=== PATIENT | male | born 1950 | race Caucasian/White ===

== ENCOUNTER 2019-01-29 01:29 | Outpatient (CLI) | payer OTHER, SELFPAY ==
[2019-01-29 14:58] LABS: BUN 9 mg/dL (7-18); CREATININE 0.73 mg/dL (0.70-1.30)
[2019-01-29] MEDS: Omnipaque 350 MG/ML 100 ML BTL IJ (15:32)
--- NOTE | 2019-01-29 15:33 | DI.CT_ITS ---
EXAM: CT NECK WO/W CLINICAL HISTORY: PAROTID MASS K11.8 TECHNIQUE: 100 cc's of Omnipaque 350 IV was utilized for the exam. COMPARISON: THYROID ULTRASOUND from 05/15/2014 FINDINGS: There is a circumscribed, homogeneous, ovoid lesion in the right parotid gland. There is mild homog eneous enhancement. The lesion measures 2.5 x 1.5 x 2.3 cm. No additional masses are identified. N o adenopathy is seen. The findings could represent a benign mixed tumor, Warthin's tumor or isolated non-Hodgkin's lymphoma or metastatic lymph node. A nodule is again seen in the left lobe of the thy roid. Pacemaker is noted over the left pectoral muscle. Orbits, sinuses and mastoid air cells are u nremarkable. Degenerative changes are seen in the spine. The lung apices appear clear. 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 Other considerations are Warthin's tumor non-Hodgkin's lymphoma or metastatic lym ph node.
[2019-01-29 17:40] LABS: Vitamin D 25 Total 20.9 ng/ml (30-100)
== END 2019-01-29 01:49 ==
PROVIDERS: PCP Family Medicine; Visit Provider Otolaryngology Otolaryngology/Facial Plastic Surgery
DX: K11.8 Other diseases of salivary glands (principal); D37.030 Neoplasm of uncertain behavior of the parotid salivary glands; E04.1 Nontoxic single thyroid nodule; Z95.0 Presence of cardiac pacemaker
CPT/HCPCS: 82306; 84520; 70492; 82565; J3490

== ENCOUNTER 2019-03-24 03:42 | Emergency (ER) | payer OTHER, SELFPAY ==
[2019-03-24] VITALS (21 sets, daily range): BP systolic 125–154; BP diastolic 86–103; PULSE 69–101; RESP 9–22; TEMP 37.1; O2SAT 76–97
--- NOTE | 2019-03-24 03:55 | W.ED.GENAD ---
Discharge Plan Disposition Patient Disposition: HOME Condition: Stable Discharge Details Chief Complaint: Abd Prob Clinical Impression: Abdominal pain Primary Care Provider: [facility] ED Provider: Steve Matute Home Meds and New Rx's Prescriptions: New diazepam [Valium] 5 mg tablet 5 mg PO QHS PRN (Reason: muscle spasm) Qty: 10 RF: 0 Continued Eliquis 5 mg tablet 5 mg PO BID Qty: 180 RF: 3 enalapril maleate 10 mg tablet 10 mg PO DAILY Qty: 90 RF: 4 finasteride 5 mg tablet 5 mg PO DAILY Qty: 90 RF: 4 cholecalciferol (vitamin D3) 1,000 unit capsule 1,000 unit PO DAILY RF: 0 acetaminophen-codeine 1 EACH tablet 1 ea PO Q4H PRN PRNRF: 0 Discharge Instructions Instructions: Abdominal Pain (ED) Additional Instructions: follow up with your primary care provider within 1 week if pain significantly worsens or you have persistent vomit return to the emergency department Medical Decision Making 68 yo male with hx of prior PE, pacemaker, hld, who comes in with abdominal pain. He states the past month he has been having pain starting around 11am and goes away after a few hours but tonight was more severe so came in and had one episode of vomit. HE state he felt well yesterday during the day. His abdomen is tender throughout with guarding in the mid abdomen, has had a prior mesh hernia repair per patient years ago otherwise no other surgeries on the abdomen. Given his degree of pain will obtain ct and lab work to eval for sbo, pancreatitis among other pathology pt's labs show lactate barely outside normal range of under 2, apparently was prolonged attempt to get blood so feel this is more likely cause of mild elevation. Imaging unremarkable. He has mild tenderness to the mid abdomen still, given his continued pain I recommended to admit for observation but he declined and is opting to go home and has capacity to make his own decisions. He is requesting something to help him sleep and given his pain seems like apossible spasm will try valium and advised f/u with pcp and return precautions given Differential Diagnosis Differential Diagnosis: sbo, pancreatitis, hernia Medical Records Medical records reviewed: Yes I reviewed the patient's medical records. Imaging Data Radiologic Study: Attestation: I personally reviewed and interpreted this imaging study as follows: Imaging: CT Scan Radiologist's impression: no acute findings Lab Data Lab results reviewed: Yes I reviewed the patient's lab results. HPI General Mode of arrival: ambulatory. Date/Time Provider Initiated Documentation: 03/24/19 03:47. Limitations to Documentation: no limitations. Information obtained by: patient. History of Present Illness 68 year old M presents to the emergency department with the chief complaint of abdominal pain, described as moderate and severe, and is localized to the abdomen. Patient reports no radiation. Patient started experiencing this hour(s) (4) No relieving factors improve symptom(s), No exacerbating factors reported . Patient did receive the following treatments prior to arrival, none Related Data Home Medications Medication Instructions Recorded Confirmed acetaminophen-codeine 1 ea PO Q4H PRN PRN 03/27/17 03/24/19 apixaban 5 mg tablet 5 mg PO BID #180 tab-cap 01/05/19 03/24/19 enalapril maleate 10 mg tablet 10 mg PO DAILY #90 tab-cap 01/05/19 03/24/19 finasteride 5 mg tablet 5 mg PO DAILY #90 tab-cap 01/05/19 03/24/19 cholecalciferol (vitamin D3) 25 1,000 unit PO DAILY 01/30/19 03/24/19 mcg (1,000 unit) capsule diazepam [Valium] 5 mg PO QHS PRN #10 tab 03/24/19 Previous Rx's Medication Instructions Recorded apixaban 5 mg tablet 5 mg PO BID #180 tab-cap 01/05/19 enalapril maleate 10 mg tablet 10 mg PO DAILY #90 tab-cap 01/05/19 finasteride 5 mg tablet 5 mg PO DAILY #90 tab-cap 01/05/19 diazepam [Valium] 5 mg PO QHS PRN #10 tab 03/24/19 Allergies Allergy/AdvReac Type Severity Reaction Status Date / Time No Known Allergies Allergy Unverified 03/24/19 03:49 General Stated Complaint: Abd Prob MARY: 3 Review of Systems All systems reviewed & are unremarkable except as noted in HPI and below Constitutional Constitutional: Denies fever(s) and Denies weakness Cardiovascular Cardiovascular: Denies dyspnea Respiratory Respiratory: Denies cough and Denies dyspnea Musculoskeletal Musculoskeletal: Denies joint swelling Neurologic Neurologic: Denies weakness Psychiatric Psychiatric: Denies depression Endocrine Endocrine: Denies cold intolerance and Denies heat intolerance [facility] Medical History (Updated 02/08/19 @ 09:41 by Breanna Brandt) BPH (benign prostatic hyperplasia) HTN (hypertension) Myotonic dystrophy PE (pulmonary thromboembolism) Surgical History (Updated 01/25/19 @ 09:59 by Breanna Brandt) Colonoscopy - MAC (05/19/16) Extraction of cataract Pacemaker (Acute) [facility] 01/06/18; DUAL CHAMBER ICD PLACEMENT; BIOTRONIC Repair of umbilical hernia (~1994) Family History Mother Diabetes Essential hypertension Personal history of malignant neoplasm BREAST/UTERINE Aortic valve stenosis Heart disease Hyperlipidemia Father Essential hypertension Personal history of malignant neoplasm COLON Heart disease Hyperlipidemia Stroke Brother Essential hypertension Heart disease Hyperlipidemia Brother Essential hypertension Hyperlipidemia Grandfather No problems noted. Grandfather No problems noted. Grandmother Diabetes Personal history of malignant neoplasm PANCREATIC Grandmother Essential hypertension Hyperlipidemia Stroke PATERNAL HISTORY Personal history of malignant neoplasm Depression Heart disease Myotonic dystrophy Sister Essential hypertension Personal history of malignant neoplasm BREAST Heart disease Hyperlipidemia Son Essential hypertension Hyperlipidemia Daughter No problems noted. Daughter Essential hypertension Depression Hyperlipidemia Daughter No problems noted. Daughter No problems noted. Other Cataract Social History Smoking/Tobacco Use Status: Former Tobacco Use Alcohol Intake: never Drug use: Never Substance use type: does not use Do you feel safe at home: Yes Do you feel safe in your relationship?: Yes Exam Const General: no acute distress Orientation: alert HENMT Head: normal to inspection Ears: external ears normal General nose exam: external nose normal Mouth: moist mucous membranes Eyes General: appearance normal, both eyes and all related structures Neck Neck: normal visual inspection Resp Effort & Inspection: normal respiratory effort and able to speak in complete sentences Cardio Rate: regular rate GI Palpation: tender Skin General skin exam: no rashes or lesions noted Neuro General: alert and oriented x3 Extrem General: normal to inspection Psych Mental Status: mental status grossly normal Course Vital Signs Vital signs: Vital Signs Temperature 37.1 C 03/24/19 03:46 Pulse 94 H 03/24/19 03:46 Respiratory Rate 16 03/24/19 03:46 Blood Pressure 152/101 H 03/24/19 03:46 Pulse Oximetry 97 03/24/19 03:46 Temperature 37.1 C 03/24/19 03:46 Temperature Source Temporal Artery Scan 03/24/19 03:46 Pulse 94 H 03/24/19 03:46 Respiratory Rate 16 03/24/19 03:46 Respiratory Effort Non-Labored 03/24/19 03:46 Blood Pressure 152/101 H 03/24/19 03:46 Blood Pressure Position Sitting 03/24/19 03:46 Pulse Oximetry 97 03/24/19 03:46 Oxygen Delivery Method Room Air 03/24/19 03:46 Oxygen Flow Rate 0 03/24/19 03:46 Pain Level 10 03/24/19 03:46
[2019-03-24] MEDS: Ondansetron 4 MG/2 ML VIAL IVP (03:58)
[2019-03-24] MEDS: Normal Saline 1,000 ML 1000 ML IV (03:58)
[2019-03-24 04:09] LABS: Abs Immature Grans 0.01 k/cumm (0.0-0.09); Absolute Basophil Count 0.05 k/cumm (0.0-0.2); Absolute Eosinophil Count 0.16 k/cumm (0.0-0.7); Absolute Lymphocyte Count 2.56 k/cumm (1.2-3.4); Absolute Monocyte Count 0.62 k/cumm (0.11-0.7); Absolute Neutrophil Count 4.58 k/cumm (1.2-6.7); Basophils % 0.6; HCT 52.7 % (40.0-50.0); HGB 17.4 g/dL (13.5-17.5); Immature Grans % 0.1; Lymphocytes % 32.1; Mean Corpuscular Hemoglobin 29.7 pg (27.0-33.0); Mean Corpuscular Volume 89.9 fL (80-95); Mean Platelet Volume 11.2 fL (8.0-11.0); Monocytes % 7.8; Neutrophils % 57.4; Platelet Count 238 x1000/uL (130-400); RBC 5.86 m/cumm (4.50-6.00); RBC Distribution Width 13.6 % (11.8-14.1); White Blood Cell Count 7.98 k/cumm (4.4-10.8)
[2019-03-24 04:13] LABS: Lactate 2.2 mmol/L (0.6-1.4)
[2019-03-24 04:21] LABS: PTT Activated 26.3 sec (21.0-31.4); Prothrombin Time 10.3 sec (9.3-11.0)
[2019-03-24 04:30] LABS: ALT 73 U/L (16-63); AST 107 U/L (15-37); Albumin 3.8 g/dL (3.4-5.0); Alkaline Phosphatase 146 U/L (46-116); Anion Gap 10.7 mmol/L (3-11); BUN 13 mg/dL (7-18); CO2 27.3 mmol/L (21.0-32.0); Calcium 10.7 mg/dL (8.5-10.1); Chloride 106 mmol/L (98-107); Glucose 133 mg/dL (74-106); Lipase 131 U/L (73-393); Potassium 4.2 mmol/L (3.5-5.1); Sodium 144 mmol/L (136-145); Total Protein 7.5 g/dL (6.4-8.2)
[2019-03-24] MEDS: Omnipaque 350 MG/ML 100 ML BTL IJ (04:48)
--- NOTE | 2019-03-24 04:49 | DI.CT_ITS ---
EXAM: CT ABDOMEN PELVIS CTA CLINICAL HISTORY: abdominal pain, ?mesenteric ischemia. TECHNIQUE: Imaging Protocol: Axial CT angiography was performed with multi-slice acquisition and m ulti-planar and/or 3D reconstructions. CONTRAST MATERIAL: Intravenous: Omnipaque 350 Contrast volume:72 mL contrast route:IV - Oral: No COMPARISON: CHEST FOR PULMONARY EMBOLUS from 07/08/2016 CHEST FOR PULMONARY EMBOLUS from 07/23/2016 FINDINGS: Vascular Structures: Abdomen: Celiac [place]/SMA: No evidence of occlusion or significant stenosis. Renal Arteries: No evidence of occlusion or significant stenosis. There is a single renal artery per fusing each kidney. Aorta: No aneurysm. No dissection. Pelvis: Iliac Arteries: No evidence of occlusion or significant stenosis. Common Femoral Arteries: No evidence of occlusion or significant stenosis. Soft Tissues: Liver: Hepatic steatosis. No measurable mass. Gallbladder and biliary tract: No radiodense calculus or dilation. Pancreas: Normal density, no abnormal calcifications or inflammatory process. Spleen: Normal. Kidneys: Normal size, contour and axis. No radiodense stones or obstructive uropathy. No masses seen. Stable cyst in the superior pole of the right kidney. Adrenal glands: Stable bilateral adrenal nodules. These likely reflect adenomas. Aorta: Abdominal portion non-dilated. Bladder: Symmetric distention, no gross wall thickening. Bowel: Diverticulosis in the colon. No evidence of acute diverticulitis. There is a normal appendix . No evidence of bowel obstruction. Peritoneal cavity: No ascites, collection or mesenteric inflammatory response. Bones: Degenerative changes present. Lymph nodes: Within normal limits. Reproductive organs: Enlarged prostate. IMPRESSION: No evidence of an acute abdominal or pelvic process. DATA REPOSITORY: All CT scans at this facility are submitted to the National Radiology Data Registry (NRDR) Dose Index Registry (DIR) with the [employer] (ACR). RADIATION OPTIMIZATION: All CT scans at this facility use at least one of these dose optimization te chniques: automated exposure control; mA and/or kV adjustment per patient size (includes targeted exa ms where dose is matched to clinical indication); or iterative reconstruction.
--- NOTE | 2019-03-24 04:59 | DI.VRAD_ITS ---
PROCEDURE INFORMATION: Exam: CT Angiography Abdomen and Pelvis With Contrast Exam date and time: 03/24/2019 4:38 AM Age: 68 years old Clinical indication: Generalized; Prior surgery; Surgery date: 6+ months; Surgery type: Hernia mesh x2, pacemmaker; Patient HX: Severe worsening abdominal pain for 8+ hours, no recent trauma TECHNIQUE: Imaging protocol: Computed tomographic angiography of the abdomen and pelvis with intravenous contrast material. 3D rendering: MIP and/or 3D reconstructed images were created by the technologist. Radiation optimization: All CT scans at this facility use at least one of these dose optimization techniques: automated exposure control; mA and/or kV adjustment per patient size (includes targeted exams where dose is matched to clinical indication); or iterative reconstruction. Contrast material: [id number]; Contrast volume: 72 ml; Contrast route: IV 18G RT WRIST; COMPARISON: No relevant prior studies available. FINDINGS: Aorta: No aortic aneurysm. No aortic dissection. Celiac trunk and mesenteric arteries: No occlusion or significant stenosis. Renal arteries: No occlusion or significant stenosis. Right iliac arteries: No occlusion or significant stenosis. Left iliac arteries: No occlusion or significant stenosis. Liver: Hepatic steatosis. Gallbladder and bile ducts: Unremarkable. No calcified stones. No ductal dilation. Pancreas: Unremarkable. No mass. No ductal dilation. Spleen: Unremarkable. No splenomegaly. Adrenals: 2 cm right adrenal gland adenoma. Kidneys and ureters: Unremarkable. No solid mass. No hydronephrosis. Stomach and bowel: Colonic diverticulosis. Appendix: No evidence of appendicitis. Intraperitoneal space: Unremarkable. No free air. No significant fluid collection. Lymph nodes: Unremarkable. No enlarged lymph nodes. Bladder: Unremarkable. No mass. Reproductive: Prostate hypertrophy. Bones/joints: No acute fracture. No dislocation. Soft tissues: Unremarkable. IMPRESSION: No acute finding. Dictated and Authenticated by: Steve Ford MD. Ordering:ONUR Wilson MD
[2019-03-24] MEDS: fentaNYL 100 MCG/2 ML VIAL 75 MCG IVP (05:13)
== END 2019-03-24 06:15 | disposition home or self-care (01) ==
PROVIDERS: Emergency Provider Emergency Medicine; PCP Family Medicine
DX: R10.33 Periumbilical pain (principal); R11.2 Nausea with vomiting, unspecified; I10 Essential (primary) hypertension
CPT/HCPCS: 36415; 80053; 83690; 96361; 96374; 96375; 99285; 74174; 83605; 85025; 85610; 85730; 99284; J2405; J3010; J3490

== ENCOUNTER 2019-07-10 02:30 | Emergency (ER) | payer OTHER, SELFPAY ==
[2019-07-10] VITALS (10 sets, daily range): BP systolic 152–166; BP diastolic 85–90; PULSE 58–74; RESP 8–16; TEMP 36.6; O2SAT 92–95
--- NOTE | 2019-07-10 02:39 | ED.GENADUL_ITS ---
Discharge Plan Disposition Patient Disposition: HOME Condition: Good Discharge Details Chief Complaint: Chest Pain Clinical Impression: Abdominal pain Primary Care Provider: [facility] ED Provider: Elgin Trujillo [facility] Meds and New Rx's Prescriptions: New lansoprazole 30 mg capsule,delayed release(DR/EC) 30 mg PO DAILY Qty: 30 RF: 0 famotidine 40 mg tablet 40 mg PO QHS Qty: 30 RF: 0 sucralfate 1 gram tablet 1 gm PO QACHS Qty: 120 RF: 0 Continued Eliquis 5 mg tablet 5 mg PO BID Qty: 180 RF: 3 enalapril maleate 10 mg tablet 10 mg PO DAILY Qty: 90 RF: 4 finasteride 5 mg tablet 5 mg PO DAILY Qty: 90 RF: 4 cholecalciferol (vitamin D3) 1,000 unit capsule 1,000 unit PO DAILY RF: 0 acetaminophen-codeine 1 EACH tablet 1 ea PO Q4H PRN PRNRF: 0 Discontinued metoclopramide HCl [Reglan] 10 mg tablet 10 mg PO QACHS Qty: 120 RF: 2 omeprazole 40 mg capsule,delayed release(DR/EC) 40 mg PO DAILY Qty: 90 RF: 2 Discharge Instructions Instructions: Abdominal Pain (ED) Additional Instructions: Your EKG, laboratory studies, chest x-ray and CT scan of the abdomen pelvis are all unremarkable/without obvious pathology. This would suggest that pain, nausea, anorexia is likely related to acid type disease. Should try to be seen by GI sooner rather than later as symptoms seem to be getting worse. Will try switching up medications. Please take the lansoprazole in the morning. Take the famotidine at night. Take the sucralfate 4 times a day. Avoid caffeine, alcohol, nonsteroidals. May follow-up with primary care until you get into see GI. Return to ED for persistent vomiting, bloody vomiting, black or bloody stool, shortness of breath, new or worsening pain. Referrals: [facility]. [Primary Care Provider] - Medical Decision Making Patient presents with chest pain that seems to be related to upper abdominal pain. He has been on omeprazole for some time. Feels that he is getting worse not better. First presented back in February with negative CT scan. Has subsequently follow-up with primary care. He has been referred to GI but has not seen them. Pain initially worse after eating. Now to the point where he cannot really eat much of anything because of pain. EKG is paced. His pain does not strike me is cardiac. He also has history of PE but he is on Eliquis denies any pleuritic pain or shortness of breath. Will give IV Pepcid, GI cocktail, oral Carafate. Will obtain laboratory studies including troponin. Will obtain chest x-ray due to complaint of chest pain but more interested in obtaining CTA of the abdomen pelvis to rule out possibility of mesenteric artery occlusions as a source of his pain. Patient reports no relief with IV Pepcid and oral GI cocktail and Carafate. Laboratory studies are unremarkable. Normal white count and hemoglobin. Normal liver function and lipase. Troponin negative. Chemistries normal. Chest x-ray negative except for some linear atelectasis in the bases. CT of abdomen pelvis pending. Will try some IV Tylenol. IV Tylenol maybe helped some. At this point he just wants to go home. We will try switching up his medications. We will discontinue the omeprazole and try lansoprazole. This will be taken in the morning. We will add famotidine which he will take at night. We will also add sucralfate 4 times a day. Refer back to primary care and try to get into GI for endoscopy sooner rather than later. Medical Records Medical records reviewed: Yes I reviewed the patient's medical records. Lab Data Lab results reviewed: Yes I reviewed the patient's lab results. ECG Data Attestation: I personally reviewed and interpreted this ECG (s) as follows: Interpretation: Paced rhythm at 75. 100% capture. No further review. HPI General Mode of arrival: ambulatory . Date/Time Provider Initiated Documentation: 07/10/19 02:36 . Limitations to Documentation: no limitations . Information obtained by: patient, RN notes reviewed and old records reviewed . HPI Narrative: Patient presents to the ED with complaint of upper abdominal pain/chest pain. Patient has had problems with abdominal pain since February. Initially would only bother him after eating and only every few days. Now essentially has constant pain to the point where he is only able to eat a small meal once a day. He is on omeprazole. He has been tried on Reglan. Today he developed upper abdominal pain/epigastric pain/lower substernal chest discomfort. It has been ongoing for 12 hours now. The abdominal pain feels like a chronic pain he has been having. Chest pain is new. He also has some low back pain but he does not think it is related. He has had this on and off for a long time. He denies any fever, cough, shortness of breath. He denies any bloody stool or diarrhea. He denies any nausea or vomiting. He has a referral to see GI but not until August. Related Data Home Medications Medication Instructions Recorded Confirmed acetaminophen-codeine 1 ea PO Q4H PRN PRN 03/27/17 07/10/19 apixaban 5 mg tablet 5 mg PO BID #180 tab-cap 01/05/19 07/10/19 enalapril maleate 10 mg tablet 10 mg PO DAILY #90 tab-cap 01/05/19 07/10/19 finasteride 5 mg tablet 5 mg PO DAILY #90 tab-cap 01/05/19 07/10/19 cholecalciferol (vitamin D3) 25 1,000 unit PO DAILY 01/30/19 07/10/19 mcg (1,000 unit) capsule famotidine 40 mg PO QHS #30 tab 07/10/19 lansoprazole 30 mg PO DAILY #30 cap 07/10/19 sucralfate 1 gm PO QACHS #120 tab 07/10/19 Previous Rx's Medication Instructions Recorded apixaban 5 mg tablet 5 mg PO BID #180 tab-cap 01/05/19 enalapril maleate 10 mg tablet 10 mg PO DAILY #90 tab-cap 01/05/19 finasteride 5 mg tablet 5 mg PO DAILY #90 tab-cap 01/05/19 famotidine 40 mg PO QHS #30 tab 07/10/19 lansoprazole 30 mg PO DAILY #30 cap 07/10/19 sucralfate 1 gm PO QACHS #120 tab 07/10/19 Allergies Allergy/AdvReac Type Severity Reaction Status Date / Time No Known Allergies Allergy Unverified 07/10/19 02:45 General MARY: 3 Review of Systems Narrative: 01/08 Review of Systems completed and is negative except as stated above in HPI (Systems reviewed: Const, Eyes, ENT, Resp, CV, GI, , MSK, Skin, Neuro) PFSH Medical History BPH (benign prostatic hyperplasia) HTN (hypertension) Hyperlipidemia (Chronic 05/29/12) 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 PE (pulmonary thromboembolism) Surgical History Colonoscopy - MAC (05/19/16) Extraction of cataract Pacemaker (Acute) [facility] 01/06/18; DUAL CHAMBER ICD PLACEMENT; BIOTRONIC Repair of umbilical hernia (~1994) Family History Mother Diabetes Essential hypertension Personal history of malignant neoplasm BREAST/UTERINE Aortic valve stenosis Heart disease Hyperlipidemia Father Essential hypertension Personal history of malignant neoplasm COLON Heart disease Hyperlipidemia Stroke Brother Essential hypertension Heart disease Hyperlipidemia Brother Essential hypertension Hyperlipidemia Grandfather No problems noted. Grandfather No problems noted. Grandmother Diabetes Personal history of malignant neoplasm PANCREATIC Grandmother Essential hypertension Hyperlipidemia Stroke PATERNAL HISTORY Personal history of malignant neoplasm Depression Heart disease Myotonic dystrophy Sister Essential hypertension Personal history of malignant neoplasm BREAST Heart disease Hyperlipidemia Son Essential hypertension Hyperlipidemia Daughter No problems noted. Daughter Essential hypertension Depression Hyperlipidemia Daughter No problems noted. Daughter No problems noted. Other Cataract Social History Smoking/Tobacco Use Status: Former Tobacco Use Alcohol Intake: never Drug use: Never Substance use type: does not use Do you feel safe at home: Yes Do you feel safe in your relationship?: Yes Exam Narrative Exam Narrative: Vitals: Afebrile. Normal pulse and respiratory rate. Elevated blood pressure. O2 saturations 94 to 97%. Const: WDWN elderly male in NAD. HEENT: NC/AT. Normal facial exam. Eyes: Normal conjunctiva and sclera. Neck: Supple. Trachea midline. Lungs: Normal respiratory effort. Lungs are clear. No chest wall tenderness. Cor: RRR without murmur/gallop. Good radial pulses. GI: Soft and nondistended. Mild tenderness in the epigastric region. No guarding or rebound. Neuro: A+O x 3. Normal speech, mentation, gait. Cranial nerves II - XII grossly intact. No gross motor or sensory deficit. Ext: No C/C/E. No calf tenderness. Skin: Warm and dry without rash.
[2019-07-10] MEDS: Normal Saline 1,000 ML 125 ML IV (03:06)
[2019-07-10] MEDS: FAMOTIDINE 20 MG/50 ML BAG 200 MG IVPB (03:06)
[2019-07-10] MEDS: Sucralfate 1 GM TAB PO (03:06)
[2019-07-10 03:16] LABS: Lipase 29 U/L (73-393)
[2019-07-10 03:23] LABS: Abs Immature Grans 0.01 k/cumm (0.0-0.09); Absolute Basophil Count 0.02 k/cumm (0.0-0.2); Absolute Eosinophil Count 0.13 k/cumm (0.0-0.7); Absolute Lymphocyte Count 1.55 k/cumm (1.2-3.4); Absolute Monocyte Count 0.58 k/cumm (0.11-0.7); Basophils % 0.3; Eosinophils % 1.9; HGB 15.9 g/dL (13.5-17.5); Immature Grans % 0.1 %; Lymphocytes % 22.8; Mean Corp. HGB Concentration 33.1 g/dL (32.0-36.0); Mean Corpuscular Hemoglobin 29.5 pg (27.0-33.0); Mean Corpuscular Volume 89.1 fL (80-95); Mean Platelet Volume 11.6 fL (8.0-11.0); Monocytes % 8.5; Neutrophils % 66.4; Platelet Count 207 x1000/uL (130-400); RBC 5.39 m/cumm (4.50-6.00); RBC Distribution Width 13.6 % (11.8-14.1); White Blood Cell Count 6.79 k/cumm (4.4-10.8)
[2019-07-10 03:32] LABS: ALT 25 U/L (16-63); AST 17 U/L (15-37); Albumin 3.4 g/dL (3.4-5.0); Alkaline Phosphatase 93 U/L (46-116); Anion Gap 11.1 mmol/L (3-11); BUN 5 mg/dL (7-18); Bilirubin, Total 0.8 mg/dL (0.2-1.0); CO2 27.9 mmol/L (21.0-32.0); CREATININE 0.74 mg/dL (0.70-1.30); Calcium 9.3 mg/dL (8.5-10.1); Chloride 104 mmol/L (98-107); Glucose 117 mg/dL (74-106); Magnesium 2.1 mg/dL (1.8-2.4); Potassium 3.7 mmol/L (3.5-5.1); Sodium 143 mmol/L (136-145); Total Protein 6.6 g/dL (6.4-8.2); Troponin I < 0.05 ng/Ml (<0.06)
[2019-07-10] MEDS: Omnipaque 350 MG/ML 100 ML BTL IJ (03:37)
--- NOTE | 2019-07-10 03:55 | DI.RAD_ITS ---
EXAM: XR CHEST 2V PA LATERAL CLINICAL HISTORY: chest pain TECHNIQUE: 2D digital imaging was performed. COMPARISON: CHEST 2 VIEWS PA,LAT from 05/03/2014 PORTABLE CHEST ONE VIEW from 07/08/2016 FINDINGS: MEDIASTINUM: Normal. HEART: Normal. PULMONARY VASCULATURE: Normal. LUNGS: Bilateral basilar atelectasis or scarring. No focal consolidating infiltrates are present. PLEURAL SPACE: No pleural effusion or pneumothorax. BONE:Normal. OTHER FINDINGS:Stable elevation of the right hemidiaphragm. The cardiac pacing wires are in good pos ition. IMPRESSION: Bilateral basilar atelectasis or scarring. No focal consolidating infiltrates are present. DATA REPOSITORY: RADIATION DOSE DELIVERED:
--- NOTE | 2019-07-10 04:05 | DI.CT_ITS ---
EXAM: CT ABDOMEN PELVIS CTA CLINICAL HISTORY: abdominal pain for few months, worse after eating. TECHNIQUE: Imaging Protocol: Axial CT angiography was performed with multi-slice acquisition and m ulti-planar and/or 3D reconstructions. CONTRAST MATERIAL: Intravenous: Omnipaque 350 Contrast volume:100 mL Oral: No COMPARISON: CT ABDOMEN PELVIS CTA from 03/24/2019 FINDINGS: Vascular Structures: Celiac [place]/SMA: No evidence of occlusion or stenosis. Renal Arteries: No evidence of occlusion or stenosis. There is a single renal artery perfusing each kidney. Aorta: No aneurysm. No dissection. Pelvis: Iliac Arteries: No evidence of occlusion or stenosis. Common Femoral Arteries: No evidence of occlusion or stenosis. Soft Tissues:Mild gynecomastia. Lung bases:There is scarring or atelectasis. Liver: There is diffuse fatty infiltration. There is a simple cyst in the right lobe of the liver. No suspicious hepatic masses are present. Gallbladder and biliary tract: No radiodense calculus or dilation. Pancreas: Normal density, no abnormal calcifications or inflammatory process. Spleen: Normal. Kidneys: Normal size, contour and axis. No radiodense stones or obstructive uropathy. No masses seen. There is a stable right simple renal cyst. Adrenal glands: Stable bilateral adrenal nodules are present. Bladder: Symmetric distention, no gross wall thickening. Bowel: No obstruction or bowel wall thickening. There is colonic diverticulosis but no evidence of ac verito diverticulitis. There is a normal appendix. Peritoneal cavity: No ascites, collection or mesenteric inflammatory response. Reproductive organs: Marked enlargement of the prostate gland. Bones: Degenerative changes are present. Lymph nodes: Within normal limits. IMPRESSION: 1. Normal CT Angiogram of the Abdomen. No evidence to suggest mesenteric ischemia. 2. Marked enlargement of the prostate gland. 3. Colonic diverticulosis but no evidence of acute diverticulitis. DATA REPOSITORY: All CT scans at this facility are submitted to the National Radiology Data Registry (NRDR) Dose Index Registry (DIR) with the [employer] (ACR). RADIATION OPTIMIZATION: All CT scans at this facility use at least one of these dose optimization te chniques: automated exposure control; mA and/or kV adjustment per patient size (includes targeted exa ms where dose is matched to clinical indication); or iterative reconstruction.
[2019-07-10] MEDS: Normal Saline - Diluent 50 ML VIAL IV (04:07)
--- NOTE | 2019-07-10 04:11 | DI.VRAD_ITS ---
PROCEDURE INFORMATION: Exam: XR Chest, 2 Views Exam date and time: 07/10/2019 3:45 AM Age: 69 years old Clinical indication: Right-sided chest pain; epigastric pain. Prior surgery; Pacemaker 2 years ago. TECHNIQUE: Imaging protocol: XR of the chest Views: 2 views. COMPARISON: SC PORTABLE CHEST ONE VIEW 07/08/2016 3:51 AM FINDINGS: Tubes, catheters and devices: Bipolar pacemaker leads within the right atrium and apex of the right ventricle. Lungs: No alveolar infiltrate. Areas linear parenchymal scarring or subsegmental collapse / atelectasis in each lower lung zone. Elevated right hemidiaphragm. Pleural space: No pleural fluid collection. No pneumothorax. Heart/Mediastinum: Unremarkable. No cardiomegaly. Vasculature: Calcific thoracic aorta. Bones/joints: Unremarkable for age. IMPRESSION: Areas of linear parenchymal scarring or subsegmental collapse / atelectasis in each lower lung zone. Dictated and Authenticated by: Viraj Whalen MD. Ordering:VINEET Eisenberg MD
[2019-07-10] MEDS: ACETAMINOPHEN 1,000 MG/100 ML BTL 400 MG IVPB (04:46)
--- NOTE | 2019-07-10 04:46 | DI.VRAD_ITS ---
PROCEDURE INFORMATION: Exam: CT Angiography Abdomen and Pelvis With Contrast Exam date and time: 07/10/2019 3:54 AM Age: 69 years old Clinical indication: Abdominal pain; Abdominal wall pain for a few months, worse after eating. Mesenteric ischemia protocol per Dr. Trujillo. Prior surgery; date: 6+ months; Hernia repair TECHNIQUE: Imaging protocol: Computed tomographic angiography of the abdomen and pelvis with intravenous contrast material. 3D rendering: MIP and/or 3D reconstructed images were created by the technologist. Radiation optimization: All CT scans at this facility use at least one of these dose optimization techniques: automated exposure control; mA and/or kV adjustment per patient size (includes targeted exams where dose is matched to clinical indication); or iterative reconstruction. Contrast material: OMNIPAQUE 350; Contrast volume: 100 ml; Contrast route: IV LAC; COMPARISON: CT ABDOMEN PELVIS CTA 03/24/2019 4:41 AM FINDINGS: Tubes, catheters and devices: Prior pacemaker lead placement. Lungs: Bibasilar linear parenchymal scarring or subsegmental collapse / atelectasis. Aorta: No aortic aneurysm. No aortic dissection. Celiac trunk and mesenteric arteries: No occlusion or significant stenosis. Renal arteries: No occlusion or significant stenosis. Right iliac arteries: No occlusion or significant stenosis. Left iliac arteries: No occlusion or significant stenosis. Liver: Liver fatty infiltration. Small cyst posterior right lobe of the liver. Gallbladder and bile ducts: Normal gallbladder. No biliary tract dilatation. Pancreas: Unremarkable. No mass. No ductal dilation. Spleen: Unremarkable. No splenomegaly. Adrenals: Stable 2.1 cm low-density right adrenal adenoma. Stable 11 by 14 mm low-density left adrenal adenoma. Kidneys and ureters: No hydronephrosis. No perinephric fluid collection. Stable 13 mm cyst within the superomedial right renal cortex. Stomach and bowel: Scattered colon diverticuli without evidence of diverticulitis. No generalized ileus or bowel obstruction. Appendix: Normal appendix. Intraperitoneal space: Unremarkable. No free air. No significant fluid collection. Lymph nodes: Unremarkable. No enlarged lymph nodes. Bladder: Unremarkable. No mass. Reproductive: Enlarged prostate gland measuring 6.1 x 4.9 cm. Bones/joints: No acute fracture. No dislocation. Mild spinal degenerative changes. Soft tissues: Mild gynecomastia. IMPRESSION: 1. CTA abdomen and pelvis within normal limits. No evidence to suggest mesenteric ischemia. 2. Enlarged prostate gland measuring 6.1 x 4.9 cm. 3. Scattered colon diverticuli without evidence of diverticulitis. 4. Liver fatty infiltration. Dictated and Authenticated by: Viraj Whalen MD. Ordering:VINEET Eisenberg MD
== END 2019-07-10 05:26 | disposition home or self-care (01) ==
PROVIDERS: Emergency Provider Emergency Medicine; PCP Family Medicine
DX: R10.10 Upper abdominal pain, unspecified (principal); R07.89 Other chest pain; I10 Essential (primary) hypertension
CPT/HCPCS: 80053; 83690; 93005; 96361; 96365; 96366; 99285; 71046; 74174; 83735; 84484; 85025; 93010; 99284; J0131; J3490

== ENCOUNTER 2019-07-10 11:26 | Emergency (ER) | payer OTHER, SELFPAY ==
[2019-07-10] VITALS (37 sets, daily range): BP systolic 146–172; BP diastolic 75–96; PULSE 59–89; RESP 11–43; TEMP 36.7; O2SAT 84–98
--- NOTE | 2019-07-10 11:45 | DI.US_ITS ---
TECHNIQUE: Ultrasound abdomen performed using standard protocol. COMPARISON: No exams were available for comparison FINDINGS: GALLBLADDER: There is an immobile stone seen within the neck of the gallbladder. The gallbladder wal l measures 3.8 mm. No pericholecystic fluid identified. The gallbladder is distended measuring 4.4 c m in transverse diameter. There is sludge seen within the gallbladder. BILIARY SYSTEM: Common bile duct measures 4.2 mm. No intrahepatic biliary ductal dilation. TESFAYE'S SIGN: Positive ASCITES: None seen. IMPRESSION: 1. Cholelithiasis within an immobile stone seen within the neck of the gallbladder. Additional findi ngs are noted suspicious for acute cholecystitis. 2. The findings were discussed with the emergency department on the date of the examination. DATA REPOSITORY:
--- NOTE | 2019-07-10 11:48 | W.ED.GENAD ---
Discharge Plan Disposition Patient Disposition: [facility] Condition: Serious Discharge Details Chief Complaint: Abd Prob Clinical Impression: Acute cholecystitis Primary Care Provider: [facility] ED Provider: Ron Miller Home Meds and New Rx's Prescriptions: No Action Eliquis 5 mg tablet 5 mg PO BID Qty: 180 RF: 3 enalapril maleate 10 mg tablet 10 mg PO DAILY Qty: 90 RF: 4 finasteride 5 mg tablet 5 mg PO DAILY Qty: 90 RF: 4 cholecalciferol (vitamin D3) 1,000 unit capsule 1,000 unit PO DAILY RF: 0 acetaminophen-codeine 1 EACH tablet 1 ea PO Q4H PRN PRNRF: 0 lansoprazole 30 mg capsule,delayed release(DR/EC) 30 mg PO DAILY Qty: 30 RF: 0 famotidine 40 mg tablet 40 mg PO QHS Qty: 30 RF: 0 sucralfate 1 gram tablet 1 gm PO QACHS Qty: 120 RF: 0 Discharge Data Discharge Date/Time-TO BE ENTERED AT DEPARTURE: 07/10/19 15:32 Medical Decision Making 1157 --69-year-old male with multi-medical problems, here with right upper quadrant abdominal pain that he has had intermittently over the past 3 months, sharp and severe just prior to arrival. Patient was seen here earlier today and had diagnostic lab work-up and diagnostic imaging that was nondiagnostic and it was felt that he had acid related disease. On bedside [id number] ultrasound I was unable to visualize gallbladder. I reviewed CT abdomen pelvis that was performed earlier today and interpreted by radiology as follows: FINDINGS: Vascular Structures: Celiac [place]/SMA: No evidence of occlusion or stenosis. Renal Arteries: No evidence of occlusion or stenosis. There is a single renal artery perfusing each kidney. Aorta: No aneurysm. No dissection. Pelvis: Iliac Arteries: No evidence of occlusion or stenosis. Common Femoral Arteries: No evidence of occlusion or stenosis. Soft Tissues:Mild gynecomastia. Lung bases:There is scarring or atelectasis. Liver: There is diffuse fatty infiltration. There is a simple cyst in the right lobe of the liver. No suspicious hepatic masses are present. Gallbladder and biliary tract: No radiodense calculus or dilation. Pancreas: Normal density, no abnormal calcifications or inflammatory process. Spleen: Normal. Kidneys: Normal size, contour and axis. No radiodense stones or obstructive uropathy. No masses seen. There is a stable right simple renal cyst. Adrenal glands: Stable bilateral adrenal nodules are present. Bladder: Symmetric distention, no gross wall thickening. Bowel: No obstruction or bowel wall thickening. There is colonic diverticulosis but no evidence of acute diverticulitis. There is a normal appendix. Peritoneal cavity: No ascites, collection or mesenteric inflammatory response. Reproductive organs: Marked enlargement of the prostate gland. Bones: Degenerative changes are present. Lymph nodes: Within normal limits. IMPRESSION: 1. Normal CT Angiogram of the Abdomen. No evidence to suggest mesenteric ischemia. 2. Marked enlargement of the prostate gland. 3. Colonic diverticulosis but no evidence of acute diverticulitis. Patient is pain-free at this time. Plan to repeat diagnostic labs and will obtain right upper quadrant abdominal ultrasound to assess for biliary pathology. -- Patient reassessed and pain much worse. Ultrasound obtained and shows distended gallbladder, borderline increased gallbladder wall thickness, gallstone impacted in neck, no pericholecystic fluid. LFTs normal. Lipase is slightly elevated. Pain significantly increased on reassessment. He was given Dilaudid 1 mg IV. Patient given Zosyn 4.5 mg IV. I spoke with on-call general surgeon, Dr. Perez, who spoke with anesthesiology, surgical team is not comfortable treating patient here and recommends transfer. --I spoke with general surgeon at [facility] rental salesperson who will accept the patient in transfer. Patient be transferred to the ED. Patient consents to transfer in stable at time of transfer. Lab Data Lab results reviewed: Yes I reviewed the patient's lab results. Lab results narrative: Laboratory Tests Range/Units 07/10/19 07/10/19 07/10/19 11:50 11:50 11:50 WBC (4.4-10.8) k/cumm RBC (4.50-6.00) m/cumm Hgb (13.5-17.5) g/dL Hct (40.0-50.0) % MCV (80-95) fL MCH (27.0-33.0) pg MCHC (32.0-36.0) g/dL RDW (11.8-14.1) % Plt Count (130-400) x1000/uL MPV (8.0-11.0) fL Immature Gran % % Neutrophils % Lymphocytes % Monocytes % Eosinophils % Basophils % Absolute Neutrophils (1.2-6.7) k/cumm Absolute Lymphocytes (1.2-3.4) k/cumm Absolute Monocytes (0.11-0.7) k/cumm Absolute Eosinophils (0.0-0.7) k/cumm Absolute Basophils (0.0-0.2) k/cumm Sodium (136-145) mmol/L 141 Potassium (3.5-5.1) mmol/L 3.7 Chloride (98-107) mmol/L 103 Carbon Dioxide (21.0-32.0) mmol/L 27.5 Anion Gap (3-11) mmol/L 10.5 BUN (7-18) mg/dL 5 L Creatinine (0.70-1.30) mg/dL 0.66 L Estimated GFR/1.73 m2 (mL/min/1.73m2) >= 60.00 Glucose (74-106) mg/dL 115 H Lactate (0.6-1.4) mmol/L 1.2 Calcium (8.5-10.1) mg/dL 9.2 Total Bilirubin (0.2-1.0) mg/dL 0.9 AST (15-37) U/L 21 ALT (16-63) U/L 26 Alkaline Phosphatase (46-116) U/L 97 Total Protein (6.4-8.2) g/dL 6.9 Albumin (3.4-5.0) g/dL 3.5 Lipase (73-393) U/L 26 Range/Units 07/10/19 11:50 WBC (4.4-10.8) k/cumm 8.36 RBC (4.50-6.00) m/cumm 5.49 Hgb (13.5-17.5) g/dL 16.1 Hct (40.0-50.0) % 48.6 MCV (80-95) fL 88.5 MCH (27.0-33.0) pg 29.3 MCHC (32.0-36.0) g/dL 33.1 RDW (11.8-14.1) % 13.7 Plt Count (130-400) x1000/uL 193 MPV (8.0-11.0) fL 11.2 H Immature Gran % % 0.1 Neutrophils % 81.9 Lymphocytes % 9.6 Monocytes % 8.0 Eosinophils % 0.2 Basophils % 0.2 Absolute Neutrophils (1.2-6.7) k/cumm 6.84 H Absolute Lymphocytes (1.2-3.4) k/cumm 0.80 L Absolute Monocytes (0.11-0.7) k/cumm 0.67 Absolute Eosinophils (0.0-0.7) k/cumm 0.02 Absolute Basophils (0.0-0.2) k/cumm 0.02 Sodium (136-145) mmol/L Potassium (3.5-5.1) mmol/L Chloride (98-107) mmol/L Carbon Dioxide (21.0-32.0) mmol/L Anion Gap (3-11) mmol/L BUN (7-18) mg/dL Creatinine (0.70-1.30) mg/dL Estimated GFR/1.73 m2 (mL/min/1.73m2) Glucose (74-106) mg/dL Lactate (0.6-1.4) mmol/L Calcium (8.5-10.1) mg/dL Total Bilirubin (0.2-1.0) mg/dL AST (15-37) U/L ALT (16-63) U/L Alkaline Phosphatase (46-116) U/L Total Protein (6.4-8.2) g/dL Albumin (3.4-5.0) g/dL Lipase (73-393) U/L HPI General Date/Time Provider Initiated Documentation: 07/10/19 11:45. Limitations to Documentation: no limitations. Information obtained by: patient and EMS. HPI Narrative: 69-year-old male with history of hypertension, hyperlipidemia, myotonic dystrophy, PE in the past,, presents with chief complaint of right upper quadrant pain. Pain started 1 hour ago. Pain was sharp and severe and localized to his right upper abdomen focally. Pain was worse when he took a deep breath. He was given fentanyl 200 mcg by EMS. Patient notes pain is now resolved. Patient states he is had intermittent pain, same or similar to this over the past few months that has been worse after eating. Patient was actually seen here earlier today for abdominal pain and had a CTA of his abdomen and pelvis which was negative. His symptoms were thought to be related to dyspepsia and acid reflux. He denies associated shortness of breath. Denies chest pain. No fever. No nausea or vomiting. Related Data Home Medications Medication Instructions Recorded Confirmed acetaminophen-codeine 1 ea PO Q4H PRN PRN 03/27/17 07/10/19 apixaban 5 mg tablet 5 mg PO BID #180 tab-cap 01/05/19 07/10/19 enalapril maleate 10 mg tablet 10 mg PO DAILY #90 tab-cap 01/05/19 07/10/19 finasteride 5 mg tablet 5 mg PO DAILY #90 tab-cap 01/05/19 07/10/19 cholecalciferol (vitamin D3) 25 1,000 unit PO DAILY 01/30/19 07/10/19 mcg (1,000 unit) capsule famotidine 40 mg PO QHS #30 tab 07/10/19 07/10/19 lansoprazole 30 mg PO DAILY #30 cap 07/10/19 07/10/19 sucralfate 1 gm PO QACHS #120 tab 07/10/19 07/10/19 Previous Rx's Medication Instructions Recorded apixaban 5 mg tablet 5 mg PO BID #180 tab-cap 01/05/19 enalapril maleate 10 mg tablet 10 mg PO DAILY #90 tab-cap 01/05/19 finasteride 5 mg tablet 5 mg PO DAILY #90 tab-cap 01/05/19 famotidine 40 mg PO QHS #30 tab 07/10/19 lansoprazole 30 mg PO DAILY #30 cap 07/10/19 sucralfate 1 gm PO QACHS #120 tab 07/10/19 Allergies Allergy/AdvReac Type Severity Reaction Status Date / Time No Known Allergies Allergy Unverified 07/10/19 14:57 General Stated Complaint: Abd Prob MARY: 3 Review of Systems All systems reviewed & are unremarkable except as noted in HPI and below Cardiovascular Cardiovascular: Denies dyspnea Respiratory Respiratory: Denies dyspnea Gastrointestinal Gastrointestinal: Reports as per HPI and Reports abdominal pain PFSH Medical History BPH (benign prostatic hyperplasia) HTN (hypertension) Hyperlipidemia (Chronic 05/29/12) 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 PE (pulmonary thromboembolism) Surgical History Colonoscopy - MAC (05/19/16) Extraction of cataract Pacemaker (Acute) [facility] 01/06/18; [employer]ACEMENT; BIOTRONIC Repair of umbilical hernia (~1994) Family History Mother Diabetes Essential hypertension Personal history of malignant neoplasm BREAST/UTERINE Aortic valve stenosis Heart disease Hyperlipidemia Father Essential hypertension Personal history of malignant neoplasm COLON Heart disease Hyperlipidemia Stroke Brother Essential hypertension Heart disease Hyperlipidemia Brother Essential hypertension Hyperlipidemia Grandfather No problems noted. Grandfather No problems noted. Grandmother Diabetes Personal history of malignant neoplasm PANCREATIC Grandmother Essential hypertension Hyperlipidemia Stroke PATERNAL HISTORY Personal history of malignant neoplasm Depression Heart disease Myotonic dystrophy Sister Essential hypertension Personal history of malignant neoplasm BREAST Heart disease Hyperlipidemia Son Essential hypertension Hyperlipidemia Daughter No problems noted. Daughter Essential hypertension Depression Hyperlipidemia Daughter No problems noted. Daughter No problems noted. Other Cataract Social History Smoking/Tobacco Use Status: Former Tobacco Use Alcohol Intake: never Drug use: Never Substance use type: does not use Do you feel safe at home: Yes Do you feel safe in your relationship?: Yes Exam Const General: cooperative and no acute distress HENMT Mouth: moist mucous membranes Eyes Conjunctivae: normal conjunctivae Sclera: normal sclerae Neck Neck: trachea midline and supple Resp Auscultation: clear to auscultation bilaterally, no rales, no rhonchi and no wheezes Cardio Jugular venous pressure: no JVD Rate: regular rate and not tachycardic Rhythm: regular rhythm GI Palpation: soft, not firm, no guarding, no masses, not rigid and nontender Skin General skin exam: no rashes or lesions noted Neuro General: patient alert, patient awake and tone normal Extrem General: no edema Psych Appearance: grossly normal Mental Status: mental status grossly normal Course Vital Signs Vital signs: Vital Signs Temperature 36.7 C 07/10/19 11:28 Pulse 80 07/10/19 11:28 Respiratory Rate 17 07/10/19 11:28 Blood Pressure 157/96 H 07/10/19 11:28 Pulse Oximetry 97 07/10/19 11:28 Temperature 36.7 C 07/10/19 11:28 Temperature Source Tympanic 07/10/19 11:28 Pulse 80 07/10/19 11:28 Respiratory Rate 17 07/10/19 11:28 Respiratory Effort 07/10/19 11:41 Blood Pressure 157/96 H 07/10/19 11:28 Blood Pressure Position Sitting 07/10/19 11:28 Pulse Oximetry 97 07/10/19 11:28 Oxygen Delivery Method Nasal Cannula 07/10/19 11:28 Oxygen Flow Rate 2 07/10/19 11:28 Pain Level 0 07/10/19 11:28
[2019-07-10] MEDS: Normal Saline Flush 10 ML SYR IVP (11:55)
[2019-07-10 11:56] LABS: Abs Immature Grans 0.01 k/cumm (0.0-0.09); Absolute Basophil Count 0.02 k/cumm (0.0-0.2); Absolute Eosinophil Count 0.02 k/cumm (0.0-0.7); Absolute Monocyte Count 0.67 k/cumm (0.11-0.7); Absolute Neutrophil Count 6.84 k/cumm (1.2-6.7); Basophils % 0.2; Eosinophils % 0.2; HCT 48.6 % (40.0-50.0); HGB 16.1 g/dL (13.5-17.5); Immature Grans % 0.1 %; Lactate 1.2 mmol/L (0.6-1.4); Lymphocytes % 9.6; Mean Corp. HGB Concentration 33.1 g/dL (32.0-36.0); Mean Corpuscular Hemoglobin 29.3 pg (27.0-33.0); Mean Corpuscular Volume 88.5 fL (80-95); Mean Platelet Volume 11.2 fL (8.0-11.0); Neutrophils % 81.9; Platelet Count 193 x1000/uL (130-400); RBC 5.49 m/cumm (4.50-6.00); RBC Distribution Width 13.7 % (11.8-14.1); White Blood Cell Count 8.36 k/cumm (4.4-10.8)
[2019-07-10] MEDS: Lactated Ringers 1,000 ML 150 ML IV (12:00)
[2019-07-10 12:09] LABS: Lipase 26 U/L (73-393)
[2019-07-10 12:14] LABS: ALT 26 U/L (16-63); AST 21 U/L (15-37); Albumin 3.5 g/dL (3.4-5.0); Alkaline Phosphatase 97 U/L (46-116); Anion Gap 10.5 mmol/L (3-11); BUN 5 mg/dL (7-18); Bilirubin, Total 0.9 mg/dL (0.2-1.0); CO2 27.5 mmol/L (21.0-32.0); CREATININE 0.66 mg/dL (0.70-1.30); Calcium 9.2 mg/dL (8.5-10.1); Chloride 103 mmol/L (98-107); Glucose 115 mg/dL (74-106); Potassium 3.7 mmol/L (3.5-5.1); Sodium 141 mmol/L (136-145); Total Protein 6.9 g/dL (6.4-8.2)
[2019-07-10] MEDS: oxyCODONE 5 MG TAB PO (13:09)
[2019-07-10] MEDS: HYDROmorphone 2 MG/ML VIAL 1 MG IVP ×2 (13:35→15:15)
[2019-07-10] MEDS: PIPERACILLIN/TAZO 4.5 GM in Normal Saline 100 ML IVPB (15:21)
== END 2019-07-10 15:32 | disposition short-term general hospital (02) ==
PROVIDERS: Emergency Provider Student in an Organized Health Care Education/Training Program; PCP Family Medicine
DX: K81.0 Acute cholecystitis (principal); I10 Essential (primary) hypertension
CPT/HCPCS: 80053; 83690; 96361; 96374; 96376; 99285; 76705; 83605; 85025; J2543

== ENCOUNTER 2020-07-24 02:02 | Outpatient (CLI) | payer OTHER, SELFPAY ==
[2020-07-24 12:40] LABS: HCT 51.5 % (40.0-50.0); HGB 16.4 g/dL (13.5-17.5); MCH 29.1 pg (27.0-33.0); MCHC 31.8 % (32.0-36.0); MCV 91.5 fL (80-95); MPV 11.5 fL (8.0-11.0); Platelet Count 216 10^3/uL (130-400); RBC 5.63 10^6/uL (4.36-5.78); RDW 13.4 % (11.8-14.1); RDW-SD 45.8 fL; WBC 7.19 10^3/uL (4.4-10.8)
[2020-07-24 12:52] LABS: CREATININE 0.9 mg/dL (0.70-1.30); Potassium 4.5 mmol/L (3.5-5.1)
[2020-07-24 12:56] LABS: Hemoglobin A1C 5.3 % (<5.7)
== END 2020-07-24 02:03 | disposition home or self-care (01) ==
LOC: LOS 02:03
PROVIDERS: PCP Family Medicine; Visit Provider Family Medicine
DX: D64.9 Anemia, unspecified (principal); I10 Essential (primary) hypertension; R73.9 Hyperglycemia, unspecified
CPT/HCPCS: 36415; 85027; 82565; 83036; 84132

== ENCOUNTER 2021-12-05 06:37 | Emergency (ER) | payer OTHER, SELFPAY ==
[2021-12-05 06:42] VITALS: BP 167/87; PULSE 69; RESP 18; TEMP 36.8; O2SAT 93
--- OUTSIDE RECORDS SUMMARY | 2021-12-05 06:43 | XMS_ITS | Encounter Summary ---
:1950 Author Organization [facility] [place] [address] Care Team Providers Name Role Phone Pool Hercules MD Primary Care Provider [phone] Reason for Visit Reason Comments Hospital Transfer Auth/Cert Specialty Diagnoses / Procedures Referred By Contact Refer red To Contact Diagnoses Acute cholecystitis INFECTED GAL BLADDER Procedures ER IPI Admit Referral ID Status Reason Start Date Expiration Date Visits Requ ested Visits Authorized [id number] 1 1 Encounter Details Date Type Department Care Team Description 07/11/2019 Surgery Main Operating Room Amari Schneider LAPA ROSCOPIC Leanne Bowles MD CHOLECYSTECTOMY WITH [facility] CHOLANGIOGRAM (WRVU 11.47) [facility] [address] [place] [address] [place] [address] [phone] Social History Tobacco Use Types Packs/Day Years Used Date Former Smoker Cigarettes 1 20 Smokeless Tobacco: Never Used Tobacco Cessation: Counseling Given: No Alcohol Use Standard Drinks/Week Comments Not Currently 0 (1 standard drink = 0.6 oz pure alcoho l) Sex Assigned at Date Recorded Not on file documented as of this encounter Last Filed Vital Signs Vital Sign Reading Time Taken Comments Blood Pressure 129/78 07/11/2019 11:48 AM EDT Pulse 70 07/11/2019 5:05 AM EDT Temperature 36.5 ??C (97.7 ??F) 07/11/2019 11:48 AM EDT Respiratory Rate 16 07/11/2019 11:48 AM EDT Oxygen Saturation 95% 07/11/2019 11:48 AM EDT Inhaled Oxygen Concentration - - Weight 80.5 kg (177 lb 6.4 oz) 07/11/2019 5:05 AM EDT Height 172.7 cm (5' 8) 07/10/2019 9:05 PM EDT Body Mass Index 26.62 07/10/2019 9:05 PM EDT documented in this encounter Discharge Summaries Bacilio Mcdowell MD - 07/14/2019 12:40 PM EDT Images from the original note were not included. Acute Care Surgery Discharge Summary Patient Name: Rivas Carlos Patient Age: 69 y.o. : 1950 Attending Physician: Gallo Gardner MD Date of Admission: 07/10/2019 Date of Discharge: 07/14/2019 ID: 69 y.o.yo pt admitted on 07/10/2019 for acute cholecystitis Other In-hospital Issues: - Acute Pain Secondary Diagnosis: Past Medical History: Diagnosis Date ??? Myotonic dystrophy Allergies: No Known Allergies Operations/Procedures: 07/11/2019 Procedure(s): LAPAROSCOPIC CHOLECYSTECTOMY WITH CHOLANGIOGRAM ([facility]) HPI: from H&P by Dr. Elgin Martino Rivas Carlos is a 69 y.o. male with PMH HTN, HLD, myotonic dystrophy, PE, and pace maker insertion (on eliquis) who presents in transfer from [facility] for concerns regarding acute cholecystitis. He reports that he started having intermittent RUQ pain about 4 months ago that was post-prandial in nature.He did not seek care or do anything about the pain. Over the last 48 hours the pain has acutely worsened and the pain has become more diffuse than just localized to the RUQ. He has had anorexia and intermittent nausea over the last 2 days. Has not eaten anything in >24H. The pain is constant now and is not allowing him to fall asleep at night. He presented to [facility] for evaluation where CT was done which only revealed diverticulosis w/o diverticulitis and a f/u U/S showed an impacted stone in the gallbladder neck w/ GB dilation. Given his myotonic dystrophy request was made to transfer him to [facility]. He also does report some subjective low grade fevers. No Chest pain. Does feel short of breath 2/2 pain with inspiration. Labs at OSH fairly unremarkable, no leukocytosis, LFTs normal, normal lactate.Per patient last dose of eliquis was yesterday morning. Hospital Course: Mr. Carlos was admitted to the ACS service and started on medical therapy. He was taken to the OR on 07/11/2019 for laparoscopic cholecystectomy with drain placement given the extent of inflammation/necrosis found. On POD1, he was tolerating mostly liquids but pain control remained an issue. By POD2, his pain was adequately managed, drain output remained minimal, he was tolerating a diet, passing stool, and he ambulated with PT/OT. Rivas Carlos's pain was adequately controlled, he was maintaining adequate oxygen saturation on room air, and was hemodynamically stable. He was tolerating a diet without abdominal complaints and voiding adequately. WBC and Hgb were stable. He was ambulating with assistance per his baseline. Rivas Carlos was evaluated by the Surgery Team and deemed medically stable for discharge today. Pending Lab Data at Discharge: None Pertinent Lab Data: Recent Labs 07/12/19 0631 WBC 8.4 HGB 14.2 HCT 44.4 PLATELET 162 Recent Labs 07/13/19 0201 07/12/19 0631 NA 141 142 K 4.0 4.1 CL 102 105 CO2 31 27 BUN 8* 7* CREATININE 0.57* 0.56* GLUCOSE 109 147 CALCIUM 8.9 9.0 MAGNESIUM -- 0.90 PHOS -- 1.9* Microbiology Data: None Pertinent Imaging: CT A/P at OSH: 1. Within normal limits 2. Enlarged prostate 3. Scattered colonic diverticula w/o diverticulitis 4. Liver fatty infiltration ?? U/S OSH:?? 1. Cholelithiasis w/ immobile stone w/in neck of gallbladder. GB distended to 4.4cm. Evidence of sludge 2. CBD measures 4.2mm 3. No pericholecystic fluid, GB wall measures 3.8mm ?? Discharge Physical Examination: Vital Signs: Last value Range last 24hrs Temperature Temp: 36.5 ??C (97.7 ??F) Temp: [36.4 ??C (97.5 ??F)-36.9 ??C (98.4 ??F)] Heart Rate Heart Rate: 60 Heart Rate: [60-68] Blood Pressure BP: 121/77 BP: (102-128)/(64-77) Respiratory Rate Resp: 16 Resp: [16-17] SpO2 SpO2: (!) 85 % SpO2: [84 %-96 %] Physical Exam: GA:??elderly man laying in bed Head: normocephalic, atraumatic CV: Paced, no murmurs rubs gallops Pulm:??CTABL, comfortably breathing on 2 L NC ABD:??Distended, TTP at midepigastric and RUQ, incisions c/d/i, DAVIAN drain from RUQ with serosanguinous output Extr: warm and well perfused, no notable edema Neuro: no focal deficits Current Medications: The following medications have been prescribed for you. If you notice any adverse reactions to your medications, please contact your primary care physician immediately or go to the nearest Emergency Department. Your Medications Continued medications, unchanged Dose Details Eliquis 5 mg Tab Take 5 mg by mouth 2 times daily. Generic drug: apixaban 5 mg Refills: 0 enalapril 10 mg Tab Commonly known as: Vasotec Refills: 0 finasteride 5 mg Tab Commonly known as: Proscar Refills: 0 STOPPED Medications Tylenol-Codeine #3 300-30 mg Tab Generic drug: acetaminophen-codeine Disposition: Home Scheduled Appointments: The following appointments have been scheduled on your behalf: No future appointments. Outpatient Services/Studies: No discharge procedures on file. Special Instructions Given to Patient at Discharge:. An After Visit Summary was printed and given to the patient. Patient Instructions Discharge Instructions You were were admitted and treated for the following diagnosis: cholecystitis CALL YOUR PHYSICIAN IF: 1. You have a fever greater than 101F 2. You have diarrhea or vomiting for >24 hours, or stop having bowel movements and passing flatus 3. You have worsening pain, not controlled with your pain medication. 4. You develop redness, swelling, or new drainage from your wounds Prescriptions: No new medications. You should resume your regular home medications. Start taking eliquis tomorrow morning. Follow up: In clinic for drain check/removal when output is less than 30mL/day or in two weeks. Drain care: See multidisciplinary instructions. Driving Restrictions: - No driving if you are too sore to enter or exit your vehicle comfortably, or if you are too sore to easily check your blind spot. No driving while using prescription pain medications Activities: - Discuss return to work or school with your provide at your follow up appointment in the trauma clinic. - Increase your activity slowly. If it hurts don't do it, but try again the following day. - You may tire easily, so frequent naps may be necessary. - Talk with your doctor about when you can return to work or school. - You may take a shower but have someone nearby in case you need help. Diet: Eat a well-balanced diet. Fresh fruits, vegetables and fiber-containing foods are recommended. This will assist in wound healing. Recommendations: - Take it easy for two weeks. Remember, If it hurts, don't do it. - Take several slow, short walks each day for the first two weeks, and gradually increase your distance. We recommend at least 4 times a day. Wound Care: - You can shower per usual routine - Do not submerge wounds under water (avoid spas, pools and bathtubs) until fully healed. - Do not use creams, oils, or ointments on the wound. Comfort: - Some soreness can be expected. - Take your pain medication as needed and prescribed. - Taper use of pain medication as pain lessens. Follow up appointments: If you do not have a scheduled follow-up appointment listed at the time of discharge, you will be notified of your scheduled appointment on the next business day. Please call [phone] if you do nothear from us by that time, as your timely follow-up is very important to us. Your care was managed by the Trauma and Acute Care Surgery Team at [facility]. If you have any questions or concerns, please feel free to contact us. Provider Contact Information: General Surgery: [facility] (after business hours): Primary Care Physician: Pool Hercules MD No future appointments. General Instructions DRAIN CARE INSTRUCTIONS Drains help to keep fluid from collecting by removing the extra blood and fluid from under the skin or from an abscess within the body. A drain is temporary. It stays in place until the drainage has slowed down or stopped. You should call the clinic to schedule an appointment to have the drain removedwhen the output is less than 30mL for two days in a row. If your drain output remains greater than 30mL per day, we plan to see you in clinic in two weeks. Inspect the skin around the insertion site daily for signs of infection such as: ??? Redness or swelling ??? Pus or drainage ??? Fever over 100 F (38 C) or chills ??? Increased pain or discomfort at the insertion site Washing instructions: ??? Gently wash the skin with tap water and pat dry ??? Rinse and air dry the skin before wearing clothes Tube Maintenance: ??? Make sure the tube is properly secured to prevent accidental removal. ??? Strip tubing and empty your drain in the morning and evening ??? Record the drainage amount in the chart provided below. Contact your physician if: ??? There is a significant change in drainage amount or color. ??? If the tube becomes dislodged. ??? If you notice signs of infection (see above). What problems may I have with my drain? The bulb is not compressed- The bulb may not be squeezed tightly enough, the plug may not be closed securely, or the tube has slipped out a bit and is leaking. Follow the instructions on how to empty the drain. If the bulb remains expanded, then notify your doctor or nurse during business hours. ??? No drainage or sudden decrease in amount of drainage- This may be due to a plug in the drain. Please notify your doctor or nurse during business hours. ??? The tube accidentally falls out- If this happens, place a dry gauze dressing over the drain siteand notify your doctor or nurse during business hours. ??? Increased redness, swelling, or heat around the tube insertion site- This may be a sign of infection. Take your temperature: if it is higher than 101F or 38.8C, call your doctor or nurse immediately. Otherwise, notify your doctor or nurse during business hours and keep the dressing clean and dry. How to empty the bulb of a Reinier-Ortiz drain Follow any instructions your doctor gives you. How often you empty the bulb depends on how much fluid is draining. Empty the bulb when it is half full. 1. Wash your hands with soap and water. 2. Take the plug out of the bulb. 3. Empty the bulb. If your doctor asks you to measure the fluid, empty the fluid into a measuring cup, and write down the color and how much you collected. Your doctor will want to know this information. 4. Clean the plug with alcohol. 5. Squeeze the bulb until it is flat. This removes all the air from the bulb. You may need to put the bulb on a table or a counter to flatten it. 6. Keep the bulb flat, and put the plug in. The bulb should stay flat after you put the plug back in. This creates the suction that pulls the fluid into the bulb. 7. Empty the fluid into the toilet. 8. Wash your hands. How to change the dressing around your surgical drain You may have a dressing (bandage). The dressing is often made of gauze pads held on with tape. You should change the dressing daily, or more frequently if necessary. 1. Wash your hands with soap and water. 2. Take off the dressing from around the drain. 3. Clean the drain site and the skin around it with soap and water. Use gauze or a cotton swab. 4. When the site is dry, put on a new dressing. The way your dressing is put on depends on what kind of drain you have. You will get instructions for your type of drain. 5. Wash your hands again with soap and water. Your doctor may ask you to keep track of your dressing changes. Write down the time of day and the amount and color of the fluid on the dressing. How to help prevent clogs in your surgical drain Squeezing or milking the tube of your surgical drain can help prevent clogs so that it drains correctly. Your doctor will tell you when you need to do this. In general, you do this when: ?? You see a clot in the tube that prevents fluid from draining. The clot may look like a dark, stringy lining. ?? You see fluid leaking around the tube where it goes into the skin. Follow these steps for milking the tube. 1. Use one hand to hold and pinch the tube where it leaves the skin. 2. With the thumb and first finger of your other hand, pinch the tube just below where you're holding it. 3. Slowly and firmly push your thumb and first finger down the tubing toward the end of the tube. 4. Repeat this as many times as needed to move the clot. If you have a Reinier-Ortiz (DAVIAN) drain, the clot should move down the tube and into the bulb. If youhave a [place] drain, the clot should move into the dressing. Reinier-Ortiz Drainage Record NAME: Date of Surgery: Date: Time: If more than one drain, which one: Drainage Amount (per drain) Total Amount (per drain; in 24 hours) Your care was managed by the Trauma and Acute Care Surgery Team at [facility]. If you have any questions or concerns, please feel free to contact us. Provider Contact Information: General Surgery Clinic: Nurses line for questions: [facility] (after business hours): CC: Pool Hercules MD [facility] Trina Carpenter APRN Signed: Bacilio Mcdowell MD Department of Surgery 07/14/2019 Acute Care Surgery Pager [phone] documented in this encounter Discharge Instructions Discharge InstructionsBacilio Mcdowell MD - 07/14/2019 12:37 PM EDT Images from the original note were not included. DRAIN CARE INSTRUCTIONS Drains help to keep fluid from collecting by removing the extra blood and fluid from under the skin or from an abscess within the body. A drain is temporary. It stays in place until the drainage has slowed down or stopped. You should call the clinic to schedule an appointment to have the drain removedwhen the output is less than 30mL for two days in a row. If your drain output remains greater than 30mL per day, we plan to see you in clinic in two weeks. Inspect the skin around the insertion site daily for signs of infection such as: ??? Redness or swelling ??? Pus or drainage ??? Fever over 100 F (38 C) or chills ??? Increased pain or discomfort at the insertion site Washing instructions: ??? Gently wash the skin with tap water and pat dry ??? Rinse and air dry the skin before wearing clothes Tube Maintenance: ??? Make sure the tube is properly secured to prevent accidental removal. ??? Strip tubing and empty your drain in the morning and evening ??? Record the drainage amount in the chart provided below. Contact your physician if: ??? There is a significant change in drainage amount or color. ??? If the tube becomes dislodged. ??? If you notice signs of infection (see above). What problems may I have with my drain? The bulb is not compressed- The bulb may not be squeezed tightly enough, the plug may not be closed securely, or the tube has slipped out a bit and is leaking. Follow the instructions on how to empty the drain. If the bulb remains expanded, then notify your doctor or nurse during business hours. ??? No drainage or sudden decrease in amount of drainage- This may be due to a plug in the drain. Please notify your doctor or nurse during business hours. ??? The tube accidentally falls out- If this happens, place a dry gauze dressing over the drain siteand notify your doctor or nurse during business hours. ??? Increased redness, swelling, or heat around the tube insertion site- This may be a sign of infection. Take your temperature: if it is higher than 101F or 38.8C, call your doctor or nurse immediately. Otherwise, notify your doctor or nurse during business hours and keep the dressing clean and dry. How to empty the bulb of a Reinier-Ortiz drain Follow any instructions your doctor gives you. How often you empty the bulb depends on how much fluid is draining. Empty the bulb when it is half full. 1. Wash your hands with soap and water. 2. Take the plug out of the bulb. 3. Empty the bulb. If your doctor asks you to measure the fluid, empty the fluid into a measuring cup, and write down the color and how much you collected. Your doctor will want to know this information. 4. Clean the plug with alcohol. 5. Squeeze the bulb until it is flat. This removes all the air from the bulb. You may need to put the bulb on a table or a counter to flatten it. 6. Keep the bulb flat, and put the plug in. The bulb should stay flat after you put the plug back in. This creates the suction that pulls the fluid into the bulb. 7. Empty the fluid into the toilet. 8. Wash your hands. How to change the dressing around your surgical drain You may have a dressing (bandage). The dressing is often made of gauze pads held on with tape. You should change the dressing daily, or more frequently if necessary. 1. Wash your hands with soap and water. 2. Take off the dressing from around the drain. 3. Clean the drain site and the skin around it with soap and water. Use gauze or a cotton swab. 4. When the site is dry, put on a new dressing. The way your dressing is put on depends on what kind of drain you have. You will get instructions for your type of drain. 5. Wash your hands again with soap and water. Your doctor may ask you to keep track of your dressing changes. Write down the time of day and the amount and color of the fluid on the dressing. How to help prevent clogs in your surgical drain Squeezing or milking the tube of your surgical drain can help prevent clogs so that it drains correctly. Your doctor will tell you when you need to do this. In general, you do this when: ?? You see a clot in the tube that prevents fluid from draining. The clot may look like a dark, stringy lining. ?? You see fluid leaking around the tube where it goes into the skin. Follow these steps for milking the tube. 1. Use one hand to hold and pinch the tube where it leaves the skin. 2. With the thumb and first finger of your other hand, pinch the tube just below where you're holding it. 3. Slowly and firmly push your thumb and first finger down the tubing toward the end of the tube. 4. Repeat this as many times as needed to move the clot. If you have a Reinier-Ortiz (DAVIAN) drain, the clot should move down the tube and into the bulb. If youhave a [place] drain, the clot should move into the dressing. Reinier-Ortiz Drainage Record NAME: Date of Surgery: Date: Time: If more than one drain, which one: Drainage Amount (per drain) Total Amount (per drain; in 24 hours) Patient InstructionsCoBacilio puckett MD - 07/13/2019 8:36 PM EDT Discharge Instructions You were were admitted and treated for the following diagnosis: cholecystitis CALL YOUR PHYSICIAN IF: 1. You have a fever greater than 101F 2. You have diarrhea or vomiting for >24 hours, or stop having bowel movements and passing flatus 3. You have worsening pain, not controlled with your pain medication. 4. You develop redness, swelling, or new drainage from your wounds Prescriptions: No new medications. You should resume your regular home medications. Start taking eliquis tomorrow morning. Follow up: In clinic for drain check/removal when output is less than 30mL/day or in two weeks. Drain care: See multidisciplinary instructions. Driving Restrictions: - No driving if you are too sore to enter or exit your vehicle comfortably, or if you are too sore to easily check your blind spot. No driving while using prescription pain medications Activities: - Discuss return to work or school with your provide at your follow up appointment in the trauma clinic. - Increase your activity slowly. If it hurts don't do it, but try again the following day. - You may tire easily, so frequent naps may be necessary. - Talk with your doctor about when you can return to work or school. - You may take a shower but have someone nearby in case you need help. Diet: Eat a well-balanced diet. Fresh fruits, vegetables and fiber-containing foods are recommended. This will assist in wound healing. Recommendations: - Take it easy for two weeks. Remember, If it hurts, don't do it. - Take several slow, short walks each day for the first two weeks, and gradually increase your distance. We recommend at least 4 times a day. Wound Care: - You can shower per usual routine - Do not submerge wounds under water (avoid spas, pools and bathtubs) until fully healed. - Do not use creams, oils, or ointments on the wound. Comfort: - Some soreness can be expected. - Take your pain medication as needed and prescribed. - Taper use of pain medication as pain lessens. Follow up appointments: If you do not have a scheduled follow-up appointment listed at the time of discharge, you will be notified of your scheduled appointment on the next business day. Please call [phone] if you do nothear from us by that time, as your timely follow-up is very important to us. Your care was managed by the Trauma and Acute Care Surgery Team at [facility]. If you have any questions or concerns, please feel free to contact us. Provider Contact Information: General Surgery: [facility] (after business hours): Primary Care Physician: Pool Hercules MD No future appointments. documented in this encounter Medications at Time of Discharge Medication Sig Dispensed Refills Start Date End Date apixaban (ELIQUIS) 5 mg Take 5 mg by mouth 2 0 Tablet times daily. enalapril (VASOTEC) 10 mg 0 07/14/2009 tablet finasteride (PROSCAR) 5 mg 0 0 tablet documented as of this encounter Progress Notes Felicia Walker RN - 07/14/2019 2:09 PM EDT Patient Name: Rivas Carlos Patient Age: 69 y.o. Birthdate: 1950 Admit date: 07/10/2019 Attending Physician: No att. providers found Rivas Carlos discharged home by private vehicle with no services. AVS reviewed with patient all questions answered. Reviewed DAVIAN drain care and supplies provided all questions answered. IVs removed patient gathered all personal belongings and left the floor by wheelchair and taken to the [place] entrance where his ride was waiting. Reviewed with his DAVIAN drain care instructions all questions answered. Rachell Martinez - 07/14/2019 2:09 PM EDT Physical Therapy Note Treatment Number PT: 2 Patient profile: Rivas Carlos??is a 69 y.o.??male??with PMH HTN, HLD, myotonic dystrophy, PE, andpace maker insertion (on eliquis)??with 4 months of biliary colic and now exam and imaging findings consistent with acute cholecystitis. Now s/p cholecystectomy on 07/10??(per General Surgery progress no te) Interval History: LUCIA Social History: lives with his , ramp to enter a one level home. Uses a rollator for distance, cane for short distance, pt has myotonic dystrophy, paces himself, stair glide to basement, assists with donning socks, Pt drives, pt has shower chair and grab bars Precautions/Special Considerations: lap sites, fall risk, IV, pacemaker, TANACROSS, wears contacts, oxygen, on Eliquis (h/x PE) Mobility and Positioning Recommendations: ?? Pt. to utilize rollator and cga/min asst for ambulation and transfers with nursing. ?? Please encourage up to chair for meal times as able. ?? Pt encouraged to ambulate frequently with staff, getting into the bathroom for toileting and walking out in the [place] >/= 3 times daily as able. Subjective: I am essentially back to my baseline Objective: Patient seen for physical therapy and demonstrated the following: Pain: minimal pain throughout session Vital Signs: All WNL ?? Bed mobility: conditional independence ?? Sit <> stand: supervision with rollator ?? Ambulation: 150' with rollator, mod ind, SpO2 >90% ?? Standing balance: good with rollator ?? Pt left in bedside recliner chair all needs met, RN aware, alarm on following visit. Education: Pt regarding mobility, ambulation, home management Assessment: Rivas Carlos was seen today for physical therapy treatment session for continuation of POC. Patient presented pleasant and motivated to participate in PT. He demonstrated improved mobility and tolerance for activity. He reports being at his physical baseline. He has met all PT goals, has no concerns with d/c home, and demonstrates good safety awareness. Pt will benefit from ongoing therapeutic interventions to achieve therapy goals. Discharge Recommendations: Based on the current findings, Anticipated Discharge Disposition: home with assist when medically ready for hospital discharge. Consult Recommendations: No other consults recommended at this time. Equipment needs: Patient has all necessary equipment Physical Therapy Goals: All goals met 07/13 To be achieved by 07/14: ?? 1. Pt. to demonstrate knowledge of safety limitations and precautions and will appropriately requestassistance for functional activities and to mobilize. 2. Pt. to demonstrate IS to 1000 ml with proper technique. 3. Pt. to perform bed mobility independently from flat bed 4. Pt. to perform sit to stand transfers with modified independence using a rollator. 5. Pt. to ambulate 100 feet on RA with sats > 90% with modified independence using a rollator. 6. Family or caregiver to demonstrate understanding of therapeutic interventions to support the careof the patient. ?? Plan: Therapy Frequency: monitor for as outlined in initial evaluation. Patient agrees with plan as stated. Time IN / OUT: 925-950 Total Evaluation Minutes, Physical Therapy: 25(TEFx2) Rachell Martinez Pager: [phone] Physical Therapy Inpatient Rehabilitation Department Bacilio Mcdowell MD - 07/14/2019 10:35 AM EDT ID/MECHANISM OF INJURY: Rivas Carlos is a 69 y.o. male S/p lap cholecystectomy on 07/10 OR CASE INFORMATION: 07/11/2019 Procedure(s): LAPAROSCOPIC CHOLECYSTECTOMY WITH CHOLANGIOGRAM (VU 11.47) FOLLOW-UP NEEDED: Does pt need to f-u with surgeon or QUALITY ENG (please indicate reason if attending provider): QUALITY ENG What follow-up with TACS team is needed and how soon? Pt to call clinic when drain output is <30cc/day to come in for drain check and removal. If output continues to be high, follow up no later than2 weeks. Follow-up with other services? No Advise of Service and needs. Imaging orders entered: No Radiology Safety questions done for MRI/CT? N/A New or current ostomy? Ostomy nurse shared visit No Mobility concerns: Fully ambulatory Wound vac (requires 60min clinic visit) No On vent? If Yes - Needs to have someone from facility and supplies. No On Dialysis: No (SCHEDULE?) INCIDENTAL FINDINGS Incidental Findings (yes/no): No If yes, Incidental Finding Consent signed N/A If yes, give to Ornamental Metal Worker for scanning OPIOID CONSENT/NARCOTIC AGREEMENTS Current Month Narcotic Consent? pt has established contract with PCP If yes, give to Ornamental [employer] Worker for scanning Isolation No Isolation D/c to: Home If Rehab - Rehab Name: PCP Name: MD Vikash Arnold MD 07/12/2019 Kamla Jurado RN - 07/13/2019 9:39 AM EDT OFFICE OF CARE MANAGEMENT [employer] Follow-up Note Patient plan of care discussed in multidisciplinary rounds and assessment for continuing care and discharge needs. LOS Hospital: 3 days INSURANCE: Payor: [place] / Plan: [employer] [employer] / Product Type: *No Product type* / SECONDARY INSURANCE: N/A DECISION MAKER: Full Code Patient continues to require hospitalization. Per team patient will have PT consult today. Plan is for discharge tomorrow 07/14/2019. Patient will be discharged with a drain but team feels he can managethis himself. No Needs. Transportation: will drive him home via private car Professor [employer] to follow with team and family to assist with discharge needs when patient ready for discharge. Kamla Jurado RN Case Management pgr [phone] Vikash Garcia MD - 07/13/2019 8:33 AM EDT Acute Care Surgery Daily Progress Note ID:69 y.o. 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 lidocaine 3 patch Transdermal Q24H And ??? lidocaine 1 patch Transdermal Q24H ??? enalapril 10 mg Oral Daily ??? heparin (Porcine) 5,000 Units Subcutaneous Q8H SHAHRIAR ??? sodium chloride 0.9 % (flush) 5 mL Intravenous BID ??? famotidine 20 mg Oral BID ??? piperacillin-tazobactam 3.375 g Intravenous Q8H ??? acetaminophen 1,000 mg Oral Q6H SHAHRIAR Vital Signs: VITALS (24hr Range): Temp Temp: [36.3 ??C (97.3 ??F)-36.7 ??C (98.1 ??F)] , HR Heart Rate: --, BP BP: (114-167)/(64-117) , RR Resp: [14-16] , SpO2 SpO2: [84 %-98 %] I/O: Intake/Output Summary (Last 24 hours) at 07/13/2019 0841 Last data filed at 07/13/2019 0819 Gross per 24 hour Intake 970 ml Output 1305 ml Net -335 ml Physical Exam: GA: elderly man laying in bed Head: normocephalic, atraumatic CV: Paced, no murmurs rubs gallops Pulm: CTABL, comfortably breathing on 2 L NC ABD: Distended, TTP at midepigastric and RUQ, incisions c/d/i, DAVIAN drain from RUQ with darker serosanguinous output likely some bile staining Extr: warm and well perfused, no notable edema Neuro: no focal deficits Labs: Recent Labs 07/12/19 0631 07/11/19 0248 07/10/19 1725 WBC 8.4 11.9* 9.5 HGB 14.2 15.2 16.3 HCT 44.4 48.8* 51.1* PLATELET 162 157 184 Recent Labs 07/13/19 0201 07/12/19 0631 07/11/19 0248 07/10/19 1725 NA 141 142 141 140 K 4.0 4.1 3.9 3.9 CL 102 105 102 101 CO2 31 27 27 25 BUN 8* 7* 5* 4* CREATININE 0.57* 0.56* 0.58* 0.55* GLUCOSE 109 147 -- -- CALCIUM 8.9 9.0 -- 9.3 MAGNESIUM -- 0.90 -- -- PHOS -- 1.9* -- -- Lab Results Component Value Date ALT 39 07/13/2019 AST 25 07/13/2019 ALKPHOS 93 07/13/2019 BILITOT 0.5 07/13/2019 Microbiology: NA New Imaging: No orders to display CT A/P at OSH: 1. Within normal limits 2. Enlarged prostate 3. Scattered colonic diverticula w/o diverticulitis 4. Liver fatty infiltration ?? U/S OSH: 1. Cholelithiasis w/ immobile stone w/in neck of gallbladder. GB distended to 4.4cm. Evidence of sludge 2. CBD measures 4.2mm 3. No pericholecystic fluid, GB wall measures 3.8mm Assessment: 69 y.o. male with PMH HTN, HLD, myotonic dystrophy, PE, and pace maker insertion (on eliquis) with 4 months of biliary colic and now exam and imaging findings consistent with acute cholecystitis. Now s/p cholecystectomy on 07/10. ?? Plan to encourage PO intake and continue IV Zosyn today. Will work on pain control of what is likelyinsufflation related/post surgical pain. Monitoring drain output which is beginning to appear bilious. Plan: - Continue IV zosyn - Monitor drain output and quality - PT/OT consults today - Regular diet - Pain: scheduled tylenol, lidoderms, PRN oxycodone and dilaudid for breakthrough - Continue home enalapril - Drain education in anticipation of DC home with drain CODE STATUS: FULL LINES: 1x PIV, DAVIAN drain RUQ PROPHYLAXIS -DVT prophylaxis: SCDs, SHAHRIAR -GI prophylaxis: famotidine BID DISPO/Discharge Planning: -floor status Vikash Garcia MD 07/13/2019 Acute Care Surgery Pager [phone] Associated attestation - Gallo Gardner MD - 07/13/2019 5:53 PM EDT Mr. Carlos appears to be doing better this PM with less pain, feeling much better. Anticipate possible discharge in next 24-48 hours. Gallo Gardner MD #[id number] Vikash Garcia MD - 07/12/2019 9:31 AM EDT Acute Care Surgery Daily Progress Note ID:69 y.o. 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 See op note and post op check notes. - NAEON - This morning in bed, began complaining of sharp mid-epigastric and RUQ pain again, radiating to R shoulder. Reproducible on exam. Drain output and EKG unchanged from prior. Current Medications: ??? sodium chloride 0.9 % (flush) 5 mL Intravenous BID ??? famotidine 20 mg Oral BID ??? piperacillin-tazobactam 3.375 g Intravenous Q8H ??? acetaminophen 1,000 mg Oral Q6H SHAHRIAR Vital Signs: VITALS (24hr Range): Temp Temp: [36.4 ??C (97.5 ??F)-37 ??C (98.6 ??F)] , HR Heart Rate: [77-98] , BP BP: (125-186)/(75-117) , RR Resp: [11-21] , SpO2 SpO2: [91 %-98 %] I/O: Intake/Output Summary (Last 24 hours) at 07/12/2019 0931 Last data filed at 07/12/2019 0758 Gross per 24 hour Intake 2749 ml Output 1015 ml Net 1734 ml Physical Exam: GA: elderly man laying in bed Head: normocephalic, atraumatic CV: Paced, no murmurs rubs gallops Pulm: CTABL, comfortably breathing on 2 L NC ABD: Distended, sharply TTP at midepigastric and RUQ, incisions c/d/i, DAVIAN drain from RUQ with serosanguinous output Extr: warm and well perfused, no notable edema Neuro: no focal deficits Labs: Recent Labs 07/12/19 0631 07/11/19 0248 07/10/19 1725 WBC 8.4 11.9* 9.5 HGB 14.2 15.2 16.3 HCT 44.4 48.8* 51.1* PLATELET 162 157 184 Recent Labs 07/12/19 0631 07/11/19 0248 07/10/19 1725 NA 142 141 140 K 4.1 3.9 3.9 CL 105 102 101 CO2 27 27 25 BUN 7* 5* 4* CREATININE 0.56* 0.58* 0.55* GLUCOSE 147 -- -- CALCIUM 9.0 -- 9.3 MAGNESIUM 0.90 -- -- PHOS 1.9* -- -- Lab Results Component Value Date ALT 51 07/12/2019 AST 53 (H) 07/12/2019 ALKPHOS 102 07/12/2019 BILITOT 0.6 07/12/2019 Microbiology: NA New Imaging: No orders to display CT A/P at OSH: 1. Within normal limits 2. Enlarged prostate 3. Scattered colonic diverticula w/o diverticulitis 4. Liver fatty infiltration ?? U/S OSH: 1. Cholelithiasis w/ immobile stone w/in neck of gallbladder. GB distended to 4.4cm. Evidence of sludge 2. CBD measures 4.2mm 3. No pericholecystic fluid, GB wall measures 3.8mm Assessment: 69 y.o. male with PMH HTN, HLD, myotonic dystrophy, PE, and pace maker insertion (on eliquis) with 4 months of biliary colic and now exam and imaging findings consistent with acute cholecystitis. Now s/p cholecystectomy on 07/10. ?? Plan to advance diet and continue IV Zosyn today. Will work on pain control of what is likely insufflation related/post surgical pain. Likely discharge home tomorrow with drain if tolerating diet, ambulating, pain better controlled. Plan: - Continue IV zosyn - Monitor drain output - Regular diet - Pain: scheduled tylenol, PRN oxycodone and dilaudid for breakthrough - Reinstate home enalapril now that post op - Drain education today in anticipation of DC home with drain CODE STATUS: FULL LINES: 1x PIV, DAVIAN drain RUQ PROPHYLAXIS -DVT prophylaxis: SCDs, SHAHRIAR -GI prophylaxis: famotidine BID DISPO/Discharge Planning: -floor status -likely DC Home tomorrow Vikash Garcia MD 07/12/2019 Acute Care Surgery Pager [phone] Adonis Price MD - 07/11/2019 8:50 PM EDT Acute Care Surgery Post-Operative Progress Note Rivas David Terrance 07/11/2019 Surgery/Issue: LAPAROSCOPIC CHOLECYSTECTOMY WITH CHOLANGIOGRAM (WRVU 11.47) Attending: Dr. Schneider Date of surgery: 07/11/2019 Findings: necrotic gallbladder. Unable to safely identify the critical view due to degree of inflammation and necrosis. Performed subtotal cholecystectomy and left a drain. Subjective/Events: Pt was seen and examined. Pain well controlled. Denies nausea, vomiting, chest pain, shortness of breath, numbness/weakness. Objcetive: Temp: [36.5 ??C (97.7 ??F)-37.1 ??C (98.8 ??F)] Heart Rate: [70-94] Resp: [11-22] BP: (129-176)/(75-96) Intake/Output Summary (Last 24 hours) at 07/11/20192046 Last data filed at 07/11/20192020 Gross per 24 hour Intake 2132 ml Output 695 ml Net 1437 ml Lab Results Component Value Date NA 141 07/11/2019 K 3.9 07/11/2019 CL 102 07/11/2019 CO2 27 07/11/2019 BUN 5 (L) 07/11/2019 CREATININE 0.58 (L) 07/11/2019 GLUCFASTING 105 (H) 07/10/2019 CALCIUM 9.3 07/10/2019 Lab Results Component Value Date WBC 11.9 (H) 07/11/2019 HGB 15.2 07/11/2019 HCT 48.8 (H) 07/11/2019 MCV 92.4 07/11/2019 PLATELET 157 07/11/2019 Exam: General: appears in no acute distress, A/O x 3 HEENT: NC/AT Chest: CTA b/l, no w/r/r Cardiac: RRR Abdomen: soft, tender to palpation in RUQ, moderate distension, tympanic to percussion, no peritoneal signs, dressing and incisions c/d/i. Extremity: no c/c/e Incision: dressing c/d/i. No evidence of hematoma/seroma/infection A/P: Rivas Carlos is a 69 y.o. male patient s/p fenestrated cholecystectomy. 1. Pain- controlled 2. Nausea- denies, zofran prn 3. Specific c/o- none 4. Volume status- Urine output adequate, continue with IVF, will monitor 5. DVT prophylaxis- SCDs 6. Diet: regular 7. Requested Imaging: NA 8. Continue IV Abx 8. Disposition- floor [facility] Acute Care Surgery Pager [phone] Kristel Frey RN - 07/11/2019 6:14 PM EDT 180: Arrived to PACU via bed from OR. Monitors attached and alarms set & audible. VSS. Op sitesCDI. Davian drain w/ small amount of drainage to bulb suction. Lung sounds diminished throughout. Pt arousing to repeated, verbal stimulation. 1819: Rating abdominal pain 10. 0.2mg prn dilaudid given. 1829: 2West paged for report. 1834: Scheduled tylenol given. Pain down to 05/07. 1919: Report to Jeanne Marcial RN. Vikash Garcia MD - 07/11/2019 8:40 AM EDT Acute Care Surgery Daily Progress Note ID:69 y.o. Male admitted with acute cholecystitis on 07/10/2019 Problem List: - Acute cholecystitis - Acute pain Procedures: NA Secondary Issues: Myotonic dystrophy Pacemaker Past PE HTN 24 Hour Events: - Admitted and started on IVFs, IV Abx, NPO - Minimal pain this morning Current Medications: ??? sodium chloride 0.9 % (flush) 5 mL Intravenous BID ??? famotidine 20 mg Oral BID ??? piperacillin-tazobactam 3.375 g Intravenous Q8H ??? acetaminophen 1,000 mg Oral Q6H SHAHRIAR Vital Signs: VITALS (24hr Range): Temp Temp: [36.6 ??C (97.9 ??F)-37.1 ??C (98.8 ??F)] , HR Heart Rate: [67-109] , BP BP: (132-166)/(75-96) , RR Resp: [12-24] , SpO2 SpO2: [94 %-97 %] I/O: Intake/Output Summary (Last 24 hours) at 07/11/2019 0841 Last data filed at 07/11/2019 0800 Gross per 24 hour Intake 860 ml Output 350 ml Net 510 ml Physical Exam: GA: elderly man laying in bed in NAD Head: normocephalic, atraumatic CV: Paced, no murmurs rubs gallops Pulm: CTABL, comfortably breathing on 2 L NC ABD: Distended, mildly tender R>L, not peritoneal. + Del Valle's Extr: warm and well perfused, no notable edema Neuro: no focal deficits Labs: Recent Labs 07/11/19 0248 07/10/19 1725 WBC 11.9* 9.5 HGB 15.2 16.3 HCT 48.8* 51.1* PLATELET 157 184 Recent Labs 07/11/19 0248 07/10/19 1725 NA 141 140 K 3.9 3.9 CL 102 101 CO2 27 25 BUN 5* 4* CREATININE 0.58* 0.55* CALCIUM -- 9.3 Microbiology: NA New Imaging: No orders to display CT A/P at OSH: 1. Within normal limits 2. Enlarged prostate 3. Scattered colonic diverticula w/o diverticulitis 4. Liver fatty infiltration ?? U/S OSH: 1. Cholelithiasis w/ immobile stone w/in neck of gallbladder. GB distended to 4.4cm. Evidence of sludge 2. CBD measures 4.2mm 3. No pericholecystic fluid, GB wall measures 3.8mm Assessment: 69 y.o. male with PMH HTN, HLD, myotonic dystrophy, PE, and pace maker insertion (on eliquis) with 4 months of biliary colic and now exam and imaging findings consistent with acute cholecystitis. ?? Plan to continue IVF, Abx therapy. Last Eliquis was >24H prior to admission. Will plan for OR today for cholecystectomy and IOC, as will be >48H from last Eliquis dose. Plan: - OR today for planned lap cholecystectomy and IOC - NPO, IVFs, and IV zosyn in interim - Pain: scheduled tylenol, PRN dilaudid for breakthrough - Holding home enalapril for pending surgery CODE STATUS: FULL LINES: 1x PIV PROPHYLAXIS -DVT prophylaxis: SCDs, re-evaluate chemoppx after surgery -GI prophylaxis: famotidine BID DISPO/Discharge Planning: -floor status -pending surgery Vikash Garcia MD 07/11/2019 Acute Care Surgery Pager [phone] documented in this encounter H&P Notes Elgin Martino MD - 07/10/2019 5:39 PM EDT General Surgery Admission Note HPI: Rivas Carlos is a 69 y.o. male with PMH HTN, HLD, myotonic dystrophy, PE, and pace maker insertion (on eliquis) who presents in transfer from [facility] for concerns regarding acute cholecystitis. He reports that he started having intermittent RUQ pain about 4 months ago that was post-prandial in nature.He did not seek care or do anything about the pain. Over the last 48 hours the pain has acutely worsened and the pain has become more diffuse than just localized to the RUQ. He has had anorexia and intermittent nausea over the last 2 days. Has not eaten anything in >24H. The pain is constant now and is not allowing him to fall asleep at night. He presented to [facility] for evaluation where CT was done which only revealed diverticulosis w/o diverticulitis and a f/u U/S showed an impacted stone in the gallbladder neck w/ GB dilation. Given his myotonic dystrophy request was made to transfer him to [facility]. He also does report some subjective low grade fevers. No Chest pain. Does feel short of breath 2/2 pain with inspiration. Labs at OSH fairly unremarkable, no leukocytosis, LFTs normal, normal lactate.Per patient last dose of eliquis was yesterday morning. PMH: HTN HLD Myotonic dystrophy PE Pace maker insertion PSH: Inguinal hernia repair Umbilical hernia repair Cataract surgery Pace maker insertion No prior issues with anesthesia MEDICATIONS: No current facility-administered medications on file prior to encounter. Current Outpatient Medications on File Prior to Encounter Medication Sig Dispense Refill ??? apixaban (ELIQUIS) 5 mg Tablet Take 5 mg by mouth 2 times daily. ??? acetaminophen-codeine (TYLENOL-CODEINE #3) 300-30 mg per tablet ??? enalapril (VASOTEC) 10 mg tablet ??? finasteride (PROSCAR) 5 mg tablet ALLERGIES: No Known Allergies FAMILY HISTORY: - Denies history of bleeding or clotting disorders. Denies history of reactions to anesthesia. SOCIAL HISTORY: Former smoker No ETOH No recreational drugs REVIEW OF SYSTEMS: 12 point review of system otherwise negative except as above PHYSICAL EXAM: VS: (Temp: [37 ??C (98.6 ??F)] ) Temp: 37 ??C (98.6 ??F), (Heart Rate: [67-77] ) Heart Rate: 73, (BP: (163-165)/(84-86) ) BP: 165/84, (Resp: [18-21] ) Resp: 21, (SpO2: [94 %-97 %] ) SpO2: 97 % GA: obvious uncomfortable CV: Paced, no murmurs Pulm: Shallow breaths, on 4L NC. CTABL ABD: Distended, diffusely tender R>L, not peritoneal. + Del Valle's Extr: warm and well perfused, no notable edema Neuro: no focal deficits LABS: Recent Labs 07/10/19 1725 WBC 9.5 HGB 16.3 HCT 51.1* PLATELET 184 NEUTROABS 7.38* LFTs pending CARDS/VASC: EKG: Normal sinus rhythm Left axis deviation Non-specific intra-ventricular conduction block Possible Lateral infarct , age undetermined Inferior infarct , age undetermined Abnormal ECG IMAGING: CT A/P: 1. Within normal limits 2. Enlarged prostate 3. Scattered colonic diverticula w/o diverticulitis 4. Liver fatty infiltration U/S OSH: 1. Cholelithiasis w/ immobile stone w/in neck of gallbladder. GB distended to 4.4cm. Evidence of sludge 2. CBD measures 4.2mm 3. No pericholecystic fluid, GB wall measures 3.8mm ASSESSMENT and RECOMMENDATIONS: 69 y.o. male with PMH HTN, HLD, myotonic dystrophy, PE, and pace maker insertion (on eliquis) with 4 months of biliary colic and now exam and imaging findings consistent with acute cholecystitis. Plan to admit to general surgery, IVF, ABX therapy. Last eliquis was >24H ago. Will plan for OR in the morning as would have been 48 hours since last does. Case has been booked, will consent in the morning. Please page [phone] with questions. Elgin Martino MD General Surgery [id number] [id number] Associated attestation - Dieter Bullard MD - 07/16/2019 4:30 PM EDT Patient seen and examined with resident team. Agree with assessment and plan. Plan for lap cholecystectomy. Anesthesia to see beforehand given myotonic dystrophy. documented in this encounter ED Notes Raul Miller RN - 07/10/2019 8:09 PM EDT Pt remains asleep, eyes closed, RRR, even, unlabored. Call morin in reach, clinical status unchanged. Raul Miller RN - 07/10/2019 7:23 PM EDT Eyes closed RRR, even, unlabored. Call morin in reach. Raul Miller RN - 07/10/2019 6:42 PM EDT Pt asleep, resting quietly, call morin in reach. Raul Miller RN - 07/10/2019 6:10 PM EDT Pt resting quietly, call morin in reach, TRAVELING INVENTORY ASSOCIATE in to see pt. Pt states pain medicine effective for paincontrol. Raul Miller RN - 07/10/2019 5:36 PM EDT Surgery team in to assess pt. Yuriy Gallagher MD - 07/10/2019 5:28 PM EDT ED Resident Note Rivas Carlos is an 69 y.o. male who presents to the ED with: I saw this patient at: 6:12 PM HPI Rivas Carlos is a 69 y.o. male with a past medical history of recently diagnosed mild tonic dystrophy, who presents the emergency department with a one-month history of intermittent biliary colic that is significantly worse over the past 2 days. Per the patient in the past the pain would come and go with eating, and now is constant. He went to [facility] today, where an ultrasound showed cholelithiasiswith suspicion for cholecystitis. He was given morphine for pain and a dose of PIP Tazo and acceptedfor hospital transfer to [facility] due to possible intra-op challenges related to his myotonic dystrophy. In our emergency department, he reports significant right upper quadrant pain that is constant, 8/10, is and seems to be worse with deep inspiration. He endorses feeling short of breath due to being unable to take a deep breath secondary to pain. He denies nausea but does note very poor p.o. intake, with his last solid meal being yesterday in the a.m. He feels he has been somewhat constipated over the past several days as well. He does report chest pain, which he feels radiates from the right upper quadrant, though he denies chest tightness or crushing feeling. He denies any cardiac history. He denies cough, fevers, sick contacts, diarrhea, fevers, night sweats, hematemesis, or melena. Review of Systems: Pertinent positives and negatives are included in the history of present illness, otherwise 10 systems are reviewed and negative PMH, PSH, MEDICATIONS and SH were all reviewed in the chart Physical Exam: Temp: [37 ??C (98.6 ??F)] Heart Rate: [67-96] Resp: [17-21] BP: (136-166)/(82-89) SpO2: [94 %-97 %] Heart Rate from SpO2: [65 bpm-103 bpm] Physical Exam General: Male appearing stated age, in obvious discomfort Neuro: AOx3, normally conversant, mood appropriate Pulm: CATB, patient winces with deep inspiration Cardiac: RRR, no murmur appreciated GI: Abdomen tense, obese, TTP RU/RLQ. Mild guarding. Extremities: Neurovascularly intact, no swelling of extremities noted Skin: WWP, no rashes noted Labs: I have reviewed the labs and imaging and they are significant for: Last 3 wbc, hgb, hct plt Recent Labs 07/10/19 1725 WBC 9.5 HGB 16.3 HCT 51.1* PLATELET 184 Last 3 Lytes Recent Labs 07/10/19 1725 NA 140 K 3.9 CL 101 CO2 25 BUN 4* CREATININE 0.55* Last 3 LFTs Recent Labs 07/10/19 1725 ALT 15 ALKPHOS 95 BILITOT 0.8 Lactate - 1.32 Imaging: No orders to display From OSH Abdominal U/S - Cholelithiasis w/suspicion for cholecystitis Abdominal CT - Unremarkable Assessment and Plan: Assessment: 69 y.o. male with myotonic dystrophy presenting as transfer from [facility] for likely surgical management of cholecystitis # Cholecystitis - CBC, CMP, Lactate, Type & Screen - 1 dose of 4.5 pip-tazo at OSH - LR 1L for poor PO and subjective dehydration - Dilaudid 0.4 for pain #Chest pain, SoB - Likely 2/2 abdominal pain - EKG LBBB no priors for comparison - on 4L NC due to pain on inspiration, titrate as possible along with pain control General Surgery to admit patient for likely cholecystectomy. Yuriy Gallagher MD 07/10/2019 Pager #[phone] Resident Physician Yuriy Gallagher MD Resident 07/10/19 1812 Associated attestation - Jamila Cruz DO - 07/13/2019 5:47 PM EDT ED ATTENDING ATTESTATION NOTE The patient was seen in conjunction with the resident physician. I have independently performed the [place] portions of the history and physical exam. I have reviewed the nursing notes, vital signs, and all diagnostic studies personally including labs, imaging studies and EKGs. I have discussed the details of the case with the resident and agree with the assessment and plan as described in the resident note unless noted otherwise. 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 Now s/p cholecystectomy on 07/10 (per General Surgery progress note) Past Medical History: Diagnosis Date ??? Myotonic dystrophy Past Surgical History: Procedure Laterality Date ??? PRO LAP, CHOLECYSTECTOMY/GRAPH N/A 07/11/2019 LAPAROSCOPIC CHOLECYSTECTOMY WITH CHOLANGIOGRAM (WRVU 11.47) performed by Amari Schneider MD [facility] MAIN OR Social History: Patient lives with his Home Setup: Multi-level home with ramp to enter. Pt has stair glide to basement. Bedroom and bathroom on same level. Bathroom with walk-in shower, shower chair and grab bars. DME: rollator walker, cane Baseline ADL/Mobility: Pt is independent with ADLs at baseline, with the exception of assist to don socks. Pt reports that he ambulates with a straight cane indoors, but uses as rollator walker for longer distances and uneven surfaces. His is home and able to assist as need. Both pt and drive, and pt reports that he enjoys mowing his lawn and riding his gator. Precautions/Special Considerations: AAT, RUQ DAVIAN drain, PIV, myotonic dystrophy Subjective: I honestly don't do to much because of mymyotonic dystrophy . Objective: Seen today for OT evaluation. Cognitive Status/Behavior: ?? Behavior / Mood: alert and cooperative ?? Alert and oriented to: person, place, time and situation ?? Follows commands: multi step ?? Attention: WFL ?? Safety awareness: WFL ?? Pt has developed many adaptive strategies that he uses at baseline for mobility and ADL function Vision & Perception: ?? WNL/WFL Communication: WFL Activities of Daily Living: Self-feeding: independent Grooming: independent Dressing: Sat EOB to prabhjot pants, no assist required Bathing: Toileting: has been ambulating in/out bathroom with RN assist Transfer: CGA with rollator walker Functional Mobility: Supine to sit: conditional independence with HOB elevated Sit to stand: supervision with rollator walker Ambulation: ~100 ft with CGA and use of rollator walker Stand to sit: supervision with rollator walker Sit to supine: conditional independence with HOB elevated Balance: Sitting balance: good Standing balance: good Vitals: SpO2 96% RA Pain: reported improved discomfort following ambulation, did not rate Education: patient have been educated on Role of occupational therapy/rehabilitation, Transfers, ADL, Positioning, Functional Mobility, Activity pacing/Energy conservation, Home Management and Recommendations and demonstrates understanding. Patient status, treatment, and mobility recommendations discussed with nursing. Assessment: Pt seen for continuation of POC. Pt pleasant and agreeable to work with therapy. Pt mobilizing and preforming ADL tasks with supervision/min A. Per pt he feels like he is at baseline with mobility and function. Anticipate that pt can discharge home with family assist and VNA OT when medically ready. Equipment needs at discharge: likely none Anticipated Discharge Disposition: home with assist Other Recommendations: ?? OOB to chair for meals ambulate as tolerated ?? Encourage participation in ADL's by providing set up A on tray table and physical assist only as needed Goals: To be achieved by 07/19. Pt will sit/stand at sink to brush teeth and wash face with conditional independence Pt will dress UB/LB with conditional independence and use of AE/adaptive strategies Pt will perform all aspects of toileting with conditional independence Pt will ambulate household distance with conditional independence Pt will demonstrate understanding of 2-3 energy conservation techniques for use during ADLs Plan: OT: Therapy Frequency: 1-3 more visits Total Evaluation Minutes, Occupational Therapy: 20(1x schm) Pager: [phone] LUIS Chandra 07/14/2019 Occupational Therapy Rehabilitation Department Plan of Care - Per Jean-Baptiste RN - 07/14/2019 4:41 AM EDT Problem: Patient Care Overview Goal: Plan of Care Review Outcome: Ongoing (Interventions Implemented as Appropriate) 07/12/19 1440 07/13/19 2100 Plan of Care Review Progress progress toward functional goals as expected -- Coping/Psychosocial Plan Of Care Reviewed With -- patient OUTCOME EVALUATION NOTE: OUTCOME SUMMARY: Patient A&Ox4, VSS on 1L NC, resting between care. Pain up to 3/10; controlled with scheduled tylenol. Denies nausea. Adequate UOP. No BM this shift. DAVIAN with scant sanguinous output. Will continue to monitor. ?? PLAN MOVING FORWARD: ?? Pain management OOB and ambulation Discharge planning ?? INDIVIDUALIZED FALL PREVENTION INTERVENTIONS: High fall risk ?? Patient-specific fall risk factors per assessment: [current deficits]: 2 or more active diagnoses, baseline use of 4WW, generalized weakness, DAVIAN, PIV, ?? Assistance [level of assistance required for transfers and ambulation]: 1a 4WW ?? Supervision [direct monitoring required during toileting and ADLs]: Eyes on Surveillance [continuous indirect monitoring]: Bed/chair alarm, masimo, hourly rounding, room near unit station, NKE at bedside, yellow fall band on, environmental modifications (clutter-free environment, tubing secured, bed low, lighting adjusted, nonskid socks when OOB, bed wheels locked, call lightwith in reach, upper side rails x2, ID bands on) Patient-specific fall prevention interventions for sensory deficits provided, if applicable: [X] N/A CPG GOAL OUTCOME EVALUATION: Goal: Individualization & Mutuality Outcome: Ongoing (Interventions Implemented as Appropriate) 07/12/19 1147 07/13/19 0242 Individualization Patient Specific Goals -- Discharge Home Mutuality/Individual Preferences What Anxieties, Fears or Concerns Do You Have About Your Health or Care? no -- What Questions Do You Have About Your Health or Care? no -- What Information Would Help Us Give You More Personalized Care? none -- Goal: Fall Prevention-Safe Patient Handling Outcome: Ongoing (Interventions Implemented as Appropriate) 07/13/19 2100 Daily Care Interventions Self-Care Promotion independence encouraged;BADL personal objects within reach;BADL personal routines maintained Caban Fall Risk History of Falling 0 Secondary Diagnosis 15 Ambulatory Aids 15 Intravenous Therapy/Heparin/Saline Lock 20 Gait/Transferring 10 Mental Status 0 Score 60 OTHER Caban Fall Risk High Restraint Interventions Safety Promotion/Fall Prevention activity supervised;fall prevention program maintained;muscle strengthening facilitated;nonskid shoes/slippers when out of bed;safety round/check completed Positioning Body Position independent Activity Activity Type activity adjusted per tolerance Activity Assistance Provided assistance, 1 person Assistive Device Utilized four-wheel walker Goal: Infection Control Outcome: Ongoing (Interventions Implemented as Appropriate) 07/13/19 2100 Safety Interventions Isolation Precautions standard precautions maintained Infection Prevention barrier precautions utilized;environmental surveillance performed;single patient room provided;rest/sleep promoted Coping Strategies Supportive Measures active listening utilized;decision-making supported;goal setting facilitated;positive reinforcement provided;problem solving facilitated;relaxation techniques promoted;self-care encouraged;self- responsibility promoted;verbalization of feelings encouraged;self-reflection promoted Goal: Discharge Needs Assessment Outcome: Ongoing (Interventions Implemented as Appropriate) 07/12/19 1440 07/13/19 0241 07/13/19 1741 Discharge Needs Assessment Concerns To Be Addressed -- -- no discharge needs identified Readmission Within The Last 30 Days -- -- no previous admission in last 30 days Equipment Needed After Discharge -- -- walker, rolling Discharge Disposition still a patient -- -- Living Environment Transportation Available family or friend will provide -- -- Current Health Anticipated Changes Related to Illness -- none -- Activity/Self Care Review of Systems Equipment Currently Used at Home -- -- walker, rolling Goal: Interdisciplinary Rounds/Family Conf Outcome: Ongoing (Interventions Implemented as Appropriate) 07/12/19 1440 Interdisciplinary Rounds/Family Conf Participants nursing;physician Problem: Perioperative Period (Adult) Goal: Signs and Symptoms of Listed Potential Problems Will be Absent, Minimized or Managed (Perioperative Period) Signs and symptoms of listed potential problems will be absent, minimized or managed by discharge/transition of care (reference Perioperative Period (Adult) CPG). Outcome: Ongoing (Interventions Implemented as Appropriate) 07/13/19 1740 Perioperative Period Problems Assessed (Perioperative Period) hemorrhage;embolism;infection;pain;physiologic stress respon se;hypoxia/hypoxemia;urinary retention Problems Present (Perioperative Period) hypoxia/hypoxemia;pain Problem: Cholecystitis/Cholecystectomy (Adult) Goal: Signs and Symptoms of Listed Potential Problems Will be Absent, Minimized or Managed (Cholecystitis/Cholecystectomy) Signs and symptoms of listed potential problems will be absent, minimized or managed by discharge/transition of care (reference Cholecystitis/Cholecystectomy (Adult) CPG). Outcome: Ongoing (Interventions Implemented as Appropriate) 07/13/19 1740 Cholecystitis/Cholecystectomy Problems Assessed (Cholecystitis/Cholecystectomy) pain;situational response Problems Present (Cholecystitis/Cholecystectomy) hypoxia/hypoxemia;pain Plan of Care - Felicia Walker RN - 07/13/2019 5:41 PM EDT Problem: Patient Care Overview Goal: Plan of Care Review Outcome: Ongoing (Interventions Implemented as Appropriate) 07/12/19 1440 07/13/19 0820 Plan of Care Review Progress progress toward functional goals as expected -- Coping/Psychosocial Plan Of Care Reviewed With -- patient OUTCOME EVALUATION NOTE: OUTCOME SUMMARY: Patient received A&O throughout shift VS stable. Patient had minimal pain managed with scheduledtylenol with good effect. Patient ambulated in the hallway and worked with PT/OT today. Supplementaloxygen used intermittently for desaturations to the the mid 80s. PVRs remained in the high 200s throughout the day. Tolerating diet. Comfort and safety measures maintained, call morin within reach bed alarm on. PLAN MOVING FORWARD: Continue to monitor I/Os & PVRs, labs, pulmonary hygiene, increase activity, and potential discharge tomorrow INDIVIDUALIZED FALL PREVENTION INTERVENTIONS: High fall risk Patient-specific fall risk factors per assessment: [current deficits]: Patients current risk factorsinclude: 69 y.o. s/p acute cholecystitis, hx of mild tonic dystrophy w/ basline use of frontwheel walker, generalized weakness, RUQ DAVIAN drain, 2 or more medical diagnoses, and IVs infusing. Assistance [level of assistance required for transfers and ambulation]: 1 person assist with walker Supervision [direct monitoring required during toileting and ADLs]: Eyes on Surveillance [continuous indirect monitoring]: Bed/Chair alarm, yellow fall band, NKE at bedside, purposeful rounding, environmental modification (floor free of clutter, tubing secured), bed in low position, lighting adjusted for task/safety, nonskid slippers when out of bed, wheels locked, call lightin reach, upper side-rails raised X2, ID bands on. Patient-specific fall prevention interventions for sensory deficits provided, if applicable: [X] Yes, glasses at bedside CPG GOAL OUTCOME EVALUATION: Op Note - Amari Schneider MD - 07/13/2019 5:32 PM EDT [facility] Operative Note Patient Name: Rivas Carlos : [id number] MR#: [id number] Case Date: 07/11/2019 Surgeon: Surgeon(s) and Role: * Amari Schneider MD - Primary * Dipak Treadwell MD - Resident Preoperative diagnosis: Acute cholecystitis Postoperative diagnosis: Acute cholecystitis Procedure(s) (LRB): LAPAROSCOPIC CHOLECYSTECTOMY WITH CHOLANGIOGRAM (WRU 11.47) (N/A) Indications for surgery: Patient is a 69-year-old gentleman who has had increasing difficulty with right upper abdominal pain for the last month or so. Recent imaging is included CAT scan as well as ultrasound ultrasound is consistent with acute cholecystitis. He is transferred from outside hospital for management of this problem. Findings at the time of surgery: Patient was noted to have a frankly gangrenous black gallbladder. This was surrounded by a kink of omentum. Were able to do a top-down laparoscopic cholecystectomy and given the amount of inflammation and fibrosis in the region of the cystic duct common bile duct region we elected to do a fenestrated gallbladder with a drain in place. Details of the operation: Patient was brought to the operating placed in the supine position and following uneventful induction of general endotracheal anesthesia a orogastric tube was placed as well as Venodyne stockings. His abdomen was prepped and draped in the usual sterile fashion and a small incision was made at the base of the umbilicus followed by insertion of a Veress needle into the peritoneal cavity a pneumoperitoneum to 15 mmHg pressure was obtained with difficulty. The first trocar was an 11 mm trocar placed through the umbilicus through this a 30 degree laparoscope was inserted and all remaining trochars were inserted under direct visualization. The next trocar was a subxiphoid 11 mmtrocar next trocar was a 5 mm trocar placed in the anterior axillary line just below the costal margin last trocar was a 5 mm trocar placed in the right upper quadrant. The upper abdomen was visually inspected and he was noted to have a significant amount of omentum overlying his gallbladder which wasinitially not able to be seen. Using careful blunt dissection techniques were able to separate this cake of omentum off of the gallbladder wall and once the gallbladder was visualized it was frankly black and necrotic consistent with his acuity. Using a combination of sharp and blunt dissection we able to fully dissect the omentum off the wall of the gallbladder and a ratcheted clamp was placed in the fundus of the gallbladder which was then retracted cephalad. We also took down the falciform ligament using cautery in order to facilitate mobilization and exposure. He was noted to have significant inflammation and fibrosis in the region of the infundibulum cystic duct common bile duct region. Dissection in this area proved to be very difficult therefore we went to the fundus of the gallbladder andwere able develop a plane between the fundus of the gallbladder on the underlying liver bed due to the significant inflammation and edema in this plane the the gallbladder basically dissected away fromthe liver bed without any effort other than blunt dissection. Using this technique as well as some occasional monopolar cautery were able to completely dissect using a top-down technique the gallbladder down to the mid infundibulum. At this point we opened up the gallbladder and the bile was noted to be extremely thick black bile. Additional dissection of the infundibulum down to where we felt comfort able but without proceeding further given the amount of solid fibrosis and inflammation we made the decision to fenestrate the gallbladder at this level. We did this using the harmonic scalpel to completely transect the gallbladder wall with a small cuff of infundibulum the resected gallbladder was placed in a laparoscopic retrieval sac and extracted out through the 11 mm trocar site. We never saw any new bile and mid emanating from the infundibulum nor were we able to identify any clear opening to suggest the cystic duct lumen. My suspicion is this was completely fibrosed and closed. At this pointthe abdomen was irrigated excellent hemostasis was assured a Bill drain was placed in the right upper quadrant and extracted out through the left interest midline trocar site. The drain was held in place at the skin level using a 2-0 Prolene. The epigastric trocar site was closed at the fascial levelusing a Scar Lopez closure device and a 0 Vicryl suture. At this point we felt excellent hemostasis had been obtained in the abdomen had been irrigated remaining trochars were removed under directvisualization and the pneumoperitoneum was evacuated. All trocar sites were closed at the skin levelusing a running subcuticular closure of 4-0 Vicryl followed by Steri-Strips followed by Band-Aids. The drain was placed to grenade bulb suction. The patient was taken to the recovery and postop in stable condition Attestation: Case Date: 07/11/2019 I was present and I participated during the entire procedure (does not need to include opening and closing). AMARI SCHNEIDER MD 07/13/2019 Plan of Care - Za Floyd, PT - 07/13/2019 11:35 AM EDT Physical Therapy Evaluation Patient profile:Rivas Carlos is a 69 y.o.??male??with PMH HTN, HLD, myotonic dystrophy, PE, and pace maker insertion (on eliquis)??with 4 months of biliary colic and now exam and imaging findings consistent with acute cholecystitis. Now s/p cholecystectomy on 07/10 (per General Surgery progress note) ?? Past Medical History No past medical history on file. Past Surgical History Past Surgical History: Procedure Laterality Date ??? PRO LAP, CHOLECYSTECTOMY/GRAPH N/A 07/11/2019 ?? LAPAROSCOPIC CHOLECYSTECTOMY WITH CHOLANGIOGRAM (WRVU 11.47) performed by Amari Schneider MD at [facility] MAIN OR Social History: lives with his , ramp to enter a one level home. Uses a rollator for distance, cane for short distance, pt has myotonic dystrophy, paces himself, stair glide to basement, assists with donning socks, Pt drives, pt has shower chair and grab bars Precautions/Special Considerations: lap sites, fall risk, IV,pacemaker, TANACROSS, wears contacts, oxygen,on Eliquis (h/x PE) Mobility and Positioning Recommendations: ?? Pt. to utilize rollator and cga/min asst for ambulation and transfers with nursing. ?? Please encourage up to chair for meal times as able. ?? Pt encouraged to ambulate frequently with staff, getting into the bathroom for toileting and walking out in the boyle >/= 3 times daily as able. Subjective: ???It feels good to move. I actually have less pain after walking than when I was in bed?? Objective: Pt seen for evaluation today. Pain: 4/10, decreased after ambulation Vital Signs: SpO2: 94% on .5L, pt maintained sats in low 90s with ambulation, after returning to bed and talking,sats dropped to 87%, put back on 1L HR: 95 BP: 136/88 Mental Status: alert, oriented to person, place, and time Vision: WNL Skin: lap sites, drain Musculoskeletal: ROM: WFL fatigues if holding UEs overhead too long Strength: myotonic dystrophy, uses a device for ambulation, found that strengthening exercises made him worse, keeps active and paces himself Sensation: denies sensory deficits Bed Mobility: Supine to Sit: supervision Sit to Supine: supervision Transfers: Sit to Stand: cga/min asst Stand to Sit: supervision Bed to Chair: pt more comfortable sitting EOB Gait: Distance: ~100 ft Device used: rollator Level of assist: Cga, assist to manage IV pole Gait mechanics: flexed at trunk, tendency to have rollator too far forward, cued to stand within it Stairs: pt has a ramp Balance: good sitting balance, fair standing balance Therex: IS, cues for technique Education: patient has been educated on Breathing exercises, Positioning, Safety , Gait , Role of therapy and Discharge planning and verbalizes understanding. Patient status, treatment, and mobility recommendations discussed with nursing. Assessment: Rivas Carlos was seen today for physical therapy evaluation. Pt presents with mild pain, decreased aerobic capacity, impaired mobility due several weeks of not feeling well, decreased p.o intake, now s/p cholycystectomy, baseline weakness from myotonic dystrophy, impaired mobility tasks. Pt is requiring supplemental 02 at times. Expect pt will progress daily with increased p.o intake, pain management, removal of drain and IVs and increased opportunities to mobilize . The pt would benefit from skilled therapy services while in the hospital to maximize functional abilities. Discharge Recommendations: Anticipated Discharge Disposition: (P) home with assist Consult Recommendations: No other consults recommended at this time. Equipment needs: Patient has all necessary equipment Goals: To be achieved by 07/14: 1. Pt. to demonstrate knowledge of safety limitations and precautions and will appropriately requestassistance for functional activities and to mobilize. 2. Pt. to demonstrate IS to 1000 ml with proper technique. 3. Pt. to perform bed mobility independently from flat bed 4. Pt. to perform sit to stand transfers with modified independence using a rollator. 5. Pt. to ambulate 100 feet on RA with sats > 90% with modified independence using a rollator. 6. Family or caregiver to demonstrate understanding of therapeutic interventions to support the careof the patient. Plan: Therapy Frequency: (P) 1-3 more visits for therapy including bed mobility training, gait training and incentive spirometer teaching. Patient/family understand and agree with plan as stated above. 2017 PT Evaluation Code Rationale: ?? Diagnosis & Pertinent Co-Morbidities, personal factors, and present illness affecting Plan ofCare: (see above); Additional personal factors or co- morbidities that impact plan: ?? Total # of Factors: 0 1-2 3+ ?? Examination of body system impairments, functional limitations and behaviors, and/or participation restrictions. Addressing 1-2 elements Addressing 3 + elements Addressing 4 + elements ?? Clinical presentation: See assessment above. Stable/Uncomplicated Evolving/Fluctuating Symptoms Unstable/Unpredictable ?? Clinical decision making of low complexity based on pt's functional performance as outlined in this evaluation. Time IN / OUT: 10:55-11:35 Total Evaluation Minutes, Physical Therapy: (P) 40 ZA FLOYD, PT Pager: [phone] Physical Therapy Inpatient Rehabilitation Department Plan of Care - Jolie Ordnoez OT - 07/13/2019 11:19 AM EDT Occupational Therapy Evaluation Patient profile: Rivas Carlos is a 69 y.o.??male??with PMH HTN, HLD, myotonic dystrophy, PE, and pace maker insertion (on eliquis)??with 4 months of biliary colic and now exam and imaging findings consistent with acute cholecystitis. Now s/p cholecystectomy on 07/10 (per General Surgery progress note) No past medical history on file. Past Surgical History: Procedure Laterality Date ??? PRO LAP, CHOLECYSTECTOMY/GRAPH N/A 07/11/2019 LAPAROSCOPIC CHOLECYSTECTOMY WITH CHOLANGIOGRAM (WRVU 11.47) performed by Amari Schneider MD [facility] MAIN OR Social History: Patient lives with his Home Setup: Multi-level home with ramp to enter. Pt has stair glide to basement. Bedroom and bathroom on same level. Bathroom with walk-in shower, shower chair and grab bars. DME: rollator walker, cane Baseline ADL/Mobility: Pt is independent with ADLs at baseline, with the exception of assist to don socks. Pt reports that he ambulates with a straight cane indoors, but uses as rollator walker for longer distances and uneven surfaces. His is home and able to assist as need. Both pt and drive, and pt reports that he enjoys mowing his lawn and riding his gator. Precautions/Special Considerations: AAT, RUQ DAVIAN drain, PIV, myotonic dystrophy Subjective: I hope that I can go home tomorrow. Objective: Seen today for OT evaluation. Cognitive Status/Behavior: ?? Behavior / Mood: alert and cooperative ?? Alert and oriented to: person, place, time and situation ?? Follows commands: multi step ?? Attention: WFL ?? Safety awareness: WFL ?? Pt has developed many adaptive strategies that he uses at baseline for mobility and ADL function Vision & Perception: ?? WNL/WFL Communication: WFL Range of motion, strength, coordination: Bilateral UEs are within functional limitations Sensation: denies numbness/tingling in UEs Activities of Daily Living: Self-feeding: independent Grooming: independent Dressing: pt able to don pants today with Margo Bathing: Toileting: has been ambulating in/out bathroom with RN assist Transfer: CGA with rollator walker Hygiene: Functional Mobility: Supine to sit: conditional independence with HOB elevated Sit to stand: supervision with rollator walker Ambulation: ~100 ft with CGA and use of rollator walker Stand to sit: supervision with rollator walker Sit to supine: conditional independence with HOB elevated Balance: Sitting balance: good Standing balance: good Vitals: SpO2 drop to 88% with conversation towards end of session, RN in room and aware At Rest With Activity SpO2 95% 88% Pain: reported improved discomfort following ambulation, did not rate Education: patient have been educated on Role of occupational therapy/rehabilitation, Transfers, ADL, Positioning, Functional Mobility, Activity pacing/Energy conservation, Home Management and Recommendations and demonstrates understanding. Patient status, treatment, and mobility recommendations discussed with nursing. Assessment: Pt has been seen for occupational therapy evaluation. Rivas Carlos presents with the following performance skill deficits and client factors: increased pain, decreased flexibility/ROM and decreased strength. These performance deficits have led to activity limitations and participation re strictions in the following areas of occupation: dressing, bathing, toileting, transfers/mobility, rest/sleep, home management, leisure, driving and community mobility. Pt pleasant and cooperative throughout session, very motivated to mobilize with therapy. Pt reports feeling slightly weaker now compared to baseline, but tolerated ambulation in [place] with CGA and use of rollator walker. Pt able to verbalize extensive adaptive strategies used at baseline to support safety and indepedence with ADLs. Ptwould benefit from further inpatient OT interventions to address performance deficits and maximize participation and independence with occupations of daily living. Anticipate that pt can discharge homewith family assist and VNA OT when medically ready. Equipment needs at discharge: likely none Anticipated Discharge Disposition: home with assist, home with home health Other Recommendations: ?? OOB to chair for meals ambulate as tolerated ?? Encourage participation in ADL's by providing set up A on tray table and physical assist only as needed Goals: To be achieved by 07/19. Pt will sit/stand at sink to brush teeth and wash face with conditional independence Pt will dress UB/LB with conditional independence and use of AE/adaptive strategies Pt will perform all aspects of toileting with conditional independence Pt will ambulate household distance with conditional independence Pt will demonstrate understanding of 2-3 energy conservation techniques for use during ADLs Plan: OT: Therapy Frequency: 1-3 more visits Planned OT interventions: Assistive device/technique, ADL, Safety, Functional Mobility, Activity pacing/Energy conservation and Discharge planning. Total Evaluation Minutes, Occupational Therapy: 38(moderate complexity eval) 2017 OT Evaluation Code Rationale: ?? Diagnosis & Pertinent Co-Morbidities affecting Plan of Care: see PMHx ?? Occupational Profile & Client History: Brief Expanded Extensive x ?? Assessment of Occupational Performance: 1-3 performance deficits 3-5 performance deficits x 5 + performance deficits ?? Clinical Decision Making: Low Moderate High x Clinical decision making of moderate complexity using standardized patient assessment instrument andmeasurable assessment of functional outcome. Pager: [phone] Jolie Ordonez OT 07/13/2019 Occupational Therapy Rehabilitation Department Plan of Care - Dangelo Baldwin RN - 07/13/2019 2:53 AM EDT Problem: Patient Care Overview Goal: Plan of Care Review Outcome: Ongoing (Interventions Implemented as Appropriate) 07/12/19 1440 07/12/196 Plan of Care Review Progress progress toward functional goals as expected -- Coping/Psychosocial Plan Of Care Reviewed With -- patient 1900 - 0700 OUTCOME EVALUATION NOTE: OUTCOME SUMMARY: Patient able to rest for most of the night. He did report mild abdominal discomfort around drain site, but declined intervention beyond the scheduled tylenol. Attempted to wean to room air, but when hewas resting his oxygen level would drop into the mid 80s on RA. Remains on 2L NC at this time. Did note patient only voiding small amounts about every 5-6 hours. Did obtain a PVR for about 500mL, MD aware and as patient having no discomfort and reported this is his normal voiding habits at home continuing to monitor for now without additional intervention. Tolerating IV antibiotics well. Assessment and VS as documented. PLAN MOVING FORWARD: Pain has been well controlled, but oral intake has been minimal and he still requires supplemental oxygen to maintain adequate saturation. Until these last two issues are resolved d/c date will be pending. INDIVIDUALIZED FALL PREVENTION INTERVENTIONS: Patient-specific fall risk factors: see assessment Assistance [level of assistance required for transfers and ambulation]: 1 assist when OOB Supervision [direct monitoring required during toileting and ADLs]: 1 person (stand by) Surveillance [continuous indirect monitoring]: Hourly rounding and continuous pulse oximetry Plan of Care - Kristin Fontanez RN - 07/12/2019 2:47 PM EDT Problem: Patient Care Overview Goal: Plan of Care Review Outcome: Ongoing (Interventions Implemented as Appropriate) 07/12/19 1440 Plan of Care Review Progress progress toward functional goals as expected Coping/Psychosocial Plan Of Care Reviewed With patient OUTCOME EVALUATION NOTE: OUTCOME SUMMARY: Rivas c/o 11/04 mid-sternal pain-MD notified obtained EKG to r/o chest etiology-mostly associated with surgery; HTN given labetalol x1; oxy given atc-IV dilaudid given 1x for breakthrough pain; pt limiting PO due to pain with drinking-encouraged ambulation-walked 2x (brief) around nurse station-pt states he can only do about 100 ft before he needs to sit; voided 2x; aggressive IS use with pt exhibiting fair technique-unable to wean O2 sats down to 87% on RA. Tolerated breakfast but refused lunch d/t (pain); voided 2x (one inc in bathroom) bladder scan 326 ml PLAN MOVING FORWARD: Monitor and treat pain; Pulmonary hygiene; Ambulate INDIVIDUALIZED FALL PREVENTION INTERVENTIONS: High fall risk Patient-specific fall risk factors per assessment: [current deficits]: Recent surgery; Narcotics; Impaired mobility r/t myoclonic dystrophy Assistance [level of assistance required for transfers and ambulation]: 1 assist FWW Supervision [direct monitoring required during toileting and ADLs]: Eyes on Surveillance [continuous indirect monitoring]: Nurse knowledge exchange at bedside; purposeful rounding; call morin in reach; environmental modifications; comfort and safety measures maintained Patient-specific fall prevention interventions for sensory deficits provided, if applicable: [X] No CPG GOAL OUTCOME EVALUATION: Goal: Individualization & Mutuality Outcome: Ongoing (Interventions Implemented as Appropriate) 07/12/19 1147 Mutuality/Individual Preferences What Anxieties, Fears or Concerns Do You Have About Your Health or Care? no What Questions Do You Have About Your Health or Care? no What Information Would Help Us Give You More Personalized Care? none Goal: Fall Prevention-Safe Patient Handling Outcome: Ongoing (Interventions Implemented as Appropriate) 07/12/19 0750 07/12/19 1244 [place] Fall Risk History of Falling 25 -- Secondary Diagnosis 15 -- Ambulatory Aids 15 -- Intravenous Therapy/Heparin/Saline Lock 20 -- Gait/Transferring 20 -- Mental Status 0 -- Score 95 -- OTHER [place] Fall Risk High -- Restraint Interventions Safety Promotion/Fall Prevention activity supervised;fall prevention program maintained;muscle strengthening facilitated;nonskid shoes/slippers when out of bed;safety round/check completed -- Positioning Body Position (sitting EOB) -- Activity Activity Type -- ambulated in boyle Activity Assistance Provided -- assistance, 1 person Assistive Device Utilized -- front-wheel walker Goal: Infection Control Outcome: Ongoing (Interventions Implemented as Appropriate) 07/12/19 0750 Safety Interventions Isolation Precautions standard precautions maintained Infection Prevention barrier precautions utilized;cohorting utilized;environmental surveillance performed;rest/sleep promoted Coping Strategies Supportive Measures active listening utilized;goal setting facilitated Goal: Discharge Needs Assessment Outcome: Ongoing (Interventions Implemented as Appropriate) 07/12/19 1440 Discharge Needs Assessment Concerns To Be Addressed adjustment to diagnosis/illness concerns Readmission Within The Last 30 Days no previous admission in last 30 days Equipment Needed After Discharge none Discharge Disposition still a patient Living Environment Transportation Available family or friend will provide Current Health Anticipated Changes Related to Illness none Activity/Self Care Review of Systems Equipment Currently Used at Home cane, straight Goal: Interdisciplinary Rounds/Family Conf Outcome: Ongoing (Interventions Implemented as Appropriate) 07/12/19 1440 Interdisciplinary Rounds/Family Conf Participants nursing;physician Plan of Care - Aggie Bui RN - 07/12/2019 2:40 AM EDT Problem: Patient Care Overview Goal: Interdisciplinary Rounds/Family Conf Outcome: Ongoing (Interventions Implemented as Appropriate) 07/11/19 0409 Interdisciplinary Rounds/Family Conf Participants patient;nursing OUTCOME EVALUATION NOTE: OUTCOME SUMMARY: Pt arrived to unit from PACU around 1999, VSS. Patient's pain was 4-5/10 well controlled with scheduled tylenol and PRN oxy given x1. Lap sites CDI, Right DAVIAN putting out sanguinous drainage. He has adequate chandan/concentrated UOP. No BM this shift, he states he has not passed flatus. He denies nausea,he did not have much of an appetite but did tolerate a granola bar. He remains on 2L NC to keep oxygen above 90%. He was OOB to BR X2 this shift. He is resting between care, will continue to monitor. PLAN MOVING FORWARD: Pain management I&Os Encourage ambulation INDIVIDUALIZED FALL PREVENTION INTERVENTIONS: Patient-specific fall risk factors per assessment: [current deficits]: High, IVF infusing, generalized weakness Assistance [level of assistance required for transfers and ambulation]: 1 assist with cane Supervision [direct monitoring required during toileting and ADLs]: Hands on Surveillance [continuous indirect monitoring]: Nurse knowledge exchange, purposeful rounding, environmental modifications (waste basket is out of the path and the IV tubing and cords are free from the floor), fall reduction program in place, lighting adjusted for task, bed in low position, wheels muna d, side rails up (x2), nonskid socks worn OOB, no restraints, call light is within reach at all times, assistive device, bed/chair alarm, [place] ID band on Patient-specific fall prevention interventions for sensory deficits provided, if applicable: [X] Yescontacts at bedside CPG GOAL OUTCOME EVALUATION: Brief Op Note - Dipak Treadwell MD - 07/11/2019 6:16 PM EDT Brief Operative Note Patient Name: Rivas Carlos : [id number] MR#: [id number] Case Date: 07/11/2019 Surgeon: Surgeon(s) and Role: * Amari Schneider MD - Primary * Dipak Treadwell MD - Resident Preoperative diagnosis: Acute cholecystitis Postoperative diagnosis: Acute cholecystitis Procedure(s) (LRB): LAPAROSCOPIC CHOLECYSTECTOMY WITH CHOLANGIOGRAM (VU 11.47) (N/A) Anesthesia: General Findings: necrotic gallbladder. Unable to safely identify the critical view due to degree of inflammation and necrosis. Performed subtotal cholecystectomy and left a drain. Complications: none Estimated Blood Loss: 50 ml Specimens removed during surgery: Order Name Source Comment Collection Info Order Time SPECIMEN TO PATHOLOGY acute cholecystitis gallbladder excision No 07/11/2019 5:29 PM Time specimen removed from patient: 5:28 PM Number of tissue samples (in container) 1 Fluids: Intraprocedure Crystalloid Total Anesthesia Output Blood Loss 100 mL Lactated Ringers Volume (mL) 900 mL PRBCs: none (See Anesthesia Record/Report for Other Blood Products) Urine Output: (no urine output recorded) Drains: 19 Fr bill drain to gallbladder fossa Disposition: awakened from anesthesia, extubated and taken to the recovery room in a stable condition, having suffered no apparent untoward event. Condition: doing well without problems (Please see the Surgical Encounter Summary for any Implant and Specimen details pertinent to this patient.) Infection Bundle used? N/A Plan of Care - Jolie Bates RN - 07/11/2019 5:14 PM EDT Problem: Patient Care Overview Goal: Plan of Care Review Outcome: Ongoing (Interventions Implemented as Appropriate) 07/11/19 04007/11/19 0800 Plan of Care Review Progress no change -- Coping/Psychosocial Plan Of Care Reviewed With -- patient OUTCOME EVALUATION NOTE: OUTCOME SUMMARY: Pt had 2-3/10 pain managed with scheduled Tylenol. Pt resting in bed quietly with minimal needs. UOPlow. Team aware. Abdomen tender. Pt not passing gas. Pt down to OR at 1530. PLAN MOVING FORWARD: Continue to monitor and manage pain. Monitor need for NC. INDIVIDUALIZED FALL PREVENTION INTERVENTIONS: High Fall Risk Patient-specific fall risk factors per assessment: [current deficits]: Patient has a history of falling, 2 or more active diagnoses, recent surgery, has an actively infusing IV line, uses an ambulatoryaid, has generalized weakness (or impairment), tubes/drains, blevins catheter, pain, opioids for pain,is taking (anti-arrhythmic, anti-hypertensive, cardiac, meds), has sensory deficits ([place], wears contacts) Assistance [level of assistance required for transfers and ambulation]: 1 a w/cane Supervision [direct monitoring required during toileting and ADLs]: Hands on Surveillance [continuous indirect monitoring]: Hourly rounding, observation by staff, NKE at bedside. Assistive device, bed/chair alarm, environmental modifications (reduce clutter, lighting adjusted for safety, IV tubing and cords are free from the floor), contacts in place, nonskid shoes/slippers when out of bed, bed in low position, upper position siderails raised x2 (x3), wheels locked, call light in reach, ID bands on, [place] ID band on Patient-specific fall prevention interventions for sensory deficits provided, if applicable: Contacts in place (taken out and placed at bedside for OR) CPG GOAL OUTCOME EVALUATION: Plan of Care - Aggie Bui RN - 07/11/2019 4:33 AM EDT Problem: Patient Care Overview Goal: Plan of Care Review Outcome: Ongoing (Interventions Implemented as Appropriate) 07/10/19 2130 07/11/19 0409 Plan of Care Review Progress -- no change Coping/Psychosocial Plan Of Care Reviewed With patient -- OUTCOME EVALUATION NOTE: OUTCOME SUMMARY: Patient arrived to unit from ED around 2129, VSS, A&Ox4, oriented to room and 2 [place] fall prevention. He stated 6-8/10 pain, PRN oxy given x2 and IV dilaudid given with some effect. He has had adequate UOP, no BM and states he is not passing flatus. He has been OOB to bathroom with cane. Started IV zosyn. He is going to the OR today for cholecystectomy. He is resting between care, will continue to monitor. PLAN MOVING FORWARD: OR today INDIVIDUALIZED FALL PREVENTION INTERVENTIONS: Patient-specific fall risk factors per assessment: [current deficits]: High Assistance [level of assistance required for transfers and ambulation]: SBA with cane Supervision [direct monitoring required during toileting and ADLs]: Hands on Surveillance [continuous indirect monitoring]: Nurse knowledge exchange, purposeful rounding, environmental modifications (waste basket is out of the path and the IV tubing and cords are free from the floor), fall reduction program in place, lighting adjusted for task, bed in low position, wheels muna d, side rails up (x2), nonskid socks worn OOB, no restraints, call light is within reach at all times, assistive device, bed/chair alarm, [place] ID band on Patient-specific fall prevention interventions for sensory deficits provided, if applicable: [X] N/A CPG GOAL OUTCOME EVALUATION: Goal: Fall Prevention-Safe Patient Handling Outcome: Ongoing (Interventions Implemented as Appropriate) 07/10/19212907/10/19 2305 [place] Fall Risk History of Falling -- 25 Secondary Diagnosis -- 15 Ambulatory Aids -- 15 Intravenous Therapy/Heparin/Saline Lock -- 20 Gait/Transferring -- 10 Mental Status -- 0 Score -- 85 OTHER [place] Fall Risk -- High Restraint Interventions Safety Promotion/Fall Prevention activity supervised;elopement precautions initiated;fall preventionprogram maintained;nonskid shoes/slippers when out of bed;safety round/check completed -- Positioning Body Position independent -- Activity Activity Type ambulated to bathroom -- Activity Assistance Provided assistance, stand-by -- Assistive Device Utilized cane -- Goal: Infection Control Outcome: Ongoing (Interventions Implemented as Appropriate) 07/10/192129 Safety Interventions Isolation Precautions standard precautions maintained Infection Prevention environmental surveillance performed;rest/sleep promoted Coping Strategies Supportive Measures active listening utilized;self-care encouraged Goal: Discharge Needs Assessment Outcome: Ongoing (Interventions Implemented as Appropriate) 07/11/19408 Discharge Needs Assessment Concerns To Be Addressed no discharge needs identified Goal: Interdisciplinary Rounds/Family Conf Outcome: Ongoing (Interventions Implemented as Appropriate) 07/11/19408 Interdisciplinary Rounds/Family Conf Participants patient;nursing Initial Assessments - Dilia Vasquez MSW - 07/10/2019 6:13 PM EDT Office of Care Management Assessment Medical record reviewed. Plan of care and patient status discussed with direct care RN and/or Care Team in multidisciplinary rounds. Screen[age] y.o. male presented to [facility] for abdominal pain. Present on Admission: ??? Acute cholecystitis Patient has not been admitted to a hospital within the last 30 days. Patient receiving hospital care under Inpatient status. Admission order reviewed. Primary Insurance on file: [employer] Secondary Insurance on file:N/A Primary care provider on file: Pool Hercules MD [phone] Advance Directive on file and Code Status: No AD on file, Full Code If AD's have not been completed Thania Carlos () [phone] (H) [phone] (M), would be surrogate decision maker per [place] surrogate decision making law. Any patient receiving care at [facility] must abide by [place] law. The hierarchy for surrogate decision making is: (a) Patient???s spouse, or civil union partner or common law spouse unless there is a divorce proceeding, separation agreement, or restraining order limiting that person???s relationship with the patient. (b) Any adult son or daughter of the patient. (c) Either parent of the patient. (d) Any adult brother or sister of the patient. (e) Any adult grandchild of the patient. (f) Any grandparent of the patient. (g) Any adult aunt, uncle, niece, or nephew of the patient. (h) A close friend of the patient. (i) The agent with financial power of diamond setter or a conservator appointed in accordance with RSA 464-A. (j) The guardian of the patient???s estate. Patient???s Functional Status: Independent with a cane Living Situation: Pt lives at the below address [place] [address] Supports: Pt is supported by his and family Assessment: Patient with no apparent RNCM/SW needs at this time. No housing, transportation, insurance, resources concerns identified at this time. Supports in place to achieve a safe post-hospital transition. No identified barriers to accessing necessary care and/or follow-up after discharge. Plan: Patient to d/c to home via private vehicle when medically ready. soil sampler/Assistant Research Scientist will continue to follow patient???s progress and remain available if situation changes for coordination of care, psychosocial support and/or discharge planning. No future appointments. GEORGE Wright Clinical Assistant Research Scientist ED CDU SD C: [phone] ED Triage - Raul Miller RN - 07/10/2019 4:58 PM EDT Pt here from [facility] as a hospital transfer with diagnosis of gall stones. Here to be seen by surgery. Pt AXOX4, skin pwd, RRR, even, unlabored. Pt noted diffuse abdominal pain all last night, unable to sleep. Abdominal pain constant, abd distended firm, with tenderness to palpation in his RU and RLQ's. Pt denies SOB but states it is difficult for him to take a deep breath due to his abdominal pain. Call morin in reach. documented in this encounter Plan of Treatment Not on filedocumented as of this encounter Procedures Procedure Name Priority Date/Time Associated Diagnosis Comme nts VENIPUNCTURE Routine 07/13/2019 2:01 Results f or this AM EDT procedure are i n the results section. EKG 12-LEAD STAT 07/12/2019 8:35 Acute cholecystitis Resul ts for this AM EDT procedure are i n the results section. HEMOGRAM STAT 07/12/2019 6:31 Results for this AM EDT procedure are i n the results section. DIFFERENTIAL, AUTOMATED STAT 07/12/2019 6:31 R esults for this AM EDT procedure are i n the results section. HC VENIPUNCTURE STAT 07/12/2019 6:31 AM EDT HC PHOSPHORUS, SERUM STAT 07/12/2019 6:31 Resu lts for this AM EDT procedure are i n the results section. HC MAGNESIUM, SERUM STAT 07/12/2019 6:31 Resul ts for this AM EDT procedure are i n the results section. HEPATIC FUNCTION PANEL STAT 07/12/2019 6:31 Re sults for this AM EDT procedure are i n the results section. BASIC METABOLIC PANEL STAT 07/12/2019 6:31 Res ults for this (NON-FASTING) AM EDT procedure are in the results section. SPECIMEN TO PATHOLOGY Routine 07/11/2019 5:29 Res ults for this PM EDT procedure are i n the results section. SURGICAL PATHOLOGY Routine 07/11/2019 5:28 Result s for this REPORT PM EDT procedure are i n the results section. LAPAROSCOPIC 07/11/2019 3:49 Acute cholecystitis CHOLECYSTECTOMY WITH PM EDT CHOLANGIOGRAM (WRVU 11.47) HC APIXABAN LEVEL Routine 07/11/2019 2:48 Results for this AM EDT procedure are i n the results section. HEMOGRAM Routine 07/11/2019 2:48 Results for this AM EDT procedure are i n the results section. DIFFERENTIAL, AUTOMATED Routine 07/11/2019 2:48 R esults for this AM EDT procedure are i n the results section. HC CREATININE Routine 07/11/2019 2:48 Results for this AM EDT procedure are i n the results section. HC VENIPUNCTURE Routine 07/11/2019 2:48 AM EDT HC UREA NITROGEN, SERUM Routine 07/11/2019 2:48 R esults for this AM EDT procedure are i n the results section. HEPATIC FUNCTION PANEL Routine 07/11/2019 2:48 Re sults for this AM EDT procedure are i n the results section. ELECTROLYTES PANEL Routine 07/11/2019 2:48 Result s for this AM EDT procedure are i n the results section. LAPAROSCOPIC Routine 07/10/2019 5:54 CHOLECYSTECTOMY WITH PM EDT CHOLANGIOGRAM L-LACTATE2 WHOLE BLOOD Routine 07/10/2019 5:27 Re sults for this PM EDT procedure are i n the results section. ABORH RECHECK STATUS STAT 07/10/2019 5:25 Resu lts for this PM EDT procedure are i n the results section. CMP W/FASTING GLUCOSE STAT 07/10/2019 5:25 Res ults for this PM EDT procedure are i n the results section. HEMOGRAM STAT 07/10/2019 5:25 Results for this PM EDT procedure are i n the results section. DIFFERENTIAL, AUTOMATED STAT 07/10/2019 5:25 R esults for this PM EDT procedure are i n the results section. GOLD TUBE HOLD STAT 07/10/2019 5:25 Results fo r this PM EDT procedure are i n the results section. BLUE TUBE HOLD STAT 07/10/2019 5:25 Results fo r this PM EDT procedure are i n the results section. ABO/RH TYPING STAT 07/10/2019 5:25 Results for this PM EDT procedure are i n the results section. HC CBC,PLT & AUTO DIFF STAT 07/10/2019 5:25 PM EDT ANTIBODY SCREEN STAT 07/10/2019 5:25 Results f or this PM EDT procedure are i n the results section. HC ABO-MICROTITER STAT 07/10/2019 5:25 PM EDT EKG 12-LEAD STAT 07/10/2019 5:15 Results for this PM EDT procedure are i n the results section. documented in this encounter Results (ABNORMAL) Comprehensive metabolic panel (non-fasting) (07/13/2019 2:01 AM EDT) P athologist Signature Glucose Lvl 109 65 - 199 [facility] mg/dL [facility] Comment: Diabetes: >=200 mg/dL plus symp toms BUN 8 (L) 10 - 20 mg/dL [facility] Creatinine 0.57 (L) 0.80 - 1.50 mg/dL [facility] Sodium 141 135 - 145 mmol/L [facility] Potassium 4.0 3.5 - 5.0 mmol/L [facility] Comment: Please note: ??Patients with WBC >100,00 0 may have falsely elevated Potassium levels. ??For accurate Potassium quantif ication in these patients send serum separator tube (gold top) for subsequent determinations. ??Contact the Clinical Chemistry Laboratory if there are any qu estions. Chloride 102 98 - 107 mmol/L [facility] CO2 31 22 - 31 mmol/L [facility] Anion Gap 8 5 - 15 mmol/L [facility] Calcium 8.9 8.5 - 10.5 mg/dL [facility] Total Protein 4.8 (L) 6.1 - 8.0 gm/dL [facility] Albumin 2.6 (L) 3.2 - 5.2 gm/dL [facility] AST 25 0 - 39 unit/L [facility] ALT 39 0 - 55 unit/L [facility] Alk Phos 93 40 - 130 unit/L [facility] Total Bilirubin 0.5 0.2 - 1.3 mg/dL [facility] Estimated GFR 103 >=60 mL/min/1.73 m?? [facility] Comment: The eGFR was calculated using the CKD-EP I equation. As with all creatinine based estimates of kidney function, eGFR values calculated with the CKD-EPI equation are not accurate in patients wi th acute kidney failure, extremes of body mass or the acutely ill. [email or web address] eGFR 120 >=60 mL/min/1.73 m?? [facility] Comment: The eGFR was calculated using the CKD-EP I equation. As with all creatinine based estimates of kidney function, eGFR values calculated with the CKD-EPI equation are not accurate in patients wi th acute kidney failure, extremes of body mass or the acutely ill. [email or web address] Specimen Anatomical Collection Method Collection Time Receive d Time (Source) Location / / Volume Laterality Blood specimen 07/13/2019 2:01 AM 020 2:16 (specimen) EDT AM EDT Resulting Agency Comment Spec In Lab Dieter Bullard MD CHEMISTRY ORDERABLES Performing Organization Address City/State/[place] [address] EKG 12 Lead (07/12/2019 8:35 AM EDT) Component Value Ref Range Test Analysis Performed Pathologis t Method Time At Signature Ventricular rate 92 BPM MUSE SYSTEM Atrial Rate 92 BPM MUSE SYSTEM P-R Interval 198 ms MUSE SYSTEM QRS Duration 162 ms MUSE SYSTEM Q-T Interval 398 ms MUSE SYSTEM QTC Calculated 492 ms MUSE SYSTEM (Bezet) Calculated P [place] 47 degrees MUSE SYSTEM Calculated R [place] -61 degrees MUSE SYSTEM Calculated T [place] 90 degrees MUSE SYSTEM INTERPRETATION AV sequential or dual chamber electronic pacemaker MUSE SYSTEM Abnormal ECG When compared with ECG of 10-JUL-2019 17:15, No significant change was found Confirmed by MD BUDDY, STEPAN ([id number]) on 07/12/2019 12:56:3 7 PM Specimen Anatomical Collection Method Collection Time Receive d Time (Source) Location / / Volume Laterality 07/12/2019 8:35 AM 0 EDT 12:56 PM EDT Dieter Bullard MD ECG ORDERABLES Performing Organization Address City/[facility]/ZIP Code Phon e Number MUSE SYSTEM (ABNORMAL) Hepatic Function Panel (07/12/2019 6:31 AM EDT) P athologist Signature Total Protein 5.5 (L) 6.1 - 8.0 [facility] gm/dL [facility] Albumin 2.7 (L) 3.2 - 5.2 [facility] gm/dL [facility] AST 53 (H) 0 - 39 [facility] unit/L [facility] ALT 51 0 - 55 [facility] unit/L [facility] Comment: result rechecked-es Alk Phos 102 40 - 130 unit/L [facility] Total Bilirubin 0.6 0.2 - 1.3 mg/dL [facility] Bili, Direct 0.3 0.0 - 0.3 mg/dL [facility] Specimen Anatomical Collection Method Collection Time Receive d Time (Source) Location / / Volume Laterality Blood specimen Venous Draw / 07/12/2019 6:31 AM 2019 6:39 (specimen) Unknown EDT AM EDT Resulting Agency Comment Spec In Lab Vikash Garcia MD CHEMISTRY ORDERABLES Performing Organization Address City/State/ZIP [facility] [place] [address] (ABNORMAL) Differential, Automated (07/12/2019 6:31 AM EDT) [facility] Method Time Signature Neutrophils % 87.6 % [facility] Neutr Abs (ANC) 7.38 (H) 1.70 - [facility] 6.10 [facility] x10(3)/[facility] L LABORATORY Lymphocytes % 5.5 % [facility] Lymphocytes Abs 0.5 (L) 0.9 - 3.2 [facility] x10(3)/[facility] LABORATORY Monocytes % 6.4 % [facility] Monocyte Abs 0.5 0.3 - 0.9 [facility] x10(3)/[facility] LABORATORY Eosinophils % 0.0 % [facility] Eosinophils Abs 0.0 0.0 - 0.4 [facility] x10(3)/[facility] LABORATORY Basophils % 0.1 % [facility] Basophils Abs 0.0 0.0 - 0.1 [facility] x10(3)/[facility] LABORATORY Immature Gran % 0.40 % [facility] Comment: Immature granulocytes(IG's)percentage an d absolute count will include metamyelocytes, myelocytes, and promyelo cytes. Blood smears from CBCs yielding IG's will be scanned manually for concor dance. If this scan disagrees with the automated IG or if promyelocytes are not ed, a manual differential will be performed. Kelly Gran Abs 0.03 0.00 - 0.04 x10(3)/[facility]ORY Specimen Anatomical Collection Method Collection Time Receive d Time (Source) Location / / Volume Laterality Blood specimen 07/12/2019 6:31 AM 020 6:38 (specimen) EDT AM EDT Resulting Agency Comment Spec In Lab Vikash Garcia MD HEMATOLOGY ORDERABLES Performing Organization Address City/State/[place] [address] (ABNORMAL) Hemogram (07/12/2019 6:31 AM EDT) Analysis Performed At Patho logist Time Signature WBC 8.4 4.0 - 9.5 [facility] x10(3)/[facility] LABORATORY RBC 4.81 4.58 - [place] DANIEL 5.54 [facility] x10(6)/[facility] LABORATORY Hemoglobin 14.2 13.7 - [facility] 16.5 gm/dL [facility] Hematocrit 44.4 40.5 - [place] DANIEL 48.5 % [facility] MCV 92.3 82.9 - [facility] 93.1 [facility] LABORATORY MCH 29.5 27.5 - [place] DANIEL 32.1 pg [facility] MCHC 32.0 32.0 - [facility] 35.7 gm/dL [facility] Platelets 162 145 - 357 [facility] x10(3)/[facility] LABORATORY RDWSD 45.4 (H) 36.0 - [facility] 45.0 [facility] LABORATORY RDWCV 13.3 11.4 - [facility] 13.8 % [facility] LABORATORY MPV 11.6 7.6 - 12.9 [facility] LABORATORY nRBC % Auto 0.0 % [facility] nRBC Abs Auto 0.000 0.000 - [facility] 0.000 [facility] x10(3)/[facility] LABORATORY Specimen Anatomical Collection Method Collection Time Receive d Time (Source) Location / / Volume Laterality Blood specimen 07/12/2019 6:31 AM 020 6:38 (specimen) EDT AM EDT Resulting Agency Comment Spec In Lab Vikash Garcia MD HEMATOLOGY ORDERABLES Performing Organization Address City/State/[place] [address] (ABNORMAL) Phosphorus (07/12/2019 6:31 AM EDT) P athologist Signature Phosphorus 1.9 (L) 2.5 - 4.5 [facility] mg/dL [facility] Specimen Anatomical Collection Method Collection Time Receive d Time (Source) Location / / Volume Laterality Blood specimen 07/12/2019 6:31 AM 020 6:38 (specimen) EDT AM EDT Resulting Agency Comment Spec In Lab Dieter Bullard MD CHEMISTRY ORDERABLES Performing Organization Address City/[facility]/ZIP Code Phon e Number [address] Magnesium (07/12/2019 6:31 AM EDT) athologist Signature Magnesium 0.90 0.69 - 1.07 [facility] mmol/L [facility] Specimen Anatomical Collection Method Collection Time Receive d Time (Source) Location / / Volume Laterality Blood specimen 07/12/2019 6:31 AM 020 6:38 (specimen) EDT AM EDT Resulting Agency Comment Spec In Lab Dieter Bullard MD CHEMISTRY ORDERABLES Performing Organization Address [facility] [place] [address] (ABNORMAL) Basic Metabolic Panel (non-fasting) (07/12/2019 6:31 AM EDT) athologist Signature Glucose Lvl 147 65 - 199 [facility] mg/dL [facility] Comment: Diabetes: >=200 mg/dL plus symp toms BUN 7 (L) 10 - 20 mg/dL [facility] Creatinine 0.56 (L) 0.80 - 1.50 mg/dL [facility] Sodium 142 135 - 145 mmol/L [facility] Potassium 4.1 3.5 - 5.0 mmol/L [facility] Comment: Please note: ??Patients with WBC >100,00 0 may have falsely elevated Potassium levels. ??For accurate Potassium quantif ication in these patients send serum separator tube (gold top) for subsequent determinations. ??Contact the Clinical Chemistry Laboratory if there are any qu estions. Chloride 105 98 - 107 mmol/L [facility] CO2 27 22 - 31 mmol/L [facility] Anion Gap 10 5 - 15 mmol/L [facility] LAB[facility]ORY Calcium 9.0 8.5 - 10.5 mg/dL [facility] Estimated GFR 104 >=60 mL/min/1.73 m?? [facility] Comment: The eGFR was calculated using the CKD-EP I equation. As with all creatinine based estimates of kidney function, eGFR values calculated with the CKD-EPI equation are not accurate in patients wi th acute kidney failure, extremes of body mass or the acutely ill. [email or web address] eGFR 121 >=60 mL/min/1.73 m?? [facility] Comment: The eGFR was calculated using the CKD-EP I equation. As with all creatinine based estimates of kidney function, eGFR values calculated with the CKD-EPI equation are not accurate in patients wi th acute kidney failure, extremes of body mass or the acutely ill. [email or web address] Specimen Anatomical Collection Method Collection Time Receive d Time (Source) Location / / Volume Laterality Blood specimen 07/12/2019 6:31 AM 020 6:38 (specimen) EDT AM EDT Resulting Agency Comment Spec In Lab Dieter Bullard MD CHEMISTRY ORDERABLES Performing Organization Address City/State/ZIP Code Phon e Number [address] Specimen to Pathology (07/11/2019 5:29 PM EDT) Specimen Anatomical Collection Method Collection Time Receive d Time (Source) Location / / Volume Laterality AP Specimen 07/11/2019 5:29 PM 0 5:29 EDT PM EDT Narrative [facility] - 07/11/2019 5:29 PM EDT Specimen requisition ordered. ??Separate Pathology report to follow Amari Schneider MD PATHOLOGY/CYTOLOGY ORDERABLE S Performing Organization Address City/State/ZIP Code Phon e Number [address] Surgical Pathology Report (07/11/2019 5:28 PM EDT) Component Value Ref Test Analysis Performed At [facility] Range Method Time Signature Surgical [id number] ? Location: 2WST; 0210; A [facility] Pathology POLAND Report The signing pathologist has (i) examined the relevant preparation(s) for the [facility] specimen(s) and (ii) rendered or confirmed the diagnosis(es) . HOSPITAL LABORATORY . ?Surgic al Pathology DIAGNOSIS Gallbladder: - Necrotic gallbladder. - ??Cholelithiasis. Electronically signed by: ??Ron Lemus MD Verified: ??07/17/2019 ?Pathologist Performed at: ??-[facility] Dept. of Pathology, [place], [place] SPECIMEN(S) SUBMITTED A - Gallbladder, excision (1) CLINICAL INFORMATION Acute cholecystitis SPECIMEN PROCESSING A - Labeled/Fixative: Gallbladder, fresh. Quantity/Size: ??Three, 5.2 x 4.6 x 1.5 cm portion of necrotic-appearing gallbladder with 2 additional gallbladder fragments measuring 2.9 and 3.5 cm in maximal dimension. Specimen Description: Gallbladder, received fragmented. Serosa: Dull, green-brown and dusky Adventitia: Shaggy Lumen contents: Scant green bile within the lumen and contai ner Gallstones: Present: Single, yellow gallstone, 0.8 x 0.5 x 0 .4 cm. Mucosa: Green-brown and denuded Wall: 0.1-0.4 cm thick. Dull green and necrotic appearing Duct: Not identified. Ink Designation: The hepatic margin is inked black Sections/Processing: Gage Maker sections in 2 cassettes as follows: ?A1-A2: ??Mucosa and wall ??ajw Specimen (Source) Anatomical Collection Method Collection Time Re ceived Time Location / / Volume Laterality 07/11/2019 5:28 PM EDT Amari Schneider MD PATHOLOGY/CYTOLOGY ORDERABLE S Performing Organization Address City/State/[place] [address] (ABNORMAL) Differential, Automated (07/11/2019 2:48 AM EDT) [facility] gist Method Time Signature Neutrophils % 80.7 % [facility] Neutr Abs (ANC) 9.61 (H) 1.70 - [facility] 6.10 [facility] x10(3)/[facility] LABORATORY Lymphocytes % 7.7 % [facility] Lymphocytes Abs 0.9 0.9 - 3.2 [facility] x10(3)/[facility] LABORATORY Monocytes % 10.9 % [facility] Monocyte Abs 1.3 (H) 0.3 - 0.9 [facility] x10(3)/[facility] LABORATORY Eosinophils % 0.1 % [facility] Eosinophils Abs 0.0 0.0 - 0.4 [facility] x10(3)/[facility] LABORATORY Basophils % 0.3 % [facility] Basophils Abs 0.0 0.0 - 0.1 [facility] x10(3)/[facility] LABORATORY Immature Gran % 0.30 % [facility] Comment: Immature granulocytes(IG's)percentage an d absolute count will include metamyelocytes, myelocytes, and promyelo cytes. Blood smears from CBCs yielding IG's will be scanned manually for concor dance. If this scan disagrees with the automated IG or if promyelocytes are not ed, a manual differential will be performed. Kelly Gran Abs 0.03 0.00 - 0.04 x10(3)/[facility] LABORATORY Specimen Anatomical Collection Method Collection Time Receive d Time (Source) Location / / Volume Laterality Blood specimen 07/11/2019 2:48 AM 020 2:52 (specimen) EDT AM EDT Resulting Agency Comment Spec In Lab Elgin Martino MD HEMATOLOGY ORDERABLES Performing Organization Address City/State/[place] [address] (ABNORMAL) Hemogram (07/11/2019 2:48 AM EDT) Analysis Performed At Patho logist Time Signature WBC 11.9 (H) 4.0 - 9.5 [facility] x10(3)/[facility] LABORATORY RBC 5.28 4.58 - [facility] 5.54 [facility] x10(6)/[facility] LABORATORY Hemoglobin 15.2 13.7 - [facility] gm/dL [facility] Hematocrit 48.8 (H) 40.5 - [facility] 48.5 % [facility] LAB[facility]ATORY MCV 92.4 82.9 - [facility] 93.1 [facility] LABORATORY MCH 28.8 27.5 - [facility] 32.1 pg [facility] LABORATORY MCHC 31.1 (L) 32.0 - [facility] 35.7 gm/dL [facility] Platelets 157 145 - 357 [facility] x10(3)/[facility] LABORATORY RDWSD 45.0 36.0 - [facility] 45.0 [facility] LABORATORY RDWCV 13.2 11.4 - [facility] 13.8 % [facility] LABORATORY MPV 11.5 7.6 - 12.9 [facility] LABORATORY nRBC % Auto 0.0 % [facility] nRBC Abs Auto 0.000 0.000 - [facility] 0.000 [facility] x10(3)/[facility] LABORATORY Specimen Anatomical Collection Method Collection Time Receive d Time (Source) Location / / Volume Laterality Blood specimen 07/11/2019 2:48 AM 020 2:52 (specimen) EDT AM EDT Resulting Agency Comment Spec In Lab Elgin Martino MD HEMATOLOGY ORDERABLES Performing Organization Address City/State/[place] [address] Electrolytes panel (07/11/2019 2:48 AM EDT) P athologist Signature Sodium 141 135 - 145 [facility] mmol/L [facility]ORY Potassium 3.9 3.5 - 5.0 [facility] mmol/L [facility] Comment: Please note: ??Patients with WBC >100,00 0 may have falsely elevated Potassium levels. ??For accurate Potassium quantif ication in these patients send serum separator tube (gold top) for subsequent determinations. ??Contact the Clinical Chemistry Laboratory if there are any qu estions. Chloride 102 98 - 107 mmol/L [facility] CO2 27 22 - 31 mmol/L [facility] Anion Gap 12 5 - 15 mmol/L [facility] LABORATORY Specimen Anatomical Collection Method Collection Time Receive d Time (Source) Location / / Volume Laterality Blood specimen 07/11/2019 2:48 AM 020 2:52 (specimen) EDT AM EDT Resulting Agency Comment Spec In Lab Jamila Mabel Huffman Atccarmen DO CHEMISTRY ORDERABLES Performing Organization Address City/State/[place] [address] (ABNORMAL) BUN (07/11/2019 2:48 AM EDT) P athologist Signature BUN 5 (L) 10 - 20 [facility] mg/dL [facility]ORY Specimen Anatomical Collection Method Collection Time Receive d Time (Source) Location / / Volume Laterality Blood specimen 07/11/2019 2:48 AM 020 2:52 (specimen) EDT AM EDT Resulting Agency Comment Spec In Lab Jamila Mabel Cruz DO CHEMISTRY ORDERABLES Performing Organization Address City/[facility]/[place] [address] (ABNORMAL) Creatinine (07/11/2019 2:48 AM EDT) Analysis Performed At Patho logist Time Signature Creatinine 0.58 (L) 0.80 - [facility] 1.50 mg/dL [facility] LABORATORY Estimated GFR 103 >=60 [facility] mL/min/1.[address] LABORATORY Comment: The eGFR was calculated using the CKD-EP I equation. As with all creatinine based estimates of kidney function, eGFR values calculated with the CKD-EPI equation are not accurate in patients wi th acute kidney failure, extremes of body mass or the acutely ill. [email or web address] eGFR 119 >=60 mL/min/1.73 m?? [facility] Comment: The eGFR was calculated using the CKD-EP I equation. As with all creatinine based estimates of kidney function, eGFR values calculated with the CKD-EPI equation are not accurate in patients wi th acute kidney failure, extremes of body mass or the acutely ill. [email or web address] Specimen Anatomical Collection Method Collection Time Receive d Time (Source) Location / / Volume Laterality Blood specimen 07/11/2019 2:48 AM 020 2:52 (specimen) EDT AM EDT Resulting Agency Comment Spec In Lab Jamila Mabel Cruz DO CHEMISTRY ORDERABLES Performing Organization Address City/[facility]/ZIP Code Phon e Number [address] (ABNORMAL) Hepatic Function Panel (07/11/2019 2:48 AM EDT) P athologist Signature Total Protein 5.8 (L) 6.1 - 8.0 [facility] DANIEL gm/dL [facility] LABORATORY Albumin 3.5 3.2 - 5.2 [facility] DANIEL gm/dL [facility] LABORATORY AST 34 0 - 39 [facility] DANIEL unit/L [facility]ORY ALT 21 0 - 55 [facility] DANIEL unit/L [facility] LABORATORY Alk Phos 101 40 - 130 [facility] DANIEL unit/L [facility] LABORATORY Total 1.1 0.2 - 1.3 [facility] Bilirubin mg/dL [facility] LABORATORY Bili, Direct 0.5 (H) 0.0 - 0.3 [facility] DANIEL mg/dL [facility] LABORATORY Specimen Anatomical Collection Method Collection Time Receive d Time (Source) Location / / Volume Laterality Blood specimen 07/11/2019 2:48 AM 020 2:52 (specimen) EDT AM EDT Resulting Agency Comment Spec In Lab Jamila Mabel Cruz DO CHEMISTRY ORDERABLES Performing Organization Address City/[facility]/ZIP [facility] [place] [address] Apixaban Level (07/11/2019 2:48 AM EDT) P athologist Signature Apixaban Level 71 ng/mL [facility] Comment: No ? therapeutic range? for Apixaban has been defined. ? On therapy? ranges for various indications are derived from the medical literature and pharmacokinetic modeling and listed below ([employer]isi & [employer] chatterjee. Hematology Am Soc Hematol Educ Program 2015 and the product monograph ( see full references below)): Indication ? Dose ??Peak ??Trough VTE prevention, major ? 2.5 mg bid ??41 ? 146 ? 23 ? 109 ?? orthopedic surgery VTE treatment ? 10 mg bid ?? 111 ? 572 ?41 ? 335 ? 5 mg bid ?59 ? 302 ? 22 ? 177 ? 2.5 mg bid ??30 ? 153 ? 11 ? 90 Stroke prevention in atrial ? 5 m g bid ?91 ? 321 ? 41 ? 162 ?? fibrillation ? 2.5 mg bid ??6 9 ? 221 ? 34 ? 136 Peak and trough values are estimates for steady state Peak is determined 3 ? 4 hours after a dose Trough is determined 20 ? 28 hours after a dose Methodology: Chromogenic This test was developed and its performa nce characteristics determined by [facility]. It h as not been cleared or approved by the FDA. The laboratory is regulated under [place] [employer] as qualified to perform high complexity testing. This test is used fo r clinical purposes. It should not be regarded as investigational or for [facility]. Specimen Anatomical Collection Method Collection Time Receive d Time (Source) Location / / Volume Laterality Blood specimen 07/11/2019 2:48 AM 020 2:52 (specimen) EDT AM EDT Resulting Agency Comment Spec In Lab Jamila Cruz DO HEMATOLOGY ORDERABLES Performing Organization Address City/State/[place] [address] L-Lactate2 Whole Blood (07/10/2019 5:27 PM EDT) P athologist Signature Lactate WB 1.3 0.5 - 2.2 [facility] mmol/L [facility] LABORATORY Specimen Anatomical Collection Method Collection Time Receive d Time (Source) Location / / Volume Laterality Blood specimen 07/10/2019 5:27 PM 020 5:27 (specimen) EDT PM EDT Jamila Cruz DO CHEMISTRY ORDERABLES Performing Organization Address City/State/ZIP Code Phon e Number [address] ABORH Recheck Status (07/10/2019 5:25 PM EDT) Patholo gist Method Time Signature ABORH Recheck Order Placed [facility] LABORATORY ABORH Type Complete [facility] LABORATORY Specimen Anatomical Collection Method Collection Time Receive d Time (Source) Location / / Volume Laterality Blood specimen 07/10/2019 5:25 PM 020 5:30 (specimen) EDT PM EDT Resulting Agency Comment Spec In Lab Yuriy Gallagher MD BLOOD BANK ORDERABLES Performing Organization Address City/[facility]/[place] [address] Gold Tube HOLD (07/10/2019 5:25 PM EDT) P athologist Signature Gold Hold Sample in [facility] LABORATORY Specimen Anatomical Collection Method Collection Time Receive d Time (Source) Location / / Volume Laterality Blood specimen Venous Draw / 07/10/2019 5:25 PM 2019 5:35 (specimen) Unknown EDT PM EDT Yuriy Gallagher MD CHEMISTRY ORDERABLES Performing Organization Address City/[facility]/[place] [address] Blue Tube HOLD (07/10/2019 5:25 PM EDT) P athologist Signature Blue Hold Sample in [facility] LABORATORY Specimen Anatomical Collection Method Collection Time Receive d Time (Source) Location / / Volume Laterality Blood specimen Venous Draw / 07/10/2019 5:25 PM 2019 5:35 (specimen) Unknown EDT PM EDT Yuriy Gallagher MD HEMATOLOGY ORDERABLES Performing Organization Address City/State/[place] [address] (ABNORMAL) Differential, Automated (07/10/2019 5:25 PM EDT) Patholo gist Method Time Signature Neutrophils % 78.0 % [facility] LABORATORY Neutr Abs (ANC) 7.38 (H) 1.70 - [facility] 6.10 [facility] x10(3)/[facility] LABORATORY Lymphocytes % 10.3 % [facility] LABORATORY Lymphocytes Abs 1.0 0.9 - 3.2 [facility] x10(3)/[facility] LABORATORY Monocytes % 10.7 % [facility] LABORATORY Monocyte Abs 1.0 (H) 0.3 - 0.9 [facility] x10(3)/[facility] LABORATORY Eosinophils % 0.3 % [facility] LABORATORY Eosinophils Abs 0.0 0.0 - 0.4 [facility] x10(3)/[facility] LABORATORY Basophils % 0.3 % [facility] LABORATORY Basophils Abs 0.0 0.0 - 0.1 [facility] x10(3)/[facility] LABORATORY Immature Gran % 0.40 % [facility] LABORATORY Comment: Immature granulocytes(IG's)percentage an d absolute count will include metamyelocytes, myelocytes, and promyelo cytes. Blood smears from CBCs yielding IG's will be scanned manually for concor dance. If this scan disagrees with the automated IG or if promyelocytes are not ed, a manual differential will be performed. Kelly Gran Abs 0.04 0.00 - 0.04 x10(3)/mcL MAR Y [facility] LABORATORY Specimen Anatomical Collection Method Collection Time Receive d Time (Source) Location / / Volume Laterality Blood specimen 07/10/2019 5:25 PM 020 5:34 (specimen) EDT PM EDT Resulting Agency Comment Spec In Lab Yuriy Gallagher MD HEMATOLOGY ORDERABLES Performing Organization Address City/State/[place] [address] (ABNORMAL) Hemogram (07/10/2019 5:25 PM EDT) Analysis [facility] Time Signature WBC 9.5 4.0 - 9.5 [facility] x10(3)/[facility] LABORATORY RBC 5.61 (H) 4.58 - LEANNE DUKEDANIEL 5.54 [facility] x10(6)/[facility] LABORATORY Hemoglobin 16.3 13.7 - [facility] 16.5 gm/dL [facility] LABORATORY Hematocrit 51.1 (H) 40.5 - LEANNE ROCACOCK 48.5 % [facility] LABORATORY MCV 91.1 82.9 - [facility] 93.1 [facility] LABORATORY MCH 29.1 27.5 - LEANNE DANIEL 32.1 pg [facility] LABORATORY MCHC 31.9 (L) 32.0 - LEANNE ROCACOCK 35.7 gm/dL [facility] LABORATORY Platelets 184 145 - 357 [facility] x10(3)/[facility] LABORATORY RDWSD 44.0 36.0 - [facility] 45.0 [facility] RDWCV 12.9 11.4 - [facility] 13.8 % [facility] LABORATORY MPV 11.5 7.6 - 12.9 [facility] LABORATORY nRBC % Auto 0.0 % [facility] LABORATORY nRBC Abs Auto 0.000 0.000 - LEANNE DUKEDANIEL 0.000 [facility] x10(3)/[facility] LABORATORY Specimen Anatomical Collection Method Collection Time Receive d Time (Source) Location / / Volume Laterality Blood specimen 07/10/2019 5:25 PM 020 5:34 (specimen) EDT PM EDT Resulting Agency Comment Spec In Lab Yuriy Gallagher MD HEMATOLOGY ORDERABLES Performing Organization Address City/State/[place] [address] Antibody screen (07/10/2019 5:25 PM EDT) [facility] gist Method Time Signature Ab Screen Negative [facility] LABORATORY Expires at 07/13/2019 LEANNE DUKEDANIEL [id number] on: [facility] LABORATORY Specimen Anatomical Collection Method Collection Time Receive d Time (Source) Location / / Volume Laterality Blood specimen 07/10/2019 5:25 PM 020 5:30 (specimen) EDT PM EDT Resulting Agency Comment Spec In Lab Yuriy Gallagher MD BLOOD BANK ORDERABLES Performing Organization Address City/State/[place] [address] ABO/Rh Typing (07/10/2019 5:25 PM EDT) P athologist Signature ABORh Type O Pos [facility] LABORATORY Specimen Anatomical Collection Method Collection Time Receive d Time (Source) Location / / Volume Laterality Blood specimen 07/10/2019 5:25 PM 020 5:30 (specimen) EDT PM EDT Resulting Agency Comment Spec In Lab Yuriy Gallagher MD BLOOD BANK ORDERABLES Performing Organization Address City/[facility]/[place] [address] (ABNORMAL) CMP w/fasting Glucose (07/10/2019 5:25 PM EDT) P athologist Signature Glucose 105 (H) 65 - 99 [facility] Fasting mg/dL [facility] LABORATORY Comment: ?Fasting* Glucose Interpretive C riteria Normal ?65-99 mg/dL Impaired Fasting glucose ?100-125 mg/dL Consistent with Diabetes Mellitus ? >or= 126 mg/dL *Fasting is defined as no caloric intake for at least 8 hours In the absence of unequivocal hypergly cemia a plasma glucose value of >or= 126 mg/dL should be repeated on a subseq uent day. Diagnosis and Classification of Diabetes Mellitus, Position Statement from the [place] [employer]. ??Diabete s Care, Volume 33, Supplement 1, Mar 2009 BUN 4 (L) 10 - 20 mg/dL [facility] LABORATORY Creatinine 0.55 (L) 0.80 - 1.50 mg/dL [facility] LABORATORY Sodium 140 135 - 145 mmol/L [facility] LABORATORY Potassium 3.9 3.5 - 5.0 mmol/L [facility] LABORATORY Comment: Please note: ??Patients with WBC >100,00 0 may have falsely elevated Potassium levels. ??For accurate Potassium quantif ication in these patients send serum separator tube (gold top) for subsequent determinations. ??Contact the Clinical Chemistry Laboratory if there are any qu estions. Chloride 101 98 - 107 mmol/L [facility] LABORATORY CO2 25 22 - 31 mmol/L [facility] LABOR[facility]ORY Anion Gap 14 5 - 15 mmol/L [facility] LABORATORY Calcium 9.3 8.5 - 10.5 mg/dL [facility] LABORATORY Total Protein 6.6 6.1 - 8.0 gm/dL [facility] LABORATORY Albumin 3.5 3.2 - 5.2 gm/dL [facility] LABOR[facility] AST 22 0 - 39 unit/L [facility] LABORATORY ALT 15 0 - 55 unit/L [facility] LABORATORY Alk Phos 95 40 - 130 unit/L [facility] LABORATORY Total Bilirubin 0.8 0.2 - 1.3 mg/dL [facility] LABORATORY Estimated GFR 105 >=60 mL/min/1.73 m?? [facility] LABORATORY Comment: The eGFR was calculated using the CKD-EP I equation. As with all creatinine based estimates of kidney function, eGFR values calculated with the CKD-EPI equation are not accurate in patients wi th acute kidney failure, extremes of body mass or the acutely ill. [email or web address] eGFR 122 >=60 mL/min/1.73 m?? [facility] LABORATORY Comment: The eGFR was calculated using the CKD-EP I equation. As with all creatinine based estimates of kidney function, eGFR values calculated with the CKD-EPI equation are not accurate in patients wi th acute kidney failure, extremes of body mass or the acutely ill. [email or web address] Specimen Anatomical Collection Method Collection Time Receive d Time (Source) Location / / Volume Laterality Blood specimen 07/10/2019 5:25 PM 020 5:34 (specimen) EDT PM EDT Resulting Agency Comment Spec In Lab Jamila Cruz DO CHEMISTRY ORDERABLES Performing Organization Address City/State/ZIP Code Phon e Number [place] [id number]OS[address] LAB[address]ORY [address] EKG 12 Lead (07/10/2019 5:15 PM EDT) [facility] gist Method Time Signature Ventricular rate 71 BPM MUSE SYSTEM Atrial Rate 71 BPM MUSE SYSTEM P-R Interval 208 ms MUSE SYSTEM QRS Duration 168 ms MUSE SYSTEM Q-T Interval 430 ms MUSE SYSTEM QTC Calculated 467 ms MUSE SYSTEM (Bezet) Calculated P [place] 2 degrees MUSE SYSTEM Calculated R [place] -45 degrees MUSE SYSTEM Calculated T [place] 115 degrees MUSE SYSTEM INTERPRETATION A-sensing, V-pacing. MUSE SYSTEM Abnormal ECG No previous ECGs available Confirmed by MD BUDDY, STEPAN ([id number]) on 07/11/2019 1:49:20 PM Specimen Anatomical Collection Method Collection Time Receive d Time (Source) Location / / Volume Laterality 07/10/2019 5:15 PM 0 1:49 EDT PM EDT Jamila Mabel Cruz DO ECG ORDERABLES Performing Organization Address [facility]/ZIP Code Phon e Number MUSE SYSTEM documented in this encounter Visit Diagnoses Not on filedocumented in this encounter Admitting Diagnoses Diagnosis Acute cholecystitis documented in this encounter Administered Medications Inactive Administered Medications - up to 3 most recent administrations Medication Order MAR Action Action Date Dose Rate Site acetaminophen (Tylenol) tablet Given 07/14/2019 12:30 PM EDT 1,0 00 mg 1,000 mg 1,000 mg, Oral, EVERY 6 HOURS SCHEDULED, First dose on Tue07/11/19 at 0000, Until Discontinued, Maximum dose of acetaminophen is 4000 mg from all sources in 24 hours., Routine Given 07/14/2019 5:38 AM EDT 1,000 mg Given 07/14/2019 12:57 AM EDT 1,000 mg BUpivacaine (PF) (MARCAINE) Given 07/11/2019 4:53 PM EDT 7 mLs 19- Surgical Site 0.25 % (2.5 mg/mL) injection ONCE PRN, Starting on Tue07/11/19 at 1653, Until 07/14/19 at 1609, Intra-Operative (Intra-Procedure), Routine enalapril (Vasotec) tablet 10 mg Given 07/14/2019 8:26 AM EDT 10 mg 10 mg, Oral, DAILY, First dose on Tue07/12/19 at 1000, Until Discontinued, Routine Given 07/13/2019 8:18 AM EDT 10 mg Given 07/12/2019 4:31 PM EDT 10 mg famotidine (Pepcid) tablet 20 mg Given 07/14/2019 8:26 AM EDT 20 mg 20 mg, Oral, 2 TIMES DAILY, First dose on Tue07/10/19 at 2230, Until Discontinued, Routine Given 07/13/2019 9:07 PM EDT 20 mg Given 07/13/2019 8:18 AM EDT 20 mg heparin (Porcine) subcutaneous injection Given 020 5:39 AM EDT 5,000 Units 5,000 Units 5,000 Units, Subcutaneous, EVERY 8 HOURS SCHEDULED, First dose on Tue07/12/19 at 1000, Until Discontinued, Routine Given 07/13/2019 9:07 PM EDT 5,000 Units Given 07/13/2019 2:35 PM EDT 5,000 Units labetalol (NORMODYNE,TRANDATE) injection 10 mg Given 07/12/2019 8:28 AM EDT 10 mg 10 mg, Intravenous, EVERY 2 HOURS PRN, Starting on Tue07/10/19 at 2200, Until 07/14/19 at 1609, High Blood Pressure, SBP<160, hold for HR<60, Routine lidocaine (LIDODERM) 5 Patch Applied 07/14/2019 8:28 AM 3 patches 14- Abdomen % patch 3 patch EDT (Right) 3 patch, Transdermal, EVERY 24 HOURS, First dose on Tue07/13/19 at 0800, Until Discontinued, Apply patch(es) for 12 hours, and then remove for 12 hours, Routine Patch Applied 07/13/2019 8:20 AM EDT 3 patches 14- Abdomen (Right) lidocaine (LIDODERM) 5 %(700 mg/patch) P atch Removal Transdermal, EVERY 24 HOURS, First dose on Tue07/13/19 at 1945, Until Discontinued, Remove lidocaine 5 %(700 mg/patch) patch ondansetron (ZOFRAN) injection 4-8 mg 4-8 mg, Intravenous, EVERY 8 HOURS PRN, Starting on Tue07/10/19 at 2200, Until 07/14/19 at 1609, Nausea, Start with 4mg and if ineffective in 30 minutes, give an additional 4mg If multiple antiemetic s are ordered, give ondansetron first. ondansetron (Zofran) tablet 4-8 mg 4-8 mg, Oral, EVERY 8 HOURS PRN, Startin g on Tue07/10/19 at 2200, Until 07/14/19 at 1609, Nausea, Vomiting, If multiple antiemetics are ordered, use ondansetron first. PO Preferred. If patient unable to take PO, may give IV if ordered. Start with 4mg and if ineffective in 45 minutes, give an add itional 4mg. If unable to take PO, may give IV., Routine oxyCODONE (Roxicodone) tablet 5-10 mg 5-10 mg, Oral, EVERY 4 HOURS PRN, Starting on 07/12 at 0738, Until 07/14/19 at 1609, Pain, Give 5 mg for mod erate pain (4-6/10), give 10 mg for severe pain (7-10/10). Use prior to hydromorphone., Routine polyethylene glycol (Miralax) packet 17 g 17 g, Oral, DAILY PRN, Starting on Tue at 1028, Until 07/14/19 at 1609, Constipation, Routine senna-docusate (Pericolace) 8.6-50 mg pe r tablet 2 tablet 2 tablet, Oral, 2 TIMES DAILY PRN, Starting on 06/26 at 1028, Until 07/14/19 at 1609, Constipation, Routine sodium chloride 0.9 % (flush) flush 5 mL Given 07/14/2019 8:28 AM EDT 5 mLs 5 mL, Intravenous, 2 TIMES DAILY, First dose on Tue07/10/19 at 2230, Until Discontinued, Routine Given 07/13/2019 9:07 PM EDT 5 mLs Given 07/13/2019 8:21 AM EDT 5 mLs documented in this encounter Active and Recently Administered Medications Times are shown in EDT. Scheduled Medication Order 07/12/2019 07/13/2019 07/14/2019 acetaminophen (Tylenol) tablet 1,000 mg 0011 (Given - Provider: Aggie Bui, CADENCE)0523 (Given - Provider: Aggie Bui, CADENCE)1143 (Given - Provider: Kristin Fontanez RN)1805 (Given - Provider: Kristin Fontanez RN)2359 (Given - Provider: Dangelo Baldwin, CADENCE) 0614 (Given - Provider: Dangelo Baldwin, CADENCE)1201 (Given - Provider: Felicia Walker RN)1813 (Given - Provider: Felicia Walker RN) 0057 (Given - Provider: Per Jean-Baptiste, CADENCE)0538 (Given - Provider: Per Jean-Baptiste, CADENCE)1230 (Given - Provider: Felicia Walker RN) 1,000 mg, Oral, EVERY 6 HOURS SCHEDULED, First dose on Tue07/11/19 at 0000, Until Discontinued, Maximum dose of acetaminophen is 4000 mg from all sources in 24 hours., Routine enalapril (Vasotec) tablet 10 mg 1631 (Given - Provide r: Kristin Guadarrama RN) 0818 (Given - Provider: Felicia Walker RN) 0826 (G iven - Provider: Felicia Walker, CADENCE) 10 mg, Oral, DAILY, First dose on Tue at 1000, Until Discontinued, Routine famotidine (Pepcid) tablet 20 mg 0827 (Given - Provide r: Kristin Guadarrama RN)2138 (Given - Provider: Dangelo Baldwin RN) 0818 (Given - Provider: Felicia Walker RN)2107 (Given - Provider: Per Jean-Baptiste, CADENCE) 0826 (Given - Provider: Felicia Walker, CADENCE) 20 mg, Oral, 2 TIMES DAILY, First dose o tue07/10/19 at 2230, Until Discontinued, Routine heparin (Porcine) subcutaneous injection 5,000 Units 1 106 (Given - Provider: Kristin Fontanez RN)2138 (Given - Provider: Dangelo Baldwin RN) 0614 (Given - Provider: Dangelo Baldwin, CADENCE)1435 (Given - Provider: Felicia Walker RN)2107 (Given - Provider: Per Jean-Baptiste RN) 0539 (Given - Provider: Per Jean-Baptiste RN)1400 (Due) 5,000 Units, Subcutaneous, EVERY 8 HOURS SCHEDULED, First dose on Tue07/12/19 at 1000, Until Discontinued, Routine lidocaine (LIDODERM) 5 % patch 3 patch(Linked Group 1) 08 (Patch Applied - Provider: Felicia Walker RN) 08 (Patch Applied - Provider: Felicia Walker RN) 3 patch, Transdermal, EVERY 24 HOURS, Fi rst dose on Tue07/13/19 at 0800, Until Discontinued, Apply patch(es) for 12 hours, and then remove for 12 hours, Routine lidocaine (LIDODERM) 5 %(700 mg/patch) Patch Removal(Linked Group 1) 1944 (Patch Removed - Provider: Per Jean-Baptiste RN) Transdermal, EVERY 24 HOURS, First dose on Tue07/13/19 at 1945, Until Discontinued, Remove lidocaine 5 %(700 mg/patch) patch piperacillin-tazobactam (ZOSYN) 3.375 g vial attach to sodium chloride 0.9% 50 mL Mini-Bag Plus (CANCELED) 0226 (New Bag - Provider: Aggie mazariegos RN)0626 (Stopped - Provider: Aggie Bui RN)1006 (New Bag - Provider: Kristin Fontanez RN)1406 (Stopped - Provider: Kristin Fontanez RN) 0225 (New Bag - Provider: Dangelo Baldwin RN)0625 (Stopped - Provider: Dangelo Baldwin RN)1032 (New Bag - Provider: Felicia Walker RN)1432 (Stopped - Provider: Felicia Walker, CDAENCE)1815 (New Bag - Provider: Felicia Walker RN) 0300 (New Bag - Provider: Per Wilson RN)0540 (Paused - Provider: Per Jean-Baptiste RN - Comment: PIV burning. paged VAS to assess to ensure no infiltration or phlebitis)0601 (Restarted - Provider: Per Carrington RN) 3.375 g, Intravenous, EVERY 8 HOURS, Fir st dose on Tue07/11/19 at 0200, Until Discontinued, Administer over 4 Hours, Warning Vesicant/Irritant Medication Do not administer or Y-site with lactated 1805 (New Bag - Provider: Kristin Fontanez RN)2220 (Stopped - Provider: Dangelo Baldwin RN) 2215 (Stopped - Provider: Per Jean-Baptiste RN) 0839 (Stopped - Provider: Felicia Walker RN)1200 (Not Given - Provider: Felicia Walker RN - Reason: Medication Discontinued) ringers., Indication for (Active or Suspected): GI/Intra-abdomin al potassium, sodium phosphates (Neutra-Andres s) 280-160-250 mg oral packet 1.5 g (COMPLETED) 1631 (Given - Provider: Kristin Fontanez RN) 1.5 g, Oral, ONCE, 1 dose, [facility] 07/12/19 a t 1600, Reconstitute powder with 75 mL of water. Give 1 packet with full glass of water (240 mL). , Routine sodium chloride 0.9 % (flush) flush 5 mL 1007 (Given - Provider: Kristin Fontanez RN)2100 (Not Given - Provider: Dangelo Baldwin RN - Reason: See comment - Comment: fluids running) 0821 (Given - Provider: Felicia dove RN)2107 (Given - Provider: Per Jean-Baptiste RN) 0828 (Given - Provider: Felicia Walker RN) 5 mL, Intravenous, 2 TIMES DAILY, First dose on Tue07/10/19 at 2230, Until Discontinued, Routine PRN Medication Order 07/12/2019 07/13/2019 07/14/2019 HYDROmorphone (DILAUDID) injection 0.2 mg (CANCELED) 1 006 (Given - Provider: Kristin Fontanez RN) 0.2 mg, Intravenous, EVERY 4 HOURS PRN, Starting Tue07/10/19 at 2200, Until 07/14/19 at 1034, Pain, for pain not responsive to oxy or tylenol, Routine labetalol (NORMODYNE,TRANDATE) injection 10 mg 0828 (G iven - Provider: Kristin Fontanez, CADENCE) 10 mg, Intravenous, EVERY 2 HOURS PRN, S tarting e 07/10/19 at 2200, Until 07/14/19 at 1609, High Blood Pressure, SBP<160, hold for HR<60, Routine lidocaine (XYLOCAINE) 10 mg/mL (1 %) injection 3 mg 3 mg (0.3 mL), Subcutaneous, ONCE PRN, 1 dose, Starting 07/10/19 at 2200, Until 07/14/19 at 1609, for discomfort with PIV insertion, Routine ondansetron (ZOFRAN) injection 4-8 mg(Linked Group 2) 4-8 mg, Intravenous, EVERY 8 HOURS PRN, Starting 07/10/19 at 2200, Until 07/14/19 at 1609, Nausea, Start with 4mg and if ineffective in 30 minutes, give an additional 4mg If multiple antiemetics are ordered, give ondansetron first. ondansetron (Zofran) tablet 4-8 mg(Linked Group 2) 4-8 mg, Oral, EVERY 8 HOURS PRN, Startin g Tue07/10/19 at 2200, Until 07/14/19 at 1609, Nausea, Vomiting, If multiple antiemetics are ordered, use ondansetron first. PO Preferred. If patient unabl e to take PO, may give IV if ordered. St art with 4mg and if ineffective in 45 minutes, give an additional 4mg. If unable to take PO, may give IV., Routine oxyCODONE (Roxicodone) tablet 5 mg (CANCELED) 0828 (Gi leslee - Provider: Kristin Fontanez RN)1247 (Given - Provider: Kristin Fontanez RN)1708 (Given - Provider: Kristin Fontanez, CADENCE) 5 mg, Oral, EVERY 4 HOURS PRN, Starting Tu07/10/19 at 2200, Until Tue07/13/19 at 0739, Pain, Routine oxyCODONE (Roxicodone) tablet 5-10 mg 5-10 mg, Oral, EVERY 4 HOURS PRN, Starti ng Tue07/13/19 at 0738, Until 07/14/19 at 1609, Pain, Give 5 mg for moderate pain (4-6/10), give 10 mg for severe pain (7-10/10). Use prior to hydromorphone., Routine polyethylene glycol (Miralax) packet 17 g 17 g, Oral, DAILY PRN, Starting 07/12 at 1028, Until 07/14/19 at 1609, Constipation, Routine senna-docusate (Pericolace) 8.6-50 mg per tablet 2 tablet 2 tablet, Oral, 2 TIMES DAILY PRN, Start ing Tue07/13/19 at 1028, Until 07/14/19 at 1609, Constipation, Routine sodium chloride 0.9 % (flush) flush 5-20 mL 5-20 mL, Intravenous, EVERY 1 MIN PRN, S tarting Tue07/10/19 at 2200, Until 07/14/19 at 1609, flush, Flush pertains to all indwelling lines. Flush per protocol found in the job aid using the link provided on this medication record., Routine Linked Groups Order Group 1: lidocaine (LIDODERM) 5 % patch 3 patchJump to med 3 patch, Transdermal, EVERY 24 HOURS, Fi rst dose on Tue07/13/19 at 0800, Until Discontinued
Apply patch(es) for 12 hours, and then remove for 12 hours
Routine And lidocaine (LIDODERM) 5 %(700 mg/patch) Patch RemovalJump to med Transdermal, EVERY 24 HOURS, First dose on Tue07/13/19 at 1945, Until Discontinued
Remove lidocaine 5 %(700 mg/patch) patch
Group 2: ondansetron (Zofran) tablet 4-8 mgJump to med 4-8 mg, Oral, EVERY 8 HOURS PRN, Startin g 07/10/19 at 2200, Until 07/14/19 at 1609, Nausea, Vomiting
If multiple antiemetics are ordered, use ondansetron first. PO Preferred . If patient unable to take PO, may give IV if ordered. Start with 4mg and if ineffective in 45 minutes, give an additional 4mg. If unable to take PO, may give IV.
Routine Or ondansetron (ZOFRAN) injection 4-8 mgJump to med 4-8 mg, Intravenous, EVERY 8 HOURS PRN, Starting 07/10/19 at 2200, Until 07/14/19 at 1609, Nausea
Start with 4mg and if ineffective in 30 minutes, give an additional 4mg If mu ltiple antiemetics are ordered, give ond ansetron first.
documented in this encounter Care Teams Filter Changing Technician Relationship Specialty Start Date End Date Pool Hercules MD PCP - General Family Medicine 07/10/[address] [facility] [place] [address] documented as of this encounter
--- OUTSIDE RECORDS SUMMARY | 2021-12-05 06:43 | XMS_ITS | Encounter Summary ---
:1950 [place] [address] Care Team Providers Name Role Phone Pool Hercules MD Primary Care Provider [phone] Encounter Details Date Type Department Care Team Description 07/10/2019 Ancillary Procedure Radiology Library at [facility] [place] [address] GENERAL SURGERY [phone] [place], [place] [address] (Wo rk) Social History Tobacco Use Types Packs/Day Years Used Date Former Smoker Sex Assigned at Date Recorded Not on file documented as of this encounter Plan of Treatment Not on filedocumented as of this encounter Procedures Procedure Name Priority Date/Time Associated Diagnosis Comme nts FILM LIBRARY Routine 07/10/2019 2:46 PM Results f or this STORAGE ONLY CT EDT procedure ar e in ABDOMEN AND PELVIS the resul ts section. documented in this encounter Results Film Library- Storage Only CT Abdomen & Pelvis (07/10/2019 2:46 PM EDT) Specimen (Source) Anatomical Location Collection Method / Collectio n Time Received Time / Laterality Volume Narrative RAD - 07/10/2019 2:46 PM EDT This exam is auto-finalizing. It's purpo se is for storage only. Bj Norwood MD G FILM LIBRARY ORDERABLES Performing Organization Address City/State/ZIP Code Phon e Number [facility] [place], [place] documented in this encounter Visit Diagnoses Not on filedocumented in this encounter Care Teams Track Superintendent Relationship Specialty Start Date End Date Pool Hercules MD PCP - General Family Medicine 07/10/[address] [facility] [address] [place] [address] documented as of this encounter
--- OUTSIDE RECORDS SUMMARY | 2021-12-05 06:43 | XMS_ITS | Encounter Summary ---
:1950 Author Organization [facility] [place] [address] Care Team Providers Name Role Phone Pool Hercules MD Primary Care Provider [phone] Reason for Visit Reason Comments Hospital Transfer Auth/Cert Specialty Diagnoses / Procedures Referred By Contact Refer red To Contact Diagnoses Acute cholecystitis INFECTED GAL BLADDER Procedures ER IPI Admit Referral ID Status Reason Start Date Expiration Date Visits Requ ested Visits Authorized [id number] 1 1 Encounter Details Date Type Department Care Team Description 07/10/2019 - Hospital Encounter 2 Vinnie Springer [place] [facility] [place] [address] Acute cholecystitis 07/14/2019 [facility] Dieter Bullard [place] [facility] [place] [address] [facility] Gallo Gardner MD [facility] [place] [address] [place] [id number] Social History Tobacco Use Types Packs/Day Years [...] Sign Reading Time Taken Comments Blood Pressure 121/77 07/14/2019 11:26 AM EDT Pulse 60 07/14/2019 4:39 AM EDT Temperature 36.5 ??C (97.7 ??F) 07/14/2019 11:26 AM EDT Respiratory Rate 16 07/14/2019 11:26 AM EDT Oxygen Saturation 85% 07/14/2019 11:26 AM EDT Inhaled Oxygen Concentration - - Weight 79.4 kg (175 lb 1.6 oz) 07/14/2019 4:39 AM EDT Height 172.7 cm (5' 8) [...] Operations/Procedures: 07/11/2019 Procedure(s): LAPAROSCOPIC CHOLECYSTECTOMY WITH CHOLANGIOGRAM (VU 11.47) HPI: from H&P by Dr. Elgin Martino Rivas Carlos is a 69 y.o. 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 He reports [...] fall asleep at night. He presented to [facility] for evaluation where CT was done which only revealed diverticulosis w/o diverticulitis and a f/u U/S showed an impacted stone in the gallbladder neck w/ GB dilation. Given his myotonic dystrophy request was made to transfer him to [facility]. He also does report some subjective low [...] on the next business day. Please call [phone] if you do nothear from us by that time, as your timely follow-up is very important to us. Your care was managed by the Trauma and Acute Care Surgery Team at [facility]. If you have any questions or concerns, please feel free to contact us. Provider Contact Information: General Surgery: [facility] (after business hours): Primary Care Physician: Pool [...] and into the bulb. If youhave a Burgoon drain, the clot should move into the dressing. Reinier-Ortiz Drainage Record NAME: Date of Surgery: Date: Time: If more than one drain, which one: Drainage Amount (per drain) Total Amount (per drain; in 24 hours) Your care was managed by the Trauma and Acute Care Surgery Team at [facility]. If you have any questions or concerns, please feel free to contact us. Provider Contact Information: General Surgery Clinic: Nurses line for questions: [facility] (after business hours): CC: Pool Hercules MD [facility] Trina Carpenter APRN Signed: Bacilio Mcdowell MD Department of Surgery 07/14/2019 Acute Care Surgery Pager [phone] documented in this encounter Discharge Instructions Discharge InstructionsCoBacilio puckett MD - 07/14/2019 12:37 PM EDT Images [...] and into the bulb. If youhave a Rigo drain, the clot should move into the [...] on the next business day. Please call [phone] if you do nothear from us by that time, as your timely follow-up is very important to us. Your care was managed by the Trauma and Acute Care Surgery Team at [facility]. If you have any questions or concerns, please feel free to contact us. Provider Contact Information: General Surgery: [facility] (after business hours): Primary Care Physician: Pool [...] floor by wheelchair and taken to the [place] entrance where his ride was waiting. Reviewed [...] Considerations: lap sites, fall risk, IV, pacemaker, TANANA, wears contacts, oxygen, on Eliquis (h/x PE) [...] Minutes, Physical Therapy: 25(TEFx2) Rachell Martinez Pager: [phone] Physical Therapy Inpatient Rehabilitation Department T Bacilio Mcdowell MD - 07/14/2019 10:35 AM EDT ID/MECHANISM OF INJURY: Rivas Carlos is a 69 y.o. male S/p lap cholecystectomy on 07/10 OR CASE INFORMATION: 07/11/2019 Procedure(s): LAPAROSCOPIC CHOLECYSTECTOMY WITH CHOLANGIOGRAM (WRVU 11.47) FOLLOW-UP NEEDED: Does pt need to f-u with surgeon or CORE CARRIER (please indicate reason if attending provider): CORE CARRIER What follow-up with TACS team is needed [...] Consent signed N/A If yes, give to Group Sales Coordinator for scanning OPIOID CONSENT/NARCOTIC AGREEMENTS Current Month Narcotic Consent? pt has established contract with PCP If yes, give to Group Sales Coordinator for scanning Isolation No Isolation D/c to: Home If Rehab - Rehab Name: PCP Name: MD Vikash Arnold MD 07/12/2019 Kamla Jurado RN - 07/13/2019 9:39 AM EDT OFFICE OF CARE MANAGEMENT Section Maintainer Follow-up Note Patient plan of care discussed in multidisciplinary rounds and assessment for continuing care and discharge needs. LOS Hospital: 3 days INSURANCE: Payor: AADLBERTO BOTELLO / Plan: [place] / Product Type: *No Product type* / SECONDARY INSURANCE: N/A DECISION MAKER: Full Code Patient continues to require hospitalization. Per team patient will have PT consult today. Plan is for discharge tomorrow 07/14/2019. Patient will be discharged with a drain but team feels he can managethis himself. No Needs. Transportation: will drive him home via private car Section Maintainer to follow with team and family to [...] Garcia MD 07/13/2019 Acute Care Surgery Pager [phone] Associated attestation - Gallo Gardner MD - 07/13/2019 5:53 PM EDT Mr. Carlos appears to be doing better this PM with less pain, feeling much better. Anticipate possible discharge in next 24-48 hours. Gallo Gardner MD #[id number] Vikash Garcia MD - 07/12/2019 9:31 AM [...] focal deficits Labs: Recent Labs 07/12/19 0631 07/11/198 07/10/19 1725 WBC 8.4 11.9* 9.5 HGB [...] Garcia MD 07/12/2019 Acute Care Surgery Pager [phone] Adonis Price MD - 07/11/2019 8:50 PM EDT Acute Care Surgery Post-Operative Progress Note Rivas Carlos 07/11/2019 Surgery/Issue: LAPAROSCOPIC CHOLECYSTECTOMY WITH CHOLANGIOGRAM (WRVU [...] 8. Continue IV Abx 8. Disposition- floor [facility] Acute [facility] Surgery Pager [phone] Kristel Frey RN - 07/11/2019 6:14 PM EDT 1806: Arrived to PACU via bed from OR. Monitors attached and alarms set & audible. VSS. Op sitesCDI. Davian drain w/ small amount of drainage to bulb suction. Lung sounds diminished throughout. Pt arousing to repeated, verbal stimulation. 1820: Rating abdominal pain 7/10. 0.2mg prn dilaudid given. 183: 2West paged for report. 183: Scheduled tylenol given. Pain down to 2/10. 0: Report to Jeanne Marcial RN. Vikash Garcia [...] Garcia MD 07/11/2019 Acute Care Surgery Pager [phone] documented in this encounter H&P Notes Elgin Martino MD - 07/10/2019 5:39 PM EDT General Surgery Admission Note HPI: Rivas Carlos is a 69 y.o. 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 He reports [...] fall asleep at night. He presented to [facility] for evaluation where CT was done which only revealed diverticulosis w/o diverticulitis and a f/u U/S showed an impacted stone in the gallbladder neck w/ GB dilation. Given his myotonic dystrophy request was made to transfer him to [facility]. He also does report some subjective low [...] will consent in the morning. Please page [phone] with questions. Elgin Martino MD General Surgery [...] Pt resting quietly, call morin in reach, ESTATE MANAGER in to see pt. Pt states pain [...] and now is constant. He went to [facility] today, where an ultrasound showed cholelithiasiswith suspicion for cholecystitis. He was given morphine for pain and a dose of PIP Tazo and acceptedfor hospital transfer to [facility] due to possible intra-op challenges related to [...] with myotonic dystrophy presenting as transfer from [facility] for likely surgical management of cholecystitis # [...] likely cholecystectomy. Yuriy Gallagher MD 07/10/2019 Pager #[phone] Resident Physician Yuriy Gallagher MD Resident 07/10/19 6410 Associated attestation - Jamila Cruz DO - [...] encounter Miscellaneous Notes Plan of Care - Lili Osheaderrell HicksLUIS - 07/14/2019 9:20 AM EDT Occupational Therapy [...] (WRVU 11.47) performed by Amari Schneider MD [facility] MAIN OR Social History: Patient lives with [...] Evaluation Minutes, Occupational Therapy: 20(1x schm) Pager: [phone] LUIS Chandra 07/14/2019 Occupational Therapy Rehabilitation Department Plan of Care - Terrie-Per Carrington RN - 07/14/2019 4:41 AM EDT Problem: [...] Schneider MD - 07/13/2019 5:32 PM EDT [facility] Operative Note Patient Name: Rivas Carlos : [id number] MR#: [id number] Case Date: 07/11/2019 Surgeon: Surgeon(s) and Role: * Amari Schneider MD - Primary * Dipak Treadwell MD - Resident Preoperative diagnosis: Acute cholecystitis Postoperative diagnosis: Acute cholecystitis Procedure(s) (LRB): LAPAROSCOPIC CHOLECYSTECTOMY WITH CHOLANGIOGRAM (WRVU 11.47) (N/A) Indications for surgery: Patient is [...] 11.47) performed by Amari Schneider MD at [facility] MAIN OR Social History: lives with his , ramp to enter a one level home. Uses a rollator for distance, cane for short distance, pt has myotonic dystrophy, paces himself, stair glide to basement, assists with donning socks, Pt drives, pt has shower chair and grab bars Precautions/Special Considerations: lap sites, fall risk, IV,pacemaker, TANANA, wears contacts, oxygen,on Eliquis (h/x PE) Mobility [...] Objective: Pt seen for evaluation today. Pain: 07/05, decreased after ambulation Vital Signs: SpO2: 94% [...] Total Evaluation Minutes, Physical Therapy: (P) 40 [place] FLOYD, PT Pager: [phone] Physical Therapy Inpatient Rehabilitation Department Plan of Care - Jolie Ordonez OT - 07/13/2019 11:19 AM EDT Occupational [...] (WRVU 11.47) performed by Amari Schneider MD [facility] MAIN OR Social History: Patient lives with [...] instrument andmeasurable assessment of functional outcome. Pager: [phone] Jolie Ordonez OT 07/13/2019 Occupational Therapy Rehabilitation [...] Operative Note Patient Name: Rivas Carlos : [id number] MR#: [id number] Case Date: 07/11/2019 Surgeon: Surgeon(s) and Role: * Amari Schneider MD - Primary * Dipak Treadwell MD - Resident Preoperative diagnosis: Acute cholecystitis Postoperative diagnosis: Acute cholecystitis Procedure(s) (LRB): LAPAROSCOPIC [facility]CYSTECTOM[facility]ANGIOGRAM [facility] (N/A) Anesthesia: General Findings: necrotic gallbladder. [...] Ongoing (Interventions Implemented as Appropriate) 07/11/19 0409 07/11/19 0800 Plan of Care Review Progress no [...] (anti-arrhythmic, anti-hypertensive, cardiac, meds), has sensory deficits (TANANA, wears contacts) Assistance [level of assistance required [...] GOAL OUTCOME EVALUATION: Plan of Care - O'Davie, Aggie L, RN - 07/11/2019 4:33 AM EDT Problem: Patient Care Overview Goal: Plan of Care Review Outcome: Ongoing (Interventions Implemented as Appropriate) 07/10/19212907/11/19 0409 Plan of Care Review Progress -- no change Coping/Psychosocial Plan Of Care Reviewed With patient -- OUTCOME EVALUATION NOTE: OUTCOME SUMMARY: Patient arrived to unit from ED around 2129, VSS, A&Ox4, oriented to room and 2 hyden fall prevention. He stated 6-8/10 pain, PRN [...] multidisciplinary rounds. Screenin y.o. male presented to [facility] for abdominal pain. Present on Admission: ??? Acute cholecystitis Patient has not been admitted to a hospital within the last 30 days. Patient receiving hospital care under Inpatient status. Admission order reviewed. Primary Insurance on file: [employer] Secondary Insurance on file:N/A Primary care provider on file: Pool Hercules MD [phone] Advance Directive on file and Code Status: No AD on file, Full Code If AD's have not been completed Thania Carlos () [phone] (H) [phone] (M), would be surrogate decision maker per [place] surrogate decision making law. Any patient receiving care at [facility] must abide by [place] law. The hierarchy for surrogate decision making [...] (i) The agent with financial power of immigration attorney or a conservator appointed in accordance with RSA 464-A. (j) The guardian of the patient???s estate. Patient???s Functional Status: Independent with a cane Living Situation: Pt lives at the below address with his Elder Chakraborty [facility] [address] Supports: Pt is supported by his and family Assessment: Patient with no apparent RNCM/SW needs at this time. No housing, transportation, insurance, resources concerns identified at this time. Supports in place to achieve a safe post-hospital transition. No identified barriers to accessing necessary care and/or follow-up after discharge. Plan: Patient to d/c to home via private vehicle when medically ready. poultry pathologist/Sample Finisher will continue to follow patient???s progress and remain available if situation changes for coordination of care, psychosocial support and/or discharge planning. No future appointments. GEORGE Wright Clinical Sample Finisher ED CDU SD C: [phone] ED Triage - Raul Miller RN - 07/10/2019 4:58 PM EDT Pt here from [facility] as a hospital transfer with diagnosis of [...] Name Priority Date/Time Associated Diagnosis Comme nts HC VENIPUNCTURE Routine 07/13/2019 2:01 Results f or [...] Signature Glucose Lvl 109 65 - 199 [facility] mg/dL [facility] Comment: Diabetes: >=200 mg/dL plus symp toms BUN 8 (L) 10 - 20 mg/dL [facility] Creatinine 0.57 (L) 0.80 - 1.50 mg/dL [facility] Sodium 141 135 - 145 mmol/L [facility] Potassium 4.0 3.5 - 5.0 mmol/L [facility] Comment: Please note: ??Patients with WBC >100,00 0 may have falsely elevated Potassium levels. ??For accurate Potassium quantif ication in these patients send serum separator tube (gold top) for subsequent determinations. ??Contact the Clinical Chemistry Laboratory if there are any qu estions. Chloride 102 98 - 107 mmol/L [facility] CO2 31 22 - 31 mmol/L [facility] Anion Gap 8 5 - 15 mmol/L [facility] Calcium 8.9 8.5 - 10.5 mg/dL [facility] Total Protein 4.8 (L) 6.1 - 8.0 gm/dL [facility] Albumin 2.6 (L) 3.2 - 5.2 gm/dL [facility] AST 25 0 - 39 unit/L [facility] ALT 39 0 - 55 unit/L [facility] Alk Phos 93 40 - 130 unit/L [facility] Total Bilirubin 0.5 0.2 - 1.3 mg/dL [facility] Estimated GFR 103 >=60 mL/min/1.73 m?? [facility] Comment: The eGFR was calculated using the CKD-EP I equation. As with all creatinine based estimates of kidney function, eGFR values calculated with the CKD-EPI equation are not accurate in patients wi th acute kidney failure, extremes of body mass or the acutely ill. http://[employer] [facility]kf eGFR 120 >=60 mL/min/1.73 m?? [facility] Comment: The eGFR was calculated using the CKD-EP I equation. As with all creatinine based estimates of kidney function, eGFR values calculated with the CKD-EPI equation are not accurate in patients wi th acute kidney failure, extremes of body mass or the acutely ill. http://[employer]/[facility]kf Specimen Anatomical Collection Method Collection Time Receive d Time (Source) Location / / Volume Laterality Blood specimen 07/13/2019 2:01 AM 020 2:16 (specimen) EDT AM EDT Resulting Agency Comment Spec In Lab Dieter Bullard MD CHEMISTRY ORDERABLES Performing Organization Address City/State/[place] [address] EKG 12 Lead (07/12/2019 8:35 AM EDT) Component Value Ref Range Test Analysis Performed Pathologis t Method Time At Signature Ventricular rate 92 BPM MUSE SYSTEM Atrial Rate 92 BPM MUSE SYSTEM P-R Interval 198 ms MUSE SYSTEM QRS Duration 162 ms MUSE SYSTEM Q-T Interval 398 ms MUSE SYSTEM QTC Calculated 492 ms MUSE SYSTEM (Bezet) Calculated P [place] 47 degrees MUSE SYSTEM Calculated R [place] -61 degrees MUSE SYSTEM Calculated T [place] 90 degrees MUSE SYSTEM INTERPRETATION AV sequential [...] Bullard MD ECG ORDERABLES Performing Organization Address City/State/ZIP Code Phon e Number MUSE SYSTEM (ABNORMAL) Hepatic Function Panel (07/12/2019 6:31 AM EDT) P athologist Signature Total Protein 5.5 (L) 6.1 - 8.0 [facility]dL [facility] Albumin 2.7 (L) 3.2 - 5.2 [facility] gm/dL [facility] AST 53 (H) 0 - 39 [facility] unit/L [facility] ALT 51 0 - 55 [facility] unit/L [facility] Comment: result rechecked-es Alk Phos 102 40 - 130 unit/L [facility] Total Bilirubin 0.6 0.2 - 1.3 mg/dL [facility] Bili, Direct 0.3 0.0 - 0.3 mg/dL [facility] Specimen Anatomical Collection Method Collection Time Receive d Time (Source) Location / / Volume Laterality Blood specimen Venous Draw / 07/12/2019 6:31 AM 2019 6:39 (specimen) Unknown EDT AM EDT Resulting Agency Comment Spec In Lab Vikash Garcia MD CHEMISTRY ORDERABLES Performing Organization Address City/State/[place] [address] (ABNORMAL) Differential, Automated (07/12/2019 6:31 AM EDT) [facility] gist Method Time Signature Neutrophils % 87.6 % [facility] Neutr Abs (ANC) 7.38 (H) 1.70 - [facility] 6.10 [facility] x10(3)/[facility] LABORATORY Lymphocytes % 5.5 % [facility] Lymphocytes Abs 0.5 (L) 0.9 - 3.2 [facility] x10(3)/[facility] LABORATORY Monocytes % 6.4 % [facility] Monocyte Abs 0.5 0.3 - 0.9 [facility] x10(3)/[facility] LABORATORY Eosinophils % 0.0 % [facility] Eosinophils Abs 0.0 0.0 - 0.4 [facility] x10(3)/[facility] LABORATORY Basophils % 0.1 % [facility] Basophils Abs 0.0 0.0 - 0.1 [facility] x10(3)/[facility] LABORATORY Immature Gran % 0.40 % [facility] Comment: Immature granulocytes(IG's)percentage an d absolute count will include metamyelocytes, myelocytes, and promyelo cytes. Blood smears from CBCs yielding IG's will be scanned manually for concor dance. If this scan disagrees with the automated IG or if promyelocytes are not ed, a manual differential will be performed. Kelly Gran Abs 0.03 0.00 - 0.04 x10(3)/[facility]ORY Specimen Anatomical Collection Method Collection Time Receive d Time (Source) Location / / Volume Laterality Blood specimen 07/12/2019 6:31 AM 020 6:38 (specimen) EDT AM EDT Resulting Agency Comment Spec In Lab Vikash Garcia MD HEMATOLOGY ORDERABLES Performing Organization Address City/State/[place] [address] (ABNORMAL) Hemogram (07/12/2019 6:31 AM EDT) Analysis Performed At Patho logist Time Signature WBC 8.4 4.0 - 9.5 [facility] x10(3)/[facility] LABORATORY RBC 4.81 4.58 - [facility] 5.54 [facility] x10(6)/[facility] LABORATORY Hemoglobin 14.2 13.7 - [facility] 16.5 gm/dL [facility] Hematocrit 44.4 40.5 - [facility] DANIEL 48.5 % [facility] MCV 92.3 82.9 - [facility] 93.1 [facility] LABORATORY MCH 29.5 27.5 - [facility] 32.1 pg [facility] MCHC 32.0 32.0 - [facility] 35.7 gm/dL [facility] Platelets 162 145 - 357 [facility] x10(3)/[facility] LABORATORY RDWSD 45.4 (H) 36.0 - [facility] DANIEL 45.0 [facility] LABORATORY RDWCV 13.3 11.4 - [facility] 13.8 % [facility] MPV 11.6 7.6 - 12.9 [facility] DANIEL [facility] LABORATORY nRBC % Auto 0.0 % [facility] nRBC Abs Auto 0.000 0.000 - [facility] [facility] 0.000 [facility] x10(3)/[facility] LABORATORY Specimen Anatomical Collection Method Collection Time Receive d Time (Source) Location / / Volume Laterality Blood specimen 07/12/2019 6:31 AM 020 6:38 (specimen) EDT AM EDT Resulting Agency Comment Spec In Lab Vikash Garcia MD HEMATOLOGY ORDERABLES Performing Organization Address City/State/[place] [address] (ABNORMAL) Phosphorus (07/12/2019 6:31 AM EDT) athologist Signature Phosphorus 1.9 (L) 2.5 - 4.5 [facility] Specimen Anatomical Collection Method Collection Time Receive d Time (Source) Location / / Volume Laterality Blood specimen 07/12/2019 6:31 AM 020 6:38 (specimen) EDT AM EDT Resulting Agency Comment Spec In Lab Dieter Bullard MD CHEMISTRY ORDERABLES Performing Organization Address City/[facility]/ZIP Code Phon e Number [address] Magnesium (07/12/2019 6:31 AM EDT) athologist Signature Magnesium 0.90 0.69 - 1.07 [facility] mmol/L [facility] Specimen Anatomical Collection Method Collection Time Receive d Time (Source) Location / / Volume Laterality Blood specimen 07/12/2019 6:31 AM 020 6:38 (specimen) EDT AM EDT Resulting Agency Comment Spec In Lab Dieter Bullard MD CHEMISTRY ORDERABLES Performing Organization Address City/State/ZIP Code Phon e Number [address] (ABNORMAL) Basic Metabolic Panel (non-fasting) (07/12/2019 6:31 AM EDT) athologist Signature Glucose Lvl 147 65 - 199 [facility] mg/dL [facility] Comment: Diabetes: >=200 mg/dL plus symp toms BUN 7 (L) 10 - 20 mg/dL [facility] Creatinine 0.56 (L) 0.80 - 1.50 mg/dL [facility] Sodium 142 135 - 145 mmol/L [facility] Potassium 4.1 3.5 - 5.0 mmol/L [facility] Comment: Please note: ??Patients with WBC >100,00 0 may have falsely elevated Potassium levels. ??For accurate Potassium quantif ication in these patients send serum separator tube (gold top) for subsequent determinations. ??Contact the Clinical Chemistry Laboratory if there are any qu estions. Chloride 105 98 - 107 mmol/L [facility] CO2 27 22 - 31 mmol/L [facility] Anion Gap 10 5 - 15 mmol/L [facility] Calcium 9.0 8.5 - 10.5 mg/dL [facility] Estimated GFR 104 >=60 mL/min/1.73 m?? [facility] LABORATORY Comment: The eGFR was calculated using the CKD-EP I equation. As with all creatinine based estimates of kidney function, eGFR values calculated with the CKD-EPI equation are not accurate in patients wi th acute kidney failure, extremes of body mass or the acutely ill. http://Acheive CCA/[facility] TULSAnkf eGFR 121 >=60 mL/min/1.73 m?? [facility] Comment: The eGFR was calculated using the CKD-EP I equation. As with all creatinine based estimates of kidney function, eGFR values calculated with the CKD-EPI equation are not accurate in patients wi th acute kidney failure, extremes of body mass or the acutely ill. http://[facility]che[employer] CCA/[facility] TULSAnkf Specimen Anatomical Collection Method Collection Time Receive d Time (Source) Location / / Volume Laterality Blood specimen 07/12/2019 6:31 AM 020 6:38 (specimen) EDT AM EDT Resulting Agency Comment Spec In Lab Dieter Bullard MD CHEMISTRY ORDERABLES Performing Organization Address City/State/[place] [address] Specimen to Pathology (07/11/2019 5:29 PM EDT) Specimen Anatomical Collection Method Collection Time Receive d Time (Source) Location / / Volume Laterality AP Specimen 07/11/2019 5:29 PM 0 5:29 EDT PM EDT Narrative [facility] - 07/11/2019 5:29 PM EDT Specimen requisition ordered. ??Separate Pathology report to follow Amari Schneider MD PATHOLOGY/CYTOLOGY ORDERABLE S Performing Organization Address City/State/ZIP Code Phon [place] [address] [facility] [address] Surgical Pathology Report (07/11/2019 5:28 PM EDT) Component Value Ref Test Analysis Performed At [facility] gist Range Method Time Signature Surgical [id number] ? Location: 2WST; 0210; A [facility] Pathology [place] Report The signing pathologist has (i) examined the relevant preparation(s) for the [facility] specimen(s) and (ii) rendered or confirmed the diagnosis(es) . HOSPITAL LABORATORY . ?Surgic al Pathology DIAGNOSIS Gallbladder: - Necrotic gallbladder. - ??Cholelithiasis. Electronically signed by: ??Ron Lemus MD Verified: ??07/17/2019 ?Pathologist Performed at: ??-[facility] Dept. of Pathology, [place], [place] SPECIMEN(S) SUBMITTED A - Gallbladder, excision [...] The hepatic margin is inked black Sections/Processing: Machine Accountant sections in 2 cassettes as follows: ?A1-A2: ??Mucosa and wall ??ajw Specimen (Source) Anatomical Collection Method Collection Time Re ceived Time Location / / Volume Laterality 07/11/2019 5:28 PM EDT Amari Schneider MD PATHOLOGY/CYTOLOGY ORDERABLE S Performing Organization Address City/State/ZIP Code Phon e Number [place] [phone] [facility] (ABNORMAL) Differential, Automated (07/11/2019 2:48 AM EDT) [facility] Method Time Signature Neutrophils % 80.7 % [facility] Neutr Abs (ANC) 9.61 (H) 1.70 - [facility] 6.10 [facility] x10(3)/[facility] LABORATORY Lymphocytes % 7.7 % [facility] Lymphocytes Abs 0.9 0.9 - 3.2 [facility] x10(3)/[facility] LABORATORY Monocytes % 10.9 % [facility] Monocyte Abs 1.3 (H) 0.3 - 0.9 [facility] x10(3)/[facility] LABORATORY Eosinophils % 0.1 % [facility] Eosinophils Abs 0.0 0.0 - 0.4 [facility] x10(3)/[facility] LABORATORY Basophils % 0.3 % [facility] Basophils Abs 0.0 0.0 - 0.1 [facility] x10(3)/[facility] LABORATORY Immature Gran % 0.30 % [facility] Comment: Immature granulocytes(IG's)percentage an d absolute count will include metamyelocytes, myelocytes, and promyelo cytes. Blood smears from CBCs yielding IG's will be scanned manually for concor dance. If this scan disagrees with the automated IG or if promyelocytes are not ed, a manual differential will be performed. Kelly Gran Abs 0.03 0.00 - 0.04 x10(3)/[facility]L [facility] LABORATORY Specimen Anatomical Collection Method Collection Time Receive d Time (Source) Location / / Volume Laterality Blood specimen 07/11/2019 2:48 AM 020 2:52 (specimen) EDT AM EDT Resulting Agency Comment Spec In Lab Elgin Martino MD HEMATOLOGY ORDERABLES Performing Organization Address City/[facility]/[place] [address] (ABNORMAL) Hemogram (07/11/2019 2:48 AM EDT) Analysis Performed At Patho logist Time Signature WBC 11.9 (H) 4.0 - 9.5 [facility] x10(3)/[facility] LABORATORY RBC 5.28 4.58 - [place] 5.54 [facility] x10(6)/[facility] LABORATORY Hemoglobin 15.2 13.7 - [facility] 16.5 gm/dL [facility] LABORATORY Hematocrit 48.8 (H) 40.5 - [facility] 48.5 % [facility] LABORATORY MCV 92.4 82.9 - [facility] 93.1 [facility] LABORATORY MCH 28.8 27.5 - [place] 32.1 pg [facility] LABORATORY MCHC 31.1 (L) 32.0 - [place] 35.7 gm/dL [facility] LABORATORY Platelets 157 145 - 357 [facility] x10(3)/[facility] LABORATORY RDWSD 45.0 36.0 - [facility] 45.0 [facility] LABORATORY RDWCV 13.2 11.4 - [place] 13.8 % [facility] LABORATORY MPV 11.5 7.6 - 12.9 [facility] DANIEL [facility] LABORATORY nRBC % Auto 0.0 % [facility] nRBC Abs Auto 0.000 0.000 - [place] 0.000 [facility] x10(3)/[facility] LABORATORY Specimen Anatomical Collection Method Collection Time Receive d Time (Source) Location / / Volume Laterality Blood specimen 07/11/2019 2:48 AM 020 2:52 (specimen) EDT AM EDT Resulting Agency Comment Spec In Lab Elgin Martino MD HEMATOLOGY ORDERABLES Performing Organization Address City/State/ZIP Code Phon e Number [place] [phone] HOSPITAL LAB[address]ORY Drive Electrolytes panel (07/11/2019 2:48 AM EDT) P athologist Signature Sodium 141 135 - 145 [facility] mmol/L [facility] LABORATORY Potassium 3.9 3.5 - 5.0 [facility] mmol/L [facility] LABORATORY Comment: Please note: ??Patients with WBC >100,00 0 may have falsely elevated Potassium levels. ??For accurate Potassium quantif ication in these patients send serum separator tube (gold top) for subsequent determinations. ??Contact the Clinical Chemistry Laboratory if there are any qu estions. Chloride 102 98 - 107 mmol/L [facility] CO2 27 22 - 31 mmol/L [facility] Anion Gap 12 5 - 15 mmol/L [facility] LABORATORY Specimen Anatomical Collection Method Collection Time Receive d Time (Source) Location / / Volume Laterality Blood specimen 07/11/2019 2:48 AM 020 2:52 (specimen) EDT AM EDT Resulting Agency Comment Spec In Lab Jamila Cruz DO CHEMISTRY ORDERABLES Performing Organization Address City/State/ZIP Code Phon e Number [address] (ABNORMAL) BUN (07/11/2019 2:48 AM EDT) P athologist Signature BUN 5 (L) 10 - 20 [facility] mg/dL [facility] LABORATORY Specimen Anatomical Collection Method Collection Time Receive d Time (Source) Location / / Volume Laterality Blood specimen 07/11/2019 2:48 AM 020 2:52 (specimen) EDT AM EDT Resulting Agency Comment Spec In Lab Jamila Cruz DO CHEMISTRY ORDERABLES Performing Organization Address City/State/[place] [address] (ABNORMAL) Creatinine (07/11/2019 2:48 AM EDT) Analysis Performed At Patho logist Time Signature Creatinine 0.58 (L) 0.80 - [facility] 1.50 mg/dL [facility] LABORATORY Estimated GFR 103 >=60 [facility] mL/min/1.7 [facility] 3 ? HOSPITAL LABORATORY Comment: The eGFR was calculated using the CKD-EP I equation. As with all creatinine based estimates of kidney function, eGFR values calculated with the CKD-EPI equation are not accurate in patients wi th acute kidney failure, extremes of body mass or the acutely ill. http://[facility] CCA/[facility] TULSAnkf eGFR 119 >=60 mL/min/1.73 m?? [facility] Comment: The eGFR was calculated using the CKD-EP I equation. As with all creatinine based estimates of kidney function, eGFR values calculated with the CKD-EPI equation are not accurate in patients wi th acute kidney failure, extremes of body mass or the acutely ill. http://[facility] CCA/[facility] TULSAnkf Specimen Anatomical Collection Method Collection Time Receive d Time (Source) Location / / Volume Laterality Blood specimen 07/11/2019 2:48 AM 020 2:52 (specimen) EDT AM EDT Resulting Agency Comment Spec In Lab Jamila Cruz DO CHEMISTRY ORDERABLES Performing Organization Address City/[facility]/ZIP Code Phon e Number [address] (ABNORMAL) Hepatic Function Panel (07/11/2019 2:48 AM EDT) athologist Signature Total Protein 5.8 (L) 6.1 - 8.0 [facility] gm/dL [facility] LABORATORY Albumin 3.5 3.2 - 5.2 [facility] DANIEL gm/dL [facility] LABORATORY AST 34 0 - 39 [facility] DANIEL unit/L [facility] LABORATORY ALT 21 0 - 55 [facility] DANIEL unit/L [facility] LABORATORY Alk Phos 101 40 - 130 [facility] DANIEL unit/L [facility] LABORATORY Total 1.1 0.2 - 1.3 [facility] DANIEL Bilirubin mg/dL [facility] LABORATORY Bili, Direct 0.5 (H) 0.0 - 0.3 [place] mg/dL [facility] LABORATORY Specimen Anatomical Collection Method Collection Time Receive d Time (Source) Location / / Volume Laterality Blood specimen 07/11/2019 2:48 AM 020 2:52 (specimen) EDT AM EDT Resulting Agency Comment Spec In Lab Jamila Cruz DO CHEMISTRY ORDERABLES Performing Organization Address City/[facility]/ZIP Code Phon e Number [address] Apixaban Level (07/11/2019 2:48 AM EDT) athologist Signature Apixaban Level 71 ng/mL [facility] Comment: No ? therapeutic range? for Apixaban has been defined. ? On therapy? ranges for various indications are derived from the medical literature and pharmacokinetic modeling and listed below (Virgen rose Hematology Am Soc Hematol Educ Program 2015 [...] and its performa nce characteristics determined by [facility]. It h as not been cleared or approved by the FDA. The laboratory is regulated under C [place] as qualified to perform high complexity testing. This test is used fo r clinical purposes. It should not be regarded as investigational or for resea [facility]. Specimen Anatomical Collection Method Collection Time Receive d Time (Source) Location / / Volume Laterality Blood specimen 07/11/2019 2:48 AM 020 2:52 (specimen) EDT AM EDT Resulting Agency Comment Spec In Lab Jamila Cruz DO HEMATOLOGY ORDERABLES Performing Organization Address City/State/[place] [address] L-Lactate2 Whole Blood (07/10/2019 5:27 PM EDT) P athologist Signature Lactate WB 1.3 0.5 - 2.2 [facility] mmol/L [facility] LABORATORY Specimen Anatomical Collection Method Collection Time Receive d Time (Source) Location / / Volume Laterality Blood specimen 07/10/2019 5:27 PM 020 5:27 (specimen) EDT PM EDT Jamila Cruz DO CHEMISTRY ORDERABLES Performing Organization Address City/State/ZIP Code Phon e Number [address] ABORH Recheck Status (07/10/2019 5:25 PM EDT) [facility] Method Time Signature ABORH Recheck Order Placed [facility] LABORATORY ABORH Type Complete formerly [facility] LABORATORY Specimen Anatomical Collection Method Collection Time Receive d Time (Source) Location / / Volume Laterality Blood specimen 07/10/2019 5:25 PM 020 5:30 (specimen) EDT PM EDT Resulting Agency Comment Spec In Lab Yuriy Gallagher MD BLOOD BANK ORDERABLES Performing Organization Address City/State/ZIP Code Phon e Number [address] Gold Tube HOLD (07/10/2019 5:25 PM EDT) athologist Signature Gold Hold Sample in [facility] LABORATORY Specimen Anatomical Collection Method Collection Time Receive d Time (Source) Location / / Volume Laterality Blood specimen Venous Draw / 07/10/2019 5:25 PM 2019 5:35 (specimen) Unknown EDT PM EDT Yuriy Gallagher MD CHEMISTRY ORDERABLES Performing Organization Address City/State/ZIP Code Phon e Number [address] Blue Tube HOLD (07/10/2019 5:25 PM EDT) athologist Signature Blue Hold Sample in [facility] LABORATORY Specimen Anatomical Collection Method Collection Time Receive d Time (Source) Location / / Volume Laterality Blood specimen Venous Draw / 07/10/2019 5:25 PM 2019 5:35 (specimen) Unknown EDT PM EDT Yuriy Gallagher MD HEMATOLOGY ORDERABLES Performing Organization Address City/State/[place] [address] (ABNORMAL) Differential, Automated (07/10/2019 5:25 PM EDT) [facility] Method Time Signature Neutrophils % 78.0 % [facility] Neutr Abs (ANC) 7.38 (H) 1.70 - [facility] 6.10 [facility] x10(3)/[facility] LABORATORY Lymphocytes % 10.3 % [facility] Lymphocytes Abs 1.0 0.9 - 3.2 [facility] x10(3)/[facility] LABORATORY Monocytes % 10.7 % [facility] Monocyte Abs 1.0 (H) 0.3 - 0.9 [facility] x10(3)/[facility] LABORATORY Eosinophils % 0.3 % [facility] Eosinophils Abs 0.0 0.0 - 0.4 [facility] x10(3)/[facility] LABORATORY Basophils % 0.3 % [facility] Basophils Abs 0.0 0.0 - 0.1 [facility] x10(3)/[facility] LABORATORY Immature Gran % 0.40 % [facility] Comment: Immature granulocytes(IG's)percentage an d absolute count will include metamyelocytes, myelocytes, and promyelo cytes. Blood smears from CBCs yielding IG's will be scanned manually for concor dance. If this scan disagrees with the automated IG or if promyelocytes are not ed, a manual differential will be performed. Kelly Gran Abs 0.04 0.00 - 0.04 x10(3)/[facility] LABORATORY Specimen Anatomical Collection Method Collection Time Receive d Time (Source) Location / / Volume Laterality Blood specimen 07/10/2019 5:25 PM 020 5:34 (specimen) EDT PM EDT Resulting Agency Comment Spec In Lab Yuriy Gallagher MD HEMATOLOGY ORDERABLES Performing Organization Address City/State/ZIP Code Phon e Number [place] [phone] HOSPITAL LAB[address]ORY Drive (ABNORMAL) Hemogram (07/10/2019 5:25 PM EDT) Analysis Performed At Patho logist Time Signature WBC 9.5 4.0 - 9.5 [facility] x10(3)/[facility] LABORATORY RBC 5.61 (H) 4.58 - [place] 5.54 [facility] x10(6)/[facility] LABORATORY Hemoglobin 16.3 13.7 - [facility] 16.5 gm/dL [facility] LABORATORY Hematocrit 51.1 (H) 40.5 - [facility] 48.5 % [facility] LABORATORY MCV 91.1 82.9 - [facility] 93.1 [facility] LABORATORY MCH 29.1 27.5 - [facility] 32.1 pg [facility] LABORATORY MCHC 31.9 (L) 32.0 - [facility] DANIEL 35.7 gm/dL [facility] LABORATORY Platelets 184 145 - 357 [facility] x10(3)/[facility] LABORATORY RDWSD 44.0 36.0 - [facility] 45.0 [facility] LABORATORY RDWCV 12.9 11.4 - [facility] DANIEL 13.8 % [facility] LABORATORY MPV 11.5 7.6 - 12.9 [facility] LABORATORY nRBC % Auto 0.0 % [facility] nRBC Abs Auto 0.000 0.000 - [facility] DANIEL 0.000 [facility] x10(3)/[facility] LABORATORY Specimen Anatomical Collection Method Collection Time Receive d Time (Source) Location / / Volume Laterality Blood specimen 07/10/2019 5:25 PM 020 5:34 (specimen) EDT PM EDT Resulting Agency Comment Spec In Lab Yuriy Gallagher MD HEMATOLOGY ORDERABLES Performing Organization Address City/State/[place] [address] Antibody screen (07/10/2019 5:25 PM EDT) Patholo gist Method Time Signature Ab Screen Negative [facility] LABORATORY Expires at 07/13/2019 BRYANT SANCHEZ [id number] on: [facility] LABORATORY Specimen Anatomical Collection Method Collection Time Receive d Time (Source) Location / / Volume Laterality Blood specimen 07/10/2019 5:25 PM 020 5:30 (specimen) EDT PM EDT Resulting Agency Comment Spec In Lab Yuriy Gallagher MD BLOOD BANK ORDERABLES Performing Organization Address City/[facility]/[place] [address] ABO/Rh Typing (07/10/2019 5:25 PM EDT) P athologist Signature ABORh Type O Pos [facility] Specimen Anatomical Collection Method Collection Time Receive d Time (Source) Location / / Volume Laterality Blood specimen 07/10/2019 5:25 PM 020 5:30 (specimen) EDT PM EDT Resulting Agency Comment Spec In Lab Yuriy Gallagher MD BLOOD BANK ORDERABLES Performing Organization Address City/[facility]/[place] [address] (ABNORMAL) CMP w/fasting Glucose (07/10/2019 5:25 PM EDT) P athologist Signature Glucose 105 (H) 65 - 99 [facility] Fasting mg/dL [facility] LABORATORY Comment: ?Fasting* Glucose Interpretive C [...] of Diabetes Mellitus, Position Statement from the [place] [employer]. ??Diabete s Care, Volume 33, Supplement 1, Mar 2009 BUN 4 (L) 10 - 20 mg/dL [facility] LABORATORY Creatinine 0.55 (L) 0.80 - 1.50 mg/dL [facility] LABORATORY Sodium 140 135 - 145 mmol/L [facility] LAB[facility]ATORY Potassium 3.9 3.5 - 5.0 mmol/L [facility] Comment: Please note: ??Patients with WBC >100,00 0 may have falsely elevated Potassium levels. ??For accurate Potassium quantif ication in these patients send serum separator tube (gold top) for subsequent determinations. ??Contact the Clinical Chemistry Laboratory if there are any qu estions. Chloride 101 98 - 107 mmol/L [facility] CO2 25 22 - 31 mmol/L [facility] Anion Gap 14 5 - 15 mmol/L [facility] LABORATORY Calcium 9.3 8.5 - 10.5 mg/dL [facility] Total Protein 6.6 6.1 - 8.0 gm/dL [facility] LABORATORY Albumin 3.5 3.2 - 5.2 gm/dL [facility] AST 22 0 - 39 unit/L [facility] LABORATORY ALT 15 0 - 55 unit/L [facility] LABORATORY Alk Phos 95 40 - 130 unit/L [facility] Total Bilirubin 0.8 0.2 - 1.3 mg/dL [facility] Estimated GFR 105 >=60 mL/min/1.73 m?? [facility] Comment: The eGFR was calculated using the CKD-EP I equation. As with all creatinine based estimates of kidney function, eGFR values calculated with the CKD-EPI equation are not accurate in patients wi th acute kidney failure, extremes of body mass or the acutely ill. http://Ache[employer] CCA/DHnkf eGFR 122 >=60 mL/min/1.73 m?? [facility] Comment: The eGFR was calculated using the CKD-EP I equation. As with all creatinine based estimates of kidney function, eGFR values calculated with the CKD-EPI equation are not accurate in patients wi th acute kidney failure, extremes of body mass or the acutely ill. [email or web address]://[facility]/DHMCnkf Specimen Anatomical Collection Method Collection Time Receive d Time (Source) Location / / Volume Laterality Blood specimen 07/10/2019 5:25 PM 020 5:34 (specimen) EDT PM EDT Resulting Agency Comment Spec In Lab Jamila Mabel Nathanael Cruz DO CHEMISTRY ORDERABLES Performing Organization Address City/[facility]/ZIP Code Phon e Number [place] [phone] HOSPITAL LAB[address]ORY Drive EKG 12 Lead (07/10/2019 5:15 PM EDT) [facility] gist Method Time Signature Ventricular rate 71 BPM MUSE SYSTEM Atrial Rate 71 BPM MUSE SYSTEM P-R Interval 208 ms MUSE SYSTEM QRS Duration 168 ms MUSE SYSTEM Q-T Interval 430 ms MUSE SYSTEM QTC Calculated 467 ms MUSE SYSTEM (Bezet) Calculated P [place] 2 degrees MUSE SYSTEM Calculated R [place] -45 degrees MUSE SYSTEM Calculated T [place] 115 degrees MUSE SYSTEM INTERPRETATION A-sensing, V-pacing. MUSE SYSTEM Abnormal ECG No previous ECGs available Confirmed by MD GOODWIN SALVATORE ([id number]) on 07/11/2019 1:49:20 PM Specimen Anatomical Collection Method Collection Time Receive d Time (Source) Location / / Volume Laterality 07/10/2019 5:15 PM 0 1:49 EDT PM EDT Jamila Mabel Cruz DO ECG ORDERABLES Performing Organization Address City/[facility] Phon e Number MUSE SYSTEM documented in this encounter Visit Diagnoses Diagnosis Acute cholecystitis documented in this encounter Admitting Diagnoses Diagnosis Acute [...] Given 07/14/2019 12:57 AM EDT 1,000 mg enalapril (Vasotec) tablet 10 mg Given 07/14/2019 [...] Given 07/13/2019 2:35 PM EDT 5,000 Units HYDROmorphone (DILAUDID) injection 0.2 m g Given 07/12/2019 10:06 AM EDT 0.2 mg 0.2 mg, Intravenous, EVERY 4 HOURS PRN, Starting on Tue07/10/19 at 2200, Until Tue07/14/19 at 1034, Pain, for pain not responsive to oxy or tylenol, Routine Given 07/11/2019 12:36 AM EDT 0.2 mg HYDROmorphone (DILAUDID) injection 0.2-0 .4 mg Given 07/11/2019 6:23 PM EDT 0.2 mg 0.2-0.4 mg, Intravenous, EVERY 5 MIN PRN, Starting on Tue07/11/19 at 1744, Until Tue07/11/19 at 1938, Pain, Give 0.2 mg every 5 minutes PRN for mild to moderate pain (1-5) Give 0.4 mg every 5 minutes PRN for moderate to severe pain (6-10). Hold for respiratory rate less than 10 per minute. Maximum dose 4 mg over one hour. If multiple pain medications are ordered, start with hydromorphone or morphine and use fentanyl for breakthrough pain., PACU Recovery, Routine HYDROmorphone (DILAUDID) injection 0.4 m g Given 07/10/2019 5:32 PM EDT 0.4 mg 0.4 mg, Intravenous, EVERY 4 HOURS PRN, Starting on Tue07/10/19 at 1714, Until Tue07/10/19 at 2200, Pain, Routine labetalol (NORMODYNE,TRANDATE) injection 10 mg Given 07/12/2019 8:28 AM EDT 10 mg 10 mg, Intravenous, EVERY 2 HOURS PRN, Starting on Tue07/10/19 at 2200, Until 07/14/19 at 1609, High Blood Pressure, SBP<160, hold for HR<60, Routine lactated Ringers 1,000 mL IV bolus New Bag 07/10/2019 5:47 PM EDT 2000 mL/hr at 2,000 mL/hr, Intravenous, ONCE, 1 dose, On Tue07/10/19 at 1716 lidocaine (LIDODERM) 5 Patch Applied 07/14/2019 8:28 [...] IV., Routine oxyCODONE (Roxicodone) tablet 5 mg Given 07/12/2019 5:08 PM EDT 5 mg 5 mg, Oral, EVERY 4 HOURS PRN, Starting on Tue07/10/19 at 2200, Until Tue07/13/19 at 0739, Pain, Routine Given 07/12/2019 12:47 PM EDT 5 mg Given 07/12/2019 8:28 AM EDT 5 mg oxyCODONE (Roxicodone) tablet 5-10 mg 5-10 mg, Oral, EVERY 4 HOURS PRN, Starting on 07/12 at 0738, Until 07/14/19 at 1609, Pain, Give 5 mg for mod erate pain (4-6/10), give 10 mg for severe pain (7-10/10). Use prior to hydromorphone., Routine piperacillin-tazobactam (ZOSYN) 3.375 Restarted 07/14/2019 6:01 AM EDT 12.5 mL/hr g vial attach to sodium chloride 0.9% 50 mL Mini-Bag Plus 3.375 g, Intravenous, EVERY 8 HOURS, First dose on Tue07/11/19 at 0200, Until Discontinued, Administer over 4 Hours, Warning Vesicant/Irritant Medication Do not administer or Y-site with lactated ringers., Indication for (Active or Suspected): GI/Intra-abdominal New Bag 07/14/2019 3:00 AM EDT 3.375 g 12.5 mL/hr New Bag 07/13/2019 6:15 PM EDT 3.375 g 12.5 mL/hr polyethylene glycol (Miralax) packet 17 g 17 g, Oral, DAILY PRN, Starting on Tue at 1028, Until 07/14/19 at 1609, Constipation, Routine potassium, sodium phosphates (Neutra-Phos) Given 07/12/2019 4:31 PM EDT 1.5 g 280-160-250 mg oral packet 1.5 g 1.5 g, Oral, ONCE, 1 dose, On Tue07/12/19 at 1600, Reconstitute powder with 75 mL of water. Give 1 packet with full glass of water (240 mL). , Routine senna-docusate (Pericolace) 8.6-50 mg pe r tablet 2 tablet 2 tablet, Oral, 2 TIMES DAILY PRN, Starting on 06/26 at 1028, Until Tue07/14/19 at 1609, Constipation, Routine sodium chloride 0.9 % (flush) flush 5 mL Given 07/14/2019 8:28 AM EDT 5 mLs 5 mL, Intravenous, 2 TIMES DAILY, First dose on Tue07/10/19 at 2230, Until Discontinued, Routine Given 07/13/2019 9:07 PM EDT 5 mLs Given 07/13/2019 8:21 AM EDT 5 mLs sodium chloride 0.9% infusion New Bag 07/11/2019 10:34 AM EDT 75 mL/hr 75 mL/hr 75 mL/hr, Intravenous, CONTINUOUS, Starting on Tue07/10/19 at 2300, Until Tue07/12/19 at 0753 New Bag 07/10/2019 11:03 PM EDT 75 mL/hr 75 mL/hr documented in this encounter Active and Recently Administered Medications Times are shown in EDT. Scheduled Medication Order 07/12/2019 07/13/2019 07/14/2019 acetaminophen (Tylenol) tablet 1,000 mg 0011 (Given - Provider: Aggie Bui RN)0523 (Given - Provider: Aggie Bui RN)1143 (Given - Provider: Kristin Fontanez RN)1805 (Given - Provider: Kristin Fontanez RN)2359 (Given - Provider: Dangelo Baldwin, CADENCE) 0614 (Given - Provider: Dangelo Baldwin, CADENCE)1201 (Given - Provider: Felicia Walker RN)1813 (Given - Provider: Felicia Walker RN) 0057 (Given - Provider: Per Jean-Baptiste RN)0538 (Given - Provider: Per Jean-Baptiste RN)1230 (Given - Provider: Felicia Walker RN) 1,000 mg, Oral, EVERY 6 HOURS SCHEDULED, First dose on Tue07/11/19 at 0000, Until Discontinued, Maximum dose of acetaminophen is 4000 mg from all sources in 24 hours., Routine enalapril (Vasotec) tablet 10 mg 1631 (Given - Provide r: Kristin Guadarrama RN) 0818 (Given - Provider: Felciia Walker RN) 0826 (G iven - Provider: Felicia Walker RN) 10 mg, Oral, DAILY, First dose on Tue at 1000, Until Discontinued, Routine famotidine (Pepcid) tablet 20 mg 0827 (Given - Provide r: Kristin Guadarrama RN)2138 (Given - Provider: Dangelo Baldwin RN) 0818 (Given - Provider: Felicia Walker RN)2107 (Given - Provider: Per Jean-Baptiste RN) 0826 (Given - Provider: Felicia Walker RN) 20 mg, Oral, 2 TIMES DAILY, First dose o n Tue07/10/19 at 2230, Until Discontinued, Routine heparin (Porcine) subcutaneous injection 5,000 Units 1 106 (Given - Provider: Kristin Fontanez RN)2138 (Given - Provider: Dangelo Baldwin RN) 0614 (Given - Provider: Dangelo Baldwin RN)1435 (Given - Provider: Felicia Walker RN)2107 (Given - Provider: Per Jean-Baptiste RN) 0539 (Given - Provider: Per Jean-Baptiste RN)1400 (Due) 5,000 Units, Subcutaneous, EVERY 8 HOURS SCHEDULED, First dose on Tue07/12/19 at 1000, Until Discontinued, Routine lidocaine (LIDODERM) 5 % patch 3 patch(Linked Group 1) 08 (Patch Applied - Provider: Felicia Walker RN) 0828 (Patch Applied - Provider: Felicia Walker RN) [...] Aggie mazariegos RN)0626 (Stopped - Provider: Aggie Bui, CADENCE)1006 (New Bag - Provider: Kristin Fontanez RN)1406 (Stopped - Provider: Kristin Fontanez RN) 0225 (New Bag - Provider: Dangelo Baldwin RN)0625 (Stopped - Provider: Dangelo Baldwin RN)1032 (New Bag - Provider: Felicia Walker RN)1432 (Stopped - Provider: Felicia Walker RN)1815 (New Bag - Provider: Felicia Walker RN) [...] g (COMPLETED) 1631 (Given - Provider: Kristin Fontanez, CADENCE) 1.5 g, Oral, ONCE, 1 dose, [facility] [...] Intravenous, 2 TIMES DAILY, First dose on 07/10/19 at 2230, Until Discontinued, Routine PRN Medication Order 07/12/2019 07/13/2019 07/14/2019 HYDROmorphone (DILAUDID) injection 0.2 mg (CANCELED) 1 006 (Given - Provider: Kristin Fontanez RN) 0.2 mg, Intravenous, EVERY 4 HOURS PRN, Starting 07/10/19 at 2200, Until 07/14/19 at 1034, Pain, for pain not responsive to oxy or tylenol, Routine labetalol (NORMODYNE,TRANDATE) injection 10 mg 08 (G iven - Provider: Kristin Fontanez RN) 10 mg, Intravenous, EVERY 2 HOURS PRN, S tarting 07/10/19 at 2200, Until 07/14/19 at 1609, High Blood Pressure, SBP<160, hold for HR<60, Routine lidocaine (XYLOCAINE) 10 mg/mL (1 %) injection 3 mg 3 mg (0.3 mL), Subcutaneous, ONCE PRN, 1 dose, Starting 07/10/19 at 2200, Until 07/14/19 at 1609, for discomfort with PIV insertion, Routine ondansetron (ZOFRAN) injection 4-8 mg(Linked Group 2) 4-8 mg, Intravenous, EVERY 8 HOURS PRN, Starting Tue 20 at 2200, Until 07/14/19 at 1609, Nausea, [...] Intravenous, EVERY 1 MIN PRN, S tarting e 07/10/19 at 2200, Until 07/14/19 at 1609, flush, [...] first.
documented in this encounter Care Teams Biophysics Teacher Relationship Specialty Start Date End Date Pool Hercules MD PCP - General Family Medicine 07/10/[address] [place] [address] [address] [place] [address] documented as of this encounter
--- OUTSIDE RECORDS SUMMARY | 2021-12-05 06:43 | XMS_ITS | Encounter Summary ---
:1950 [place] [address] Care Team Providers Name Role Phone Servando Min MD Primary Care Provider Encounter Details Date Type Department Care Team Description 06/07/2014 Office Visit Endocrinology at [facility] Fabiola Daley, Multiple thyroid [facility] [place] [address] [place] [address] ENDOCRINOLOGY [place], [place] [address] Social History Tobacco Use Types Packs/Day Years Used Date Former Smoker Sex Assigned at Date Recorded Not on file documented as of this encounter Last Filed Vital Signs Vital Sign Reading Time Taken Comments Blood Pressure 123/78 06/07/2014 9:27 AM EDT Pulse 68 06/07/2014 9:27 AM EDT Temperature 36.6 ??C (97.8 ??F) 06/07/2014 9:27 AM EDT Respiratory Rate - - Oxygen Saturation - - Inhaled Oxygen Concentration - - Weight 81.5 kg (179 lb 9.6 oz) 06/07/2014 9:27 AM EDT Height 175.3 cm (5' 9) 06/07/2014 9:27 AM EDT Body Mass Index 26.52 06/07/2014 9:27 AM EDT documented in this encounter Progress Notes Amrita Daley MD - 06/07/2014 9:51 AM EDT THYROID ULTRASOUND: Indication: Thyroid nodule on prior study; Considering FNA - clarify size, position and US characteristics Date: 06/07/2014 Comparison: Real time images of the thyroid gland were obtained using a BK US machine. All measurements are given as Longitudinal x AP x Transverse x Right Lobe: The right lobe measures: 5.5 x 1.7 x 1.8 cms and is of normal echotexture. Multiple small nodules and cysts all less than 0.5 cms Left Lobe: The left lobe measures: 5.7 x 1.8 x 3.0 cms and is of normal echotexture. There is a solid iso-echoic heterogenous nodule in the lower pole extending into isthmus that measures: 3.0 x 1.2 x 2.5 cms The nodule has sharp, well defined borders; There are no intranodular calcifications; There is mild peripheral and no central flow on power doppler. Isthmus: The isthmus measures: 0.2 cms Impression: Homegenous thyroid gland Multiple small nodules all less than 0.5 cms in right lobe Dominant nodule on the left does not have highly suspicious US features of malignancy. Per TJ guidelines would biopsy thyroid nodule if it is over 1.5-2.0 cms. Recommendation: FNA of left dominant nodule Indication: FNA of left dominant thyroid nodule. Date: 06/07/2014 Informed consent was obtained after a discussion of the nature of the procedure, its risks, benefitsand possible alternatives. Immediately prior to the start of the procedure a time out was taken: - The patient's identity was confirmed using two identifiers - The intended procedure, patient positioning and availability of all required equipment was also confirmed. - The proper site(s)/side(s) of the nodule(s) was/were confirmed by visualization with ultrasound. The biopsy site(s) on the patient's neck was/were prepared using isopropyl alchohol. 3 passes of a 25g needle were performed at each site. The needle placement was ultrasound guided. The needle was visualized in the nodule(s) in each pass. The procedure was well tolerated by the patient. The patient was given a thyroid FNA post-procedure handout upon completion Amrita Daley MD - 06/07/2014 9:29 AM EDT Patient seen in consultation at the request of: Pool Markham Reason for consult: Thyroid nodule Rivas Carlos is a very pleasant 64 y.o. year old male who comes in consult for thyroid nodule. States that he had trouble breathing and then had CT scan of chest noted to have PE and thyroid nodule was incidentally noted. Then this was followed by thyroid US. History of H+N XRT exposure: No Family history of thyroid cancer: No Thyroid Compressive symptoms: Globus sensation: No Dysphagia: No Dysphonia: No Dyspnea: No Symptoms of thyroid hormone excess / deficiency Heat intolerance: No Cold intolerance: yes Diarrhea: No Constipation: No Weight loss / gain: No Anxiety: No Jitteriness: No Tremors: No Palpitations: No Difficulty concentrating: No PMH: PE DJD Hearing loss Myotonic dystrophy PSH: Hernia repair - 2 of them Cataracts FH: Father - of cancer Mother - at age 85 of old age, double mastectomy, cholecystectomy, CABG, pacemaker, valve repair Brother - parkinson's Sister - myotonic dystrophy Social: Non smoker Alcohol - none No illicit drugs Kids - 5 kids - cody - thryoid nodule, teresa - autoimmune issues Retired from [employer] Family History Social History Review of Systems See HPI. All other systems negative. Physical Exam GEN: A+O 3; WDWN; Comfortable; Mood and affect appropriate. EYES: IRVING; No stare, no lid lag, no conjunctival injection NECK: Trachea midline, no neck masses; Thyroid not enlarged; Non-nodular; No cervical lymphadenopathy CHEST: Clear to auscultation; No dullness to percussion CV: Regular rate and rhythm; No murmurs rubs or gallops; no peripheral edema ABD: Soft and non-tender; No masses notes MSK: Normal gait and station; No clubbing or cyanosis of digits SKIN: Intact without lesions or rashes NEURO: CN II-XII grossly intact with normal coordination, muscle strength and tone; No tremor of outstretched hands; DTRs 2+ w/ normal relaxation phase ASSESSMENT / PLAN: Thyroid Nodule I discussed with her the prevalence of thyroid nodules: Approximately 5% of individuals have palpable thyroid nodules and 30% or more of adults have non- palpable nodules. The prevalence of nodules increases with age, so that perhaps 50% of individuals older than 60 years of age have nodules. Many of these nodules will be well under 1cm in size. The incidence of thyroid cancer is low, but rising. About 44,700 individuals will be found to have thyroid cancer in 2010. The prevalence of thyroid cancer is low compared with the prevalence of thyroid nodule. In 2007, there were about 434,000 individuals in the [place] with a history of thyroid cancer. There have been a number of studies that have estimated risk of malignancy in thyroid nodule. The estimated risk varies with size and other characteristics of nodules selected for biopsy, the techniqueused for the biopsy, the institution and its referral patterns, and the characteristics of the localpopulation. Most studies have estimated malignancy risk in nodules that are palpable or > 1cm on U/S to be in the range of 3-15%. At [facility], the nodules selected for biopsy are histologically positive in about 7% of cases. In general, options for further evaluation include: - Follow with serial U/S - Fine needle aspiration biopsy - Thyroidectomy At [facility], our criteria for FNA biopsy includes: - All palpable nodules - All nodules > 1cm in two or more dimension - Nodules > 8-9mm in two or more dimensions with high risk sonographic features, or occuring in patients with high risk historical features - Nodules that have been previously biopsied and found to have benign cytology but which have subsequently enlarged or changed significantly - Simple cysts do not require FNA biopsy Nodules not meeting the above criteria can generally be followed with ultrasound. Based on the above, I recommend FNA biopsy. Thyroid FNA involves passing a 25g needle into the nodule under ultrasound guidance a total of two or three times. There is little risk of significant bleeding or infection. Bruising at the biopsy site and swelling can occur. I reviewed the possible outcomes of an FNA, which are: - Benign - Insufficient - Indeterminate - Suspicious or positive for malignancy In the event of an insufficient result, the FNA should be repeated. Thyroid surgery is usually required if the result is indeterminate or suspicious. She understands the above, and wishes to proceed with FNA. Amrita Daley Endocrine Staff Physician [facility] . documented in this encounter Plan of Treatment Not on filedocumented as of this encounter Procedures Procedure Name Priority Date/Time Associated Comments Diagnosis NON-SITE SUPERVISING TECHNICAL OPERATOR FINAL REPORT Routine 06/07/2014 10:39 Res ults for this AM EDT procedure are i n the results section. CYTOPATHOLOGY Routine 06/07/2014 9:53 AM Multiple thyroid Resu lts for this NON-GYNECOLOGICAL EDT nodules procedure are in the results section. documented in this encounter Results Non-Bellhop Captain Final Report (06/07/2014 10:39 AM EDT) Component Value Ref Test Analysis Performed At [facility] Range Method Time Signature Non-Bellhop Captain CERNER Final Report ? [facility] ? Provider: ?? SURYADEVARA, ?Pt. Name: ?? LUCIANO REIS, RIVAS David ?SREENIJA ? Acc #: ?[id number] ? Pt. ? Col Date: ?? 5 ? /Sex: ?1950,(64 years),Male ? Rec Date: ?? 06/07/2014 ? LOC: ?5C ? CYTOPATHOLOGY: ??NGYN ? ---Cytopathologic Diagnosis--- ? Negative for Malignancy ? 06/10/14 ?Screened by: ? REP ? Rescreened by: ?? SKG,SKG ? 06/11/14 ?Verified by: ? Dontae QUINTERO, Karla Mcdonald ?Pathol ogist ? (Electronic Signature) ? ---Comment--- ? Thyroid, left (US-guided FNA - assisted): ? Benign. ? Compatible with a benign follicular nodule (see Note) . ? Cytologic preservation: ?Adequate. ? Cellularity (follicular cells): ?Low to moderate. ? Colloid: ?Moderate quantity present. ? Macrophages: ?Present, includi ng multinucleated giant cells and scattered granulomas. ? Architectural pattern: ?Predominantly macrofollicular pattern. ? Note: ??The presence of a few granulomas is suggest jorge of background ? granulomatous thyroiditis. ? ---Clinical Information--- ? Specimen Source: ?Thyroid, left (US-guided FNA - assisted) ? Pertinent Clinical Data and Significant Therapy: ?Left thyroid nodule ? [facility] ? Provider: ?? SURYADEVARA, ?Pt. Name: ?? RIVAS ALMODOVAR ?SREENIJA ? Acc #: ?[id number] ? Pt. ? Col Date: ?? 5 ? /Sex: ?1950,(64 years),Male ? Rec Date: ?? 06/07/2014 ? LOC: ?5C ? Clinical Impression: ? CYTOPATHOLOGY: ??NGYN ?Benign ? Pertinent Radiologic Findings: ?(not provided) ? Gross Description: ?Received in Cyto rich Red, approximately 12.5 mL total volume of clear, ? pink fluid. ?Total Preparation: Liquid Based Prep 1; Diff-Cholo k 2; Pap ? Stain 2. ? Fine Needle Aspiration Intraoperative Consultation: ? Evaluation Episode #1 (1 slide(s)): ? Adequate for final diagnosis. ? Follicular epithelial cells present. ? Intraoperative Consultation by: Hattie Galvez MD (fellow) and ? Lavon Vyas MD. Dr. Erin messina personally examined the cytologic slides and his ? interpretation is as stated. ? Note: Intraoperative Consultation results are preliminary assessments of ? adequacy and diagnosis. See final diagnostic comments for completed ? interpretation. Specimen (Source) Anatomical Collection Method Collection Time Re ceived Time Location / / Volume Laterality 06/07/2014 10:39 AM EDT Amrita Daley MD PATHOLOGY/CYTOLOGY ORDERABLE S Performing Organization Address City/[facility]/ZIP [place] [address] [facility] Non-Gynecological (06/07/2014 9:53 AM EDT) Specimen Anatomical Collection Method Collection Time Receive d Time (Source) Location / / Volume Laterality AP Specimen 06/07/2014 9:53 AM 5 9:53 EDT AM EDT Narrative [facility] - 06/07/2014 9:53 AM E DT Specimen requisition ordered. ??Separate Pathology report to follow Amrita Daley MD PATHOLOGY/CYTOLOGY ORDERABLE S Performing Organization Address [facility] [place] [address] [facility] documented in this encounter Visit Diagnoses Diagnosis Multiple thyroid nodules Nontoxic multinodular goiter documented in this encounter Care Teams Client Care Representative Relationship Specialty Start Date End Date Servando Min MD PCP - General 06/07/14 07/09/19 [address] [place] [address] documented as of this encounter
--- OUTSIDE RECORDS SUMMARY | 2021-12-05 06:43 | XMS_ITS | Clinical Summary ---
:1950 Author Organization [facility] [place] [address] Care Team Providers Name Role Phone Pool Hercules MD Primary Care Provider [phone] Allergies No known active allergies Medications Medication Sig Dispensed Refills Start Date End Date Status enalapril (VASOTEC) 10 0 07/14/2009 Active mg tablet finasteride (PROSCAR) 5 0 07/14/2009 Active mg tablet apixaban (ELIQUIS) 5 mg Take 5 mg by 0 Active Tablet mouth 2 times daily. Active Problems Problem Noted Date Acute cholecystitis 07/10/2019 Immunizations Name Administration Dates Next Due Pneumococcal Polyvalent 23 11/13/2002 Td, adult 05/26/1998 Social History Tobacco Use Types Packs/Day Years Used Date Former Smoker Cigarettes 1 20 Smokeless Tobacco: Never Used Tobacco Cessation: Counseling Given: No Alcohol Use Standard Drinks/Week Comments Not Currently 0 (1 standard drink = 0.6 oz pure alcoho l) Sex Assigned at Date Recorded Not on file Last Filed Vital Signs Vital Sign Reading [...] Mass Index 26.62 07/10/2019 9:05 PM EDT Plan of Treatment Health Maintenance Due Date Last Done Comments Covid-19 Vaccine (#1) 1953 Hepatitis C Screening 1966 Lipid Screening 1966 Tdap adult 1967 Colonoscopy 1993 Zoster vaccine (1 of 2) 1998 Advance Directive 2003 Tetanus vaccine 05/26/2008 05/26/1998 AAA Screen 2013 Pneumoccocal Vaccine: 65+ (1 - PCV) 2013 11/13/2002 Influenza (Flu) vaccine (1 of 1 - Influenza standard 11/26/2021 series) Insurance Payer Benefit Plan Subscriber ID Effective Dates Phone Address Type / Group ADALBERTO BOTELLO [id number] 2019-Chelsea [phone] [address] [address] [address] [place] [address] Advance Directives Latest Code Status on File Code Status Date Activated Date Inactivated Comments Full Code 07/10/2019 6:01 PM 07/14/2019 4:14 PM Does patient have capacity to make decision: Yes Care Teams Steel Spar Operator Relationship Specialty Start Date End Date Pool Hercules MD PCP - General Family Medicine 07/10/[address] [place], [place] [address]
--- OUTSIDE RECORDS SUMMARY | 2021-12-05 06:43 | XMS_ITS | Encounter Summary ---
:1950 [place] [address] Care Team Providers Name Role Phone Pool Hercules MD Primary Care Provider [phone] Encounter Details Date Type Department Care Team Description 07/10/2019 Ancillary Procedure Radiology Library at [facility] [place] [phone] GENERAL SURGERY [phone] [place], [place] [address] (Wo rk) Social History Tobacco Use Types Packs/Day Years Used Date Former Smoker Sex Assigned at Date Recorded Not on file documented as of this encounter Plan of Treatment Not on filedocumented as of this encounter Procedures Procedure Name Priority Date/Time Associated Comments Diagnosis FILM LIBRARY STORAGE Routine 07/10/2019 2:56 PM R esults for this ONLY ULTRASOUND EDT procedure ar e in STUDY the results section. documented in this encounter Results Film Library- Storage Only Ultrasound Study (07/10/2019 2:56 PM EDT) Specimen (Source) Anatomical Location Collection Method / Collectio n Time Received Time / Laterality Volume Narrative VICK NAQVI - 07/10/2019 2:56 PM EDT This exam is auto-finalizing. It's purpo se is for storage only. Bj Norwood MD IMG FILM LIBRARY ORDERABLES Performing Organization Address City/State/ZIP Code Phon e Number [place], [place] documented in this encounter Visit Diagnoses Not on filedocumented in this encounter Care Teams Paraffin Plant Operator Relationship Specialty Start Date End Date Pool Hercules MD PCP - General Family Medicine 07/10/[address] [place] [address] documented as of this encounter
--- OUTSIDE RECORDS SUMMARY | 2021-12-05 06:43 | XMS_ITS | Encounter Summary ---
:1950 [place] [address] Care Team Providers Name Role Phone Pool Hercules MD Primary Care Provider [phone] Encounter Details Date Type Department Care Team Description 07/10/2019 Ancillary Procedure Radiology Library at [facility] [place] [address] GENERAL SURGERY [phone] [place], [place] [address] (Wo rk) Social History Tobacco Use Types Packs/Day Years Used Date Former Smoker Sex Assigned at Date Recorded Not on file documented as of this encounter Plan of Treatment Not on filedocumented as of this encounter Procedures Procedure Name Priority Date/Time Associated Diagnosis Comme nts FILM LIBRARY Routine 07/10/2019 2:44 PM Results f or this STORAGE ONLY DX EDT procedure ar e in CHEST the results section. documented in this encounter Results Film Library- Storage Only DX Chest (07/10/2019 2:44 PM EDT) Specimen (Source) Anatomical Location Collection Method / Collectio n Time Received Time / Laterality Volume Narrative DRISS - 07/10/2019 2:44 PM EDT This exam is auto-finalizing. It's purpo se is for storage only. Bj Norwood MD G FILM LIBRARY ORDERABLES Performing Organization Address City/State/ZIP Code Phon e Number RAD [place], [place] documented in this encounter Visit Diagnoses Not on filedocumented in this encounter Care Teams Mesh Cutter Relationship Specialty Start Date End Date Pool Hercules MD PCP - General Family Medicine 07/10/[address] [place] [address] documented as of this encounter
--- OUTSIDE RECORDS SUMMARY | 2021-12-05 06:43 | XMS_ITS | Encounter Summary ---
:1950 Author Organization [place] [address] Care Team Providers Name Role Phone Pool Hercules MD Primary Care Provider [phone] Encounter Details Date Type Department Care Team Description 07/16/2019 Telephone General Surgery at [facility] Leilani Shel[place], [place] [address] Social History Tobacco Use Types Packs/Day Years Used Date Former Smoker Cigarettes 1 20 Smokeless Tobacco: Never Used Alcohol Use Standard Drinks/Week Comments Not Currently 0 (1 standard drink = 0.6 oz pure alcoho l) Sex Assigned at Date Recorded Not on file documented as of this encounter Miscellaneous Notes Telephone Encounter - Leilani Shelton, RN - 07/16/2019 3:34 PM EDT Nursing Triage - Phone Note DATE OF CALL: 07/16/2019 TIME OF CALL: 3:34 PM PATIENT DATE OF : 1950 CALLER: RN to the patient Learning Needs Assessment Reviewed: No SUBJECTIVE - How are you doing since your surgery? PERTINENT PAST MEDICAL HISTORY: PT is s/p Operations/Procedures: 07/11/2019 Procedure(s): LAPAROSCOPIC CHOLECYSTECTOMY WITH CHOLANGIOGRAM (WRVU 11.47) ?? HPI: from H&P by Dr. Elgin Carlos??is a 69 y.o.??male??with PMH HTN, HLD, myotonic dystrophy, PE, and pace maker insertion (on eliquis)??who presents in transfer from [facility] for concerns regarding acute cholecystitis. He reports that he started having intermittent RUQ pain about 4 months ago that was post-prandial in nature. He did not seek care or do anything about the pain. Over the last 48 hours the pain has acutely worsened and the pain has become more diffuse than just localized to the RUQ. He has had anorexia andintermittent nausea over the last 2 days. Has not eaten anything in >24H. The pain is constant now and is not allowing him to fall asleep at night. He presented to [facility] for evaluation where ??CT wasdone which only revealed diverticulosis w/o diverticulitis and a f/u U/S showed an impacted stone inthe gallbladder neck w/ GB dilation. Given his myotonic dystrophy request was made to transfer him to [facility]. He also does report some subjective low grade fevers. No Chest pain. Does feel short of breath 2/2 pain with inspiration. Labs at OSH fairly unremarkable, no leukocytosis, LFTs normal, normal lactate. Per patient last dose of eliquis was yesterday morning. ?? NURSING OBJECTIVE/ASSESSMENT: Patient is doing well at home with his . He is getting around independently with a walker which he has been using right along. (His can drive the truck if they need anything down town.) Pt is eating light for now as he statesnot eating greasy hamburgers or anything like that. He is drinking plenty,voiding without issue and is having loose stool. I explained that this is normal after his surgery. He is back on his Eliqius . He is doing well INTERVENTION/PLAN/ FOLLOW UP: Pt has our number and will call with any questions or concerns. If your symptoms do not improve, or they worsen, report to your local emergency department. CALLER AGREES: Yes PCP: Pool Hercules MD documented in this encounter Plan of Treatment Not on filedocumented as of this encounter Visit Diagnoses Not on filedocumented in this encounter Care Teams Physician/Allergy/Immunology Relationship Specialty Start Date End Date Pool Hercules MD PCP - General Family Medicine 07/10/[address] [place] [address] 1 [place] [address] documented as of this encounter
--- OUTSIDE RECORDS SUMMARY | 2021-12-05 06:43 | XMS_ITS | Encounter Summary ---
:1950 Author Organization [facility] [place] [address] Care Team Providers Name Role Phone Pool Hercules MD Primary Care Provider [phone] Reason for Visit Auth/Cert Specialty Diagnoses / Procedures Referred By Contact Refer red To Contact Diagnoses Acute cholecystitis INFECTED GAL BLADDER Procedures ER IPI Admit Referral ID Status Reason Start Date Expiration Date Visits Requ ested Visits Authorized [id number] 1 1 Encounter Details Date Type Department Care Team Description 07/11/2019 Anesthesia Event Main Operating Room Simon Denise MD [facility] [address] [facility] Mago Bennett MD [facility] [place] [address] [facility] [place] [address] Anesthesia Record Procedure Summary Procedure Name Responsible Anesthesia Start Anesthesia Stop Anesthesiologist Time Time LAPAROSCOPIC Simon Campos MD 07/11/19 1554 07/11/19 18 10 CHOLECYSTECTOMY WITH CHOLANGIOGRAM (WRVU 11.47) (N/A Abdomen) Events Date Time Event Comment 07/11/2019 1433 1554 AN Verify 1554 Start 1554 An Start Data 1600 An Induction 1618 An Intubation 1618 Anesthesia Ready 1638 Handoff Intra-procedure anesthesia care was transferred afte r review of the patient's history, current anesthetic/surgical status and procedural p addison, anticipated issues and expected post-op erative course (including disposition.) johny Ewing, HANY 180 Extubation/LMA Out 1803 an kat now 180 an stop data 1809 Recovery or ICU Handoff Patient care was transferred to the destination unit staff after review of the patient's medica l history, current anesthetic/surgi daniel status and plan, according to the Provider Handoff Checklist. 1809 Stop Name Total fentaNYL 100 mcg IV Lidocaine 100 mg Propofol 200 mg Rocuronium 20 mg Ondansetron 4 mg Dexamethasone 8 mg piperacillin-tazobactam (ZOSYN) 3.375 g vial attach to sodium chloride 0.9% 3.375 g 50 mL Mini-Bag Plus Sugammadex 400 mg Lactated Ringers 900 mL Agents Name O2 Air N2O Sevoflurane (et) Blood No blood administrations on file. Lines, Drains, and Airways Type Details Placement Removal Drain/Device Site 07/11/19; 1733; Right; 07/11/19 1733 by upper quadrant; ; Franny Best, RN Sterile prep and drape; (intubated); Other (foam disc) PIV 07/10/19; (unknown); 07/10/19 0000 by 07/11/19 2 127 by metacarpal vein (top of AlexandriaRaul, RN Paresh scott, Bj [facility]), right; Roxanne RN [id number] catheter system; 20 gauge; OSH; leaking; site symptomatic, catheter/device intact, removed per policy/procedure; 07/11/19; 2126 Incision 07/11/19; 1621; abdomen; 07/11/19 1621 by 1715 by laparoscopic punctures Kirt Maldonado, RN Carol Johnson (specify) (4 trochar sites); 11/23/21 (LDA cleanup utility RA#[id number]); 1715 (LDA cleanup utility RA#[id number]) ETT Mask Ventilation: Not 07/11/19 1623 by 07/11/19 1802 by Attempted (0); ETT Type: Jazlyn, Yuko D, HANY R eyes, Alvin, HANY Cuffed; ETT Size: 7.5 mm; Mac Blade: 4; Notes: Asleep, Pre-O2, Cricoid Pressure, Stylette; Attempts: 1; Laryngoscopy Grade: 2; ETT Placement Verified By: Auscultation, Capnometry, Visual; Secured at Teeth: 23 cm; Inserted by: Leda LEACH documented in this encounter Social History Tobacco Use Types Packs/Day Years Used Date Former Smoker Sex Assigned at Date Recorded Not on file documented as of this encounter OR Notes Anesthesia Postprocedure Evaluation - Diane Pearson MD - 07/11/2019 11:22 PM EDT Department of Anesthesiology Post-procedure Note Patient: Rivas Carlos Procedure Summary Date: 07/11/19 Room / Location: [facility] OR [address] [place] [address] MAIN OR Anesthesia Start: 1553 Anesthesia Stop: 1809 Procedure: LAPAROSCOPIC CHOLECYSTECTOMY WITH CHOLANGIOGRAM (WRVU 11.47) (N/A Abdomen) Diagnosis: (Acute cholecystitis) Surgeon: Bj Norwood MD Responsible Provider: Simon Campos MD Anesthesia Type: general ASA Status: 3 All Anesthesia Providers: Anesthesiologist: Mago Bennett MD; Simon Campos MD ROD FINISHER: Yuko Hobson CRNA; Alvin Ewing CRNA Vitals Value Taken Time BP 145/75 07/11/2019 7:00 PM Temp 36.8 ??C (98.2 ??F) 07/11/2019 7:00 PM Pulse 78 07/11/2019 7:00 PM Resp 15 07/11/2019 7:00 PM SpO2 94 % 07/11/2019 7:34 PM Pain Level 1 07/11/2019 7:00 PM Vitals shown include unvalidated device data. Patient Location: PACU/[facility] Level of Consciousness: Awake and Alert Pain Management: Satisfactory Analgesia PONV: None Cardiovascular Status: At Baseline Respiratory Status: At Baseline and Supplemental O2 (NC or FM) Postoperative Fluid Status: Intravascular EUvolemia Possible Anesthetic Complications: NONE apparent at time of evaluation Final Primary Anesthesia Type: General (The anesthetic type performed was the same as planned.) Comments: States that his weakness is at baseline, and that he is just a little bit sore. Anesthesia Preprocedure Evaluation - Mago Bennett MD - 07/11/2019 2:25 PM EDT Pre-Anesthesia Evaluation for: Rivas Carlos a 69 y.o. male. Procedure(s): LAPAROSCOPIC CHOLECYSTECTOMY WITH CHOLANGIOGRAM (VU 11.47) Patient Active Problem List Diagnosis ??? Acute cholecystitis No past medical history on file. No past surgical history on file. Social History Tobacco Use ??? Smoking status: Former Smoker Substance Use Topics ??? Alcohol use: Not on file Social History Substance and Sexual Activity Drug Use Not on file No Known Allergies Medications: MAR and/or home medications have been reviewed. Physical Exam: Most Recent Vitals: 07/11/19 1148 BP: 129/78 Pulse: Resp: 16 Temp: 36.5 ??C (97.7 ??F) SpO2: 95% Body mass index is 26.97 kg/m??. Height: 172.7 cm (5' 8) Weight: 80.5 kg (177 lb 6.4 oz) Airway Assessment: Mallampati: II TM distance: >3 FB Neck ROM: full Cardiovascular Assessment: cardiovascular exam normal Pulmonary Assessment: Dental Assessment: - normal exam Misc Assessment: Patient is wearing Yes contact(s). IV access: Peripheral line Anesthesia Plan: ASA 3 general, with a(n) intravenous induction 69 year old male presents for lap jodi NPO confirmed with patient,except for meds with water No anesthesia issurs in the past Past surgical history includes eye surgery X4, inguinal hernia, colonboscopy, pacemaker History of HTN took meds today Myotonic dystrophy with significant weakness, can climb stairs slowly with cane or railing, can walkonly 20 feet unsupported, has no symptoms of aspiration with Eating solids or liquids, The pacemaker was placed as a precaution for myotonic dystrophy effect on heart EKG shows A-sensed and V-paced at rate of 69 He is wearing contact lenses which I have asked him to remove Labs reviewed Plan [facility] Region - Other Informed Consent: Anesthetic plan and risks discussed with patient. Plan discussed with ROD FINISHER. PAT Clinic Note documented in this encounter Plan of Treatment Not on filedocumented as of this encounter Visit Diagnoses Not on filedocumented in this encounter Administered Medications Inactive Administered Medications - up to 3 most recent administrations Medication Order MAR Action Action Date Dose Rate Site dexamethasone (DECADRON) injection Given 07/11/2019 4:30 PM EDT 8 mg PRN, Starting on Tue07/11/19 at 1630, Until Tue07/11/19 at 1813, Anesthesia Intra-op, Routine fentaNYL 50 mcg/mL multi-dose injection Given 07/11/2019 4:32 PM EDT 50 mcg PRN, Starting on Tue07/11/19 at 1618, Until Tue07/11/19 at 1813, Anesthesia Intra-op, Routine Given 07/11/2019 4:18 PM EDT 50 mcg lactated ringers infusion New Bag 07/11/2019 3:54 PM EDT CONTINUOUS PRN, Starting on Tue07/11/19 at 1554, Until Tue07/11/19 at 1813, Anesthesia Intra-op lidocaine (PF) (XYLOCAINE) 100 mg/5 mL (2 %) Given 4:00 PM EDT 100 mg injection PRN, Starting on Tue07/11/19 at 1600, Until Tue07/11/19 at 1813, Anesthesia Intra-op, Routine ondansetron (ZOFRAN) injection Given 07/11/2019 5:42 PM EDT 4 mg PRN, Starting on Tue07/11/19 at 1742, Until Tue07/11/19 at 1813, Anesthesia Intra-op, Routine piperacillin-tazobactam (ZOSYN) 3.375 Restarted 07/14/2019 6:01 [...] 6:15 PM EDT 3.375 g 12.5 mL/hr propofol (DIPRIVAN) 10 mg/mL bolus injection Given 4:00 PM EDT 200 mg (Anesthesia) PRN, Starting on Tue07/11/19 at 1600, Until Tue07/11/19 at 1813, Anesthesia Intra-op rocuronium (ZEMURON) multi-dose injectio n Given 07/11/2019 4:18 PM EDT 20 mg PRN, Starting on Tue07/11/19 at 1618, Until Tue07/11/19 at 1813, Anesthesia Intra-op, Routine sugammadex (BRIDION) 100 mg/mL injection Given 07/11/2019 5:58 PM EDT 200 mg PRN, Starting on Tue07/11/19 at 1743, Until Tue07/11/19 at 1813, Anesthesia Intra-op, Routine Given 07/11/2019 5:43 PM EDT 200 mg documented in this encounter Care Teams Warp Placer Relationship Specialty Start Date End Date Pool Hercules MD PCP - General Family Medicine 07/10/[address] [place] [address] documented as of this encounter
--- OUTSIDE RECORDS SUMMARY | 2021-12-05 06:44 | XMS_ITS | Encounter Summary ---
:1950 Author Organization [facility] Address [address] [place] [address] Care Team Providers Name Role Phone Amanda Jones MD Primary Care Provider Encounter Details Date Type Department Care Team Description 05/14/2013 Results Only [facility] Ivan Chris MD Laboratory Services - [address] [place] [id number] [address] [facility] [place] [address] [phone] Social History Tobacco Use Types Packs/Day Years Used Date Never Assessed Sex Assigned at Date Recorded Not on file documented as of this encounter Plan of Treatment Upcoming Encounters Date Type Specialty Care Team Description 09/03/2022 Ancillary Procedure Cardiology documented as of this encounter Procedures Procedure Name Priority Date/Time Associated Diagnosis Comme [facility] SURGICAL PATHOLOGY Routine 05/14/2013 17:49 Resul ts for this EST procedure are i n the results section. documented in this encounter Results SURGICAL PATHOLOGY (05/14/2013 17:49 EST) Pathology Report: SURGICAL PATHOLOGY REPORT [facility]ITA BR[facility]G Reports generated via electronic interface contain symone ginal data; LAB however they are lacking the format of the original re port. Caution should be taken when reading/interpreting unfo rmatted reports. Name: ? EBONY SABA ? Accession #: ? [id number] ? : ? 1950 (Age: 63) ??M ? Collect Date: ? 05/14/2013 ? Location: ? [facility] ? Receive Date: ? 014 ? Provider: KAYLIN CHRIS MD Copy to: AMANDA JONES MD ? Final Pathologic Diagnosis: A. 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 B. COLON, DESCENDING, POLYPS, BIOPSIES: - ??Fragments of cauterized tubular adenomas. Document reviewed and electronically signed by: ALETHA BEAN MD Report ??Date: 05/16/2013 11:03 By the signature above, the attending physician certif ies that he/she has personally conducted a gross and/or microscopic examin ation of the described specimens and rendered or confirmed the above diagnosi s. Specimen(s) Received: A. ?Cecal polyps B. ? Descending colon polyps Clinical History: Hx polyps Gross Description: A. ?Received in formalin labelled with proper p atient identification (initials H, R) and cecal polyps are 17 fragmented p ink-wheeler polypoid and irregular tissues (0.1 x 0.1 x 0.1 cm to 0.7 x 0.6 x 0.4 cm). The largest piece is trisected and submitted in A1, the second largest p iece is bisected and submitted in A2 and the remaining fragments are submit henna intact in A3-A7. B. ?Received in formalin labelled with proper p atient identification (initials H, R) and descending colon polyps ar e two pink-wheeler tissues (0.2 x 0.2 x 0.1 cm and 0.3 x 0.2 x 0.2 cm). Entirely submitt ed in B1. Sabiha Cifuentes 05/15/2013 08:32 AM End of Report Specimen Performing Organization Address City/State/ZIP Code Phon e Number [facility] [address] [place] [address] [facility] [address] [place] [address] documented in this encounter Visit Diagnoses Not on filedocumented in this encounter Care Teams Community Health Program Representative Relationship Specialty Start Date End Date Amanda Jones MD PCP - General 06/24/10 05/24/16 [address] [place], [place] [address] documented as of this encounter
--- OUTSIDE RECORDS SUMMARY | 2021-12-05 06:44 | XMS_ITS | Encounter Summary ---
:1950 Author Organization [facility] Address [address] [place] [address] Care Team Providers Name Role Phone Pool Hercules MD Primary Care Provider [phone] Reason for Visit (Routine) - Authorization Not Required Specialty Diagnoses / Procedures Referred By Contact Refer red To Contact Diagnoses AVB (atrioventricular block) Darling Morales, GORGE Procedures CARDIAC IMPLANT CHECK - IN CLINIC [address] [facility] [address] [place] [phone] Referral ID Status Reason Start Expiration Visits Visits Date Date Requested Authorized [id number] Authorization Not 10/09/2019 1 1 Required Encounter Details Date Type Department Care Team Description 08/31/2021 Ancillary Procedure [facility] AV B (atrioventricular Cardiology - [place] block) [address] [place], [place] [id number] Social History Tobacco Use Types Packs/Day Years Used Date Former Smoker Quit: 09/29/18 92 Smokeless Tobacco: Never Used Sex Assigned at Date Recorded Not on file documented as of this encounter Functional Status Functional Status Response Date of Assessment Are you deaf or do you have serious difficulty hearing? No 01/06/2018 Are you blind or do you have serious difficulty seeing, No 01/06/2018 even when wearing glasses? Do you have serious difficulty walking or climbing No 01/06/2018 stairs? (5 years old or older) Do you have difficulty dressing or bathing? (5 years old No 01/06/2018 or older) Because of a physical, mental, or emotional condition, do No 01/06/2018 you have difficulty doing errands alone such as visiting a doctor's office or shopping? (15 years old or older) Cognitive Status Response Date of Assessment Because of a physical, mental, or emotional condition, do No 01/06/2018 you have serious difficulty concentrating, remembering, or making decisions? (5 years old or older) documented as of this encounter Plan of Treatment Upcoming Encounters Date Type Specialty Care Team Description 09/03/2022 Ancillary Procedure Cardiology documented as of this encounter Procedures Procedure Name Priority Date/Time Associated Diagnosis Comme nts CARDIAC IMPLANT Routine 08/31/2021 14:03 AVB Results for this CHECK - IN CLINIC EDT (atrioventricular proce dure are in block) the results section. documented in this encounter Results CARDIAC IMPLANT CHECK- IN CLINIC -PACEMAKER DUAL CHAMBER W/HI (08/31/2021 14:03 EDT) Specimen Narrative DEVICECHECK - 09/03/2021 11:24 EDT I have reviewed the pacemaker interrogation. ??I agree with the findings. NORMAL PACEMAKER FUNCTION. PACING: RA 1% / RV 99% Iterative adjustment of the pacemaker wa s used to evaluate programmed parameter, lead(s), Battery, Capture and sensing thresholds, underlying heart rhythm and any ventricular tachyar rhythmia events. ?? -TURNED ON RATE RESPONSE FOR C/O SOB WIT H WALKING. PT NOTES IMPROVEMENT WITH SHORT WALK IN CLINIC. BATTERY LONGEVITY 6 YRS 7 MO REMAINING. 0 AHR, 0 VHR EPISODES. NEXT SCHEDULED PPM CHECK FOR 6 MO REMOTE LY, 1 YR IN CLINIC. MP Performing Organization Address City/State/ZIP Code Phon e Number [facility] documented in this encounter Visit Diagnoses Diagnosis AVB (atrioventricular block) Atrioventricular block, unspecified documented in this encounter Care Teams Sheet Metal Assembler Relationship Specialty Start Date End Date Pool Hercules MD PCP - General 05/25/[address] [place] [address] documented as of this encounter
--- OUTSIDE RECORDS SUMMARY | 2021-12-05 06:44 | XMS_ITS | Encounter Summary ---
:1950 Author Organization [facility] Address [address] [place] [address] Care Team Providers Name Role Phone Amanda Chavez MD Primary Care Provider Encounter Details Date Type Department Care Team Description 08/29/2013 Results Only [facility] Abraham Atkins MD Laboratory Services - [address] [place] [address] [address] [place] [address] [place], [place] [id number] [phone] Social History Tobacco Use Types Packs/Day Years Used Date Never Assessed Sex Assigned at Date Recorded Not on file documented as of this encounter Plan of Treatment Upcoming Encounters Date Type Specialty Care Team Description 09/03/2022 Ancillary Procedure Cardiology documented as of this encounter Procedures Procedure Name Priority Date/Time Associated Diagnosis Comme [facility] SURGICAL PATHOLOGY Routine 08/29/2013 9:35 EDT Re sults for this procedure are i n the results section. documented in this encounter Results SURGICAL PATHOLOGY (08/29/2013 9:35 EDT) Pathology Report: SURGICAL PATHOLOGY REPORT LITA BRAGG Reports generated via electronic interface contain symone ginal data; LAB however they are lacking the format of the original re port. Caution should be taken when reading/interpreting unfo rmatted reports. Name: ? EBONY SABA ? Accession #: ? [id number] ? : ? 1950 (Age: 63) ??M ? Collect Date: ? 08/29/2013 ? Location: ? [facility] ? Receive Date: ? 014 ? Provider: HAZEL ATKINS MD Copy to: ? Final Pathologic Diagnosis: NOTE: ??This specimen was originally received on 4. ??The accompanying requisition, billing paperwork and container were labe lled with patient (initials, AJ). ??The specimen was acces sioned as [id number] and the report was finalized on 08/31/13. ??Subsequently, a plastic products sales representative from the pathology department at [facility] advised us that Dr. Atkins's office had labelled the container and paperwork with the wrong patient's name/ information. ??On September 13, a requisition and billing paperwor k was received for the correct patient (initials, RH). ??The specim en is re-accessioned as above. ??The charges have been moved to the correct patient. ??The blocks and slides are relabelled. ??The diagnostic information is unchanged. /klb SKIN OF SCALP, EXCISION: - Basal cell carcinoma, nodular type. ?- Lesion extends to peripheral edge and base of excision specimen. Document reviewed and electronically signed by: EYAD BALDWIN MD Report ??Date: 09/14/2013 12:48 By the signature above, the attending physician certif ies that he/she has personally conducted a gross and/or microscopic examin ation of the described specimens and rendered or confirmed the above diagnosi s. Specimen(s) Received: Excision lesion scalp Clinical History: Suspicious lesion for basal cell CA; non-healing lesio n for 1 year-scalp Gross Description: ? Received in formalin labelled scalp lesi on is an unoriented circular excision of wheeler-white, hairb earing skin (1.0 x 1.0 cm and is excised to a depth of 0.3 cm). ??There is a kaley tral ovoid brown crusted macule that measures 0.6 x 0.3 cm. ??The margins are in ked. ??The specimen is serially sectioned and entirely submitted as 1 central sections and 2 tips, reverse en face. Nadeen Del Angel 08/30/13 10:34 AM End of Report Specimen Performing Organization Address City/State/ZIP Code Phon e Number [facility] [address] [place] [address] [facility] [address] [place] [address] documented in this encounter Visit Diagnoses Not on filedocumented in this encounter Care Teams Precision Lens Generator Relationship Specialty Start Date End Date Amanda Chavez MD PCP - General 06/24/10 05/24/16 [address] [place] [address] documented as of this encounter
--- OUTSIDE RECORDS SUMMARY | 2021-12-05 06:44 | XMS_ITS | Encounter Summary ---
:1950 Author Organization [facility] Address [address] [place] [address] Care Team Providers Name Role Phone Pool Hercules MD Primary Care Provider [phone] Reason for Visit Reason Onset Date Comments Appointment Related 04/18/2020 Encounter Details Date Type Department Care Team Description 04/18/2020 Telephone [facility] Duncan Waterman RN Appointment Related Cardiology - [facility] [address] [address] [place] [phone] Social History Tobacco Use Types Packs/Day Years Used Date Former Smoker Quit: 09/29/18 Smokeless Tobacco: Never Used Sex Assigned at [...] or older) documented as of this encounter Miscellaneous Notes Telephone Encounter - Sol Waterman RN - 04/18/2020 1214 EST Called pt regarding missed remote transmission, he will check connections, and reconnect and encouraged us to call back if we dont receive anything. DM documented in this encounter Plan of Treatment Upcoming Encounters Date Type Specialty Care Team Description 09/03/2022 Ancillary Procedure Cardiology documented as of this encounter Visit Diagnoses Not on filedocumented in this encounter Care Teams Email Marketing Manager Relationship Specialty Start Date End Date Pool Hercules MD PCP - General 05/25/16 [address] [address] documented as of this encounter
--- OUTSIDE RECORDS SUMMARY | 2021-12-05 06:44 | XMS_ITS | Clinical Summary ---
:1950 Author Organization [facility] Address [address] [place] [address] Care Team Providers Name Role Phone Pool Hercules MD Primary Care Provider [phone] Allergies No known active allergies Medications Medication Sig Dispensed Refills Start Date End Date Status acetaminophen-codeine Take 1 Tab by 0 Active (TYLENOL #3) 300-30 mg mouth every 4 per tablet hours as needed for Pain. apixaban (ELIQUIS) 5 mg Take 5 mg by 0 Active tablet mouth 2 times daily. finasteride (PROSCAR) 5 Take 5 mg by 0 Active mg tablet mouth daily. enalapril (VASOTEC) 10 Take 10 mg by 0 Active mg tablet mouth daily. 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[facility]) Hypertension Heartburn Family History Medical History Relation Name Comments Cancer Father Heart Disease Mother Relation Name Status Comments Father Mother Social History Tobacco Use Types Packs/Day Years Used Date Former Smoker Quit: 09/29/18 89 Smokeless Tobacco: Never Used Sex Assigned at Date Recorded Not on file Last Filed Vital Signs Vital Sign Reading Time Taken Comments Blood Pressure 120/70 01/07/2018 0900 EDT Pulse 71 09/29/2017 1627 EDT Temperature 36.2 ??C (97.2 ??F) 01/07/2018 0900 EDT Respiratory Rate 16 01/07/2018 0900 EDT Oxygen Saturation 95% 01/07/2018 0900 EDT Inhaled Oxygen Concentration - - Weight 83.3 kg (183 lb 11.2 oz) 01/06/2018 1500 EDT Height 172.7 cm (5' 8) 01/06/2018 1500 EDT Body Mass Index 27.93 01/06/2018 1500 EDT Plan of Treatment Upcoming Encounters Date Type Specialty Care Team Description 09/03/2022 Ancillary Procedure Cardiology Health Maintenance Due Date Last Done Comments Hepatitis C Screen 1950 COVID-19 Vaccine (#1) 1953 Fall Risk Screening 2013 Implants Implanted Type Area Civil Engineering Designer Device Shelf Expiration Model / Serial Identifier Date / Lot 377 177 Solia S 53 - [id number] Lead Biotronik 377 177 Solia S 53 / Implanted: 01/06/2018 (Quantity not on file) [id number] / Description: Implant record loaded by IM P Chronicles import. 377 176 Solia S 45 - [id number] Lead Biotronik 377 176 Solia S 45 / Implanted: 01/06/2018 (Quantity not on file) [id number] / Description: Implant record loaded by IM P Chronicles import. [id number] Edora 8 Carmelo - [id number] Pacemaker Biotronik [id number] Edora 8 CARMELO / Implanted: 01/06/2018 (Quantity not on file) [id number] / Description: Implant record loaded by IM P Chronicles import. Insurance Payer Benefit Plan Subscriber ID Effective Dates Phone Address Type / Group ADALBERTO BOTELLO [id number] 2013[facility] [address] [place], [place] [facility] [phone] Rivas Carlos Personal/Family Self 1950 [address] (Home) [facility] [place] [address] Rivas Carlos Personal/Family Self 1950 [address] (Home) [facility] [place] [address] Rivas Carlos Personal/Family Self 1950 [address] [facility] (Home) [facility] [place] [address] Advance Directives For more information, please contact: [phone] Latest Code Status on File Code Status Date Activated Date Inactivated Comments Full Code 01/06/2018 12:45 01/07/2018 13:52 Reason for decision includes: Full code consistent with over all plan of care Who participated in the discussion? Not Discussed Care Teams Lead Based Paint Technician Relationship Specialty Start Date End Date Pool Hercules MD PCP - General 05/25/16 [address] [place] [address]
--- OUTSIDE RECORDS SUMMARY | 2021-12-05 06:44 | XMS_ITS | Encounter Summary ---
:1950 Author Organization [facility] Address [address] [place] [address] Care Team Providers Name Role Phone Alvin Christy DO Primary Care Provider Encounter Details Date Type Department Care Team Description 03/31/2005 Results Only [facility] - Eric Meek MD conversion [address] [place] [phone] Social History Tobacco Use Types Packs/Day Years Used Date Never Assessed Sex Assigned at Date Recorded Not on file documented as of this encounter Plan of Treatment Upcoming Encounters Date Type Specialty Care Team Description 09/03/2022 Ancillary Procedure Cardiology documented as of this encounter Procedures Procedure Name Priority Date/Time Associated Diagnosis Comme nts SURGICAL PATHOLOGY Routine 03/31/2005 0:00 EST Re sults for this procedure are i n the results section. documented in this encounter Results SURGICAL PATHOLOGY (03/31/2005 0:00 EST) Pathology Report: SURGICAL PATHOLOGY REPORT [facility] Reports generated via electronic interface contain symone ginal data; LAB however they are lacking the format of the original re port. Caution should be taken when reading/interpreting unfo rmatted reports. Name: ? EBONY SABA ? Accession #: ? [id number] ? : ? 1950 (Age: 54) ??M ? Collect Date: ? 03/31/2005 ? Location: ? [facility] ? Receive Date: ? 006 ? Provider: DERRELL WANG MD Copy to: ERIC GRANT MD ? Final Pathologic Diagnosis: A. ?Polyp at cecum x2, biopsies: 1. ?Tubular adenomas (2). B. ?Rectum, polyp, biopsies: ? 1. ??Hyperplastic polyps (2). Document reviewed and electronically signed by: GEOVANNI PORTER MD Report ??Date: 04/01/2005 17:44 By the signature above, the attending physician certif ies that he/she has personally conducted a gross and/or microscopic examin ation of the described specimens and rendered or confirmed the above diagnosi s. Specimen(s) Received: A. ?Polyp @cecum x2 (#1) B. ?Polyp rectum (#2) Clinical History: ? Multiple polyps Gross Description: ? Received in Hollande' s fixative labelled Terrance and polyp at cecum x2 are three wheeler-pink polypoid soft tissues averaging 0.3 x 0.2 x 0.1 cm, submitted in toto as (A). Received in Hollande's fixat jorge labelled Terrance and polyp rectum is a 0.5 x 0.3 x 0.2 cm wheeler-pink focall y hemorrhagic polypoid soft tissue. ??The specimen is submitted in toto as (B). ??(Shiloh Fernández)/[facility] End of Report Specimen Performing Organization Address City/State/ZIP Code Phon e Number [facility] [address] [place] [address] SERVICES [facility] [address] [place] [address] documented in this encounter Visit Diagnoses Not on filedocumented in this encounter Care Teams Spaghetti Press Helper Relationship Specialty Start Date End Date Alvin Christy, DO PCP - General 09/02/08 06/23/10 [address] [place] [address] documented as of this encounter
--- OUTSIDE RECORDS SUMMARY | 2021-12-05 06:44 | XMS_ITS | Encounter Summary ---
:1950 Author Organization [facility] Address [address] [place] [address] Care Team Providers Name Role Phone Pool Hercules MD Primary Care Provider [phone] Reason for Visit Reason Comments Pacemaker/Device Check Encounter Details Date Type Department Care Team Description 10/12/2018 Procedure visit [facility] Wagner Sandoval M D Atrioventricular block, Cardiology - Pacemaker, Provider 1 second degree (Primary Sandee Dx) [address] [place] [address] Social History Tobacco Use Types Packs/Day Years [...] or older) documented as of this encounter Discharge Diagnoses Diagnosis I44.1 Atrioventricular block, second deg ree-I44.1[ICD-10-CM] Z45.018 Encounter for adjustment and man agement of other part of cardiac pacemaker-Z45.018[ICD-10-CM] documented in this encounter Discharge Disposition Disposition Code Departure Means Destination Auto Discharge documented in this encounter Plan of Treatment Upcoming Encounters Date Type Specialty Care Team Description 09/03/2022 Ancillary Procedure Cardiology documented as of this encounter Visit Diagnoses Diagnosis Atrioventricular block, second degree - Primary Other second degree atrioventricular blo ck documented in this encounter Care Teams Timber Poisoner Relationship Specialty Start Date End Date Pool Hercules MD PCP - General 05/25/[address] [place] [address] documented as of this encounter
--- OUTSIDE RECORDS SUMMARY | 2021-12-05 06:44 | XMS_ITS | Encounter Summary ---
:1950 Author Organization [facility] Address [address] [place] [address] Care Team Providers Name Role Phone Alvin Christy DO Primary Care Provider Encounter Details Date Type Department Care Team Description 06/22/2010 Results Only [facility] Ivan Das MD Laboratory Services - [address] [place] [address] [address] [facility] [place] [address] [phone] Social History Tobacco Use Types Packs/Day Years Used Date Never Assessed Sex Assigned at Date Recorded Not on file documented as of this encounter Plan of Treatment Upcoming Encounters Date Type Specialty Care Team Description 09/03/2022 Ancillary Procedure Cardiology documented as of this encounter Procedures Procedure Name Priority Date/Time Associated Diagnosis Comme [facility] SURGICAL PATHOLOGY Routine 06/22/2010 0:00 EDT Re sults for this procedure are i n the results section. documented in this encounter Results SURGICAL PATHOLOGY (06/22/2010 0:00 EDT) Pathology Report: SURGICAL PATHOLOGY REPORT ? [facility] Reports generated via Radiojar interface contain original data; ? LAB however they are lacking the format of the original report. ? Caution should be taken when reading/interpreting unformatted reports. ? Name: ? WANDY, EBONY W ? Accession #: ? [id number] ? : ? 1950 (Age: 60) ??M ? Collec t Date: ? 06/22/2010 ? Location: ? [facility] ? R eceive Date: ? 06/22/2010 ? Provider: KAYLIN KERNSELSON MD ? Copy to: ANGEL JONES MD ? Final Pathologic Diagnosis: ? Colon, cecum and asce nding, polyps, biopsies: ? 1. ?Fragments o f tubulovillous adenoma. ? 2. ?Fragments o f hyperplastic polyp. ? Document reviewed and electr onically signed by: ? STEVEN CASPER MD ? Report ??Date: 06/24/2010 13 :03 ? By the signature above, the attending physician certifies that he/she has ? personally conducted a gross and/or microscopic examination of the described ? specimens and rendered or co nfirmed the above diagnosis. ? Specimen(s) Received: ? Bxs cecum and ascendi ng colon ? Clinical History: ? Hx polyps ? Gross Description: ? Received in Liliandbob' s fixative labelled Ebony Carlos and #1 bxs cecum and ascending colon are sev en firm pieces of tissue which range from 0.3 x 0.2 x 0.2 cm to 0.2 x 0.2 x 0.2 cm. ??Three are submitted as (A1), two as (A2), and ?? the remaining two as (A3). ? ?(Manuelito Kelley/corrine ? End of Report ? Specimen Performing Organization Address City/State/[facility] Code Phon e Number [facility] [address] [place] [address] SERVICES [facility] [address] [place] [address] documented in this encounter Visit Diagnoses Not on filedocumented in this encounter Care Teams Director Of Software Development Relationship Specialty Start Date End Date Alvin Christy, PCP - General 09/02/08 06/23/10 [address] [place] [address] documented as of this encounter
--- OUTSIDE RECORDS SUMMARY | 2021-12-05 06:44 | XMS_ITS | Encounter Summary ---
:1950 Author Organization [facility] Address [address] [place] [address] Care Team Providers Name Role Phone Amanda Chavez MD Primary Care Provider Encounter Details Date Type Department Care Team Description 05/20/2016 Hospital Encounter [facility]- Minnie Schmidt, Provider, [facility] 0 [facility] [phone] [place] [address] (Work) [phone] Social History Tobacco Use Types Packs/Day Years Used Date Never Assessed Sex Assigned at Date Recorded Not on file documented as of this encounter Discharge Disposition Disposition Code Departure Means Destination Home or Self Group Home documented in this encounter Plan of Treatment Upcoming Encounters Date Type Specialty Care Team Description 09/03/2022 Ancillary Procedure Cardiology documented as of this encounter Visit Diagnoses Not on filedocumented in this encounter Care Teams Retail Sales Manager Relationship Specialty Start Date End Date Amanda Chavez MD PCP - General 06/24/10 05/24/16 [address] [place], [place] [id number] documented as of this encounter
--- OUTSIDE RECORDS SUMMARY | 2021-12-05 06:44 | XMS_ITS | Encounter Summary ---
:1950 Author Organization [facility] Address [address] [place] [address] Care Team Providers Name Role Phone Unavailable Primary Care Provider Unavailable Encounter Details Date Type Department Care Team Description 08/29/2008 Orders Only [facility] Bonnie Nazario MD Laboratory Services - [place] [address] [place] [address] [place] [address] [phone] Social History Tobacco Use Types Packs/Day Years Used Date Never Assessed Sex Assigned at Date Recorded Not on file documented as of this encounter Plan of Treatment Upcoming Encounters Date Type Specialty Care Team Description 09/03/2022 Ancillary Procedure Cardiology documented as of this encounter Procedures Procedure Name Priority Date/Time Associated Diagnosis Comme [facility] SURGICAL PATHOLOGY Routine 08/29/2008 0:00 EDT Re sults for this procedure are i n the results section. documented in this encounter Results SURGICAL PATHOLOGY (08/29/2008 0:00 EDT) Pathologist [facility] Pathology SURGICAL PATHOLOGY REPORT ? [facility] Report: Reports generated via electr [employer] interface contain original data; ? LAB however they are lacking the format of the original report. ? Caution should be taken when reading/interpreting unformatted reports. ? Name: ? WANDY, EBONY W ? Accession #: ? [id number] ? : ? 1950 (Age: 58) ??M ? Collec t Date: ? 08/29/2008 ? Location: ? [facility] ? Re ceive Date: ? 08/29/2008 ? Provider: BALDOMERO DIERKS MD ? Copy to: ? Final Pathologic Diagnosis: ? A. ?Prostate, r ight base, biopsy: ? 1. ?Benign pros tatic glands and stroma. ? B. ?Prostate, r ight mid, biopsy: ? 1. ?Benign pros tatic glands and stroma. ? 2. ? Basal cell hyperpla melissa. ? C. ?Prostate, r ight apex, biopsy: ? 1. ?Benign pros tatic glands and stroma. ? 2. ? Focal basal cell hy perplasia. ? D. ?Prostate, l eft base, biopsy: ? 1. ?Benign pros tatic glands and stroma with atrophy. ? E. ?Prostate, l eft mid, biopsy: ? 1. ?Benign pros tatic glands and stroma with atrophy. ? F. ?Prostate, l eft apex, biopsy: ? 1. ?Benign pros tatic glands and stroma with atrophy. ??See comment. ? Comment: ? In the left apex biop sy (specimen F), there are single-lying glands ? identified. ??These glands s how low nuclear to cytoplasmic ratios with round ? nuclear contours and no evid ent nucleoli. ??However, the architecture prompted ?? investigation by immunochemi daniel staining. ??Positive and negative controls ? stained appropriately. ? Block ?Antibody (Clone) ? Result ? F ?P504S (Rabbit Monoclonal, clone [id number], [facility]) ? Negative in epithelial cells ? P63 (4 A4, [facility]) ? Positive for ? basal cells ? Kerati n [id number] (K-9)(34BE12, Dako) ? Positive for ?? basal cells ? Boiler Reliner sectio ns were reviewed at the intradepartmental consultation conference. ??In addition, Tamara Esqueda reviewed the H&E-stained sections ?? for this case in [facility], and he concurs with the diagnoses. ??( ? Ron)/mpl ? NOTE: ??One or more of the reagents used in immunohistochemical testing in this case may not have been clear ed or approved by the U.S. Food and Drug ? Administration (FDA). ??The FDA has determined that such clearance or approval is not necessary. ??These tests are used for clinical purposes. ??They should not be regarded as investigational or for research. ??These reagents' ??performance ? characteristics have been de termined by [facility]. ??This ? laboratory is certified unde r the Clinical Laboratory Improvement Amendments of 1988 (CLIA-88) as qualified to perform high complexity clinical laboratory ? testing. ?(Dr. Velasquez)/mpl ? Document reviewed and electr onically signed by: ? Dieter Velasquez MD ? Report ??Date: 09/03/2008 17 :20 ? By the signature above, the attending physician certifies that he/she has ? personally conducted a gross and/or microscopic examination of the described ? specimens and rendered or co nfirmed the above diagnosis. ? Specimen(s) Received: ? A. ?Rt base ? B. ? Rt mid ? C. ? Rt apex ? D. ? Lt base ? E. ? Lt mid ? F. ? Lt apex ? Clinical History: ? Elevated PSA = 8.2 ? Gross Description: ? Received in formalin labelled Wandy, Ebony and right base is a single 1.0 cm in length by 0.1 cm i n diameter wheeler-white soft tissue core. ??Submitted in toto as (A). ? Received in formalin shilo Ebony Gagnon and right mid is a 1.9 cm in ?? length by 0.1 cm in diameter wheeler-white soft tissue core. ??Submitted in toto as ?? (B). ? Received in formalin shilo Ebony Gagnon and right apex is a 1.5 cm in ?? length by 0.1 cm in diameter wheeler-white soft tissue core. ??Submitted in toto as ?? (C). ? Received in formalin shilo d Ebony Carlos and left base is a single 1.4 ?? cm in length by 0.1 cm in di ameter wheeler-white soft tissue core. ??Submitted in ? toto as (D). ? Received in formalin shiloEbony Dupree and left mid is a single 1.8 cm in length by 0.[address] wheeler-white soft tissue core. ??Submitted in toto ?? as (E). ? Received in formalin shiloEbony Dupree and left apex is a single 1.6 ?? cm in length by 0.1 cm in di ameter wheeler-white soft tissue core. ??Submitted in ? toto as (F). ??(LDiann Cifuentes)/ ljn ? End of Report ? Specimen Performing Organization Address City/State/ZIP Code Phon e Number [facility] [address] [place] [address] SERVICES [facility] [address] [place] [address] documented in this encounter Visit Diagnoses Not on filedocumented in this encounter
--- OUTSIDE RECORDS SUMMARY | 2021-12-05 06:44 | XMS_ITS | Encounter Summary ---
:1950 Author Organization [facility] Address [address] [place] [address] Care Team Providers Name Role Phone Pool Hercules MD Primary Care Provider [phone] Reason for Visit Reason Onset Date Comments Appointment Related 04/18/2020 Encounter Details Date Type Department Care Team Description 04/18/2020 Telephone [facility] Duncan Waterman RN Appointment Related Cardiology - [facility] [address] [address] [place] [phone] Social History Tobacco Use Types Packs/Day Years [...] Encounter - Sol Waterman RN - 04/18/2020 9730 EST Pt called to schedule appt for PPM check and to reset home monitor. He will only come in August, so appt made 08/28/2020 at 13:30. DM documented in this encounter Plan of Treatment Upcoming Encounters Date Type Specialty Care Team Description 09/03/2022 Ancillary Procedure Cardiology documented as of this encounter Visit Diagnoses Not on filedocumented in this encounter Care Teams Quarry Plug And Feather Driller Relationship Specialty Start Date End Date Pool Hercules MD PCP - General 05/25/[address] [place] [address] documented as of this encounter
--- OUTSIDE RECORDS SUMMARY | 2021-12-05 06:44 | XMS_ITS | Encounter Summary ---
:1950 Author Organization [facility] Address [address] [place] [address] Care Team Providers Name Role Phone Alvin Chritsy DO Primary Care Provider Encounter Details Date Type Department Care Team Description 06/07/2007 Results Only [facility] - Zaira rodrigues, Mario Aiken MD conversion [address] [place] [phone] (Wo rk) Social History Tobacco Use Types Packs/Day Years Used Date Never Assessed Sex Assigned at Date Recorded Not on file documented as of this encounter Plan of Treatment Upcoming Encounters Date Type Specialty Care Team Description 09/03/2022 Ancillary Procedure Cardiology documented as of this encounter Procedures Procedure Name Priority Date/Time Associated Diagnosis Comme nts SURGICAL PATHOLOGY Routine 06/07/2007 0:00 EDT Re sults for this procedure are i n the results section. documented in this encounter Results SURGICAL PATHOLOGY (06/07/2007 0:00 EDT) Pathology Report: SURGICAL PATHOLOGY REPORT LITA [facility]G Reports generated via electronic interface contain symone ginal data; LAB however they are lacking the format of the original re port. Caution should be taken when reading/interpreting unfo rmatted reports. Name: ? RIVAS SABA ? Accession #: ? [id number] ? : ? 1950 (Age: 57) ??M ? Collect Date: ? 06/07/2007 ? Location: ? [facility] ? Receive Date: ? 008 ? Provider: MARIO BLACK MD Copy to: ERIC STEEL MD ? Final Pathologic Diagnosis: A. ?Prostate, left base, needle core biop sy: 1. ?Benign prostatic glands and stroma. ? ?See comment. 2. ? Atrophic glands. 3. ? Focal chronic prostatitis. B. ?Prostate, left mid, needle core biops y: 1. ?Benign prostatic glands and stroma. 2. ? Atrophic glands. C. ?Prostate, left apex, needle core biop sy: 1. ?Benign prostatic glands and stroma. 2. ? Atrophic glands. D. ?Prostate, right base, needle core bio psy: 1. ?Benign prostatic glands and stroma. 2. ? Atrophic glands. E. ?Prostate, right mid, needle core biop sy: 1. ?Benign prostatic glands and stroma. 2. ? Atrophic glands. 3. ? Focal chronic prostatitis. F. ?Prostate, right apex, needle core bio psy: 1. ?Benign prostatic glands and stroma. 2. ? Atrophic glands. 3. ? Focal chronic prostatitis. ?? Comment: ? Selected sections from this case have been revi ewed and discussed at intradepartmental consultation conference. ??(Dr. Reilly on)/corrine Document reviewed and electronically signed by: Alfredo Varma MD Report ??Date: 06/12/2007 17:03 By the signature above, the attending physician certif ies that he/she has personally conducted a gross and/or microscopic examin ation of the described specimens and rendered or confirmed the above diagnosi s. Specimen(s) Received: ? Ultrasound guided core biopsy A. ?Lt base B. ? Lt mid C. ? Lt apex D. ? Rt base E. ? Rt mid F. ? Rt apex Clinical History: ? Elevated PSA; PSA 6; R/O CAP; VICTOR M (+) Gross Description: ? Received in formalin labelled Terrance a nd left base is a 1.2 cm in length by 0.1 cm in diameter pale wheeler cylindrical port ion of soft tissue. Submitted intact as (A). Received in formalin shilo d Terrance and left mid is a 2.1 cm in length by 0.1 cm in diameter pale wheeler cylindrical portion of sof t tissue. ??Submitted intact as (B). Received in formalin shilo d Terrance and left apex is a 2.1 cm in length by 0.1 cm in diameter pale wheeler cylindrical portion of sof t tissue. ??Submitted intact as (C). Received in formalin labelled Terrance and right base is a 1.0 cm in length by 0.1 cm in diameter pale wheeler cylindric al portion of soft tissue. ??Submitted intact as (D). Received in formalin shilo d Terrance and right mid is a 2.0 cm in length by 0.1 cm in diameter pale wheeler cylindrical portion of sof t tissue. ??Submitted intact as (E). Received in formalin labelled Terrance and right apex is a 1.2 cm in length by 0.1 cm in diameter pale wheeler cylindric al portion of soft tissue. ??Submitted intact as (F). ??(Shiloh Fernández)/corrine End of Report Specimen Performing Organization Address City/State/ZIP Code Phon e Number [facility] [address] [phone] [facility] [address] [place] [address] documented in this encounter Visit Diagnoses Not on filedocumented in this encounter Care Teams Soil Science Professor Relationship Specialty Start Date End Date Alvin Christy, PCP - General 09/02/08 06/23/[address] [place] [address] [place] [address] documented as of this encounter
--- OUTSIDE RECORDS SUMMARY | 2021-12-05 06:44 | XMS_ITS | Encounter Summary ---
:1950 Author Organization [facility] Address [address] [place] [address] Care Team Providers Name Role Phone Pool Hercules MD Primary Care Provider [phone] Reason for Visit Reason Comments Pacemaker/Device Check Encounter Details Date Type Department Care Team Description 04/12/2018 Procedure visit [facility] Wagner Sandoval M D Atrioventricular block, Cardiology - Pacemaker, Provider 1 second degree (Primary Sandee Dx) [address] [place] [address] Social History Tobacco Use Types [...] ck documented in this encounter Care Teams Job Foreman Relationship Specialty Start Date End Date Pool Hercules MD PCP - General 05/25/[address] [place] [address] documented as of this encounter
--- OUTSIDE RECORDS SUMMARY | 2021-12-05 06:44 | XMS_ITS | Encounter Summary ---
:1950 Author Organization [facility] Address [address] [place] [address] Care Team Providers Name Role Phone Pool Hercules MD Primary Care Provider [phone] Reason for Referral (Routine) - Authorization Not Required Specialty Diagnoses / Procedures Referred By Contact Refer red To Contact Diagnoses AVB (atrioventricular block) Darling Morales, GORGE Procedures CARDIAC IMPLANT CHECK - REMOTE MONITOR [address] [phone] Referral ID Status Reason Start Expiration Visits Visits Date Date Requested Authorized [id number] Authorization Not 10/09/2019 1 1 Required Reason for Visit (Routine) - Authorization Not Required Specialty Diagnoses / Procedures Referred By Contact Refer red To Contact Diagnoses AVB (atrioventricular block) Darling Morales NP Procedures CARDIAC IMPLANT CHECK - REMOTE MONITOR [address] [phone] Referral ID Status Reason Start Expiration Visits Visits Date Date Requested Authorized [id number] Authorization Not 10/09/2019 1 1 Required Encounter Details Date Type Department Care Team Description 10/09/2019 Hospital Encounter [facility] Remote Device AVB (atrioventricular [address] block) [place] [address] Social History Tobacco Use Types Packs/Day Years [...] or older) documented as of this encounter Medications at Time of Discharge Medication Sig Dispensed Refills Start Date End Date acetaminophen-codeine Take 1 Tab by mouth 0 (TYLENOL #3) 300-30 mg per every 4 hours as tablet needed for Pain. apixaban (ELIQUIS) 5 mg Take 5 mg by mouth 2 0 tablet times daily. enalapril (VASOTEC) 10 mg Take 10 mg by mouth 0 tablet daily. finasteride (PROSCAR) 5 mg Take 5 mg by mouth 0 tablet daily. documented as of this encounter Discharge Disposition Disposition Code Departure Means Destination Home or Self Care documented in this encounter Plan of Treatment Upcoming Encounters Date Type Specialty Care Team Description 09/03/2022 Ancillary Procedure Cardiology documented as of this encounter Procedures Procedure Name Priority Date/Time Associated Diagnosis Comme nts CARDIAC IMPLANT Routine 10/09/2019 11:06 AVB Results for this CHECK - REMOTE EDT (atrioventricular procedur e are in MONITOR block) the results section. documented in this encounter Results CARDIAC IMPLANT CHECK - REMOTE - PACEMAKER (10/09/2019 11:06 EDT) Specimen Narrative DEVICECHECK - 10/09/2019 12:24 EDT I have reviewed the pacemaker interrogation. ??I agree with the findings. SCHEDULED PPM REMOTE TRANSMISSION. PACING: RA 9% / RV 94% SENSING AND THRESHOLD TESTING DONE AND E VALUATED. LEAD IMPEDANCES TESTED AND WNL. BATTERY VOLTAGE IN RANGE/85% 0 AHR / 0 VHR EPISODES RECORDED. NEXT CHECK IN 6mos. JE Performing Organization Address City/State/ZIP Code Phon e Number [facility] documented in this encounter Visit Diagnoses Diagnosis AVB (atrioventricular block) Atrioventricular block, unspecified documented in this encounter Care Teams Appliance Installer Relationship Specialty Start Date End Date Pool Hercules MD PCP - General 05/25/[address] [place] [address] documented as of this encounter
--- OUTSIDE RECORDS SUMMARY | 2021-12-05 06:44 | XMS_ITS | Encounter Summary ---
:1950 Author Organization [facility] Address [address] [place] [address] Care Team Providers Name Role Phone Pool Hercules MD Primary Care Provider [phone] Reason for Referral (Routine) - Authorization Not Required Specialty Diagnoses / Procedures Referred By Contact Refer red To Contact Diagnoses Atrioventricular block Ashleigh Farmer NP Procedures CARDIAC IMPLANT CHECK - REMOTE MONITOR [address] [employer] [address] [phone] Referral ID Status Reason Start Expiration Visits Visits Date Date Requested Authorized [id number] Authorization Not 04/10/2019 1 1 Required Reason for Visit (Routine) - Authorization Not Required Specialty Diagnoses / Procedures Referred By Contact Refer red To Contact Diagnoses Atrioventricular block Ashleigh Farmer, GORGE Procedures CARDIAC IMPLANT CHECK - REMOTE MONITOR [address] [email or web address] [address] [address] Referral ID Status Reason Start Expiration Visits Visits Date Date Requested Authorized [id number] Authorization Not 04/10/2019 1 1 Required Encounter Details Date Type Department Care Team Description 04/10/[address] [facility] Remote Device Atrioventricular block [address] [place] [address] Social History Tobacco Use Types Packs/Day Years [...] Associated Diagnosis Comme nts CARDIAC IMPLANT Routine 04/10/2019 8:25 Atrioventricular block Results for this CHECK - REMOTE EST procedure are in MONITOR the results section. documented in this encounter Results CARDIAC IMPLANT CHECK - REMOTE - PACEMAKER (04/10/2019 8:25 EST) Specimen Narrative DEVICECHECK - 04/11/2019 10:49 EST I have reviewed the pacemaker interrogation. ??I agree with the findings below. SCHEDULED PPM REMOTE TRANSMISSION. SENSING AND THRESHOLD TESTING DONE AND E VALUATED. LEAD IMPEDANCES TESTED AND WNL. BATTERY VOLTAGE IN RANGE 0 AHR / 0 VHR EPISODES RECORDED. NEXT CHECK IN 3 MONTHS REMOTELY, ??6 MON THS IN CLINIC. DM Performing Organization Address City/State/ZIP Code Phon e Number [facility] documented in this encounter Visit Diagnoses Diagnosis Atrioventricular block Atrioventricular block, unspecified documented in this encounter Care Teams Pain Medicine Physician Relationship Specialty Start Date End Date Pool Hercules MD PCP - General 05/25/[address] [place] [address] documented as of this encounter
--- OUTSIDE RECORDS SUMMARY | 2021-12-05 06:44 | XMS_ITS | Encounter Summary ---
:1950 Author Organization [facility] Address [address] [place] [address] Care Team Providers Name Role Phone Amanda Chavez MD Primary Care Provider Encounter Details Date Type Department Care Team Description 05/14/2013 Hospital Encounter [facility]- Minnie Schmidt, Provider, [facility] [phone] [place] [address] (Work) [phone] Social History Tobacco Use Types Packs/Day Years Used Date Never Assessed Sex Assigned at Date Recorded Not on file documented as of this encounter Discharge Disposition Disposition Code Departure Means Destination Home or Self [facility] documented in this encounter Plan of Treatment Upcoming Encounters Date Type Specialty Care Team Description 09/03/2022 Ancillary Procedure Cardiology documented as of this encounter Visit Diagnoses Not on filedocumented in this encounter Care Teams Control And Recovery [employer] Relationship Specialty Start Date End Date Amanda Chavez MD PCP - General 06/24/10 05/24/16 [address] [place], [place] [address] documented as of this encounter
--- OUTSIDE RECORDS SUMMARY | 2021-12-05 06:44 | XMS_ITS | Encounter Summary ---
:1950 Author Organization [facility] Address [address] [place] [address] Care Team Providers Name Role Phone Alvin Christy DO Primary Care Provider Encounter Details Date Type Department Care Team Description 05/08/2002 Results Only [facility] - Eric Meek MD conversion [address] [place] [phone] Social History Tobacco Use Types Packs/Day Years Used Date Never Assessed Sex Assigned at Date Recorded Not on file documented as of this encounter Plan of Treatment Upcoming Encounters Date Type Specialty Care Team Description 09/03/2022 Ancillary Procedure Cardiology documented as of this encounter Procedures Procedure Name Priority Date/Time Associated Diagnosis Comme nts SURGICAL PATHOLOGY Routine 05/08/2002 0:00 EST Re sults for this procedure are i n the results section. documented in this encounter Results SURGICAL PATHOLOGY (05/08/2002 0:00 EST) Pathology Report: SURGICAL PATHOLOGY REPORT LITA BR[facility]G Reports generated via electronic interface contain symone ginal data; LAB however they are lacking the format of the original re port. Caution should be taken when reading/interpreting unfo rmatted reports. Name: ? EBONY SABA ? Accession #: ? [id number] ? : ? 1950 (Age: 52) ??M ? Collect Date: ? 05/08/2002 ? Location: ? [facility] ? Receive Date: ? 003 ? Provider: DERRELL WANG MD Copy to: ERIC OLIVERA MD ? Final Pathologic Diagnosis: ? Colon, 15.0 cm, polyp, biopsy: 1. ?Fragments of hyperplastic polyp. 2. ?No adenomatous epithelium. Document reviewed and electronically signed by: BROOKLYN VALLEJO MD Report ??Date: 05/10/2002 17:14 By the signature above, the attending physician certif ies that he/she has personally conducted a gross and/or microscopic examin ation of the described specimens and rendered or confirmed the above diagnosi s. Specimen(s) Received: ? 15 cm bx polyp Clinical History: ? 3 mm polyp @ 15 cm Gross Description: ? Received in Hollande' s fixative labelled Terrance and 15 cm biopsy polyp are two wheeler soft tissue biop sies ranging from 0.2 x 0.1 x 0.1 cm to 0.3 x 0.2 x 0.1 cm. ??Entirely submitted in one cassette. ??(Manuelito Heath)/edr End of Report Specimen Performing Organization Address City/State/ZIP Code Phon e Number [facility] [address] [place] [address] [facility] [address] [place] [address] documented in this encounter Visit Diagnoses Not on filedocumented in this encounter Care Teams Portable Track Line Marker Relationship Specialty Start Date End Date Alvin Christy, DO PCP - General 09/02/08 06/23/10 [address] [place] [address] documented as of this encounter
--- OUTSIDE RECORDS SUMMARY | 2021-12-05 06:44 | XMS_ITS | Encounter Summary ---
:1950 Author Organization [facility] Address [address] [place] [address] Care Team Providers Name Role Phone Pool Greer MD Primary Care Provider [phone] Reason for Referral (Routine) - Receiving Office to Obtain Authorization Specialty Diagnoses / Procedures Referred By Contact Cooper cornejo To Contact Kaila Hill NP [address] [place] [phone] Referral ID Status Reason Start Expiration Visits Visits Date Date Requested Authorized [id number] Receiving Office Specialty 01/07/2003 28 to Obtain Services 18 Authorization Required Comments Depending on where you live and the kind of pacemaker you have, you may be enrolled for a remote monitor. The monitor will b e mailed to you and will allow you to have your pacemaker checked over the phone fo r some scheduled checks instead of having to come into the clinic. The monitor will a lso allow you to send information about your pacemaker over the phone in the event yo u do not feel well. If you receive a remote monitor, please bring it to your next cl inic visit so you can learn how to use it. (Routine) - Receiving Office to Obtain Authorization Specialty Diagnoses / Procedures Referred By Contact Cooper cornejo To Contact Kaila Hill NP [address] [place] [phone] Referral ID Status Reason Start Expiration Visits Visits Date Date Requested Authorized [id number] Receiving Office Specialty 01/07/20 1 to Obtain Services 18 Authorization Required Comments You must contact us if we have not conta cted you or you have missed your scheduled appointment. If you have any nursing questions, isai rojas don't hesitate to call the Cardiac Arrhythmia Service at [facility] at or , extension [phone]. For any scheduling of appointments, chalo aguilar call [phone] or , extension [phone]. . (Routine) - Receiving Office to Obtain Authorization Specialty Diagnoses / Procedures Referred By Contact Cooper cornejo To Contact Kaila Hill NP [address] [phone] Referral ID Status Reason Start Expiration Visits Visits Date Date Requested Authorized [id number] Receiving Office Specialty 01/07/20 1 to Obtain Services 18 Authorization Required Comments Follow up with Dr. Greer on 01/18/18 at 9:40 for a check of your incision (Routine) - Receiving Office to Obtain Authorization Specialty Diagnoses / Procedures Referred By Contact Cooper cornejo To Contact Kaila Hill NP [address] [phone] Referral ID Status Reason Start Expiration Visits Visits Date Date Requested Authorized [id number] Receiving Office Specialty 01/07/2003 28 to Obtain Services 18 Authorization Required Comments Your first pacemaker check will be sched uled in three months after implant at your closest chosen clinic location. You will be reminded of this date by mail - Subsequent pacemaker clinics will be d one either once a year or twice a year depending on your device and those appoi ntments will be scheduled at your first appointment. - The [facility] Cardiology is located at [address] [place] [address] in [place] -Clinics are also held in [facility], and [place], [place] and [facility]. I f you live in those areas, we will make arrangements for follow-up appointments in one of those clinics.. Encounter Details Date Type Department Care Team Description 01/06/2018 - [facility] Gulshan Hinds Traceyove ntricular block, 01/07/2018 Encounter Cardiac/Telemetry MD Jona second degree (Primary [address]) [address] [place], [place] [address] [address] [facility] [phone] [place] [address] Social History Tobacco Use Types Packs/Day Years Used Date Former Smoker Quit: 09/29/18 92 Smokeless Tobacco: Never Used Sex Assigned at Date Recorded Not on file documented as of this encounter Last Filed Vital Signs Vital Sign Reading Time Taken Comments Blood Pressure 120/70 01/07/2018 0900 EDT Pulse - - Temperature 36.2 ??C (97.2 ??F) 01/07/2018 0900 EDT Respiratory Rate 16 01/07/2018 0900 EDT Oxygen Saturation 95% 01/07/2018 0900 EDT Inhaled Oxygen Concentration - - Weight 83.3 kg (183 lb 11.2 oz) 01/06/2018 1500 EDT Height 172.7 cm (5' 8) 01/06/2018 1500 EDT Body Mass Index 27.93 01/06/2018 1500 EDT documented in this encounter Functional Status Functional Status Response [...] Diagnosis I44.1 Atrioventricular block, second deg ree-I44.1[ICD-10-CM] G71.11 Myotonic muscular dystrophy-G71.1 1[ICD-10-CM] documented in this encounter Discharge Summaries Dipak Plummer MD - 01/06/2018 1153 EDT Cardiology Discharge Summary Primary Care Provider: Pool Greer Attending Physician: Gulshan Hinds MD Admit Date: 01/06/2018 Discharge Date: 01/07/2018 Disposition: Home or self care Problems and Procedures Admitting Diagnosis: Atrioventricular block, second degree Final Hospital Diagnosis: High grade heart block Additional Problems Managed in the Hospital There are no hospital problems to display for this patient. 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 He wore a recent Holter monitor that showed intermittent episodes of second degree heart block and at least one brief episode of NSVT. He then followed up with Dr. Hinds and per Dr. 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 This form of neuromuscular disease is associated with cardiac conduction defects but not a cardiomyopathy. Sudden is felt to be secondary to bradycardia arrhythmias, therefore he is recommending a dual chamber ICD. On 01/06/18 he underwent implantation of a Biotronik MRI compatible pacemaker without incident. He tolerated the procedure well. He will follow up with Dr. Greer on 01/18/18 at 9:40 for a check of his incision and with the Device clinic on 04/12/18 at 1:30 Pt well this am with pacemaker check WNL antibiotics infusion complete d/c home this am. Allergies and Immunizations No Known Allergies There is no immunization history on file for this patient. Transition of Care Plans Condition at Discharge Excellent Assessment at Discharge Vital signs: Patient Vitals for the past 12 hrs: BP Heart Rate Resp Temp SpO2 O2 Device 01/07/18 0900 120/70 77 BPM 16 36.2 ??C (97.2 ??F) 95 % None 01/07/18 0120 129/72 - 18 36.6 ??C (97.9 ??F) 95 % None Is the patient being discharged with a diagnosis of Systolic Heart Failure? No Coumadin Management N/A Non-Cardiac Studies at Time of Discharge Pacemaker check Results Pending at Discharge Test results still pending from this admission None Last Lab Results at Discharge BUN: Lab Results Component Value Date BUN 10 01/06/2018 Creatinine: Lab Results Component Value Date CREATININE 0.60 (L) 01/06/2018 CBC: Lab Results Component Value Date WBC 5.27 01/06/2018 RBC 5.57 01/06/2018 HGB 16.9 01/06/2018 HCT 50.5 (H) 01/06/2018 MCV 91 01/06/2018 MCH 30.3 01/06/2018 MCHC 33.5 01/06/2018 PLT 190 01/06/2018 Electrolytes: Lab Results Component Value Date NA 142 01/06/2018 K 4.1 01/06/2018 CL 106 01/06/2018 CO2 26 01/06/2018 No results found for: HGBA1C Discharge Follow Up Follow-up appointments and procedures Pacemaker check Your first pacemaker check will be scheduled in three months after implant at your closest chosen clinic location. You will be reminded of this date by mail - Subsequent pacemaker clinics will be done either once a year or twice a year depending on your device and those appointments will be scheduled at your first appointment. - [facility] is located at [address] [place] [address] in [place] -Clinics are also held in [place], [place] and [facility]. If you live in those areas, we will make arrangements for follow-up appointments in one of those clinics.. Authorizing Provider: Kaila Hill APRN Remote Monitors Depending on where you live and the kind of pacemaker you have, you may be enrolled for a remote monitor. The monitor will be mailed to you and will allow you to have your pacemaker checked over the phone for some scheduled checks instead of having to come into the clinic. The monitor will also allowyou to send information about your pacemaker over the phone in the event you do not feel well. If you receive a remote monitor, please bring it to your next clinic visit so you can learn how to use it. Authorizing Provider: Kaila Hill APRN Wound check appointment Follow up with Dr. Greer on 01/18/18 at 9:40 for a check of your incision Authorizing Provider: Kaila Hill APRN ~Please note: You must contact us if we have not contacted you or you have missed your scheduled appointment. If you have any nursing questions, please don't hesitate to call the Cardiac Arrhythmia Service at [facility] at or , extension [phone]. For any scheduling of appointments, please call [phone] or , extension [phone]. . Authorizing Provider: Kaila Hill APRN Additional Information: Follow up with Dr. Greer on 01/18/18 at 9:40 for a check of your incision and with the Device clinic on 04/12/18 at 1:30 Kaila Hill APRN 01/06/2018 11:53 Attending Attestation: I have seen and evaluated the patient. I have discussed the case and am in full agreement with the nurse practitioner's note above. See my comments above. Dipak Plummer MD PhD documented in this encounter Discharge Instructions AppointmentsKaila Hill APRN - 01/06/2018 11:56 EDT Follow up with Dr. Greer on 01/18/18 at 9:40 for a check of your incision and with the Device clinic on 04/12/18 at 1:30 documented in this encounter Medications at Time [...] or Self Care documented in this encounter Progress Notes Maria De Jesus Trevino RN - 12/16/2017 1509 EDT Images from the original note were not included. [address] [facility] [place] [address] Cody Hathaway, Here is important information regarding your upcoming Pacemaker Device implant procedure. Feel free to call with any questions or concerns to the appropriate number listed at the bottom of the letter. We will ensure we have prior authorization from your insurance company (if needed) for your procedure and notify you if there are any issues. Any questions regarding deductibles will need to be directed to your insurance company. Procedure Date December Check in at 12:00PM Pre-procedure Nursing Instructions You may NOT have solid food or liquids containing fats, including milk, after midnight before your procedure. You may have fat free liquids (clear liquids) until 4 hours before the scheduled time of check in. Fat free clear liquids include water, clear fruit juices (apple or cranberry), carbonated beverages, Jell-O, black or sweetened coffee and tea. 1. On 01/06/2018_please take your regular morning medications with a small amount of water: 2. On _01/05 evening and 01/06 morning, please hold the following medications: ____ELIQUIS 3. Please shower the evening before and the morning of your procedure scrubbing your chest well withthe EZ sponge that has been provided to you. 4. Please do not bring any medications with you to the hospital; it is important however to bring anaccurate list of the medications you are currently taking. 5. You can expect to spend the night in the hospital, so please plan accordingly by bringing an overnight bag with simple items, such as a tooth brush, change of clothes, etc. We request that you leaveany valuables at home unless you are able to hand them over to the support person with you. When yougo home, you will need a driver material handler. 6. Please remove all jewelry including rings and body piercings before coming to in for your procedure 7. The pre-registration department will call you 1 to 2 business days before your surgery to verify your address and insurance information. This call will simplify your admission on the day of surgery. When you arrive at the Hospital 1. Park in the underground garage, and take any elevator to the 3rd floor registration. Product Design Manager parking is also available at the Main Entrance. The registration staff will direct you to the surgical waiting room. Please check in with the guest relations receptionist and they will notify pre op of your arrival 2. When you arrive in pre op where you will be prepped for your procedure, the pre op nurse will initiate your pre-procedure admission by reviewing your information, medications, etc. You will also have an intravenous started and possible some blood work drawn. The prep time is approximately two hours. 3. You will meet your care team as a part of the pre procedure process. This will include your doctor, nursing and anesthesia if indicated. 4. When the procedure is over, you will be taken to the recovery area, while the doctor meets with your family/friends to review the results. 5. Your family/friends will be notified of where you are recovering and will be allowed to visit when it is appropriate Post Procedure Appointment and Device check location: Two week wound check with POOL GREER MD on December at 9:40AM at [address] [place] [address]. PHONE: [phone] ([place]) Device check at: [facility]: [employer] in [place] on March at 1:30PM. PHONE: [phone] Should the above appointment(s) not be convenient, please call at the number(s) listed to re-schedule to a time that works for you. We are here to help, so should you need assistance feel free to call anyone listed below with questions. EP Police Sergeant ??? [phone] [facility] Device Clinic nurse ??? 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 He had a holter monitor which demonstrated SR and high degree AV block. He has normal LV systolic function. HE is now referred for DDD PPM insertion. Prior Cardiac History: Prior Non Invasive Studies: Yes, Echo normal LV systolic function PMH PSH Past Medical History: Diagnosis Date ??? Arthritis ??? Heartburn ??? Hypertension ??? Myotonic dystrophy (HCC-CMS) Past Surgical History: Procedure Laterality Date ??? CATARACT REMOVAL ??? HERNIA REPAIR Social History Family History Social History Substance Use Topics ??? Smoking status: Former Smoker Quit date: 09/30/1991 ??? Smokeless tobacco: Never Used ??? Alcohol use Not on file Family History Problem Relation Age of Onset ??? Heart Disease Mother ??? Cancer Father Medications Prescriptions Prior to Admission Medication Sig Dispense Refill Last Dose ??? acetaminophen-codeine (TYLENOL #3) 300-30 mg per tablet Take 1 Tab by mouth every 4 hours as needed for Pain. Past Month at Unknown time ??? apixaban (ELIQUIS) 5 mg tablet Take 5 mg by mouth 2 times daily. 01/05/2018 at 1000 ??? enalapril (VASOTEC) 10 mg tablet Take 10 mg by mouth daily. 01/06/2018 at 0800 ??? finasteride (PROSCAR) 5 mg tablet Take 5 mg by mouth daily. 01/06/2018 at 0800 Allergies No Known Allergies Review of Systems: A ten point review of systems was performed. Pertinent positives are listed above in HPI, all othersare negative. Musculoskeletal: positive for muscle weakness Objective/Physical Exam: VS: No data found. Pain: No data found. Weight: There is no height or weight on file to calculate BMI. Glucose Readings (last 8 hours): No results for input(s): GLUCOSEFINGE in the last 72 hours. Exam: General appearance: alert, cooperative, no distress, appears stated age, obvious muscle weakness Lungs: clear to auscultation bilaterally Heart: regular rate and rhythm, S1, S2 normal Abdomen: soft, non-tender; bowel sounds normal; no masses, no organomegaly Mental Status: awake and alert; oriented to person, place, and time Chest wall: no tenderness Extremities: extremities warm, atraumatic, no cyanosis or edema positive pulses bilat Pulses: 2+ and symmetric Pressure Ulcer Present on admission? No Data Review: NA Labs: I have personally reviewed CBC: Lab Results Component Value Date WBC 5.27 01/06/2018 RBC 5.57 01/06/2018 HGB 16.9 01/06/2018 HCT 50.5 (H) 01/06/2018 MCV 91 01/06/2018 MCH 30.3 01/06/2018 MCHC 33.5 01/06/2018 PLT 190 01/06/2018 BMP: No results found for: NA, K, CL, CO2, BUN, CREATININE, GLUCOSEFINGE, CALCIUM, MG, PHOS, LABALBU Coagulation: Lab Results Component Value Date PROTIME 11.2 01/06/2018 Other Studies: N/A eGFR calculation: No results found for: CALCGFR Assessment: Heart block / myotonic dystrophy type 1 For DDD PPM Risks and benefits reviewed with patient and linux system administrator Informed consent obtained by me. Please see clinic note dated: 09/29/2017 VTE Prophylaxis: Ambulate Discharge Plan: Home or self care Gulshan Hinds MD 01/06/2018 12:34 documented in this encounter Procedure Notes Gulshan Hinds MD - 01/06/2018 1515 EDT Biot[address] MR compatible DR ICD inserted via the left axillary vein. Complications: none Full note to follow. Surgeon: John Hinds documented in this encounter Miscellaneous Notes Plan of Care - Enzo Fox RN - 01/07/2018 1141 EDT Problem: Daily Care Plan Goals Goal: Care Plan Documentation [id number] Rivas Carlos 67 y.o. male Length of Stay: 0 day(s) Admitted: 01/06/2018 10:49 Service: Cardiology Code Status: Full Code 14:31-- D: Discharge order written by treatment team. A: After Visit Summary printed for Rivas Carlos to review. ?? Intact IV access removed; ?? Telemetry discontinued; ?? No new prescriptions given ?? Reviewed medication schedule & clarified today's medications, ?? Follow-up appointments reviewed. R: Patient is pain-free, has no further questions, and states he understands discharge instructions.Signed copy of AVS received. Pt left with via wheelchair. lan of Courtney - Cholo Hylton RN - 01/07/2018 0323 EDT Problem: Daily Care Plan Goals Goal: Care Plan Documentation 01/07/18 0130 Care Plan Focus Area of Focus Circulatory Status Goal This Shift VSS Data: HD 2 and POD 1 PPM DDD 60/130 Biotronic, A&O x 3 , denies any pain , left chest pacer siteopen to air , dry and well approx. Ice amanda appliied. Off bedrest, ambulates with assist x 1 uses cane at home. Tele a/v paced at 60 and VSS. at bedside. Action: Post-op teaching including left arm ROM and activity and safety, plan of care updated, VSS and Tele noted. Response: No distress noted and resting quietly in bed. CHOLO HYLTON RN 01/07/2018 3:12 lan of Enzo Bruno RN - 01/06/2018 1693 EDT Problem: Safety: Goal: Will remain free from falls Outcome: Ongoing Problem: Daily Care Plan Goals Goal: Care Plan Documentation Outcome: Ongoing 01/06/18 1629 Care Plan Focus Area of Focus Circulatory Status Goal This Shift VSS post PPM BP 117/87 Temp 36.2 ??C (97.2 ??F) Resp 18 Ht 172.7 cm (68) Wt 83.3 kg (183 lb 11.2 oz) SpO2 95% BMI 27.93 kg/m2 Data: Pt admitted for PPM. Pt A/O x 3. AV paced on tele. CSMTs intact. Left chest site C/D/I Action: Admission and Assessment complete. Post procedure VS per protocol. Pt on bedrest til 1845 Response: Pt has no complaints of pain. Ice pack applied to site. Pt has no other complaints at thistime just waiting on the kitchen to send his coffee. Pt oriented to room and plan of care. ENZO FOX RN 01/06/2018 18:19 lan of Care - Jade Stern RN - 01/06/2018 1559 EDT Problem: Safety: Goal: Will remain free from falls Outcome: Ongoing D: Patient arrived to [place] [address]. Vital signs noted. Tele applied. Patient SRwith HR in 70s. Patient denies chest pain, SOB, and discomfort. Patient denies complaints at this time. Patient oriented to room, equipment, and careplan. A: Assessment as documented in flowsheet. Admission database complete. R: RN will continue to monitor and document per protocol. documented in this encounter Plan of Treatment Upcoming Encounters Date Type Specialty Care Team Description 09/03/2022 Ancillary Procedure Cardiology Scheduled Referrals Name Type Priority Associated Order Schedule Diagnoses PROVIDER FOLLOW-UP Outpatient Referral Routine Or dered: INSTRUCTIONS 01/06/2018 PROVIDER FOLLOW-UP Outpatient Referral Routine Or dered: INSTRUCTIONS 01/06/2018 PROVIDER FOLLOW-UP Outpatient Referral Routine Or dered: INSTRUCTIONS 01/06/2018 PROVIDER FOLLOW-UP Outpatient Referral Routine Or dered: INSTRUCTIONS 01/06/2018 documented as of this encounter Procedures Procedure Name Priority Date/Time Associated Comments Diagnosis IMPLANT RECORD - 01/11/2018 7:44 SCANNED EDT ECG REPORT - SCANNED 01/11/2018 7:44 EDT PORTABLE CHEST 1 VIEW Routine 01/06/2018 18:51 Re sults for this EDT procedure are i n the results section. PROTIME STAT 01/06/2018 11:58 Results for this EDT procedure are i n the results section. COMPLETE BLOOD COUNT STAT 01/06/2018 11:58 Res ults for this EDT procedure are i n the results section. BUN STAT 01/06/2018 11:58 Results for this EDT procedure are i n the results section. CREATININE STAT 01/06/2018 11:58 Results for this EDT procedure are i n the results section. ELECTROLYTES STAT 01/06/2018 11:58 Results for this EDT procedure are i n the results section. documented in this encounter Results PORTABLE CHEST 1 VIEW (01/06/2018 18:51 EDT) Anatomical Region Laterality Modality Other Specimen Narrative [facility] - 01/06/2018 19:29 EDT PORTABLE CHEST 1 VIEW ??01/06/2018 6:51 PM Clinical History/Comments: heart block; myotonic dystrophy type 1; s/p ppm Comparison: None Findings: Semiupright AP view was obtained followi ng placement of a dual-chamber pacemaker through the left subclavian vein. The generator obscures part of the left apex . Leads overlie the right atrium and ventricle. The lungs are lulu r aside from platelike atelectasis in the bases. The cardiac si lhouette and pulmonary vascularity are normal for technique. Th ere is no evidence of pneumothorax or pleural fluid, but neith er can be excluded on this non-upright radiograph. Procedure Note Damon Pastor MD - 01/06/2018 PORTABLE CHEST 1 VIEW 01/06/2018 6:51 PM Clinical History/Comments: heart block; myotonic dystrophy type 1; s/p ppm Comparison: None Findings: Semiupright AP view was obtained followi ng placement of a dual-chamber pacemaker through the left subclavian vein. The generator obscures part of the left apex . Leads overlie the right atrium and ventricle. The lungs are lulu r aside from platelike atelectasis in the bases. The cardiac si lhouette and pulmonary vascularity are normal for technique. Th ere is no evidence of pneumothorax or pleural fluid, but neith er can be excluded on this non-upright radiograph. Performing Organization Address City/State/ZIP Code Phon e Number [facility] PROTIME (01/06/2018 11:58 EDT) Pro Time 11.2 10.3 - 13.4 [facility] secs LABORATORY SERVICES I.N.R. 1.0 0.9 - 1.1 [facility] Comment: Ratio LABORATORY SERVICES Moderate Intensity Coumadin INR = 2.0-3.0 Adjustments in anticoagulant therapy dose should be based upon the INR and NOT the Pro Time. Specimen Blood specimen (specimen) - Blood Performing Organization Address City/State/ZIP Code Phon e Number [facility] [address] [place] [address] SERVICES (ABNORMAL) COMPLETE BLOOD COUNT (01/06/2018 11:58 EDT) Pathologist Sig nature WBC 5.27 4.0 - 10.4 K/cmm [facility] RBC 5.57 4.36 - 5.78 M/cmm [facility] Hemoglobin 16.9 13.8 - 17.3 gm/dl [facility] HCT 50.5 (H) 39.5 - 50.2 % [facility] MCV 91 81 - 95 fl [facility] MCH 30.3 27.6 - 33.0 pg [facility] MCHC 33.5 32.8 - 36.4 gm/dl [facility] RDW-CV 13.3 <14.2 % [facility] RDW-SD 44.2 <46.0 fl [facility] [facility] PLT 190 141 - 377 K/cmm [facility] MPV 10.9 9.5 - 12.7 fl [facility] Specimen Blood specimen (specimen) - Blood Performing Organization Address City/State/ZIP Code Phon e Number [facility] [address] [place] [address] SERVICES (ABNORMAL) CREATININE (01/06/2018 11:58 EDT) Creatinine 0.60 (L) 0.66 - 1.25 [facility] mg/dl LABORATORY SERVICES GFR, Calculated 103 >60 [facility] Comment: ml/min/1.73m2 LABORATORY eGFR calculated using CKD-EPI equation for SERVICES non Americans. Multiply eGFR by 1.16 for Americans. Specimen Blood specimen (specimen) - Blood Performing Organization Address City/State/ZIP Code Phon e Number [facility] [address] [place] [address] SERVICES BUN (01/06/2018 11:58 EDT) Pathologist Sig nature BUN 10 10 - 26 mg/dl [facility]Y SERVICES Specimen Blood specimen (specimen) - Blood Performing Organization Address City/State/ZIP Code Phon e Number [facility] [address] [place] [address] SERVICES ELECTROLYTES (01/06/2018 11:58 EDT) Pathologist Sig nature Sodium 142 136 - 145 mEq/L [facility] Potassium 4.1 3.5 - 5.0 mEq/L [facility] Chloride 106 96 - 110 mEq/L [facility] CO2 26 22 - 32 mEq/L [facility] Specimen Blood specimen (specimen) - Blood Performing Organization Address City/[facility]/ZIP Code Phon e Number [facility] [address] [place] [address] SERVICES documented in this encounter Visit Diagnoses Diagnosis Second degree heart block - Primary Other second degree atrioventricular blo ck Atrioventricular block, second degree Other second degree atrioventricular blo ck documented in this encounter Administered Medications Inactive Administered Medications - up to 3 most recent administrations Medication Order MAR Action Action Date Dose Rate Site bacitracin injection Given 01/06/2018 14:54 EDT 50,000 Units Left Ch est topical, PRN, Starting on Tue01/06/18 at 1454, Until Tue01/06/18 at 1454, Routine ceFAZolin (ANCEF) 2 g in sodium chloride 0.9% 50 mL Given 01/07/2018 9:52 EDT 2 g IVPB 2 g, intravenous, Administer over 30 Minutes, EVERY 8 HOURS, 3 doses, First dose on Tue01/06/18 at 1600, Last dose on Tue01/07/18 at 0800, STAT, Postprocedure Given 01/07/2018 0:25 EDT 2 g Given 01/06/2018 16:48 EDT 2 g ceFAZolin (ANCEF) injection Given 01/06/2018 13:48 EDT 2 g intravenous, PRN, Starting on Tue01/06/18 at 1348, Until Tue01/06/18 at 1348, Routine chlorhexidine gluconate 2 % cloth 1 Each Given 01/06/2018 12:45 EDT 1 Each 1 Each, topical, PRE-OP MULTIPLE, 1 dose, Starting on Tue01/06/18 at 1245, Until Tue01/06/18 at 1245, Other, Pre-Procedure, Routine, Preprocedure enalapril (VASOTEC) tablet 10 mg Given 01/07/2018 9:00 EDT 10 mg 10 mg, oral, DAILY, First dose on 01/07/18 at 0900, Until Discontinued, Routine fentaNYL citrate (PF) 50 mcg/mL injectio n Given 01/06/2018 15:09 EDT 25 mcg intravenous, PRN, Starting on Tue01/06/18 at 1348, Until Tue01/06/18 at 1509, Routine Given 01/06/2018 13:48 EDT 25 mcg finasteride (PROSCAR) tablet 5 mg Given 01/07/2018 9:00 EDT 5 mg 5 mg, oral, DAILY, First dose on 01/07/18 at 0900, Until Discontinued, Routine midazolam (PF) (VERSED) 1 mg/mL injectio n Given 01/06/2018 15:10 EDT 1 mg intravenous, PRN, Starting on Tue01/06/18 at 1349, Until Tue01/06/18 at 1510, Routine Given 01/06/2018 13:49 EDT 1 mg sodium chloride 0.9 % (NS) infusion New Bag 01/06/2018 12:45 EDT 30 mL/hr 30 mL/hr at 30 mL/hr, 30 mL/hr, intravenous, CONTINUOUS, Starting on Tue01/06/18 at 1315, Until 01/07/18 at 1347, Routine, Preprocedure documented in this encounter Active and Recently Administered Medications Times are shown in EDT. Scheduled Medication Order 01/05/2018 01/06/2018 01/07/2018 ceFAZolin (ANCEF) 2 g in sodium chloride 0.9% 50 mL IVPB (CO MPLETED) 7825 (Given - Provider: Enzo Fox RN) 0027 (Given - Provider: Cholo Hylton RN)8232 (Given - Provider: Enzo Fox RN - Comment: loss of IV access) 2 g, intravenous, Administer over 30 Min utes, EVERY 8 HOURS, 3 doses, First dose on Tue01/06/18 at 1600, Last dose on Tue01/07/18 at 0800, STAT enalapril (VASOTEC) tablet 10 mg 0900 (Given - Provider: Enzo Fox, CADENCE) 10 mg, oral, DAILY, First dose on Tue at 0900, Until Discontinued, Routine finasteride (PROSCAR) tablet 5 mg 0900 (Given - Provider: Enzo Fox, CADENCE) 5 mg, oral, DAILY, First dose on Tue at 0900, Until Discontinued, Routine Continuous Medication Order 01/05/2018 01/06/2018 01/07/2018 sodium chloride 0.9 % (NS) infusion 1245 (New Bag - Provider: Jayleen Ventura, RN) at 30 mL/hr, 30 mL/hr, intravenous, CONT INUOUS, Starting Tue01/06/18 at 1315, Until Tue01/07/18 at 1347, Routine PRN Medication Order 01/05/2018 01/06/2018 01/07/2018 bacitracin injection (COMPLETED) 1454 (G iven - Provider: Raul Lopez MD - Comment: Pocket flush) topical, PRN, Starting Tue01/06/18 at 1454, Until Discontinued, Routine ceFAZolin (ANCEF) injection (COMPLETED) 1348 (Given - Provider: Amanda Medina, CADENCE) intravenous, PRN, Starting Tue01/06/18 at 1348, Until Discontin ued, Routine chlorhexidine gluconate 2 % cloth 1 Each (COMPLETED) 1245 (Given - Provider: Jayleen Ventura, CADENCE) 1 Each, topical, PRE-OP MULTIPLE, 1 dose , Starting Tue01/06/18 at 1245, Until Tue01/06/18 at 1245, Other, Pre-Procedure, Routine fentaNYL citrate (PF) 50 mcg/mL injection (COMPLETED) 1348 (Given - Provider: Amanda Medina, CADENCE)1509 (Given - Provider: Oscar Villarreal RN) intravenous, PRN, Starting Tue01/06/18 at 1348, Until Discontin ued, Routine midazolam (PF) (VERSED) 1 mg/mL injection (COMPLETED) 1349 (Given - Provider: Amanda Medina, RN)1510 (Given - Provider: Oscar Villarreal, CADENCE) intravenous, PRN, Starting 01/06/18 at 1349, Until Discontin ued, Routine documented in this encounter Orders Procedures Count Last Ordered Date First Ordered Date ECG REPORT - SCANNED 1 01/11/2018 IMPLANT RECORD - SCANNED 1 01/11/2018 Nursing Count Last Ordered Date First Ordered Date ACTIVITY INSTRUCTIONS 1 01/06/2018 CONTRAINDICATION TO ANTICOAGULATION 1 01/06/2018 THERAPY INSERT PERIPHERAL IV 1 01/06/2018 WOUND CARE INSTRUCTIONS 2 01/06/2018 IV Count Last Ordered Date First Ordered Date IV REQUEST 1 01/07/2018 Admission Count Last Ordered Date First Ordered Date STATUS: OUTPATIENT MEDICAL OP BED/SERVICES 1 01/06 Transfer Count Last Ordered Date First Ordered Date NOTIFY PPS OF DISCHARGE COMPLETE 1 01/07/2018 PPS NOTIFICATION OF PATIENT ARRIVAL ON 2 8 UNIT Discharge Count Last Ordered Date First Ordered Date DISCHARGE PATIENT 1 01/07/2018 Legal Count Last Ordered Date First Ordered Date MISCELLANEOUS DISCHARGE INSTRUCTIONS 1 01/06/2018 documented in this encounter Care Teams Park Superintendent Relationship Specialty Start Date End Date Pool Greer MD PCP - General 05/25/[address] [place] [id number] documented as of this encounter
--- OUTSIDE RECORDS SUMMARY | 2021-12-05 06:44 | XMS_ITS | Encounter Summary ---
:[address] [facility] Address [address] [place] [id number] Care Team Providers Name Role Phone Amanda Chavez MD Primary Care Provider Encounter Details Date Type Department Care Team Description 08/29/2013 Hospital Encounter [facility]- Minnie Schmidt, Provider, [facility] [phone] [place] [address] (Work) [phone] Social History Tobacco Use Types Packs/Day Years Used Date Never Assessed Sex Assigned at Date Recorded Not on file documented as of this encounter Discharge Disposition Disposition Code Departure Means Destination Home or Self Alf documented in this encounter Plan of Treatment Upcoming Encounters Date Type Specialty Care Team Description 09/03/2022 Ancillary Procedure Cardiology documented as of this encounter Visit Diagnoses Not on filedocumented in this encounter Care Teams Nurse General Duty Relationship Specialty Start Date End Date Amanda Chavez MD PCP - General 06/24/10 05/24/16 [address] [place], [place] [id number] documented as of this encounter
--- OUTSIDE RECORDS SUMMARY | 2021-12-05 06:44 | XMS_ITS | Encounter Summary ---
:1950 Author Organization [facility] Address [address] [place] [address] Care Team Providers Name Role Phone Pool Hercules MD Primary Care Provider [phone] Reason for Referral Cardiology (Routine) - Authorization Not Required Specialty Diagnoses / Procedures Referred By Contact Refer red To Contact Diagnoses Heart block AV second degree Gulshan Hinds, Procedures PERMANENT PACEMAKER PROCEDURE [address] [address] Referral ID Status Reason Start Expiration Visits Visits Date Date Requested Authorized [id number] Authorization Not 09/29/2017 1 1 Required Reason for Visit Reason Comments Arrhythmia NPV, myotonic dystrophy, he is feeling great today Fatigue Encounter Details Date Type Department Care Team Description 09/29/2017 Office Visit [facility] Gulshan Hinds b lock AV second Cardiology - Sandee Tenorio MD degree (Primary Dx) [address] [facility] [employer] [place], [place] [address] [place] [address] [place] [phone] Social History Tobacco Use Types Packs/Day Years Used Date Former Smoker Quit: 09/29/18 92 Smokeless Tobacco: Never Used Sex Assigned at Date Recorded Not on file documented as of this encounter Last Filed Vital Signs Vital Sign Reading Time Taken Comments Blood Pressure 110/88 09/29/2017 1627 EDT Pulse 71 09/29/2017 1627 EDT Temperature - - Respiratory Rate - - Oxygen Saturation 94% 09/29/2017 1627 EDT Inhaled Oxygen Concentration - - Weight 82.1 kg (181 lb) 09/29/2017 1627 EDT Height 172.7 cm (5' 8) 09/29/2017 1627 EDT Body Mass Index 27.52 09/29/2017 1627 EDT documented in this encounter Functional Status Functional Status Response Date of Assessment Because of a physical, mental, or emotional condition, No 09/29/2017 does this person have difficulty doing errands alone such as visiting a doctor's office or shopping? Cognitive Status Response Date of Assessment Because of a physical, mental, or emotional condition, No 09/29/2017 does this person have serious difficulty concentrating, remembering, or making decisions? documented as of this encounter Progress Notes Gulshan Hinds MD - 09/29/2017 1615 EDT Subjective: Patient ID: Rivas Carlos is an 67 y.o. male. Chief Complaint Patient presents with ??? Arrhythmia NPV, myotonic dystrophy, he is feeling great today ??? 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 The patient's fatherand brother also have mild tonic dystrophy type I. The family has been genotyped and has unknown pathologic mutation. This form of neuromuscular disease is known to cause cardiac conduction abnormalities would not cardiomyopathy. Mr. Carlos [place] [facility] [place] [facility]. A recent echocardiogram showed preserved LV systolic function. A two-week ambulatory ECG monitor showed episodes of second-degree heart block. The patient also had a brief run (a second or 2) of nonsustained ventricular tachycardia. Because of h is history of myotonic dystrophy type I and documented second-degree heart block he is now referred for consideration of bradycardia pacing support. Mr. Carlos denies syncope or near syncope. He denies chest pain. His exercise capacity is significantly limited by his myotonic dystrophy. He has had no orthopnea or PND. The patient's brother does have an ICD. There is no problem list on file for this patient. No past medical history on file. No past surgical history on file. No family history on file. Social Social History Social History ??? Marital status: Spouse name: N/A ??? Number of children: N/A ??? Years of education: N/A Occupational History ??? Not on file. Social History Main Topics ??? Smoking status: Former Smoker Quit date: 09/30/1991 ??? Smokeless tobacco: Never Used ??? Alcohol use Not on file ??? Drug use: Not on file ??? Sexual activity: Not on file Other Topics Concern ??? Not on file Social History Narrative ??? No narrative on file No current outpatient prescriptions on file prior to visit. No current facility-administered medications on file prior to visit. No Known Allergies Review of Systems Constitutional: Positive for malaise/fatigue. Respiratory: Positive for shortness of breath. Cardiovascular: Positive for leg swelling. Negative for chest pain, palpitations, orthopnea, claudication and PND. Gastrointestinal: Negative for heartburn and nausea. Musculoskeletal: Positive for joint pain. Negative for back pain. Neurological: Positive for weakness. Negative for dizziness, tingling, tremors and headaches. Significant muscle weakness - See HPI Objective: BP 110/88 Pulse 71 Ht 172.7 cm (68) Wt 82.1 kg (181 lb) SpO2 94% BMI 27.52 kg/m2 Physical Exam Constitutional: He appears well-developed and well-nourished. HENT: Mouth/Throat: Mucous membranes are moist. Eyes: EOM are normal. Neck: Neck supple. No thyromegaly present. Cardiovascular: Normal rate and regular rhythm. Exam reveals no gallop and no friction rub. Pulmonary/Chest: Effort normal and breath sounds normal. Abdominal: Soft. Bowel sounds are normal. He exhibits no distension. Neurological: He is alert. Skin: Skin is warm. Psychiatric: He has a normal mood and affect. His behavior is normal. Nursing note and vitals reviewed. 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 This is an autosomal dominant mutation leading to significant striated muscle weakness. The patient is quite symptomatic. This form of neuromuscular diseases associated with cardiac conduction defects but not a cardiomyopathy. Sudden is felt to be secondary to bradycardia arrhythmias. I recommended that Mr. Carlos had a dual-chamber pacemaker implanted. The risks and benefits of pacemaker insertion were discussed in detail with the patient and his . Plans: Dual chamber pacemaker insertion [facility] and the morning of elective pac[facility] documented in this encounter Plan of Treatment Upcoming Encounters Date Type Specialty Care Team Description 09/03/2022 Ancillary Procedure Cardiology documented as of this encounter Procedures Procedure Name Priority Date/Time Associated Diagnosis Comme nts PERMANENT PACEMAKER Routine 01/06/2018 15:21 Heart block AV Re sults for this PROCEDURE EDT second degree procedure are in the results section. documented in this encounter Results PERMANENT PACEMAKER PROCEDURE (01/06/2018 15:21 EDT) Specimen Narrative [facility] - 01/06/2018 16:07 EDT *Cardiology* [address] [place] [address] Device Implantation Patient: Rivas Carlos ?Study Date: ? 01/06/2018 ?Accession #: ?[id number] : ? 1950 Referring: Pool Hercules Attending: Gulshan Hinds MD ? Raul Lopez MD Fellow: Assisting: Sol Waterman RN Copies: ?Andrew Lopez MD ATTESTATION: Dr. Gulshan Hinds was present and sup ervising for the entire procedure, I, Dr. Gulshan Hinds have reviewed and agree with the findings of this report. SUMMARY OF PROCEDURE: - There were no complications. - Successful Dual chamber pacemaker impl ant. PROCEDURE INDICATION: INDICATION FOR PACING: Documented non-re versible symptomatic bradycardia due to second degree. HISTORY AND INDICATIONS: ??Mr. Terrance soto s referred for DDD PPM insertion secondary to high degree heart block in the setting of myotonic dystrophy type 1. PROCEDURE: - Implant of a dual chamber pacemaker ANESTHESIA: Conscious sedation and local anesthesia for pain control. PROCEDURE: The risks, benefits, and alternatives to the procedure and sedation were explained and informed consent was obtai jeanna. The patient name, date of , surgica l site, and procedure were verified prior to the procedure. The pat ient was brought to the OR in the fasting state. The chest was prepped and draped in the usual sterile manner. ??Lidocaine 2% and Bupivacaine 0 .5% was administered to the left deltopectoral groove. ??Left axillary ve in access. With the patient in Trendelenburg position and under fluoros copic guidance the vessel was entered on 2 occasion(s) allowing for pl acement of 2 soft-tipped J-wire(s) to the level of the inferior v veronica cava. The attending physician was present for the entire pro cedure. An incision was made medial and perpendi cular to the left deltopectoral groovesubcutaneous. Using blunt dissecti on and electrocautery to achieve hemostasis, a device pocket was construc henna. Lead implantation. The wire was tunneled into the incision area. Usi ng a 7Fr safety sheath, a lead was advanced to the right ventricle unde r fluoroscopic guidance and actively fixed to the right ventricular septum. Using a 7Fr safety sheath, a lead was then advanced to righ t atrium under fluoroscopic guidance and actively fixed to the right atrial appendage. The lead(s) were tested before and after suturing th e lead sleeve(s) to the pre-pectoralis fascia. Device detail in table below. Wound closure. The pocket was copiously irrigated with bacitracin solution. The leads were attached to the device and the system was placed in the pocket.The wound was close d in three layers.The deepest layer was continuous vertical mattress u sing 2-0 Monocryl.The mid layer was continuous horizontal mattress using 3-0 Monocryl.The superficial layer was continuous horizontal mattress using 4-0 Monocryl.The skin was coated with topical skin adhesive. IMPLANTED HARDWARE: Implanted device: Lytrocuauhtemock Shayne RHODES - Serial number: [id number]. LEAD PARAMETERS + + ----+ + Lead # ? 1 ? 2 ? + + ----+ + Chamber ? RA ? RV ? + + ----+ + Date implanted ?? 01/06/2018 ? 01/06/2018 ? + + ----+ + Model information Biotronik Stanley S forrest d 47 Biotronik Stanley S lead 60 ? [id number] ? [id number] ? + + ----+ + Serial number ? [id number] ? [id number] ? + + ----+ + Location ? RA appendage ? Mid RV septum ? + + ----+ + Capture ? 0.5V@ 0.5ms ? 0.6V@ 0.5ms ? + + ----+ + Impedance ? 507Ohms ? 682Ohms ? + + ----+ + Sensing ? 2.8mV ? 11.9mV ? + + ----+ + Status ? Active ? Active ? + + ----+ + PACING SETTINGS + +------+ Mode ? DDD ?? + +------+ Lower rate ? 60bpm + +------+ Upper rate ? 130bpm + +------+ Mode switch ? On ? + +------+ Mode switch rate 160bpm + +------+ Paced AV delay ?? 180ms + +------+ Sensed AV delay 135ms + +------+ CHAMBER SETTINGS + + + -+-------+ ? RA ? RV ? LV ? + + + -+-------+ Pacing polarity Uni/bipolar Uni/bipola r Bipolar + + + -+-------+ Amplitude ? 3.6V ? 3.6V ? + + + -+-------+ Pulse width ? 0.4ms ? 0.4ms ? + + + -+-------+ Sensing polarity Bipolar ? Bipolar ? + + + -+-------+ Sensitivity ? Auto ? Auto ? + + + -+-------+ STUDY COMPLETION Administered medications: ?? Cefazolin ( Ancef, Kefzol) , prior to the procedure for infection prophylaxis. - Contrast: 0ml. - Patient in-room time: 01:41 PM. - Patient out-of-room time: 03:15 PM. - Intake: 200ml - Estimated blood loss: 30ml. PLAN: ??See post procedure orders. Bed r est for 3hours. At the completion of the procedure, find ings, results, any complications, and treatment plan were c ommunicated to the patient and reinforced after recovery from anesthesi a. With the patient's consent, the attending physician communicated fin dings, results, any complications, and treatment plan to [facility] members and patient support persons who were present at the conclusi on of the procedure. POST PROCEDURAL DISPOSITION: Bedded outpatient status is indicated. ?Electronically signed by Gulshan Hinds MD 01/06/2018 16:07 Procedure Note Gulshan Hinds MD - 01/06/2018 *Cardiology* [address] [place] [address] Device Implantation Patient: Rivas Carlos Study Date: : 1950 Referring: Pool Hercules Attending: MD Raul Enamorado MD Fellow: Assisting: Sol Waterman, RN Copies: Andrew Lopez MD ATTESTATION: Dr. Gulshan Hinds was present and sup ervising for the entire procedure, I, Dr. Gulshan Hinds have reviewed and agree with the findings of this report. SUMMARY OF PROCEDURE: - There were no complications. - Successful Dual chamber pacemaker impl ant. PROCEDURE INDICATION: INDICATION FOR PACING: Documented non-re versible symptomatic bradycardia due to second degree. HISTORY AND INDICATIONS: Mr. Carlos is referred for DDD PPM insertion secondary to high degree heart block in the setting of myotonic dystrophy type 1. PROCEDURE: - Implant of a dual chamber pacemaker ANESTHESIA: Conscious sedation and local anesthesia for pain control. PROCEDURE: The risks, benefits, and alternatives to the procedure and sedation were explained and informed consent was obtai jeanna. The patient name, date of , surgica l site, and procedure were verified prior to the procedure. The pat ient was brought to the OR in the fasting state. The chest was prepped and draped in the usual sterile manner. Lidocaine 2% and Bupivacaine 0.5 % was administered to the left deltopectoral groove. Left axillary vein access. With the patient in Trendelenburg position and under fluoros copic guidance the vessel was entered on 2 occasion(s) allowing for pl acement of 2 soft-tipped J-wire(s) to the level of the inferior v veronica cava. The attending physician was present for the entire pro cedure. An incision was made medial and perpendi cular to the left deltopectoral groovesubcutaneous. Using blunt dissecti on and electrocautery to achieve hemostasis, a device pocket was construc henna. Lead implantation. The wire was tunneled into the incision area. Usi ng a 7Fr safety sheath, a lead was advanced to the right ventricle unde r fluoroscopic guidance and actively fixed to the right ventricular septum. Using a 7Fr safety sheath, a lead was then advanced to righ t atrium under fluoroscopic guidance and actively fixed to the right atrial appendage. The lead(s) were tested before and after suturing th e lead sleeve(s) to the pre-pectoralis fascia. Device detail in table below. Wound closure. The pocket was copiously irrigated with bacitracin solution. The leads were attached to the device and the system was placed in the pocket.The wound was close d in three layers.The deepest layer was continuous vertical mattress u sing 2-0 Monocryl.The mid layer was continuous horizontal mattress using 3-0 Monocryl.The superficial layer was continuous horizontal mattress using 4-0 Monocryl.The skin was coated with topical skin adhesive. IMPLANTED HARDWARE: Implanted device: Biotronik - Jeevan RHODES - Serial number: [id number]. LEAD PARAMETERS + + ----+ + Lead # 1 2 + + ----+ + Chamber RA RV + + ----+ + Date implanted 01/06/2018 01/06/2018 + + ----+ + Model information Biotronik Solia S forrest d 47 Biotronik Solia S lead 60 [id number] + + ----+ + Serial number [id number] + + ----+ + Location RA appendage Mid RV septum + + ----+ + Capture 0.5V@ 0.5ms 0.6V@ 0.5ms + + ----+ + Impedance 507Ohms 682Ohms + + ----+ + Sensing 2.8mV 11.9mV + + ----+ + Status Active Active + + ----+ + PACING SETTINGS + +------+ Mode DDD + +------+ Lower rate 60bpm + +------+ Upper rate 130bpm + +------+ Mode switch On + +------+ Mode switch rate 160bpm + +------+ Paced AV delay 180ms + +------+ Sensed AV delay 135ms + +------+ CHAMBER SETTINGS + + + -+-------+ RA RV LV + + + -+-------+ Pacing polarity Uni/bipolar Uni/bipola r Bipolar + + + -+-------+ Amplitude 3.6V 3.6V + + + -+-------+ Pulse width 0.4ms 0.4ms + + + -+-------+ Sensing polarity Bipolar Bipolar + + + -+-------+ Sensitivity Auto Auto + + + -+-------+ STUDY COMPLETION Administered medications: Cefazolin (Anc ef, Kefzol) , prior to the procedure for infection prophylaxis. - Contrast: 0ml. - Patient in-room time: 01:41 PM. - Patient out-of-room time: 03:15 PM. - Intake: 200ml - Estimated blood loss: 30ml. PLAN: See post procedure orders. Bed res t for 3hours. At the completion of the procedure, find ings, results, any complications, and treatment plan were c ommunicated to the patient and reinforced after recovery from anesthesi a. With the patient's consent, the attending physician communicated fin dings, results, any complications, and treatment plan to [facility] members and patient support persons who were present at the conclusi on of the procedure. POST PROCEDURAL DISPOSITION: Bedded outpatient status is indicated. E lectronically signed by Gulshan Hinds MD 01/06/2018 16:07 Performing Organization Address City/State/ZIP Code Phon e Number [facility] [place] documented in this encounter Visit Diagnoses Diagnosis Heart block AV second degree - Primary Other second degree atrioventricular blo ck documented in this encounter Historical Medications This list may reflect changes made after this encounter. Medication Sig Dispensed Refills Start Date End Date enalapril (VASOTEC) 10 mg Take 10 mg by mouth 0 tablet daily. finasteride (PROSCAR) 5 mg Take 5 mg by mouth 0 tablet daily. apixaban (ELIQUIS) 5 mg Take 5 mg by mouth 2 0 tablet times daily. acetaminophen-codeine Take 1 Tab by mouth 0 (TYLENOL #3) 300-30 mg per every 4 hours as tablet needed for Pain. added in this encounter Care Teams Adult Neuropsychologist Relationship Specialty Start Date End Date Pool Hercules MD PCP - General 05/25/[address] [place] [id number] documented as of this encounter
--- NOTE | 2021-12-05 06:45 | DI.RAD_ITS ---
Exam(s) XR FOOT LT COMPLETE EXAM: XR FOOT LT COMPLETE CLINICAL HISTORY: fall 2 weeks ago, lateral foot pain. TECHNIQUE: 2D digital imaging was performed. COMPARISON: No exams were available for comparison FINDINGS: 3 views No evidence of fracture nor diastasis of the Lisfranc joint. Moderate degenerative changes noted in the great toe metatarsophalangeal joint. Moderate size inferior calcaneal spur noted as well as enth esophyte on the posterior aspect of the Achilles tendon insertional site on the calcaneus posterior a spect. Mild dorsal soft tissue swelling noted. No osseous lesions. No radiopaque foreign body. IMPRESSION: DATA REPOSITORY: RADIATION DOSE DELIVERED:
--- NOTE | 2021-12-05 06:48 | W.ED.GENAD ---
Discharge Plan Disposition Patient Disposition: HOME Condition: Good Discharge Details Clinical Impression: Strain of foot, left Primary Care Provider: Pool Hercules ED Provider: Ye Gallardo Home Meds and New Rx's Prescriptions: Continued enalapril maleate 20 mg tablet 20 mg PO DAILY Qty: 90 3RF finasteride 5 mg tablet 5 mg PO DAILY Qty: 90 4RF cholecalciferol (vitamin D3) 1,000 unit capsule 1,000 unit PO DAILY Eliquis 5 mg tablet 5 mg PO BID Qty: 180 3RF Discharge Instructions Instructions: Foot Contusion (ED) Additional Instructions: At this time there is no clear evidence of fracture on your foot x-ray. Please take Tylenol as needed for pain. Please keep the area elevated as often as possible to help with the swelling. Please remain nonweightbearing for the next week to help it heal. After this please use the walking boot to help with cushioning. If you have continued pain after being nonweightbearing for the next week, then you may need repeat imaging with a CT scan or MRI. Please follow-up closely with your primary care provider for reassessment. If you notice any worsening of your symptoms, or any new symptoms such as vomiting, diarrhea, fever, chills, shortness of breath, chest pain, numbness, weakness, or fainting , please return immediately to the emergency department for reevaluation. Please follow up with your primary care provider as soon as possible for reassessment and reevaluation. As always, it was a pleasure participating in your medical care today. Referrals: Pool Hercules MD [Primary Care Provider] - Discharge Data Discharge Date/Time-TO BE ENTERED AT DEPARTURE: 12/05/21 07:42 Medical Decision Making This is a pleasant 71-year-old male with a past medical history of previous blood clots for which he is on Eliquis, muscular dystrophy, who presents today for left foot pain. 2 weeks ago he was walking and his left leg gave out from under him, he fell and contorted his left foot. He thought it was a sprain but unfortunately it has not gotten any better. He is mainly using his cane and an electric wheelchair to get around. Pain is made worse with ambulation. Improved by nothing. He denies any new numbness or tingling. He does admit to bruising in the foot. No other complaints at this time. No other modifying factors Exam demonstrates mild swelling and bruising on the lateral aspect of the left foot. Tenderness over the fifth metatarsals. Patient demonstrates good movement otherwise for all directions for the foot. Good neurovascular exam with brisk capillary refill. Differential is highest for fifth metatarsal fracture, we will get an x-ray, monitor closely and reassess 7:30 AM X-ray on my review does not show any evidence of significant fracture. Additional history was then given by the patient and his family member who is at bedside and they state that the foot actually was getting significantly better until he started doing a vigorous amount of activity on it. Will recommend continued nonweightbearing for the next week. He has an electric scooter that he states he could accomplish this with. We will give him a postop shoe for use at home. Recommend close follow-up with his primary care provider for reassessment in the next 1 to 2 weeks. If he has continued pain even in spite of this conservative therapy of nonweightbearing that he may need further imaging including MRI or CT scan on a nonemergent outpatient basis. I have extensively reviewed the treatment plan and discharge instructions with the patient and their family. I have addressed all patient concerns at this time. The patient and family was made aware of what symptoms to monitor for that would warrant a return to the emergency department. Discussed the plan with the patient and family, they demonstrate verbal understanding and agreement with our assessment and plan at this time. The documentation in this chart was dictated using [employer] dictation software. Please excuse any dictation errors. FINDINGS: 3 views No evidence of fracture nor diastasis of the Lisfranc joint. Moderate degenerative changes noted in the great toe metatarsophalangeal joint. Moderate size inferior calcaneal spur noted as well as enthesophyte on the posterior aspect of the Achilles tendon insertional site on the calcaneus posterior aspect. Mild dorsal soft tissue swelling noted. No osseous lesions. No radiopaque foreign body. HPI General Date/Time Provider Initiated Documentation: 12/05/21 06:47. HPI Narrative: This is a pleasant 71-year-old male with a past medical history of previous blood clots for which he is on Eliquis, muscular dystrophy, who presents today for left foot pain. 2 weeks ago he was walking and his left leg gave out from under him, he fell and contorted his left foot. He thought it was a sprain but unfortunately it has not gotten any better. He is mainly using his cane and an electric wheelchair to get around. Pain is made worse with ambulation. Improved by nothing. He denies any new numbness or tingling. He does admit to bruising in the foot. No other complaints at this time. No other modifying factors Related Data Home Medications Medication Instructions Recorded Confirmed cholecalciferol (vitamin D3) 25 1,000 unit PO DAILY 01/30/19 12/05/21 mcg (1,000 unit) capsule apixaban 5 mg tablet (Eliquis) 5 mg PO BID #180 tab-caps 01/20/21 12/05/21 enalapril maleate 20 mg tablet 20 mg PO DAILY #90 tabs 01/27/21 12/05/21 finasteride 5 mg tablet 5 mg PO DAILY #90 tab-caps 01/27/21 12/05/21 Previous Rx's Medication Instructions Recorded apixaban 5 mg tablet (Eliquis) 5 mg PO BID #180 tab-caps 01/20/21 enalapril maleate 20 mg tablet 20 mg PO DAILY #90 tabs 01/27/21 finasteride 5 mg tablet 5 mg PO DAILY #90 tab-caps 01/27/21 Allergies Allergy/AdvReac Type Severity Reaction Status Date / Time No Known Allergies Allergy Verified 12/05/21 06:50 General Stated Complaint: Orthopedic MARY: 4 Review of Systems All systems reviewed & are unremarkable except as noted in HPI and below PFSH All Active Problems (Updated 12/05/21 @ 06:51 by Ye Gallardo DO) Strain of foot, left (Acute) Skin lesions, generalized (Acute) Insomnia (Acute) 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 Hyperlipidemia (Chronic 05/29/12) Abdominal pain (Acute) PUD (peptic ulcer disease) (Chronic) Pacemaker (Acute) [facility] 01/06/18; DUAL CHAMBER ICD PLACEMENT; BIOTRONIC Neoplasm of unspecified behavior of bone, soft tissue, and skin (Acute) Parotid mass (Acute) 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 BX Polyp of colon (Acute 05/25/10) 05/25/10; Tubular adenoma and hyperplastic 05/14/13; 4 polyps 05/19/16: tubular adenomas Obesity (Acute) History of tobacco use (Acute) Hearing loss (Acute) Fracture of medial malleolus, right, closed (Acute 03/27/17) Contact dermatitis (Acute) seborrhea Carpal tunnel syndrome (Acute) right Pulmonary embolus (Acute 05/03/14) Hypertension (Chronic) Low back pain (Chronic) Benign prostatic hypertrophy (Chronic) Myotonic dystrophy (Chronic) H/O carpal tunnel syndrome (Chronic) History of colonic polyps (Chronic) Rosacea (Chronic) mild hearing loss (Chronic) H/O surgical procedure (Chronic) a. right inguinal hernia repair b. umbilical hernia repair 1994 c. colonoscopy last done at [place] 04/2013 showed tubular adenomatous polyp per report Acute respiratory failure with hypoxia (Acute 05/03/14) Medical History Acute cholecystitis BPH (benign prostatic hyperplasia) HTN (hypertension) PE (pulmonary thromboembolism) Surgical History Colonoscopy - MAC (05/19/16) Extraction of cataract Repair of umbilical hernia (~1994) S/P cholecystectomy (~07/10/19) [facility] [place] Family History Mother Diabetes Essential hypertension Personal history of malignant neoplasm BREAST/UTERINE Aortic valve stenosis Heart disease Hyperlipidemia Father Essential hypertension Personal history of malignant neoplasm COLON Heart disease Hyperlipidemia Stroke Brother Essential hypertension Heart disease Hyperlipidemia Brother Essential hypertension Hyperlipidemia Grandfather No problems noted. Grandfather No problems noted. Grandmother Diabetes Personal history of malignant neoplasm PANCREATIC Grandmother Essential hypertension Hyperlipidemia Stroke PATERNAL HISTORY Personal history of malignant neoplasm Depression Heart disease Myotonic dystrophy Sister Essential hypertension Personal history of malignant neoplasm BREAST Heart disease Hyperlipidemia Son Essential hypertension Hyperlipidemia Daughter No problems noted. Daughter Essential hypertension Depression Hyperlipidemia Daughter No problems noted. Daughter No problems noted. Other Cataract Social History Smoking/Tobacco Use Status: Former Tobacco Use Smoking risk assessment performed?: Yes Alcohol Intake: never Drug use: Never Substance use type: does not use Do you feel safe at home: Yes Do you feel safe in your relationship?: Yes Exam Narrative Exam Narrative: 1.Const: Well-nourished, Well-developed, appearing stated age 2.Eyes: PERRL, no conjunctival injection, and symmetrical lids. 3.ENT: Atraumatic external nose and ears. Moist MM. Neck: Symmetric, trachea midline, No thyromegaly. 4.CVS: +S1/S2, No murmurs or gallops. Peripheral pulses 2+ and equal in all extremities. Brisk capillary refill in all extremities. 5.RESP: Unlabored respiratory effort. Clear to auscultation bilaterally. No wheezes rales or rhonchi 6.GI: Soft, Nontender/Nondistended, No hepatosplenomegaly. No guarding or rebound. 7.MSK: Atraumatic left knee. Left foot demonstrates bruising along the fifth lateral metatarsal. No tenderness over the medial or lateral malleolus of the ankle. Notable tenderness over the fifth lateral metatarsal. Patient is able to flex and extend all toes well. He is able to flex and extend the foot well. There is pain with eversion of the foot. No significant pain with inversion. Pulses are intact. Capillary refill is 8.Skin: Warm, Dry. No rashes or lesions. 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 Sensation grossly intact, no focal neurologic deficits. 10.Psych: (AAO) x3. Appropriate mood and affect Course Vital Signs Vital signs: Vital Signs Temperature 36.8 C 12/05/21 06:42 Pulse 69 12/05/21 06:42 Respiratory Rate 18 12/05/21 06:42 Blood Pressure 167/87 H 12/05/21 06:42 Pulse Oximetry 93 12/05/21 06:42 Temperature 36.8 C 12/05/21 06:42 Temperature Source Skin 12/05/21 06:42 Pulse 69 12/05/21 06:42 Respiratory Rate 18 12/05/21 06:42 Blood Pressure 167/87 H 12/05/21 06:42 Blood Pressure Position Supine 12/05/21 06:42 Pulse Oximetry 93 12/05/21 06:42 Oxygen Delivery Method Room Air 12/05/21 06:42 Oxygen Flow Rate 0 12/05/21 06:42 Pain Level 2 12/05/21 06:42 Comment 12/05/21 06:42
--- NOTE | 2021-12-05 08:38 | DI.VRAD_ITS ---
PROCEDURE INFORMATION: Exam: XR Left Foot Exam date and time: 12/05/2021 7:00 AM Age: 71 years old Clinical indication: Pain; Foot; Left TECHNIQUE: Imaging protocol: Radiologic exam of the Left foot. Views: 3 or more views. COMPARISON: US LEFT EXTREMITY ULTRASOUND 07/13/2016 12:33 PM FINDINGS: Bones/joints: Degenerative changes in the 1st metatarsal-phalangeal joint. There is no evidence of acute fracture.There is no evidence of malalignment or dislocation. Soft tissues: Soft tissue swelling over the dorsum of the foot IMPRESSION: There is no evidence of acute fracture.There is no evidence of malalignment or dislocation. Dictated and Authenticated by: Soto Lacy MD. Ordering:VIRGINIA Belcher MD
== END 2021-12-05 07:42 | disposition home or self-care (01) ==
PROVIDERS: Emergency Provider Student in an Organized Health Care Education/Training Program; PCP Family Medicine
DX: S96.912A Strain of unspecified muscle and tendon at ankle and foot level, left foot, initial encounter (principal); I10 Essential (primary) hypertension; W19.XXXA Unspecified fall, initial encounter; Z87.891 Personal history of nicotine dependence; Z86.711 Personal history of pulmonary embolism; Z79.01 Long term (current) use of anticoagulants
CPT/HCPCS: 73630

== ENCOUNTER 2022-01-15 07:22 | Day surgery (SDC) | payer OTHER, SELFPAY ==
--- NOTE | 2022-01-14 14:04 | PDOC.DSDIS_ITS ---
Discharge Plan Disposition Patient Disposition: HOME Condition: Good Discharge Details Reason For Visit: Colonoscopy Attending Provider: Sabiha Maher Primary Care Provider: Pool Hercules Home Meds and New Rx's Prescriptions: Continued enalapril maleate 20 mg tablet 20 mg PO DAILY Qty: 90 3RF finasteride 5 mg tablet 5 mg PO DAILY Qty: 90 4RF enoxaparin [Lovenox] 80 mg/0.8 mL syringe 80 mg subcut Q12H Qty: 8 0RF cholecalciferol (vitamin D3) 1,000 unit capsule 1,000 unit PO DAILY Eliquis 5 mg tablet 5 mg PO BID Qty: 180 3RF Discontinued bisacodyl [Dulcolax (bisacodyl)] 5 mg tablet,delayed release (DR/EC) 5 mg PO ONCE Qty: 4 0RF Rx Instructions: Take according to provider's instructions for colonoscopy prep. polyethylene glycol 3350 17 gram/dose powder 17 g PO ONCE Qty: 238 0RF Rx Instructions: To be taken as directed by prescriber's office for colonoscopy prep. Discharge Instructions Additional Instructions: DSU Colonoscopy Post- Op Instructions Instructions for Everyone who is given Anesthesia: For your safety, please do the following for the next twenty-four (24) hours: *Do Not operate a motor vehicle (car, truck, motorcycle, etc.) *Do Not drink alcoholic beverages or use any recreational drugs for the first 24 hours or while taking pain medications. The medications in your body may have a reaction that can be dangerous. *Do Not make any important decisions or sign any important papers. Findings: Very small polyp of the colon. Moderate diverticular disease of the sigmoid colon. Make sure you are moving your bowels on a regular basis and not straining to go to the bathroom. Consider adding in a fiber supplement daily such as Metamucil or Citrucel Follow up: My office will send a letter in 2 to 3 weeks time with the results of the polyp. At this point I would not recommend any further screening colonoscopies Blood thinners: Resume Lovenox at 12 PM tonight. Continue Lovenox twice a day on Tuesday and Tuesday. He can stop this medication on Tuesday. Resume apixaban Tuesday morning, your usual dose. 1. No lifting over 20 pounds or strenuous activity for the first 24 hours after your procedure. After 24 hours there are no restrictions on your activity but you may feel fatigued for a few days. 2. After you arrive home you may have a light meal and return to your normal diet as you can tolerate it without feeling sick to your stomach. 3. You may have a bloated, gaseous feeling in your belly (abdomen) after a colonoscopy. Passing gas and belching will help. Walking or lying down on your left side with your knees flexed may relieve the discomfort. Call the office at [phone] (Office) or [phone] (Hospital) right away if you notice any of the following: a.Vomiting of blood or ?coffee ground stools?. b.Rectal bleeding 1Tbsp, blood clots or continuous bleeding. c.Severe belly (abdominal) pain. d.A hard distended belly (abdomen) and an inability to pass gas. 4. Please don?t expect to have a normal BM (bowel movement) for 2-3 days after your procedure. 5. If there are questions regarding the findings of your procedure, please contact your doctor 6. If you are unable to contact your doctor with a problem, contact the hospital at [phone]. 7. Continue all your regular medications unless directed otherwise. I understand the above instructions and have no questions. Signature of Patient or Adult Escort Name of Responsible Adult Escort Signature of Nurse Date/Time Activity:: See above Diet:: See above Discharge Orders Discharge Orders: Discharge Order (Routine); Ordered 01/14/22 Ordered By: Sabiha Maher
--- NOTE | 2022-01-14 14:10 | W.COLOREPORT ---
Colonoscopy Report Date of procedure: 01/15/22 Pre-op diagnosis general: Adenomatous polyps Post-op diagnosis procedure note: other (Small polyp at 10 cm/moderate diverticular disease of the sigmoid colon) Surgeon: Sabiha Maher Anesthesia Type: General:No Airway Estimated blood loss (mL): 1 Pathology: other Complications: None Disposition: same day Prep: Miralax/Dulcolax Retraction Time: 8 Procedure Description: After informed consent was obtained the patient was taken to the procedure room and placed in a left decubitous position. Monitors were applied and a time out was done. The patients name, date of , procedure, allergies to medications and metal in their body was reviewed. The patient was then sedated. Once sedated and comfortable a rectal exam was done. External exam was normal. Internal exam revealed a normal sphincter tone and no palpable masses. The scope was then introduced and retrofelexed. No internal hemorrhoids were identified. The scope was then advanced to the cecum without difficulty. The TI and appendiceal orifice were identified. The prep was BB PS 3 in all segments for a total of 9. The scope was then slowly retracted over 8 minutes back into the rectum. He had x1 flat 5 mm polyp at 10 cm/high rectum. This is removed with a cold biting forceps. All specimen is retrieved and no bleeding is noted. He does have moderate diverticula of the sigmoid colon. There is no active bleeding or infection. The mucosa is pink and healthy with a normal vascular pattern.. The scope was removed and the patient was woken up and taken back to Same day surgery in stable condition. The patient tolerated the procedure well and there were no immediate complications. Follow up: The patient does not require any further routine screening colonoscopies, unless they develop changes in bowel habits or other new gastrointestinal complaints.
[2022-01-15 07:25] VITALS: BP 147/101; PULSE 55; RESP 18; TEMP 36.5; O2SAT 93
--- NOTE | 2022-01-15 07:50 | ANES.PREOP_ITS ---
General Info Date of Service Date Performed: 01/15/22 Height: 5 ft 7 in Weight: 98.1 kg Body Mass Index (BMI): 33.8 Surgical Procedure: Operation Date: 01/15/22 08:20 Proposed Procedure Side Surgeon stacey Maher, DO Meds Allergies and Home Medications Allergies Allergy/AdvReac Type Severity Reaction Status Date / Time No Known Allergies Allergy Verified 01/15/22 07:38 Home Medication Medication Instructions Recorded cholecalciferol (vitamin D3) 25 1,000 unit PO DAILY 01/30/19 mcg (1,000 unit) capsule apixaban 5 mg tablet (Eliquis) 5 mg PO BID #180 tab-caps 01/20/21 enalapril maleate 20 mg tablet 20 mg PO DAILY #90 tabs 01/27/21 finasteride 5 mg tablet 5 mg PO DAILY #90 tab-caps 01/27/21 enoxaparin 80 mg/0.8 mL 80 mg (0.8 mL) subcut Q12H #8 mL 12/31/21 subcutaneous syringe (Lovenox) Current Visit Medications: Current Medications Generic Name Dose Route Start Last Admin Trade Name Freq PRN Reason Stop Dose Admin Hyoscyamine Sulfate 0.125 mg 01/15/22 07:01 Hyoscyamine 0.125 Mg Sl/Oral/Chew SL DIRECTED PRN Ringer's Solution 1,000 mls @ 80 mls/hr 01/15/22 06:00 IV 01/15/22 23:59 INFUSION SHAHRIAR IV Miscellaneous Supplies 1 each 01/15/22 06:00 Iv Access IV 01/15/22 23:59 DIRECTED [facility] [place] Ondansetron HCl 4 mg 01/15/22 07:01 Ondansetron 4 Mg/2 Ml Vial IVP Q4H PRN PRN Nausea / Vomiting Sodium Chloride 0 ml 01/15/22 06:00 Normal Saline Flush 10 Ml Syr IV 01/15/22 23:59 PRN PRN Sodium Chloride 0 ml 01/15/22 06:00 Normal Saline 10 Ml Vial IJ 01/15/22 23:59 DIRECTED PRN Sterile Water 0 ml 01/15/22 06:00 Water,Injection,Sterile 10 Ml Vial IJ 01/15/22 23:59 DIRECTED PRN PFSH Active Problems Active Problems: Problem Status Onset Code Skin lesions, generalized L98.9 Insomnia G47.00 Malignant neoplasm of skin 02/24/99 C44.90 Hyperlipidemia 05/29/12 E78.5 Abdominal pain R10.9 PUD (peptic ulcer disease) K27.9 Pacemaker Z95.0 Neoplasm of unspecified behavior of bone, soft tissue, and skin D49.2 Parotid mass K11.8 Shoulder pain, left M25.512 Cataract 08/27/13 H26.9 Umbilical hernia K42.9 Vitamin D deficiency 09/15/15 E55.9 Tubular adenoma 05/19/16 D36.9 Tinnitus H93.19 Thyroid nodule 09/09/14 E04.1 Raised prostate specific antigen R97.20 Polyp of colon 05/25/10 K63.5 Obesity E66.9 History of tobacco use Z87.891 Hearing loss H91.90 Fracture of medial malleolus, right, closed 03/27/17 S82.51XA Contact dermatitis L25.9 Carpal tunnel syndrome G56.00 Pulmonary embolus 05/03/14 I26.99 Hypertension I10 Low back pain M54.5 Benign prostatic hypertrophy N40.0 Myotonic dystrophy G71.11 H/O carpal tunnel syndrome Z86.69 History of colonic polyps Z86.010 Rosacea L71.9 mild hearing loss H/O surgical procedure Z98.89 Medical History Medical History Acute cholecystitis BPH (benign prostatic hyperplasia) HTN (hypertension) PE (pulmonary thromboembolism) Medical History Comments:: Pacemaker in situ last interrogated summer 2021 Surgical History Surgical History Colonoscopy - MAC (05/19/16) Extraction of cataract Repair of umbilical hernia (~1994) S/P cholecystectomy (~07/10/19) [facility] [place] Tobacco Smoking/Tobacco Use Status: Former Tobacco Use Passive smoking exposure: Yes Alcohol Alcohol Intake: never Substance Use Substance use: Never Substance use type: does not use Vital Signs and Lab Results Vital Signs Most Recent Vital Signs in EMR: Most Recent Vital Signs Temp Pulse Resp BP Pulse Ox 36.5 C 55 L 18 147/101 H 93 01/15/22 07:25 01/15/22 07:25 01/15/22 07:25 01/15/22 07:25 01/15/22 07:25 Lab Results Blood Type / Crossmatch: No Data to Display Complete Blood Count: No Data to Display Complete Metabolic Panel: No Data to Display Liver Function Panel: No Data to Display Coagulation Panel: No Data to Display Cardiac Panel: No Data to Display Arterial Blood Gas: No Data to Display Venous Blood Gas: No Data to Display Pancreas Panel: No Data to Display Thyroid Panel: No Data to Display Infectious Disease: No Data to Display Blood Cultures: No Data to Display Toxicology Panel: No Data to Display Anesthesia Assessment and Plan Anesthesia History Personal History: No History of Anesthesia Complications Family History: No Family History of Anesthesia Complications Exercise Tolerance Exercise Tolerance: Metabolic Equivalents<4 Pertinent Negatives Pertinent Negatives: No Symptoms of GERD Cardiac & Pulmonary Exam Cardiac Exam: Normal S1/S2 Heart Sounds Pulmonary Exam: Clear Bilateral Breath Sounds Implantable Cardiac Device Does patient have a Pacemaker or an ICD?: Yes Device Bias Machine Operator:: [employer] Dual-chamber Reason for Placement:: AVB Date of Last Device Interrogation:: 08/31/21 Airway Exam Known Difficult Airway: No Mallampati Class: 3 Mouth Opening: Normal (> 3cm) Thyromental Distance: Greater than 3 cm Neck Range of Motion: Full ROM Neck Circumference: Normal Teeth Condition: Normal Dentition ASA Classification ASA Score: ASA 3 Emergency Case?: No NPO Status NPO Status: NPO Clears >2 hours, Solids >8 hours Anesthesia Plan Resuscitation Status: Full Code Anesthesia Technique: General Anesthesia Airway Planned: Natural Airway Monitors Used: Standard Monitors
[2022-01-15] MEDS: Lactated Ringers 1,000 ML 80 ML IV (07:52)
[2022-01-15 08:16] VITALS: BMI 33.8
--- NOTE | 2022-01-15 08:44 | BOWEL_PTH ---
PATIENT: Rivas Carlos LOC: [facility] U#:[id number] AGE/SX: 71/M ROOM: RE01/15/[address]: Sabiha Maher : 1950 BED: DIS: 01/15/2022 SPEC #: [id number] RECD: 01/15/22 12:44 STATUS: SHEILA REQ #: [id number] NARGIS: 01/15/22 08:[address]: Sabiha Maher DEPT: Surgical Specimen RECD BY: Kiesha Mcdowell ENTERED: 01/15/22 12:45 SP TYPE: Bowel OTHR DR: Pool Hercules MD Tissues: 1 - BIOPSY BOWEL Procedures: GROSS AND MICRO LEVEL 4 Comments: [id number]
[2022-01-15 08:55] VITALS: BP 147/83; PULSE 69; RESP 18; TEMP 36.5; O2SAT 92
--- NOTE | 2022-01-15 09:10 | W.ANESPOSTOP ---
Postoperative Evaluation Date, Time and Location Date Performed: 01/15/22 Time Performed: 09:11 Patient Location: Day Surgery Unit Vital Signs Most Recent Imported Vital Signs: Most Recent Vital Signs Temp Pulse Resp BP Pulse Ox 36.5 C 69 18 147/83 H 92 01/15/22 08:55 01/15/22 08:55 01/15/22 08:55 01/15/22 08:55 01/15/22 08:55 Pain Score Most Recent Pain Score: Most Recent Pain Score Pain Level 0 01/15/22 08:55 Assessment Mental Status: Awake (Alert & Oriented to Patient Baseline) Airway and Respiratory Function: Patent airway with normal (patient baseline) respiratory exam Cardiovascular Function: Hemodynamically Stable Hydration Status: Adequately Hydrated Nausea & Vomiting: No Nausea or Vomiting Pain: Pt. Denies Any Pain Peripheral Nerve Block: Patient did not receive a nerve block
[2022-01-15 09:17] VITALS: BP 140/90; PULSE 69; RESP 18; TEMP 36.3; O2SAT 93
--- NOTE | 2022-01-28 12:17 | W.COLOREPORT ---
Colonoscopy Report Pre-op diagnosis general: CRC screen Post-op diagnosis procedure note: other Procedure: Colonoscopy [] Surgeon: aSbiha Maher Anesthesia Type: General:No Airway Pathology: other Complications: None Disposition: same day Prep: Miralax/Dulcolax Procedure Description: After informed consent was obtained the patient was taken to the procedure room and placed in a left decubitous position. Monitors were applied and a time out was done. The patients name, date of , procedure, allergies to medications and metal in their body was reviewed. The patient was then sedated. Once sedated and comfortable a rectal exam was done. External exam was normal. Internal exam revealed a normal sphincter tone and no palpable masses. The prostate []. The scope was then introduced and retrofelexed. [] internal hemorrhoids were identified. The scope was then advanced to the cecum [] difficulty. The TI and appendiceal orifice were identified. The prep was []. The scope was then slowly retracted over [] minutes back into the rectum. Polyps were removed at []. The scope was removed and the patient was woken up and taken back to Same day surgery in stable condition. The patient tolerated the procedure well and there were no immediate complications. Follow up: The patient should follow up in [] years unless they develop changes in bowel habits or other new gastrointestinal complaints.
== END 2022-01-15 09:30 | disposition home or self-care (01) ==
PROVIDERS: PCP Family Medicine; Visit Provider Surgery
PROC: 0DJD8ZZ Inspection of Lower Intestinal Tract, Via Natural or Artificial Opening Endoscopic (ICD-10-PCS; CPT 45378; principal; 2022-01-15 08:15)
DX: Z12.11 Encounter for screening for malignant neoplasm of colon (principal); K62.1 Rectal polyp; K57.30 Diverticulosis of large intestine without perforation or abscess without bleeding
CPT/HCPCS: 45380; 88305

== ENCOUNTER → 2022-02-12 11:34 | Outpatient (CLI) | payer OTHER, SELFPAY ==
--- NOTE | 2022-02-12 14:43 | DI.RAD_ITS ---
Exam(s) XR CHEST 2V PA LATERAL EXAM: XR CHEST 2V PA LATERAL CLINICAL HISTORY: left chest pain below pacemaker, chronic cough, R05.3. TECHNIQUE: 2D digital imaging was performed. COMPARISON: CR,XR XR CHEST 2V PA LATERAL from 07/10/2019 FINDINGS: 2 views: Bipolar left subclavian pacemaker again noted with lead tips in RA and RV, unchanged. Heart size is normal. The mediastinum is not widened. There is platelike atelectasis in the lingular segment of the left lung now evident. It is also in t he right lung base. No pleural effusions. No pulmonary edema. No pneumothorax. IMPRESSION: Platelike atelectasis bilaterally as described above. No confluent infiltrates nor pleural effusions and there is no pulmonary edema in this patient has a pacemaker. DATA REPOSITORY: RADIATION DOSE DELIVERED:
== END ==
PROVIDERS: PCP Family Medicine; Visit Provider Family Medicine
DX: R05.3 Chronic cough (principal); J98.11 Atelectasis
CPT/HCPCS: 71046

== ENCOUNTER 2022-03-02 03:29 | Outpatient (CLI) | payer OTHER, SELFPAY ==
[2022-03-02 12:38] LABS: HGB 16.9 g/dL (13.5-17.5); MCH 30.1 pg (27.0-33.0); MCHC 31.9 % (32.0-36.0); MCV 95 fL (80-95); MPV 11.6 fL (8.0-11.0); Platelet Count 193 10^3/uL (130-400); RBC 5.61 10^6/uL (4.36-5.78); RDW-SD 45.2 fL; WBC 5.71 10^3/uL (4.4-10.8)
[2022-03-02 12:44] LABS: CREATININE 0.8 mg/dL (0.70-1.30); Estimated GFR 93.45 (mL/min/1.73m2); Potassium 4.2 mmol/L (3.5-5.1)
== END 2022-03-02 03:30 | disposition home or self-care (01) ==
LOC: LOS 03:29
PROVIDERS: PCP Family Medicine; Visit Provider Family Medicine
DX: I10 Essential (primary) hypertension (principal); R53.83 Other fatigue
CPT/HCPCS: 36415; 85027; 82565; 84132

== ENCOUNTER 2022-09-30 04:26 | Emergency (ER) | payer OTHER, SELFPAY ==
--- NOTE | 2022-09-30 04:30 | DI.RAD_ITS ---
Exam(s) XR ANKLE RT COMPLETE EXAM: XR ANKLE RT COMPLETE CLINICAL HISTORY: Right ankle pain status post fall. TECHNIQUE: 2D digital imaging was performed. Three views. COMPARISON: CR RIGHT ANKLE 2 VIEW from 04/05/2017 CR RIGHT ANKLE COMPLETE from 06/08/2017 FINDINGS: BONES: No acute fracture is present. Minimal deformities related to old bimalleolar fracture. No atif ny destructive lesion is seen. Heel spurs. JOINTS: The ankle mortise is normally aligned. SOFT TISSUE: Swelling IMPRESSION: No acute abnormality. DATA REPOSITORY: RADIATION DOSE DELIVERED:
[2022-09-30 04:31] VITALS: BP 129/68; PULSE 70; RESP 22; TEMP 36.8; O2SAT 95
--- NOTE | 2022-09-30 04:31 | ED.GENADUL_ITS ---
Discharge Plan Disposition Patient Disposition: Home Discharge Details Clinical Impression: Acute right ankle pain Primary Care Provider: [facility] ED Provider: Shai Jade Home Meds and New Rx's Prescriptions: Continued oxycodone 5 mg tablet 5 mg PO QHS MDD 1 tab PRN (Reason: Severe Pain) Qty: 7 0RF cholecalciferol (vitamin D3) 1,000 unit capsule 1,000 unit PO DAILY finasteride 5 mg tablet 5 mg PO DAILY Qty: 30 0RF Rx Instructions: emergency supply enalapril maleate 20 mg tablet 20 mg PO DAILY Qty: 90 3RF Rx Instructions: emergency supply Eliquis 5 mg tablet 5 mg PO BID Qty: 180 3RF Rx Instructions: emergency supply amoxicillin 500 mg capsule 500 mg PO TID Patient Comments: take 1 capsule by mouth three times a day until finished Discharge Instructions Additional Instructions: Please read all of the information that accompanies these instructions. You were seen in the emergency department for your ankle pain. Your x-ray showed no sign of any fractures. You may bear weight on your right lower extremity. Please wear this lace up ankle brace as needed for discomfort. Please schedule an appointment with your primary care provider later this week. Please return to the emergency department if your pain worsens. For your pain please take medications as follows: 1. Take acetaminophen (Tylenol), 1,000 mg (two 500 mg tabs) every 6 hours. Medical Decision Making This is an overall very well appearing normothermic and not tachycardic 72-year-old male with remote prior right ankle fracture reported now with recurrent right ankle pain concerning for fracture versus sprain. Patient has no calf tenderness to suggest DVT and no changes of phlegmasia. Right foot warm well perfused so I am not concerned for acute vascular insults. No pain out of proportion to suggest necrotizing soft tissue infection. No preceding chest pain to suggest ACS. No preceding shortness of breath to suggest pulmonary embolism. No headache to suggest subarachnoid hemorrhage. No proximal tibial tenderness to suggest Maisonneuve injury. No foot tenderness to suggest foot fracture. No history of knee dislocation so I do not feel the patient requires a CT angiogram of his lower extremity to assess for popliteal arterial injury. 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 He declines analgesia at this point time. Will reassess following plain films. No history of head strike this and no indication to apply Palauan CT head criteria. No neck pain to suggest benefit from CT cervical spine. 6:08 AM Plain films negative for any acute osseous abnormalities. Patient does have diffuse osteopenia. I offered him crutches. He declined as he said that he has a wheelchair at home. I offered him a walking boot which he also declined. I provided him with a lace up ankle brace and treated him with single dose of oxycodone in the ED in addition to acetaminophen. He will be discharged on acetaminophen. He has return indications including any numbness or tingling in his right lower extremity. HPI General Date/Time Provider Initiated Documentation: 09/30/22 04:31 . HPI Narrative: This is a 72-year-old male with a history of myotonic dystrophy and remote prior reported right ankle fracture arrived to the emergency department via private vehicle in the setting of right ankle pain. Patient was on his way back from the bathroom. He lost his balance and fell. He did not strike his head. He is not having any neck pain. No preceding loss of consciousness nor fevers. He does not feel short of breath. He was in his usual state of health prior to his fall. Denies chest pain abdominal pain and shortness of breath at the moment. Related Data Home Medications Medication Instructions Recorded Confirmed cholecalciferol (vitamin D3) 25 1,000 unit PO DAILY 01/30/19 09/30/22 mcg (1,000 unit) capsule finasteride 5 mg tablet 5 mg PO DAILY #30 tab-caps 03/02/22 09/30/22 apixaban 5 mg tablet (Eliquis) 5 mg PO BID #180 tab-caps 06/15/22 09/30/22 enalapril maleate 20 mg tablet 20 mg PO DAILY #90 tabs 06/15/22 09/30/22 oxycodone 5 mg tablet 5 mg PO QHS PRN Severe Pain #7 tabs 08/31/22 09/30/22 amoxicillin 500 mg capsule 500 mg PO TID 09/30/22 09/30/22 Previous Rx's Medication Instructions Recorded finasteride 5 mg tablet 5 mg PO DAILY #30 tab-caps 03/02/22 apixaban 5 mg tablet (Eliquis) 5 mg PO BID #180 tab-caps 06/15/22 enalapril maleate 20 mg tablet 20 mg PO DAILY #90 tabs 06/15/22 oxycodone 5 mg tablet 5 mg PO QHS PRN Severe Pain #7 tabs 08/31/22 Allergies Allergy/AdvReac Type Severity Reaction Status Date / Time No Known Allergies Allergy Verified 08/31/22 14:24 General MARY: 4 PFSH All Active Problems Acute right ankle pain (Acute) Hypercalcemia (Acute) Non-cardiac chest pain (Acute) Chronic cough (Acute) Benign colon polyp (Acute ~01/15/22) Skin lesions, generalized (Acute) Insomnia (Acute) 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 Hyperlipidemia (Chronic 05/29/12) Abdominal pain (Acute) PUD (peptic ulcer disease) (Chronic) Pacemaker (Acute) [facility] 01/06/18; [employer] ICD PLACEMENT; BIOTRONIC Neoplasm of unspecified behavior of bone, soft tissue, and skin (Acute) Parotid mass (Acute) 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 BX Polyp of colon (Acute 05/25/10) 05/25/10; Tubular adenoma and hyperplastic 05/14/13; 4 polyps 05/19/16: tubular adenomas Obesity (Acute) History of tobacco use (Acute) Hearing loss (Acute) Fracture of medial malleolus, right, closed (Acute 03/27/17) Contact dermatitis (Acute) seborrhea Carpal tunnel syndrome (Acute) right Pulmonary embolus (Acute 05/03/14) Hypertension (Chronic) Low back pain (Chronic) Benign prostatic hypertrophy (Chronic) Myotonic dystrophy (Chronic) H/O carpal tunnel syndrome (Chronic) History of colonic polyps (Chronic) Rosacea (Chronic) mild hearing loss (Chronic) H/O surgical procedure (Chronic) a. right inguinal hernia repair b. umbilical hernia repair 1994 c. colonoscopy last done at [facility] 04/2013 showed tubular adenomatous polyp per report Medical History Acute cholecystitis BPH (benign prostatic hyperplasia) HTN (hypertension) PE (pulmonary thromboembolism) Surgical History Colonoscopy - [facility] [place] (01/15/22) 2017 Extraction of cataract Repair of umbilical hernia (~1994) S/P cholecystectomy (~07/10/19) [facility] [place] Family History Mother Diabetes Essential hypertension Personal history of malignant neoplasm BREAST/UTERINE Aortic valve stenosis Heart disease Hyperlipidemia Father Essential hypertension Personal history of malignant neoplasm COLON Heart disease Hyperlipidemia Stroke Brother Essential hypertension Heart disease Hyperlipidemia Brother Essential hypertension Hyperlipidemia Grandfather No problems noted. Grandfather No problems noted. Grandmother Diabetes Personal history of malignant neoplasm PANCREATIC Grandmother Essential hypertension Hyperlipidemia Stroke PATERNAL HISTORY Personal history of malignant neoplasm Depression Heart disease Myotonic dystrophy Sister Essential hypertension Personal history of malignant neoplasm BREAST Heart disease Hyperlipidemia Son Essential hypertension Hyperlipidemia Daughter No problems noted. Daughter Essential hypertension Depression Hyperlipidemia Daughter No problems noted. Daughter No problems noted. Other Cataract Social History Smoking/Tobacco Use Status: Former Tobacco Use Quit Date: 03/28/98 Smoking risk assessment performed?: Yes Alcohol Intake: never Drug use: Never Substance use type: does not use Housing: house Do you feel safe at home: Yes Do you feel safe in your relationship?: Yes Exam Narrative Exam Narrative: General: Well-appearing in no acute distress speaking in complete sentences. Head: Normocephalic, atraumatic. Eye: Extraocular eye movements intact. No conjunctival injection. No scleral icterus. Ear, nose, mouth, throat: Grossly normal inspection. Normal voice, handling secretions normally. Neck: Trachea midline. Cardiovascular: Well-perfused distal extremities. Respiratory: Nonlabored respiration. Gastrointestinal: Nondistended abdomen. Musculoskeletal: Right lower extremity with mild swelling over lateral malleolus. Right foot warm well perfused. 2+ PT and DP pulses on the right. Cap refill less than 2 seconds in the right toes. Patient has limited ability to dorsi and plantarflex his right foot with only 3 out of 5 strength limited secondarily to pain. No proximal tibial tenderness. No knee tenderness. Range of motion intact of the knee. Sensation intact in the dorsal webspace between t he great and second toes on the right. Skin: Normal for age and race, grossly normal temperature and turgor. No acute rash. Neurologic: Alert and appropriate, no apparent acute deficits. Psychiatric: Mood and manner are appropriate. Grooming and personal hygiene are appropriate.
--- NOTE | 2022-09-30 06:05 | DI.VRAD_ITS ---
PROCEDURE INFORMATION: Exam: XR Right Ankle Exam date and time: 09/30/2022 5:35 AM Age: 72 years old Clinical indication: Pain and injury or trauma; Fall; Blunt trauma; Ankle; Right; Additional info: Right ankle pain status post fall TECHNIQUE: Imaging protocol: Radiologic exam of the right ankle. Views: 3 or more views. COMPARISON: CR RIGHT ANKLE COMPLETE 06/08/2017 11:07 AM FINDINGS: Bones/joints: There is diffuse osteopenia. No acute fracture or dislocation is seen. The ankle mortise appears intact. There is a large spur arising from the posterior calcaneus at the Achilles insertion. There is a small bone spur along the inferior margin of the calcaneus at the origin of the plantar fascia. Soft tissues: There appears to be mild soft tissue swelling. IMPRESSION: Diffuse osteopenia. No acute fracture or dislocation seen at the right ankle. Dictated and Authenticated by: Ryan Schmidt MD. Ordering:MICHELLE Gibbons MD
[2022-09-30] MEDS: Acetaminophen 500 MG TAB 1000 MG PO (06:20)
[2022-09-30] MEDS: oxyCODONE 5 MG TAB PO (06:20)
[2022-09-30 06:30] VITALS: BP 120/70; PULSE 70; RESP 21; TEMP 36.8; O2SAT 95
== END 2022-09-30 06:37 | disposition home or self-care (01) ==
PROVIDERS: Emergency Provider Emergency Medicine; PCP Family Medicine
DX: S99.811A Other specified injuries of right ankle, initial encounter (principal); G71.00 Muscular dystrophy, unspecified; I10 Essential (primary) hypertension; Z95.810 Presence of automatic (implantable) cardiac defibrillator; Z86.718 Personal history of other venous thrombosis and embolism; Z79.01 Long term (current) use of anticoagulants; Z79.891 Long term (current) use of opiate analgesic; W18.39XA Other fall on same level, initial encounter; Y93.01 Activity, walking, marching and hiking; Y92.018 Other place in single-family (private) house as the place of occurrence of the external cause; Y99.9 Unspecified external cause status
CPT/HCPCS: 99283; 73610

== ENCOUNTER 2022-10-25 02:47 | Outpatient (CLI) | payer OTHER, SELFPAY ==
[2022-10-25 13:04] LABS: TSH (W/Ref FT4) 0.42 uIU/mL (0.36-3.74)
[2022-10-25 13:16] LABS: Vitamin D 25 Total 45.4 ng/mL (30-100)
[2022-10-26 09:17] LABS: Parathyroid Hormone,Intact 95 pg/mL (19-88)
== END 2022-10-25 02:48 | disposition home or self-care (01) ==
LOC: LOS 02:47
PROVIDERS: PCP Family Medicine; Visit Provider Family Medicine
DX: G40.909 Epilepsy, unspecified, not intractable, without status epilepticus (principal); E03.9 Hypothyroidism, unspecified; E83.52 Hypercalcemia
CPT/HCPCS: 36415; 82306; 83970; 84443

== ENCOUNTER 2022-11-09 03:45 | Outpatient (CLI) | payer OTHER, SELFPAY ==
[2022-11-09] MEDS: Inhaler, Assist Device 1 EACH MC (09:18)
[2022-11-09] MEDS: Albuterol HFA 18 GM 200 PUFF INH IH (09:18)
--- NOTE | 2022-11-11 07:11 | W.PFT ---
Date of service: 11/09/22 Time of Service: 07:47 Pulmonary Function Test Result Indications: Dyspnea, myotonic dystrophy Interpretation Spirometry: There is no airflow limitation. There is no bronchodilator response. There is restrictive appearing spirometry. MIP and MEP are decreased. Lung Volumes: There is moderate restrictive lung disease Diffusion Capacity: Reduced diffusion Airway Pressure: Normal airways resistance Impression Moderate restrictive lung disease with decreased diffusion and muscle pressures. Clinical Correlation therefore is recommended.
== END 2022-11-09 03:46 | disposition home or self-care (01) ==
LOC: RT 03:45
PROVIDERS: PCP Family Medicine; Visit Provider Student in an Organized Health Care Education/Training Program
DX: G71.11 Myotonic muscular dystrophy (principal); R06.00 Dyspnea, unspecified
CPT/HCPCS: 94060; 94726; 94729

== ENCOUNTER 2023-03-02 08:50 | Outpatient (CLI) | payer OTHER, SELFPAY ==
[2023-03-02 12:49] LABS: HCT 51.2 % (40.0-50.0); HGB 16.5 g/dL (13.5-17.5); MCH 30.2 pg (27.0-33.0); MCHC 32.2 % (32.0-36.0); MCV 94 fL (80-95); MPV 11.5 fL (8.0-11.0); Platelet Count 209 10^3/uL (130-400); RBC 5.47 10^6/uL (4.36-5.78); RDW 12.7 % (11.8-14.1); RDW-SD 43.8 fL; WBC 5.61 10^3/uL (4.4-10.8)
[2023-03-02 13:04] LABS: Calculated LDL 85 mg/dL (<100); Cholesterol 167 mg/dL (<200); Estimated GFR 78.98 (mL/min/1.73m2); HDL Cholesterol 72 mg/dL (40-60); Potassium 4.4 mmol/L (3.5-5.1); Triglyceride 54 mg/dL (<150)
== END 2023-03-02 08:51 | disposition home or self-care (01) ==
LOC: LOS 08:50
PROVIDERS: PCP Family Medicine; Visit Provider Family Medicine
DX: I10 Essential (primary) hypertension (principal); R53.83 Other fatigue; E78.5 Hyperlipidemia, unspecified
CPT/HCPCS: 36415; 80061; 85027; 82565; 84132

== ENCOUNTER 2023-09-01 09:14 | Outpatient (CLI) | payer OTHER, SELFPAY ==
[2023-09-01 10:55] LABS: HCT 47.8 % (40.0-50.0); HGB 14.9 g/dL (13.5-17.5); MCHC 31.2 % (32.0-36.0); MCV 96 fL (80-95); MPV 11.2 fL (8.0-11.0); Platelet Count 178 10^3/uL (130-400); RBC 4.97 10^6/uL (4.36-5.78); RDW 13.1 % (11.8-14.1); RDW-SD 47.1 fL; WBC 5.07 10^3/uL (4.4-10.8)
[2023-09-01 11:37] LABS: ALT 19 U/L (16-63); AST 14 U/L (15-37); Albumin 3.5 g/dL (3.4-5.0); Alkaline Phosphatase 88 U/L (46-116); Anion Gap 7.1 mmol/L (3-11); BUN 10 mg/dL (7-18); Bilirubin, Total 0.7 mg/dL (0.2-1.0); CO2 30.9 mmol/L (21.0-32.0); CREATININE 0.7 mg/dL (0.70-1.30); Calcium 9.8 mg/dL (8.5-10.1); Chloride 109 mmol/L (98-107); Estimated GFR 96.09 (mL/min/1.73m2); Glucose 103 mg/dL (74-106); Potassium 4.3 mmol/L (3.5-5.1); Sodium 147 mmol/L (136-145); Total Protein 6.6 g/dL (6.4-8.2); Vitamin B12 1167 pg/mL (193-986); Vitamin D 25 Total 42.7 ng/mL (30-100)
== END 2023-09-01 09:15 | disposition home or self-care (01) ==
LOC: LOS 09:15
PROVIDERS: PCP Family Medicine; Referring Provider Family Medicine; Visit Provider Family Medicine
DX: R10.9 Unspecified abdominal pain (principal); G40.909 Epilepsy, unspecified, not intractable, without status epilepticus; R53.83 Other fatigue; D64.9 Anemia, unspecified
CPT/HCPCS: 36415; 80053; 82306; 85027; 82607

== ENCOUNTER → 2023-09-06 03:30 | Outpatient (CLI) | payer OTHER, SELFPAY ==
--- NOTE | 2023-09-06 06:30 | DI.RAD_ITS ---
Exam(s) XR HIP PELVIS ADULT BL EXAM: XR HIP PELVIS ADULT BL CLINICAL HISTORY: bilat hip pain, m25.551,m25.552. TECHNIQUE: 2D digital imaging was performed of the pelvis and bilateral hips. Three images were obt ained. AP pelvis and lateral views of both hips were obtained. COMPARISON: CT CT ABDOMEN PELVIS CTA from 07/10/2019 FINDINGS: BONES: No acute fracture is present. No bony destructive lesion is seen. JOINTS: No dislocation present. In the left hip there is mild joint space narrowing. There is promin ent osteophyte at the superior acetabulum. In the right hip, there is mild narrowing of the joint sp jazmine. The hip findings appears stable compared to the CT scan from 07/10/2019. The sacroiliac joints and symphysis pubis are unremarkable. SOFT TISSUE: Suture material is seen in the pelvis. Atherosclerotic calcification is present. IMPRESSION: Degenerative changes of the hips bilaterally. DATA REPOSITORY: RADIATION DOSE DELIVERED:
--- NOTE | 2023-09-06 09:44 | DI.RAD_ITS ---
Exam(s) XR LUMBAR SPINE COMPLETE EXAM: XR LUMBAR SPINE COMPLETE CLINICAL HISTORY: low back and left hip pain,m54.9. TECHNIQUE: 2D digital imaging was performed of the lumbar spine. Five images were obtained. AP, la teral, right oblique, left oblique and L5-S1 spot views were obtained. COMPARISON: CT CT ABDOMEN PELVIS CTA from 07/10/2019 FINDINGS: BONES: No fracture or destructive lesion. Endplate osteophytes are seen at multiple levels of the lum bar spine. Degenerative changes of the facets are seen at L5-S1. DISKS: There is disc space narrowing and a vacuum disc again seen at L4-L5. ALIGNMENT: Lumbar spinal alignment is within normal limits. No spondylolysis or spondylolisthesis. SOFT TISSUE: Atherosclerotic calcification is present. IMPRESSION: Stable degenerative changes seen in the lumbar spine. DATA REPOSITORY: RADIATION DOSE DELIVERED:
== END ==
PROVIDERS: PCP Family Medicine; Visit Provider Family Medicine
DX: M51.36 Other intervertebral disc degeneration, lumbar region; M16.0 Bilateral primary osteoarthritis of hip
CPT/HCPCS: 73521; 72110

== ENCOUNTER 2023-12-08 13:31 | Outpatient (CLI) | payer OTHER, SELFPAY ==
[2023-12-08] VITALS (7 sets, daily range): BP systolic 124–186; BP diastolic 73–109; PULSE 69–81; RESP 18–23; TEMP 36.9; O2SAT 91–94
--- NOTE | 2023-12-08 06:00 | DI.RAD_ITS ---
Exam(s) XR PAIN CLINIC LUMBAR SP 2V EXAM: XR PAIN CLINIC LUMBAR SP 2V CLINICAL HISTORY: DX: Lumbar Spondylosis. TECHNIQUE: Fluoroscopy was provided for the referring physician for guidance with performing pain cl inic injection procedure. COMPARISON: No exams were available for comparison FINDINGS: Please see procedure note for details. Fluoro time: 43 seconds RADIATION DOSE DELIVERED: radha Bailon=18.1 mGy
--- NOTE | 2023-12-08 14:35 | PDOC.PAIN ---
Date of service: 12/08/23 Time of Service: 14:35 Pain Managment Procedure Note Procedure Note Procedure Note: PROCEDURE NOTE Bilateral Lumbar Medial Branch Blocks Date of Service: December 08, 2023 Patient: Rivas Carlos Provider: Saman Rubin DO, MPH Rivas Carlos has been referred to the [facility] for lumbar medial branch blocks. Pre-operative diagnosis: Lumbar Spondylosis without Myelopathy Post-operative diagnosis: Same Pre-procedure pain: VAS= 6/10 COMMENTS: I previously evaluated him in the office. No change in his pain since then. Rivas? was interviewed and the medical records were reviewed. There were no medical, pharmacologic, radiographic or other structural contraindications to attempting fluoroscopically guided local anesthetic lumbar medial branch blocks. Risks and potential side effects were discussed. I also discussed the potential benefit(s) of the procedure with Rivas, and voiced concerns were addressed. After Rivas was completely informed about the procedure, the printed consent form was signed. A standard time-out procedure was performed. Rivas was placed in the prone position on the fluoroscopy table. Automated blood pressure cuff and pulse oximeter were applied. The skin entry points for approaching the anatomic target points of the segmental medial branches of bilateral L3,L4,L5 were identified with fluoroscopy and marked. The skin at the target site area was thoroughly prepared with Chlorhexadine. The skin was then draped. Next, a 25 gauge 3.5 spinal needle was placed under fluoroscopic guidance down on to the target point (the articular pillar) for each respective segmental medial branch. Position was confirmed in A/P and lateral views. Aspiration revealed no blood or clear fluid. Next, 0.25ml of omnipaque 240 was injected at each level. No contrast following a vascular or neural pattern was visualized under continuous fluoroscopy. Next, 0.25 ml of preservative-free 0.5% bupivicaine was injected at each level. There was no unusual discomfort expressed by Rivas. The needles were withdrawn without difficulty. (49 mls of Omnipaque was wasted) Rivas was observed and was without hemodynamic, neurologic, or allergic reactions.? Fluoroscopic images were digitally archived. Provacative testing using the Modified Vicente's facet loading test- Left side Right Side Directly before the block VAS (0-10) = 6/10 VAS (0-10) = 6/10 Five minutes after the block VAS (0-10) = 0/10 VAS (0-10) = 0/10 Percentage relief obtained with this diagnostic block 100% 100% Any improved physical functioning directly after the blocks? Able to move his back much better. Follow up plans and appointments were discussed with Rivas. Rivas was instructed to keep careful note of how the usual pain was modified by these injections. Specifically, to keep a pain diary for the next 4 hours using a numeric pain scale of 0-10 and report these results. Post procedure instruction was given as documented in the nursing documentation and having met discharge criteria, the patient was [facility] from the [facility]. Based on the medial branches blocked today, if they patient has adequate relief and we are able to proceed to radiofrequency ablation, the treatment should result in the denervation of the bilateral L4-L5 and L5-S1 facet joints. We would expect to denervate a total of 4 facets during the radiofrequency ablation. COMMENTS: No apparent complications. Post-procedure pain: VAS= 0/10 Rivas will call back with 0-4 hour post-procedure pain scores. I personally performed the entire procedure. SAMAN RUBIN DO, MPH ABPM&R-subspecialty board certification in Pain Medicine [facility] [facility]
[2023-12-08] MEDS: Bupivacaine 0.5% Pres-Free 10 ML VIAL IJ (14:43)
[2023-12-08] MEDS: Omnipaque 240 MG/ML 50 ML BTL IJ (14:43)
[2023-12-08] MEDS: Nerve Block Tray 1 EACH MC (14:44)
== END 2023-12-08 13:32 | disposition home or self-care (01) ==
LOC: PC 13:31
PROVIDERS: PCP Family Medicine; Visit Provider Preventive Medicine Occupational Medicine
DX: M47.816 Spondylosis without myelopathy or radiculopathy, lumbar region (principal)
CPT/HCPCS: 64493; 64494; 72100; J0665; Q9967

== ENCOUNTER 2023-12-20 18:43 | Observation (INO) | payer OTHER, SELFPAY ==
[2023-12-20] VITALS (13 sets, daily range): BP systolic 129–168; BP diastolic 79–83; PULSE 69–133; RESP 9–22; O2SAT 89–98
--- NOTE | 2023-12-20 19:00 | DI.CT_ITS ---
Exam(s) CT CHEST PE ABD PELVIS W EXAM: CT CHEST PE ABD PELVIS W CLINICAL HISTORY: chest pain, abdomen pain n/v, hx of PE. TECHNIQUE: Imaging Protocol: Axial CT angiography was performed with multi-slice acquisition and mu lti-planar and/or 3D reconstructions. CONTRAST MATERIAL: Intravenous: Omnipaque 350contrast volume:85 mL COMPARISON: CT CHEST FOR PULMONARY EMBOLUS from 07/08/2016 CT CHEST FOR PULMONARY EMBOLUS from 07/23/[address] ABDOMEN PELVIS CTA from 03/24/[address] ABDOMEN PELVIS CTA from 07/10/2019 FINDINGS: CHEST: Tracheobronchial tree: Patent where visualized. Pulmonary parenchyma: There is poor inspiration with infiltrate seen in the lungs bilaterally. These may represent areas of atelectasis, scarring or pneumonitis. Pulmonary Arteries: No evidence of filling defect to suggest pulmonary emboli. Mediastinum and Jonelle: No dominant adenopathy or fluid collection. The esophagus is unremarkable. Visualized thyroid gland: Unremarkable. Pleura: No effusion or pneumothorax. Heart: Heart is at the upper limits of normal in size. No coronary artery calcifications are seen. N o pericardial effusion. Aorta: Thoracic aorta non-dilated. No evidence of dissection. Atherosclerotic calcification is prese nt. Bones: Within normal limits for the patient's age. Soft tissues: Gynecomastia is present. Tubes, Catheters, and Lines: There is a left-sided cardiac pacing device. The wires are in the right atrium and right ventricle. ABDOMEN: Liver: Normal density. There is a simple cyst in the right lobe of the liver. No follow-up is recomm ended. No suspicious hepatic lesions are present. Portal, Superior Mesenteric, and Splenic Veins: Unremarkable. Gallbladder and Biliary Tract: Gallbladder is absent. There is no biliary ductal dilatation. Pancreas: Normal density, no abnormal calcifications or inflammatory process. Spleen: Normal. Adrenals: There is a stable right adrenal nodule most consistent with an adenoma. The left adrenal g land is unremarkable. Kidneys: Normal size, contour and axis. No radiodense stones or obstructive uropathy. Bilateral simpl e renal cysts. No follow-up is recommended. Abdominal Aorta: Abdominal portion non-dilated. Atherosclerotic calcification is present. Bowel: There is diverticulosis of the colon without evidence of acute diverticulitis. No evidence of appendicitis. No evidence of bowel obstruction or bowel wall thickening. Peritoneal Cavity: No ascites, collection or mesenteric inflammatory response. No free air. Lymph Nodes: Within normal limits. Bones: Within normal limits for the patient's age. Soft Tissues: There is moderate to marked fatty atrophy of more paraspinal and pelvic musculature. T he findings are most marked in the gluteal and the paraspinal muscles.. PELVIS: Bladder: The urinary bladder is incompletely distended. Reproductive Organs: Prostate gland is markedly enlarged. Lymph Nodes: Within normal limits. Bones: Within normal limits. IMPRESSION: 1. No evidence of a pulmonary embolism or thoracic aortic dissection or aneurysm. 2. Low lung volumes. Linear opacities in the lungs which may represent atelectasis, scarring or pneu monia. Please correlate clinically. 3. No acute abdominal or pelvic process. RADIATION DOSE DELIVERED: 506.19mGy.cm Total DLP DATA REPOSITORY: All CT scans at this facility are submitted to the National Radiology Data Registry (NRDR) Dose Index Registry (DIR) with the [employer] (A[employer]). RADIATION OPTIMIZATION: All CT scans at this facility use at least one of these dose optimization te chniques: automated exposure control; mA and/or kV adjustment per patient size (includes targeted exa ms where dose is matched to clinical indication); or iterative reconstruction.
--- NOTE | 2023-12-20 19:00 | RT.EKG_ITS ---
APPROVED REPORT Exam: Resting ECG Reason for Exam: chest pain Patient Location: E HR:69 bpm ECG Measurements Heart Rate 69 AXIS WY [id number] P [id number] QRSd 165 QRS -44 QT 447 T 106 QTc 480 Conclusion Afib/flutter and ventricular-paced rhythm...V-paced rhythm, A-rate>240
--- NOTE | 2023-12-20 19:05 | ED.GENADUL_ITS ---
Discharge Plan Disposition Patient Disposition: Admit to [facility] Condition: Stable Discharge Details Chief Complaint: GenMedical Clinical Impression: Hypoxic, Abdominal pain, Aspiration pneumonitis Primary Care Provider: [facility] ED Provider: Steve Matute Home Meds and New Rx's Prescriptions: No Action ascorbic acid (vitamin C) 1,000 mg capsule 1 g PO PRN cyanocobalamin (vitamin B-12) 1,000 mcg capsule 1,000 mcg PO DAILY benzonatate 100 mg capsule 100 - 200 mg PO TID PRN (Reason: cough) Qty: 60 0RF Rx Instructions: Take 1-2 capsules by mouth three times a day as needed for cough cholecalciferol (vitamin D3) 1,000 unit capsule 2,000 unit PO DAILY enalapril maleate 20 mg tablet 20 mg PO DAILY Qty: 90 3RF Rx Instructions: emergency supply Eliquis 5 mg tablet 5 mg PO BID Qty: 180 3RF Rx Instructions: emergency supply finasteride 5 mg tablet 5 mg PO DAILY Qty: 7 0RF Rx Instructions: emergency supply oxycodone 5 mg tablet 5 mg PO QHS MDD 1 tab PRN (Reason: Severe Pain) Qty: 28 0RF gabapentin 100 mg capsule 300 mg PO TID Rx Instructions: 100 mg am, pm and 300 mg hs per [facility] HPI General Mode of arrival: ambulatory . Date/Time Provider Initiated Documentation: 12/20/23 18:47 . Limitations to Documentation: no limitations . Information obtained by: patient . History of Present Illness 73 year old M presents to the emergency department with the chief complaint of abdomen pain, n/v, chest pain, described as moderate, Quality is described as sharp, and is localized to the chest and abdomen. Patient started experiencing this day(s) (3) and it has been intermittent. No relieving factors improve symptom(s), No exacerbating factors reported . Patient notes nausea/vomiting and other (diarrhea); denies fever/chills and weakness. Patient did receive the following treatments prior to arrival, none Related Data Home Medications ?Medication ?Instructions ?Recorded ?Confirmed cholecalciferol (vitamin D3) 25 2,000 unit PO DAILY 01/30/19 12/20/23 mcg (1,000 unit) capsule ascorbic acid (vitamin C) 1,000 mg 1 g PO PRN 10/28/22 12/20/23 capsule cyanocobalamin (vitamin B-12) 1,000 mcg PO DAILY 02/04/23 12/20/23 1,000 mcg capsule apixaban 5 mg tablet (Eliquis) 5 mg PO BID #180 tab-caps 05/31/23 12/20/23 enalapril maleate 20 mg tablet 20 mg PO DAILY #90 tabs 05/31/23 12/20/23 benzonatate 100 mg capsule 100 - 200 mg (1 - 2 x 100 mg) PO 06/20/23 12/20/23 TID PRN cough #60 caps finasteride 5 mg tablet 5 mg PO DAILY #7 tab-caps 09/24/23 12/20/23 gabapentin 100 mg capsule 300 mg PO TID 12/08/23 12/20/23 oxycodone 5 mg tablet 5 mg PO QHS PRN Severe Pain #28 12/17/23 12/20/23 tabs Previous Rx's ?Medication ?Instructions ?Recorded apixaban 5 mg tablet (Eliquis) 5 mg PO BID #180 tab-caps 05/31/23 enalapril maleate 20 mg tablet 20 mg PO DAILY #90 tabs 05/31/23 benzonatate 100 mg capsule 100 - 200 mg (1 - 2 x 100 mg) PO 06/20/23 TID PRN cough #60 caps finasteride 5 mg tablet 5 mg PO DAILY #7 tab-caps 09/24/23 oxycodone 5 mg tablet 5 mg PO QHS PRN Severe Pain #28 12/17/23 tabs Allergies Allergy/AdvReac Type Severity Reaction Status Date / Time No Known Allergies Allergy Verified 12/20/23 18:48 General Stated Complaint: GenMedical MARY: 3 Review of Systems All systems reviewed & are unremarkable except as noted in HPI and below Constitutional Constitutional: Denies chills, Denies fever(s) and Denies weakness Cardiovascular Cardiovascular: Denies dyspnea Respiratory Respiratory: Denies cough and Denies dyspnea Genitourinary Genitourinary: Denies dysuria Musculoskeletal Musculoskeletal: Denies joint swelling Integumentary/Breasts Skin/Breast: Denies rash Neurologic Neurologic: Denies weakness Exam Const General: no acute distress Orientation: alert HENMT Head: normal to inspection Ears: external ears normal General nose exam: external nose normal Mouth: moist mucous membranes Eyes General: appearance normal, both eyes and all related structures Neck Neck: normal visual inspection Resp Effort & Inspection: normal respiratory effort and able to speak in complete sentences Auscultation: clear to auscultation bilaterally Cardio Jugular venous pressure: no JVD Rate: regular rate Heart Sounds: no murmurs GI Palpation: soft and tender Skin General skin exam: no rashes or lesions noted Neuro General: patient alert and patient oriented x3 Extrem General: normal to inspection Psych Mental Status: mental status grossly normal Course Vital Signs Vital signs: Vital Signs Pulse 69 12/20/23 18:47 Blood Pressure 129/83 12/20/23 18:47 Pulse Oximetry 92 12/20/23 18:47 Pulse 69 12/20/23 18:47 Respiratory Effort Normal, Non-Labored 12/20/23 18:49 Blood Pressure 129/83 12/20/23 18:47 Blood Pressure Position Sitting 12/20/23 18:47 Pulse Oximetry 92 12/20/23 18:47 Oxygen Delivery Method Room Air 12/20/23 18:47 Oxygen Flow Rate 0 12/20/23 18:47 Medical Decision Making 73-year-old male with a history of prior PE on apixaban, pacemaker, hyperlipidemia who comes in with abdominal pain, nausea vomiting diarrhea for 3 days and also chest burning sensation. He denies any fevers or recent travel. He has had a prior cholecystectomy. He arrives hemodynamically stable, he localizes the pain to the mid to upper abdomen has pain with palpation of this area, clear lung sounds, no DVT or leg swelling. I suspect his chest pain could be from esophagitis from the vomiting but given his history and his age will check a troponin and EKG and also CTA to evaluate for new PE and given his tenderness on exam and concern for possible SBO will obtain CT abdomen pelvis along with CBC, CMP and lipase. Patient's O2 sats did dip into the mid 80s with a good Plath. He does now have some rhonchi at the left lower base. I did a POCUS which was limited but there was no obvious ventricular abnormality or wall motion abnormality, has no B- lines. Given has been vomiting suspect he could have an aspiration pneumonitis for his pneumonia. CTA pending. Patient still hypoxic off oxygen, so nasal cannula remains in place and his sats are in the low to mid 90s. CTA shows no significant emergent findings as chronic interstitial disease and atelectasis. I suspect he has aspiration pneumonitis, given he is hypoxic do not feel he can safely go home. Discussed case with Dr. Lowe and will give an empiric dose of ceftriaxone and azithromycin and blood cultures ordered. Differential Diagnosis Differential Diagnosis: SBO, pancreatitis diverticulitis NSTEMI Medical Records Medical records reviewed: Yes I reviewed the patient's medical records. Imaging Data Radiologic Study: Attestation: I personally reviewed and interpreted this imaging study as follows: Imaging: CT Scan Radiologist's impression: IMPRESSION: 1. No pulmonary emboli. 2. No thoracic aneurysm or dissection. 3. Chronic interstitial changes of the lungs and mild atelectasis in both lung bases. 4. No bowel obstruction or inflammatory process. 5. Stable adrenal nodule of the right adrenal gland. Six. Atherosclerotic change of the abdominal aorta but no aneurysm or dissection. No significant stenoses at the origins of the celiac axis, superior mesenteric artery or renal arteries. Lab Data Lab results reviewed: Yes I reviewed the patient's lab results. ECG Data Attestation: I personally reviewed and interpreted this ECG (s) as follows: Prior ECG tracings: available for review Interpretation: paced rhythm, rate of 69, no stemi Quality:SDOH Health Related Social Needs: No Data to Display [facility] All Active Problems Aspiration pneumonitis (Acute) Abdominal pain (Acute) Hypoxic (Acute) Lumbosacral spondylosis without myelopathy (Acute) Breast pain, left (Acute) Pain in left hip (Acute) Atelectasis (Acute) Hypercalcemia (Acute) Non-cardiac chest pain (Acute) Chronic cough (Acute) Benign colon polyp (Acute ~01/15/22) Skin lesions, generalized (Acute) Insomnia (Acute) 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 Hyperlipidemia (Chronic 05/29/12) Abdominal pain (Acute) PUD (peptic ulcer disease) (Chronic) Pacemaker (Acute) [facility] 01/06/18; [employer]ACEMENT; BIOTRONIC Neoplasm of unspecified behavior of bone, soft tissue, and skin (Acute) Parotid mass (Acute) 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 BX Polyp of colon (Acute 05/25/10) 05/25/10; Tubular adenoma and hyperplastic 05/14/13; 4 polyps 05/19/16: tubular adenomas Obesity (Acute) History of tobacco use (Acute) Hearing loss (Acute) Fracture of medial malleolus, right, closed (Acute 03/27/17) Contact dermatitis (Acute) seborrhea Carpal tunnel syndrome (Acute) right Pulmonary embolus (Acute 05/03/14) Hypertension (Chronic) Low back pain (Chronic) Benign prostatic hypertrophy (Chronic) Myotonic dystrophy (Chronic) H/O carpal tunnel syndrome (Chronic) History of colonic polyps (Chronic) Rosacea (Chronic) mild hearing loss (Chronic) H/O surgical procedure (Chronic) a. right inguinal hernia repair b. umbilical hernia repair 1994 c. colonoscopy last done at [place] 04/2013 showed tubular adenomatous polyp per report Medical History Acute cholecystitis HTN (hypertension) PE (pulmonary thromboembolism) BPH (benign prostatic hyperplasia) Surgical History S/P cholecystectomy (~07/10/19) [facility] [place] Repair of umbilical hernia (~1994) Colonoscopy - [facility] (01/15/22) 2017 Extraction of cataract Family History Mother Diabetes Essential hypertension Personal history of malignant neoplasm BREAST/UTERINE Aortic valve stenosis Heart disease Hyperlipidemia Father Essential hypertension Personal history of malignant neoplasm COLON Heart disease Hyperlipidemia Stroke Brother Essential hypertension Heart disease Hyperlipidemia Brother Essential hypertension Hyperlipidemia Grandfather No problems noted. Grandfather No problems noted. Grandmother Diabetes Personal history of malignant neoplasm PANCREATIC Grandmother Essential hypertension Hyperlipidemia Stroke PATERNAL HISTORY Personal history of malignant neoplasm Depression Heart disease Myotonic dystrophy Sister Essential hypertension Personal history of malignant neoplasm BREAST Heart disease Hyperlipidemia Son Essential hypertension Hyperlipidemia Daughter No problems noted. Daughter Essential hypertension Depression Hyperlipidemia Daughter No problems noted. Daughter No problems noted. Other Cataract Social History Smoking/Tobacco Use Status: Former Tobacco Use tobacco type: cigarettes Quit Date: 03/28/98 Tobacco: How many years used: 35 Smoking risk assessment performed?: Yes Alcohol Intake: former Year quit: 1997 Drug use: Never Substance use type: does not use Communication Needs: Hard of Hearing current occupation: Retired Pets and animals: No What is your relationship status?: How often do you talk on the phone with friends or family?: three or more times per week How often do you get together with friends or relatives?: three or more times per week Do you belong to any clubs or organized social groups?: no Panel score (0-1 are the most socially isolated patients): 2 What type of physical activity do you participate in: none Special lanre needs: No Agree to transfusion: Yes Seatbelt use: always Helmet use: No Drive intox or ride w/intox 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 Working smoke detector in home: Yes Firearms in home: Yes Do you feel safe at home: Yes Do you feel safe in your relationship?: Yes Victim of physical abuse: No Victim of emotional abuse: No Victim of sexual abuse: No POCUS Exam (ED) Limited Cardiac Exam DATE OF EXAM: 12/20/23 TIME OF EXAM: 20:10 REASON FOR EXAM: Chest pain VISUALIZED STRUCTURES: Left ventricle and Right ventricle VIEW OBTAINED: Parasternal long-axis PERTINENT FINDINGS/IMPRESSION: No LV dysfunction Exam complete Limited Thoracic Lung Exam REASON FOR EXAM: Chest pain VISUALIZED STRUCTURES: right anterior and left anterior PERTINENT FINDINGS/IMPRESSION: no B-Lines/left side and no B-lines/left side Exam complete
[2023-12-20 19:37] LABS: BE (Venous) 3 mmol/L (-2-3); HCO3 (Venous) 28 mmol/L (23-28); O2 Sat (Venous) 86 %; TCO2 (Venous) 24 mmol/L (24-29); pCO2 (Venous) 45 mmHg (41-51); pO2 (Venous) 47 mmHg
[2023-12-20] MEDS: ACETAMINOPHEN 1,000 MG/100 ML BTL 400 MG IVPB (19:38)
[2023-12-20 19:39] LABS: Abs Immature Grans 0.01 10^3/uL (0.0-0.06); Absolute Basophil Count 0.03 10^3/uL (0.0-0.2); Absolute Eosinophil Count 0.03 10^3/uL (0.0-0.7); Absolute Lymphocyte Count 0.88 10^3/uL (1.2-3.4); Absolute Monocyte Count 0.61 10^3/uL (0.1-0.8); Basophils % 0.5 %; Eosinophils % 0.5 %; HCT 52.2 % (40.0-50.0); HGB 16.6 g/dL (13.5-17.5); Immature Grans % 0.2 %; Lymphocytes % 13.2 %; MCHC 31.8 % (32.0-36.0); MCV 94 fL (80-95); MPV 10.5 fL (8.0-11.0); Monocytes % 9.2 %; Neutrophils % 76.4 %; Platelet Count 214 10^3/uL (130-400); RBC 5.53 10^6/uL (4.36-5.78); RDW 13.3 % (11.8-14.1); RDW-SD 46.6 fL; WBC 6.66 10^3/uL (4.4-10.8)
[2023-12-20] MEDS: Ondansetron 4 MG/2 ML VIAL IVP (19:39)
[2023-12-20] MEDS: Normal Saline 1,000 ML 1000 ML IV (19:39)
[2023-12-20 20:01] LABS: ALT 17 U/L (16-63); AST 15 U/L (15-37); Albumin 3.2 g/dL (3.4-5.0); Alkaline Phosphatase 87 U/L (46-116); Anion Gap 8.8 mmol/L (3-11); BUN 15 mg/dL (7-18); Bilirubin, Direct 0.3 mg/dL (0.0-0.2); Bilirubin, Total 1.02 mg/dL (0.2-1.0); CO2 28.2 mmol/L (21.0-32.0); CREATININE 0.7 mg/dL (0.70-1.30); Calcium 9.6 mg/dL (8.5-10.1); Chloride 103 mmol/L (98-107); Estimated GFR 96.09 (mL/min/1.73m2); Glucose 99 mg/dL (74-106); Lipase 12 U/L (16-77); Magnesium 2.2 mg/dL (1.8-2.4); Potassium 3.7 mmol/L (3.5-5.1); Sodium 140 mmol/L (136-145)
[2023-12-20 20:07] LABS: Troponin I 26 ng/L (<or=76)
[2023-12-20 20:13] LABS: COVID-19 PCR Negative (Negative); Influenza A PCR Negative (Negative); Influenza B PCR Negative (Negative); RSV PCR Negative (Negative)
[2023-12-20 20:15] LABS: Source NASOPHARYNX
[2023-12-20 20:19] LABS: Procalcitonin 0.1 ng/mL
[2023-12-20] MEDS: Normal Saline - Diluent 50 ML VIAL IJ (20:35)
[2023-12-20] MEDS: Omnipaque 350 MG/ML 100 ML BTL 85 ML IJ (20:36)
--- NOTE | 2023-12-20 21:44 | DI.VRAD_ITS ---
PROCEDURE INFORMATION: Exam: CTA Chest With Contrast CTA Abdomen With Contrast Exam date and time: 12/20/2023 8:41 PM Age: 73 years old Clinical indication: Other: Chest pain, abdomen pain n/v, HX of pe TECHNIQUE: Imaging protocol: Computed tomographic angiography of the chest with contrast. Exam focused on the arteries. Computed tomographic angiography of the abdomen with contrast. Exam focused on the arteries. 3D rendering (Not supervised by radiologist): MIP and/or 3D reconstructed images were created by the technologist. Contrast material: OMNIPAQUE 350; Contrast volume: 85 ml; Contrast route: INTRAVENOUS (IV); COMPARISON: CT ABDOMEN PELVIS CTA 07/10/2019 3:37 AM FINDINGS: VASCULATURE: Pulmonary arteries: No filling defects within the pulmonary arteries. There are no pulmonary emboli. The main pulmonary artery measures 2.0 cm. Aorta: The ascending thoracic aorta measures 3.7 cm. The descending thoracic aorta measures 2.6 cm. Celiac trunk and mesenteric arteries: No stenoses at the origins of the celiac or superior mesenteric artery. Renal arteries: The renal arteries are unremarkable. CHEST: Lungs: There is prominence of the interstitial pattern throughout. This consistent with chronic change. There is mild atelectasis in the posterior segments of both lower lobes. There is no consolidation. Pleural spaces: No effusions or pneumothoraces. Heart: The heart is enlarged. No coronary artery calcification. ABDOMEN AND PELVIS: Liver: The liver shows steatosis without abnormal focal lesion. There is a 1 cm low-density lesion in the right hepatic lobe most likely representing a cyst Gallbladder and biliary ducts: There has been a prior cholecystectomy. No biliary dilatation. Pancreas: The pancreas shows no focal lesion. Spleen: The spleen is not enlarged. No focal lesion. Adrenal glands: There is redemonstration of a stable 2 cm low-density nodule of the right adrenal gland. This is unchanged from the CT scan of July 10, 2019. The left adrenal gland is unremarkable. Kidneys: There is redemonstration of a simple cyst in the superior cortex of the right kidney measuring 1.8 cm. There is a tiny cortical cyst in the left kidney Stomach and bowel: There is a small hiatal hernia. There is no gastric outlet obstruction. There is no bowel obstruction. There are diverticula of the sigmoid colon but no diverticulitis. Intraperitoneal space: No free air or free fluid Lymph nodes: No abnormal periaortic adenopathy Bones/joints: No acute bony change of the lumbar spine or pelvis. Soft tissues: No abnormal soft tissue lesions of the abdominal wall. Other: Prostate: The prostate gland is enlarged measuring 4.8 cm AP x 5.4 cm trans. IMPRESSION: 1. No pulmonary emboli. 2. No thoracic aneurysm or dissection. 3. Chronic interstitial changes of the lungs and mild atelectasis in both lung bases. 4. No bowel obstruction or inflammatory process. 5. Stable adrenal nodule of the right adrenal gland. Six. Atherosclerotic change of the abdominal aorta but no aneurysm or dissection. No significant stenoses at the origins of the celiac axis, superior mesenteric artery or renal arteries. Dictated and Authenticated by: Manuel Macario MD. Ordering:ONUR Wilson MD
[2023-12-20 21:56] LABS: Troponin I 25 ng/L (<or=76)
[2023-12-20] MEDS: Albuterol/Ipratropium 3 ML UPD VIAL UPD (22:51)
[2023-12-20] MEDS: AZITHROMYCIN 500 MG in Normal Saline 250 ML 250 MG IVPB (22:51)
[2023-12-20] MEDS: cefTRIAXone 2 GM/50 ML BAG IVPB (22:51)
--- NOTE | 2023-12-20 23:25 | W.PM.HP.N ---
Date of service: 12/20/23 Time of Service: 23:25 Assessment and Plan Assessment and plan (1) Aspiration pneumonitis: Status: Acute Assessment and plan: He presents with hypoxia and no prior oxygen requirement. He is requiring 2 L to maintain sats in the 90s. He appears moderately dyspneic. While there is not a history of an aspiration event given his myotonic dystrophy and overall weak respiratory effort it may be more related to the acute viral gastroenteritis causing him to be even weaker and have a poor respiratory effort. The procalcitonin is reassuring as are his vital signs and normal white count. He did receive ceftriaxone and azithromycin in the emergency room. Will await further blood culture results and monitor his vital signs before continuing antibiotics. (2) Hypoxic: Status: Acute Assessment and plan: New oxygen requirement. He is comfortable on nasal cannula oxygen. His venous blood gas shows pH of 7.40 with a pCO2 of 45. Will monitor overnight on oxygen therapy. Likely discharge once he is able to maintain sats on room air. (3) Atelectasis: Status: Acute Assessment and plan: Longstanding atelectasis for which she is followed by pulmonology. Continue present meds. (4) Abdominal pain: Status: Acute Assessment and plan: Acute viral gastroenteritis appears to be improving. (5) Non-cardiac chest pain: Status: Acute Assessment and plan: Troponins mildly elevated at 26 and then 25. He has a third level pending. Does not appear to be in acute AR. 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 He is followed by [facility] neurology. He has profound weakness and is able to transfer using a cane but gets around in a wheelchair. He still drives. (7) Chronic cough: Status: Acute Assessment and plan: Longstanding chronic cough. Followed by pulmonology. (8) Pacemaker: Status: Acute Assessment and plan: He has a pacemaker followed by [facility] cardiology. He has rapid a flutter but is ventricularly paced and maintains rates in the 70s. He is on a apixaban. Will monitor on telemetry. (9) Pulmonary embolus: Status: Acute Assessment and plan: History of PE in 2015. He subsequently had a DVT. He is on lifelong anticoagulation for both the thromboembolic disease and a flutter. History of Present Illness History of Present Illness Chief Complaint: Hypoxia/acute gastroenteritis Narrative: 73-year-old man that lives at home with his . For the last 2 days he has had episodes of vomiting and diarrhea. He has been having abdominal pain and some chest pain. In the emergency room he was found to have oxygen saturation in the mid to low 80s. This came up with supplemental oxygen. His chest exam showed rhonchi throughout. A chest CT scan showed no evidence of a pulmonary embolus and no distinct infiltrate, but it does show chronic interstitial changes and atelectasis. There was concern for aspiration pneumonitis. He received a dose of ceftriaxone and azithromycin. Blood cultures and serial troponins are pending. He is admitted to [facility] on telemetry. Review of Systems Narrative: He presented with nausea vomiting and some diarrhea. The symptoms have improved since arrival and some IV fluids. He is not currently complaining of any chest pain. He still has a upset stomach. And is not hungry. He described his sleep pattern as being quite disrupted can only sleep on his left or right side and only for a few hours then he gets up in his wheelchair for the remainder of the night. He occasionally gets swelling of the left leg if he is up for a long period of time. He has a chronic cough which has been stable. He denies a choking episode during any of the vomiting. [facility] All Active Problems (Updated 12/20/23 @ 23:33 by Steve Weir MD) Aspiration pneumonitis (Acute) Abdominal pain (Acute) Hypoxic (Acute) Atelectasis (Acute) Non-cardiac chest pain (Acute) Chronic cough (Acute) Abdominal pain (Acute) Pacemaker (Acute) [facility] 01/06/18; DUAL [employer]BER ICD PLACEMENT; BIOTRONIC Pulmonary embolus (Acute 05/03/14) Medical History (Updated 12/20/23 @ 23:33 by Steve Weir MD) Myotonic dystrophy mild hearing loss Rosacea History of colonic polyps H/O carpal tunnel syndrome Benign prostatic hypertrophy Low back pain Hypertension Carpal tunnel syndrome right Contact dermatitis seborrhea Fracture of medial malleolus, right, closed (03/27/17) Hearing loss History of tobacco use Obesity Polyp of colon (05/25/10) 05/25/10; Tubular adenoma and hyperplastic 05/14/13; 4 polyps 05/19/16: tubular adenomas Raised prostate specific antigen neg. 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 right inguinal hernia repair b. umbilical hernia repair 1994 c. colonoscopy last done at [place] 04/2013 showed tubular adenomatous polyp per report S/P cholecystectomy (~07/10/19) [facility] Repair of umbilical hernia (~1994) Colonoscopy - MAC (01/15/22) 2016 Extraction of cataract Family History Mother Diabetes Essential hypertension Personal history of malignant neoplasm BREAST/UTERINE Aortic valve stenosis Heart disease Hyperlipidemia Father Essential hypertension Personal history of malignant neoplasm COLON Heart disease Hyperlipidemia Stroke Brother Essential hypertension Heart disease Hyperlipidemia Brother Essential hypertension Hyperlipidemia Grandfather No problems noted. Grandfather No problems noted. Grandmother Diabetes Personal history of malignant neoplasm PANCREATIC Grandmother Essential hypertension Hyperlipidemia Stroke PATERNAL HISTORY Personal history of malignant neoplasm Depression Heart disease Myotonic dystrophy Sister Essential hypertension Personal history of malignant neoplasm BREAST Heart disease Hyperlipidemia Son Essential hypertension Hyperlipidemia Daughter No problems noted. Daughter Essential hypertension Depression Hyperlipidemia Daughter No problems noted. Daughter No problems noted. Other Cataract Social History Smoking/Tobacco Use Status: Former Tobacco Use tobacco type: cigarettes Quit Date: 03/28/98 Tobacco: How many years used: 35 Smoking risk assessment performed?: Yes Alcohol Intake: former Year quit: 1997 Drug use: Never Substance use type: does not use Communication Needs: Hard of Hearing current occupation: Retired Pets and animals: No What is your relationship status?: How often do you talk on the phone with friends or family?: three or more times per week How often do you get together with friends or relatives?: three or more times per week Do you belong to any clubs or organized social groups?: no Panel score (0-1 are the most socially isolated patients): 2 What type of physical activity do you participate in: none Special lanre needs: No Agree to transfusion: Yes Seatbelt use: always Helmet use: No Drive intox or ride w/intox 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 Working smoke detector in home: Yes Firearms in home: Yes Do you feel safe at home: Yes Do you feel safe in your relationship?: Yes Victim of physical abuse: No Victim of emotional abuse: No Victim of sexual abuse: No Meds Allergies and Home Medications Allergies Allergy/AdvReac Type Severity Reaction Status Date / Time No Known Allergies Allergy Verified 12/20/23 18:48 Home Medications ?Medication ?Instructions ?Recorded ?Confirmed ?Type cholecalciferol (vitamin D3) 25 2,000 unit PO DAILY 01/30/19 12/20/23 History mcg (1,000 unit) capsule ascorbic acid (vitamin C) 1,000 mg 1 g PO PRN 10/28/22 12/20/23 History capsule cyanocobalamin (vitamin B-12) 1,000 mcg PO DAILY 02/04/23 12/20/23 History 1,000 mcg capsule apixaban 5 mg tablet (Eliquis) 5 mg PO BID #180 tab-caps 05/31/23 12/20/23 Rx enalapril maleate 20 mg tablet 20 mg PO DAILY #90 tabs 05/31/23 12/20/23 Rx benzonatate 100 mg capsule 100 - 200 mg (1 - 2 x 100 mg) PO 06/20/23 12/20/23 Rx TID PRN cough #60 caps finasteride 5 mg tablet 5 mg PO DAILY #7 tab-caps 09/24/23 12/20/23 Rx gabapentin 100 mg capsule 300 mg PO TID 12/08/23 12/20/23 History oxycodone 5 mg tablet 5 mg PO QHS PRN Severe Pain #28 12/17/23 12/20/23 Rx tabs Exam Narrative Exam Narrative: On exam he appeared somewhat disheveled and sad. He has some mild dyspnea just with conversation. He did not cough during my time with him. His lung exam is notable for rhonchi throughout both lung meade. His heart sounded regular. Monitor shows ventricular pacing with a rapid background atrial rate. Abdomen is overall soft and minimally tender to palpation. The lower extremities show no significant edema including on the left side where he says he gets swelling occasionally. Neurologically he is notably weak in his lower extremities but can resist with dorsiflexion and plantarflexion of both legs, 3 out of 5. There is no fasciculation. His arms are also somewhat weak 3 out of 5. Results Imaging Abdomen CT scan report/results: report reviewed CT scan - chest: report reviewed EKG: report reviewed Labs 12/20/23 19:32 12/20/23 19:32 Labs: Laboratory Results - last 24 hr 12/20/23 12/20/23 12/20/23 19:20 19:32 21:28 WBC 6.66 RBC 5.53 Hgb 16.6 Hct 52.2 H MCV 94 MCH 30.0 MCHC 31.8 L RDW 13.3 Plt Count 214 MPV 10.5 Immature Gran % 0.2 Neutrophils % 76.4 Lymphocytes % 13.2 Monocytes % 9.2 Eosinophils % 0.5 Basophils % 0.5 Nucleated RBC % 0.0 Absolute Neutrophils 5.10 Absolute Lymphocytes 0.88 L Absolute Monocytes 0.61 Absolute Eosinophils 0.03 Absolute Basophils 0.03 VBG pH 7.40 VBG pCO2 45 VBG pO2 47 VBG HCO3 28 VBG Total CO2 24 VBG O2 Saturation 86 VBG Base Excess 3 Sodium 140 Potassium 3.7 Chloride 103 Carbon Dioxide 28.2 Anion Gap 8.8 BUN 15 Creatinine 0.7 Est GFR (CKD-EPI 2020) 96.09 Glucose 99 Calcium 9.6 Magnesium 2.2 Total Bilirubin 1.02 H Conjugated Bilirubin 0.3 H AST 15 ALT 17 Alkaline Phosphatase 87 Troponin I 26 25 Total Protein 7.0 Albumin 3.2 L Lipase 12 L Procalcitonin 0.1 COVID-19 Source NASOPHARYNX SARS-CoV-2 (PCR) Negative Influenza Type A (PCR) Negative Influenza Type B (PCR) Negative RSV (PCR) Negative Last Vital Signs Pulse 69 12/20/23 18:47 Resp 9 L 12/20/23 22:50 BP 146/79 H 12/20/23 19:43 Pulse Ox 98 12/20/23 22:50 Time Spent Time spent with Patient: 40-54 minutes Time was spent: preparing to see the patient(eg.review tests), obtaining and/or reviewing separately otained hiistory, ordering medications,tests, procedures, referring, communicating with other health rn critical care, indepentently interpreting results and counseling the patient
[2023-12-21] VITALS (11 sets, daily range): BP systolic 112–130; BP diastolic 69–83; PULSE 69–70; RESP 18–20; TEMP 36.2–36.6; O2SAT 85–97
--- NOTE | 2023-12-21 00:09 | W.PC.ACHO ---
Registration Status: Primary Language: Preferred Language: ED Information & Data Chief Complaint GenMedical 12/20/23 19:09 Triage Note Patient complaining of abd 12/20/23 18:47 pain, n/v/d for 3 days Medical / Surgical History (Last Updated 12/20/23 @ 23:33 by Steve Weir MD) Myotonic dystrophy mild hearing loss Rosacea History of colonic polyps H/O carpal tunnel syndrome Benign prostatic hypertrophy Low back pain Hypertension Carpal tunnel syndrome Contact dermatitis Fracture of medial malleolus, right, closed (03/27/17) Hearing loss History of tobacco use Obesity Polyp of colon (05/25/10) Raised prostate specific antigen Thyroid nodule (09/09/14) Tinnitus Tubular adenoma (05/19/16) Vitamin D deficiency (09/15/15) Umbilical hernia Cataract (08/27/13) Parotid mass Shoulder pain, left Neoplasm of unspecified behavior of bone, soft tissue, and skin PUD (peptic ulcer disease) Hyperlipidemia (05/29/12) Malignant neoplasm of skin (02/24/99) Skin lesions, generalized Insomnia Benign colon polyp (~01/15/22) Hypercalcemia Pain in left hip Breast pain, left Lumbosacral spondylosis without myelopathy Acute cholecystitis HTN (hypertension) PE (pulmonary thromboembolism) BPH (benign prostatic hyperplasia) (Last Updated 12/20/23 @ 23:33 by Steve Weir MD) H/O surgical procedure S/P cholecystectomy (~07/10/19) Repair of umbilical hernia (~1994) Colonoscopy - MAC (01/15/22) Extraction of cataract Most Recent Vital Signs Pulse 69 12/20/23 18:47 Pulse 104 H 12/20/23 22:50 Respiratory Rate 9 L 12/20/23 22:50 Respiratory Effort Normal 12/20/23 19:43 Respiratory Depth Normal 12/20/23 19:43 Respiratory Pattern Normal 12/20/23 19:43 Blood Pressure 146/79 H 12/20/23 19:43 Blood Pressure Position Sitting 12/20/23 19:43 Pulse Oximetry 98 12/20/23 22:50 Oxygen Delivery Method Room Air 12/20/23 19:43 Oxygen Flow Rate 0 12/20/23 18:47 Allergies No Known Allergies Allergy (Verified 12/20/23 18:48) Precautions Isolation Standard precaution 12/20/23 18:49 Active Medications Generic Name Dose Route Start Last Admin Trade Name Erica PRN Reason Stop Dose Admin Iohexol 85 ml 12/20/23 20:45 12/20/23 20:36 Omnipaque 350 Mg/Ml 100 Ml Btl IJ 01/19/24 23:59 85 ml DIRECTED SHAHRIAR Administration Sodium Chloride 50 ml 12/20/23 20:45 12/20/23 20:35 Normal Saline - Diluent 50 Ml Vial IJ 50 ml .FOR DI USE SHAHRIAR Administration IV IV Catheter Type [Left Wrist] Peripheral IV IV Catheter Gauge [Left Wrist] 18 Diagnostics 12/20/23 12/20/23 12/20/23 Range/Units 23:38 23:29 21:28 WBC (4.4-10.8) 10^3/uL RBC (4.36-5.78) 10^6/uL Hgb (13.5-17.5) g/dL Hct (40.0-50.0) % MCV (80-95) fL MCH (27.0-33.0) pg MCHC (32.0-36.0) % RDW (11.8-14.1) % Plt Count (130-400) 10^3/uL MPV (8.0-11.0) fL Immature Gran % % Neutrophils % % Lymphocytes % % Monocytes % % Eosinophils % % Basophils % % Nucleated RBC % (0.0-0.3) % Absolute Neutrophils (1.2-6.7) 10^3/uL Absolute Lymphocytes (1.2-3.4) 10^3/uL Absolute Monocytes (0.1-0.8) 10^3/uL Absolute Eosinophils (0.0-0.7) 10^3/uL Absolute Basophils (0.0-0.2) 10^3/uL VBG pH (7.31-7.41) VBG pCO2 (41-51) mmHg VBG pO2 mmHg VBG HCO3 (23-28) mmol/L VBG Total CO2 (24-29) mmol/L VBG O2 Saturation % VBG Base Excess (-2-3) mmol/L Sodium (136-145) mmol/L Potassium (3.5-5.1) mmol/L Chloride (98-107) mmol/L Carbon Dioxide (21.0-32.0) mmol/L Anion Gap (3-11) mmol/L BUN (7-18) mg/dL Creatinine (0.70-1.30) mg/dL Est GFR (CKD-EPI 2020) (mL/min/1.73m2) Glucose (74-106) mg/dL Calcium (8.5-10.1) mg/dL Magnesium (1.8-2.4) mg/dL Total Bilirubin (0.2-1.0) mg/dL Conjugated Bilirubin (0.0-0.2) mg/dL AST (15-37) U/L ALT (16-63) U/L Alkaline Phosphatase (46-116) U/L Troponin I Pending Cancelled 25 (<or=76) ng/L Total Protein (6.4-8.2) g/dL Albumin (3.4-5.0) g/dL Lipase (16-77) U/L Procalcitonin ng/mL COVID-19 Source SARS-CoV-2 (PCR) (Negative) Influenza Type A (PCR) (Negative) Influenza Type B (PCR) (Negative) RSV (PCR) (Negative) 12/20/23 12/20/23 Range/Units 19:32 19:20 WBC 6.66 (4.4-10.8) 10^3/uL RBC 5.53 (4.36-5.78) 10^6/uL Hgb 16.6 (13.5-17.5) g/dL Hct 52.2 H (40.0-50.0) % MCV 94 (80-95) fL MCH 30.0 (27.0-33.0) pg MCHC 31.8 L (32.0-36.0) % RDW 13.3 (11.8-14.1) % Plt Count 214 (130-400) 10^3/uL MPV 10.5 (8.0-11.0) fL Immature Gran % 0.2 % Neutrophils % 76.4 % Lymphocytes % 13.2 % Monocytes % 9.2 % Eosinophils % 0.5 % Basophils % 0.5 % Nucleated RBC % 0.0 (0.0-0.3) % Absolute Neutrophils 5.10 (1.2-6.7) 10^3/uL Absolute Lymphocytes 0.88 L (1.2-3.4) 10^3/uL Absolute Monocytes 0.61 (0.1-0.8) 10^3/uL Absolute Eosinophils 0.03 (0.0-0.7) 10^3/uL Absolute Basophils 0.03 (0.0-0.2) 10^3/uL VBG pH 7.40 (7.31-7.41) VBG pCO2 45 (41-51) mmHg VBG pO2 47 mmHg VBG HCO3 28 (23-28) mmol/L VBG Total CO2 24 (24-29) mmol/L VBG O2 Saturation 86 % VBG Base Excess 3 (-2-3) mmol/L Sodium 140 (136-145) mmol/L Potassium 3.7 (3.5-5.1) mmol/L Chloride 103 (98-107) mmol/L Carbon Dioxide 28.2 (21.0-32.0) mmol/L Anion Gap 8.8 (3-11) mmol/L BUN 15 (7-18) mg/dL Creatinine 0.7 (0.70-1.30) mg/dL Est GFR (CKD-EPI 2020) 96.09 (mL/min/1.73m2) Glucose 99 (74-106) mg/dL Calcium 9.6 (8.5-10.1) mg/dL Magnesium 2.2 (1.8-2.4) mg/dL Total Bilirubin 1.02 H (0.2-1.0) mg/dL Conjugated Bilirubin 0.3 H (0.0-0.2) mg/dL AST 15 (15-37) U/L ALT 17 (16-63) U/L Alkaline Phosphatase 87 (46-116) U/L Troponin I 26 (<or=76) ng/L Total Protein 7.0 (6.4-8.2) g/dL Albumin 3.2 L (3.4-5.0) g/dL Lipase 12 L (16-77) U/L Procalcitonin 0.1 ng/mL COVID-19 Source NASOPHARYNX SARS-CoV-2 (PCR) Negative (Negative) Influenza Type A (PCR) Negative (Negative) Influenza Type B (PCR) Negative (Negative) RSV (PCR) Negative (Negative) 12/20/23 23:38 Blood Culture - Pending Blood 12/20/23 21:54 Blood Culture - Pending Blood Intake and Output - 24 Hour Total 12/20/23 18:43 thru 12/20/23 23:29 Intake Total 500 Balance 500 Weight 78.925 kg Intake: IV 500 Falls Risk Assessment History of Falls No History 12/20/23 19:43 Contributing Factors Confusion,Impairments 12/20/23 19:43 Ambulatory Aids Uses ambulatory device + 12/20/23 19:43 Tubes/Lines With any additional score 12/20/23 19:43 Gait Evaluation W/any additional score 12/20/23 19:43 Cognition No cognitive impairment 12/20/23 19:43 Fall Total Score 76 12/20/23 19:43 Level of Risk Maximum Risk 12/20/23 19:43 Problems (Last Updated 12/20/23 @ 23:33 by Steve Weir MD) Aspiration pneumonitis (Acute) Abdominal pain (Acute) Hypoxic (Acute) Atelectasis (Acute) Non-cardiac chest pain (Acute) Chronic cough (Acute) Pacemaker (Acute) Pulmonary embolus (Acute 05/03/14) v v v v v v v v v Sending and/or Receiving Nurses: Please use comment section below to note any information pertinent to the patient hand-off not included above. Information / Comments: Report received from: Chrid RN [id number]
[2023-12-21 00:15] LABS: Troponin I 27 ng/L (<or=76)
[2023-12-21] MEDS: Normal Saline Flush 10 ML SYR IVP ×2 (01:02→08:22)
[2023-12-21] MEDS: Lactated Ringers 1,000 ML 125 ML IV ×2 (01:51→09:37)
[2023-12-21 07:03] LABS: Abs Immature Grans 0.01 10^3/uL (0.0-0.06); Absolute Basophil Count 0.03 10^3/uL (0.0-0.2); Absolute Eosinophil Count 0.04 10^3/uL (0.0-0.7); Absolute Lymphocyte Count 1.17 10^3/uL (1.2-3.4); Absolute Monocyte Count 0.69 10^3/uL (0.1-0.8); Absolute Neutrophil Count 3.83 10^3/uL (1.2-6.7); Basophils % 0.5 %; Eosinophils % 0.7 %; HCT 49.9 % (40.0-50.0); HGB 15.6 g/dL (13.5-17.5); Immature Grans % 0.2 %; Lymphocytes % 20.3 %; MCH 30.4 pg (27.0-33.0); MCHC 31.3 % (32.0-36.0); MCV 97 fL (80-95); MPV 10.8 fL (8.0-11.0); Neutrophils % 66.3 %; Platelet Count 191 10^3/uL (130-400); RBC 5.14 10^6/uL (4.36-5.78); RDW 13.5 % (11.8-14.1); WBC 5.77 10^3/uL (4.4-10.8)
[2023-12-21 07:17] LABS: Anion Gap 5.6 mmol/L (3-11); BUN 13 mg/dL (7-18); CO2 30.4 mmol/L (21.0-32.0); CREATININE 0.7 mg/dL (0.70-1.30); Calcium 9.2 mg/dL (8.5-10.1); Chloride 104 mmol/L (98-107); Estimated GFR 96.09 (mL/min/1.73m2); Glucose 92 mg/dL (74-106); Potassium 3.7 mmol/L (3.5-5.1); Sodium 140 mmol/L (136-145)
[2023-12-21] MEDS: Ascorbic Acid 500 MG TAB 1000 MG PO (08:22)
[2023-12-21] MEDS: Cholecalciferol (Vitamin D3) 1,000 UNIT TAB 2000 UNITS PO (08:22)
[2023-12-21] MEDS: Cyanocobalamin 500 MCG TAB 1000 MCG PO (08:23)
[2023-12-21] MEDS: Finasteride 5 MG TAB PO (08:23)
[2023-12-21] MEDS: Gabapentin 100 MG CAP PO (08:23)
[2023-12-21] MEDS: Apixaban 5 MG TAB PO (08:23)
[2023-12-21] MEDS: Enalapril 5 MG TAB 20 MG PO (08:23)
--- NOTE | 2023-12-21 11:06 | INITIAL_ITS ---
Date of service: 12/21/23 Time of Service: 11:06 Care Management Initial Assmt Initial Assessment Reason for Hospitalization: Pneumonia Functional Status/Living Situation Patient Presentation: Rivas was sitting up in bed when CM met with him. He was alert, oriented and easily engaged in conversation. Rivas lives in a single family home in [place] with his Shana. One of his sons lives in an apartment over his garage and is very supportive. He also has 4 other children. Rivas has held many positions over the years. 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 He is able to transfer in and out of bed, his recliner and his wheelchair and use the bathroom independently but cannot ambulate due to severe muscle weakness. He is [facility] and has received an electric wheelchair and ramp through the [place] but gets his regular medical care at [facility]. His neurologist is at [facility]. Town of Residence: [place] with [place] Resides with: Spouse (Thania) Natural Supports: family Employment Status: Retired Instrumental Activities of Daily Living (ADLs): Independent Medications Medication Management: No Issues/Barriers identified Advance Directives Advance Directives: Do you have an Advance Directive: Y 10/06/17 13:58 AD On File at [facility]: Y 12/20/23 23:28 Date Asked AD Date Reviewed 12/20/23 12/20/23 23:28 COLST On File at [facility] COLST Date Scanned Code Status Resuscitation Status Full Code Insurance Coverage/Financial Issues Insurance: [employer] Care Team Visit Care Team Role Provider Type Pool Hercules MD Primary Care Provider [facility] STAFF PHYSICIAN Steve Matute MD Emergency Provider [facility] STAFF PHYSICIAN Steve Weir MD Admit Provider [facility] STAFF PHYSICIAN Attending Provider Discharge Potential Discharge Needs: PCP F/U Appt Anticipated Barriers to Discharge: None Identified Patient/Family Education Needs: Review discharge instructions, discuss Ask Me Three Transportation: Private vehicle Plan: Anticipate Rivas will be discharged home with no new services when medically cleared. He will follow up with his PCP and plan of care and transport with family. CM will follow and continue to support discharge planning needs. PFSH All Active Problems (Updated 12/21/23 @ 00:23 by F2G) Aspiration pneumonitis (Acute) Abdominal pain (Acute) Hypoxic (Acute) Atelectasis (Acute) Non-cardiac chest pain (Acute) Chronic cough (Acute) Abdominal pain (Acute) Pacemaker (Acute) [facility] 01/06/18; DUAL CHAMBER ICD PLACEMENT; BIOTRONIC Pulmonary embolus (Acute 05/03/14) Medical History (Updated 12/21/23 @ 00:23 by [facility] GateMARILY) Myotonic dystrophy mild hearing loss Rosacea History of colonic polyps H/O carpal tunnel syndrome Benign prostatic hypertrophy Low back pain Hypertension Carpal tunnel syndrome right Contact dermatitis seborrhea Fracture of medial malleolus, right, closed (03/27/17) Hearing loss History of tobacco use Obesity Polyp of colon (05/25/10) 05/25/10; Tubular adenoma and hyperplastic 05/14/13; 4 polyps 05/19/16: tubular adenomas Raised prostate specific antigen neg. 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 right inguinal hernia repair b. umbilical hernia repair 1994 c. colonoscopy last done at [place] 04/2013 showed tubular adenomatous polyp per report S/P cholecystectomy (~07/10/19) [facility] [place]air of umbilical hernia (~1994) Colonoscopy - [facility] (01/15/22) 2017 Extraction of cataract Family History Mother Diabetes Essential hypertension Personal history of malignant neoplasm BREAST/UTERINE Aortic valve stenosis Heart disease Hyperlipidemia Father Essential hypertension Personal history of malignant neoplasm COLON Heart disease Hyperlipidemia Stroke Brother Essential hypertension Heart disease Hyperlipidemia Brother Essential hypertension Hyperlipidemia Grandfather No problems noted. Grandfather No problems noted. Grandmother Diabetes Personal history of malignant neoplasm PANCREATIC Grandmother Essential hypertension Hyperlipidemia Stroke PATERNAL HISTORY Personal history of malignant neoplasm Depression Heart disease Myotonic dystrophy Sister Essential hypertension Personal history of malignant neoplasm BREAST Heart disease Hyperlipidemia Son Essential hypertension Hyperlipidemia Daughter No problems noted. Daughter Essential hypertension Depression Hyperlipidemia Daughter No problems noted. Daughter No problems noted. Other Cataract Social History Smoking/Tobacco Use Status: Former Tobacco Use tobacco type: cigarettes Quit Date: 03/28/98 Tobacco: How many years used: 35 Smoking risk assessment performed?: Yes Alcohol Intake: former Year quit: 1997 Drug use: Never Substance use type: does not use Housing: house Communication Needs: Hard of Hearing current occupation: Retired Pets and animals: No What is your relationship status?: How often do you talk on the phone with friends or family?: three or more times per week How often do you get together with friends or relatives?: three or more times per week Do you belong to any clubs or organized social groups?: no Panel score (0-1 are the most socially isolated patients): 2 What type of physical activity do you participate in: none Special lanre needs: No Agree to transfusion: Yes Seatbelt use: always Helmet use: No Drive intox or ride w/intox armored car guard and driver: No Working smoke detector in home: Yes Firearms in home: Yes Do you feel safe at home: Yes Do you feel safe in your relationship?: Yes Victim of physical abuse: No Victim of emotional abuse: No Victim of sexual abuse: No SDOH(Care Management) Screening Will the Patient Participate in the Screening?: Yes Do you worry about having a steady place to live?: no In the past 12 months, have you had to go without electric, gas, oil or water in your home?: no Have you or anyone in your house had to go without enough food to eat?: no Has lack of transportation kept you from medical appointments or from doing things needed for daily living?: no Has anyone in your support network made you feel unsafe for any reason?: no
[2023-12-21 11:18] LABS: Bilirubin Negative (Negative); Blood Negative (Negative); Clarity Clear (Clear); Glucose Negative (Negative); Ketones Trace mg/dL (Negative); Leukocyte Esterase Negative (Negative); Nitrite Negative (Negative); Urobilinogen 0.2 mg/dL (Up to 0.2)
--- NOTE | 2023-12-21 11:27 | PHA.REVIEW2 ---
Pharmacy Admission Review Admission Clinical Review Admission Pharmacy Review: Aspiration pneumonitis (Acute) Abdominal pain (Acute) Hypoxic (Acute) Atelectasis (Acute) Non-cardiac chest pain (Acute) Chronic cough (Acute) Pacemaker (Acute) Pulmonary embolus (Acute 05/03/14) No Known Allergies Allergy (Verified 12/20/23 18:48) Resuscitation Status Full Code Height 5 ft 8 in Weight 81 kg Comments Comments/Follow Ups: Per morning meeting, patient expressing that they want to go home today Pharmacy Admission Review Renal Dosing Renal Dosing: BUN 13 mg/dL (7-18) 12/21/23 06:41 Creatinine 0.7 mg/dL (0.70-1.30) 12/21/23 06:41 Medications needing adjustments: Reviewed (CrCl 73 mL/min) List of meds needing interventions: Current medications are okay Anticoagulation Anticoagulation: Hgb 15.6 g/dL (13.5-17.5) 12/21/23 06:41 Hct 49.9 % (40.0-50.0) 12/21/23 06:41 Plt Count 191 10^3/uL (130-400) 12/21/23 06:41 Creatinine 0.7 mg/dL (0.70-1.30) 12/21/23 06:41 DVT Prophylaxis: Reviewed Medications: Apixaban (5mg PO BID) Opiate Usage Evaluate Pain Scale/Pains Meds: Reviewed (oxycodone PRN - no doses given so far) Scheduled Bowel Reg ordered if on Opiates?: No (PRN docusate/Miralax) Relevant Labs Relevant Labs: Sodium 140 mmol/L (136-145) 12/21/23 06:41 Potassium 3.7 mmol/L (3.5-5.1) 12/21/23 06:41 Chloride 104 mmol/L (98-107) 12/21/23 06:41 Magnesium 2.2 mg/dL (1.8-2.4) 12/20/23 19:32 Electrolytes, C-Reactive P, ESR: Reviewed Cardiac Review Cardiac Review: Troponin I 27 ng/L (<or=76) 12/20/23 23:38 BP, HR, EF%: Reviewed (BP and HR WNL) List meds needing interventions: Has order for enalapril 20mg daily QTc Review QTc: Reviewed (480 from 12/20/23) IV to PO Switch IV Medications: Reviewed Home Meds Home Med List reviewed: Intervened Relevent Home Meds Not ordered & why?: Gabapentin on home med list says 100mg BID and 300mg HS. Most recent prescription that was filled was for gabapentin 300mg TID. Asked nursing if they could confirm with patient what dose they take at home. Per nursing, patient confirmed that they take 300mg TID. I updated home med list and reached out to provider. Provider changed order to 300mg TID. Current Meds Current Medication Order Review: Intervened Comments: Changed timing of acetaminophen to be on even hour per pharmacy protocol Changed timing of omeprazole from 0830 to 0730 per pharmacy protocol Pharmacy Antibiotic Review Relevant Labs: Relevant Labs 12/20/23 19:32 Procalcitonin 0.1 WBC 5.77 10^3/uL (4.4-10.8) 12/21/23 06:41 Procalcitonin 0.1 ng/mL 12/20/23 19:32 Temperature 36.6 C Temperature 36.6 C Temperature 36.2 C Pharmacy Antibiotic Activity: C/S review and Reviewed, no change Comments: Patient received 1 time dose of azithromycin and ceftriaxone in ED for possible pneumonia. Blood cultures are pending. No orders were put in for continued dosing. Nursing asked provider about it during morning meeting and provider said they would put in orders. Orders not put in yet, will check in with provider if they are not added soon. Comments Comments/Follow Ups: Per morning meeting, patient expressing that they want to go home today
--- NOTE | 2023-12-21 11:30 | NUR.NOTE ---
Nursing Note: Verified with pt's dtr on the phone that his home gabapentin dose is 300mg TID, pharmacy notified.
--- NOTE | 2023-12-21 11:35 | CHAPLAIN ---
Rivas was resting in bed when I visited this morning. He was not interested in further conversation, but said he's been in touch with family. He asked for the phone to be closer to him so he could make a call as he hadn't spoken with family yet today.
[2023-12-21] MEDS: Gabapentin 300 MG CAP PO (13:52)
--- NOTE | 2023-12-21 14:17 | PGE_ITS ---
Date of Service Date of service: 12/21/23 Time of Service: 14:17 Assessment and Plan Assessment and plan (1) Aspiration pneumonitis: Status: Acute Assessment and plan: He presents with hypoxia and no prior oxygen requirement. He is requiring 2 L to maintain sats in the 90s. He appears moderately dyspneic. While there is not a history of an aspiration event given his myotonic dystrophy and overall weak respiratory effort it may be more related to the acute viral gastroenteritis causing him to be even weaker and have a poor respiratory effort. The procalcitonin is reassuring as are his vital signs and normal white count. He did receive ceftriaxone and azithromycin in the emergency room. Will await further blood culture results and monitor his vital signs before continuing antibiotics. Still requires O2 Cultures pending Will continue Ceftriaxone and zithromax until results (2) Hypoxic: Status: Acute Assessment and plan: New oxygen requirement. He is comfortable on nasal cannula oxygen. His venous blood gas shows pH of 7.40 with a pCO2 of 45. Will monitor overnight on oxygen therapy. Likely discharge once he is able to maintain sats on room air. (3) Atelectasis: Status: Acute Assessment and plan: Longstanding atelectasis for which she is followed by pulmonology. Continue present meds. (4) Abdominal pain: Status: Acute Assessment and plan: Acute viral gastroenteritis appears to be improving. (5) Non-cardiac chest pain: Status: Acute Assessment and plan: Troponins mildly elevated at 26 and then 25. He has a third level pending. Does not appear to be in acute MA. 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 He is followed by [facility] neurology. He has profound weakness and is able to transfer using a cane but gets around in a wheelchair. He still drives. (7) Chronic cough: Status: Acute Assessment and plan: Longstanding chronic cough. Followed by pulmonology. (8) Pacemaker: Status: Acute Assessment and plan: He has a pacemaker followed by [facility] cardiology. He has rapid a flutter but is ventricularly paced and maintains rates in the 70s. He is on a apixaban. Will monitor on telemetry. (9) Pulmonary embolus: Status: Acute Assessment and plan: History of PE in 2014. He subsequently had a DVT. He is on lifelong anticoagulation for both the thromboembolic disease and a flutter. Exam Narrative Exam Narrative: Constitutional The patient is sitting in chair/ lying in bed comfortable and cooperative during the interview. The patient is well groomed without acute distress and has average body habitus/is obese/ is thin. HENMT: Head is atraumatic, normocephalic, no lymphadenopathy. Facial structures with normal appearance Eyes: Well aligned, intact ROM Neck: Normal ROM, no meningeal signs Neuro:alert and oriented to self, person, place time and situation. No neurological focal deficit, PERRLA Chest:Chest is symmetrical and normal appearance Resp: Normal respiratory pattern, speaks in full sentences, unlabored breathing, clear lung bilaterally Cardio: regular rhythm, S1, S2, no murmur, capillary refill<3 sec., bilateral radial and dorsalis pedis pulses are positive, palpable GI: Abdomen is not distended, soft and non tender, bowel sounds are present : Negative Costovertebral angle tenderness, no bladder distension Back/spine/Pelvis: No back tenderness, normal alignment Integumentary: No skin lesions or rash Extremities: strength 5/5 to bilateral lower and upper extremities Psych: RASS 0, congruent mood and normal affect. Objective Last Vital Signs Temp 36.6 C 12/21/23 11:15 Pulse 69 12/21/23 11:15 Resp 18 12/21/23 11:15 BP 112/69 12/21/23 11:15 Pulse Ox 96 12/21/23 11:15 Laboratory Results - last 24 hr 12/20/23 12/20/23 12/20/23 19:20 19:32 21:28 WBC 6.66 RBC 5.53 Hgb 16.6 Hct 52.2 H MCV 94 MCH 30.0 MCHC 31.8 L RDW 13.3 Plt Count 214 MPV 10.5 Immature Gran % 0.2 Neutrophils % 76.4 Lymphocytes % 13.2 Monocytes % 9.2 Eosinophils % 0.5 Basophils % 0.5 Nucleated RBC % 0.0 Absolute Neutrophils 5.10 Absolute Lymphocytes 0.88 L Absolute Monocytes 0.61 Absolute Eosinophils 0.03 Absolute Basophils 0.03 VBG pH 7.40 VBG pCO2 45 VBG pO2 47 VBG HCO3 28 VBG Total CO2 24 VBG O2 Saturation 86 VBG Base Excess 3 Sodium 140 Potassium 3.7 Chloride 103 Carbon Dioxide 28.2 Anion Gap 8.8 BUN 15 Creatinine 0.7 Est GFR (CKD-EPI 2020) 96.09 Glucose 99 Calcium 9.6 Magnesium 2.2 Total Bilirubin 1.02 H Conjugated Bilirubin 0.3 H AST 15 ALT 17 Alkaline Phosphatase 87 Troponin I 26 25 Total Protein 7.0 Albumin 3.2 L Lipase 12 L Procalcitonin 0.1 Urine Color Urine Clarity Urine pH Ur Specific [place] Urine Protein Urine Ketones Urine Blood Urine Nitrite Urine Bilirubin Urine Urobilinogen Ur Leukocyte Esterase Urine Glucose COVID-19 Source NASOPHARYNX SARS-CoV-2 (PCR) Negative Influenza Type A (PCR) Negative Influenza Type B (PCR) Negative RSV (PCR) Negative 12/20/23 12/20/23 12/21/23 23:29 23:38 06:41 WBC 5.77 RBC 5.14 Hgb 15.6 Hct 49.9 MCV 97 H MCH 30.4 MCHC 31.3 L RDW 13.5 Plt Count 191 MPV 10.8 Immature Gran % 0.2 Neutrophils % 66.3 Lymphocytes % 20.3 Monocytes % 12.0 Eosinophils % 0.7 Basophils % 0.5 Nucleated RBC % 0.0 Absolute Neutrophils 3.83 Absolute Lymphocytes 1.17 L Absolute Monocytes 0.69 Absolute Eosinophils 0.04 Absolute Basophils 0.03 VBG pH VBG pCO2 VBG pO2 VBG HCO3 VBG Total CO2 VBG O2 Saturation VBG Base Excess Sodium 140 Potassium 3.7 Chloride 104 Carbon Dioxide 30.4 Anion Gap 5.6 BUN 13 Creatinine 0.7 Est GFR (CKD-EPI 2020) 96.09 Glucose 92 Calcium 9.2 Magnesium Total Bilirubin Conjugated Bilirubin AST ALT Alkaline Phosphatase Troponin I Cancelled 27 Total Protein Albumin Lipase Procalcitonin Urine Color Urine Clarity Urine pH Ur Specific [place] Urine Protein Urine Ketones Urine Blood Urine Nitrite Urine Bilirubin Urine Urobilinogen Ur Leukocyte Esterase Urine Glucose COVID-19 Source SARS-CoV-2 (PCR) Influenza Type A (PCR) Influenza Type B (PCR) RSV (PCR) 12/21/23 11:03 WBC RBC Hgb Hct MCV MCH MCHC RDW Plt Count MPV Immature Gran % Neutrophils % Lymphocytes % Monocytes % Eosinophils % Basophils % Nucleated RBC % Absolute Neutrophils Absolute Lymphocytes Absolute Monocytes Absolute Eosinophils Absolute Basophils VBG pH VBG pCO2 VBG pO2 VBG HCO3 VBG Total CO2 VBG O2 Saturation VBG Base Excess Sodium Potassium Chloride Carbon Dioxide Anion Gap BUN Creatinine Est GFR (CKD-EPI 2020) Glucose Calcium Magnesium Total Bilirubin Conjugated Bilirubin AST ALT Alkaline Phosphatase Troponin I Total Protein Albumin Lipase Procalcitonin Urine Color Yellow Urine Clarity Clear Urine pH 5.0 Ur Specific [place] 1.020 Urine Protein Negative Urine Ketones Trace H Urine Blood Negative Urine Nitrite Negative Urine Bilirubin Negative Urine Urobilinogen 0.2 Ur Leukocyte Esterase Negative Urine Glucose Negative COVID-19 Source SARS-CoV-2 (PCR) Influenza Type A (PCR) Influenza Type B (PCR) RSV (PCR)
--- NOTE | 2023-12-21 17:17 | W.PM.DS.N ---
Date of service: 12/21/23 Time of Service: 17:17 DS: Diagnosis Discharge Diagnosis (1) Aspiration pneumonitis: Status: Acute (2) Hypoxic: Status: Acute (3) Atelectasis: Status: Acute (4) Abdominal pain: Status: Acute (5) Non-cardiac chest pain: Status: Acute (6) Myotonic dystrophy: Status: None (7) Chronic cough: Status: Acute (8) Pacemaker: Status: Acute (9) Pulmonary embolus: Status: Acute Discharge Plan Disposition Patient Disposition: Home Condition: Improving Discharge Details Reason For Visit: aspiration pneumonitis, hypoxia Admit Date/Time: 12/20/23 22:50 Admit Provider: Steve Weir Attending Provider: Steve Weir Primary Care Provider: Pool Hercules Hospital Course Hospital Course: This 73-year-old male patient with a past medical history of pulmonary embolism on apixaban, cholecystectomy, pacemaker, dystrophy, presented to the ED at [facility] on 12/20/2023 for evaluation of chest pain, nausea, vomiting and diarrhea starting 3 days prior to presentation. Level the patient was hemodynamically stable. The patient denied recent travel. Workup in the ED showed no acute sign of ischemia or injury per EKG, no new PE as per CT; chronic interstitial changes seen in the lungs. CT also positive for infiltrates seen in both lungs which may represent atelectasis, scarring or pneumonitis. CT of the abdomen and pelvis showed no thoracic aneurysm or dissection; no significant stenosis seen to celiac axis, superior mesenteric artery or renal arteries. Blood work was negative for leukocytosis. However the patient saturation oxygen dropped into the mid 80s with further assessment positive for left lower base crackles and rhonchi; POCUS showed no B-lines. New oxygen recommend of 2 L was initiated for sat above 92%. The patient was started on ceftriaxone and azithromycin for suspected pneumonitis from aspiration. The hospitalist was consulted and the patient admitted to the medical surgical floor for evaluation and management of possible aspiration pneumonia, hypoxemic respiratory failure with new oxygen requirement. Today the patient was adamant on going home and refusing to spend 1 more night in the hospital. Vital signs remained stable. The patient is minimally ambulatory at home and only completes transfer from bed to wheelchair. PT ordered to assess for safe discharge as well as need for home health physical therapy, but patient verbalized to care management that physical therapy at home has not been helpful and that he does not feel that it is needed as he only transfers from bed to wheelchair. When reassessed by respiratory therapy on room air the patient was initially able to maintain a saturation in oxygen at 92%. But upon further assessment saturation in oxygen dropped to 85%. The patient will be discharged home with oxygen at 2 L/min via nasal cannula until follow up with his primary care practitioner to be done within 7 days of discharge. Patient will be discharged home on short course of antibiotics and probiotics. Patient will have to follow-up with primary care practitioner regarding outpatient treatment for pulmonary emboli. Discussed with Dr. Currie Home Meds and New Rx's Prescriptions: New amoxicillin-pot clavulanate 875-125 mg tablet 1 tab PO BID Qty: 8 0RF Bio-K plus 50 billion cell capsule,delayed release(DR/EC) 1 cap PO DAILY Qty: 5 0RF doxycycline hyclate 100 mg capsule 100 mg PO BID Qty: 8 0RF Continued ascorbic acid (vitamin C) 1,000 mg capsule 1 g PO PRN cyanocobalamin (vitamin B-12) 1,000 mcg capsule 1,000 mcg PO DAILY benzonatate 100 mg capsule 100 - 200 mg PO TID PRN (Reason: cough) Qty: 60 0RF Rx Instructions: Take 1-2 capsules by mouth three times a day as needed for cough cholecalciferol (vitamin D3) 1,000 unit capsule 2,000 unit PO DAILY enalapril maleate 20 mg tablet 20 mg PO DAILY Qty: 90 3RF Rx Instructions: emergency supply Eliquis 5 mg tablet 5 mg PO BID Qty: 180 3RF Rx Instructions: emergency supply finasteride 5 mg tablet 5 mg PO DAILY Qty: 7 0RF Rx Instructions: emergency supply oxycodone 5 mg tablet 5 mg PO QHS MDD 1 tab PRN (Reason: Severe Pain) Qty: 28 0RF gabapentin 300 mg capsule 300 mg PO TID Discharge Instructions Instructions: Aspiration Pneumonia (DC) Stand Alone Forms: Nursing Discharge Form Referrals: Pool Hercules MD [Primary Care Provider] - (Follow-up with PCP please within 7 days of discharge ) Activity:: Activity as Tolerated Equipment/Supplies:: W/C Diet:: heart healthy Discharge Orders Discharge Orders: Discharge Order (Routine); Ordered 12/21/23 Ordered By: Yamileth Driver DS: Summary Time Spent with Patient providing and/or coordinating discharge services: Greater than 30 minutes Status at Discharge Functional status at discharge: uses cane/walker Overall status at discharge: patient is not back to baseline Mental Status: mental status grossly normal Speech and Movement: speech and movement normal Mood: congruent mood Affect: normal affect Quality:SDOH Health Related Social Needs: No Data to Display Exam Narrative Exam Narrative: Constitutional The patient is sitting in bed comfortable without acute distress Neuro:alert and oriented X4 . No neurological focal deficit Resp: Normal respiratory pattern, speaks in full sentences, unlabored breathing, decrease bilateral lower lobes breath sounds Cardio: regular rhythm, S1, S2, m radial and pedal pulses are positive GI: Abdomen is not distended, soft and non tender, bowel sounds are present : Negative Costovertebral angle tenderness, no bladder distension Integumentary: No skin lesions or rash Extremities: strength 5/5 to bilateral lower and upper extremities Psych: RASS 0, congruent mood and normal affect. Psych Mental Status: mental status grossly normal Speech and Movement: speech and movement normal Mood: congruent mood Affect: normal affect DS: Data Vitals/I&O Vitals and I&O: Vital Signs Temperature 36.6 C 12/21/23 15:20 Temperature Source Skin 12/21/23 15:20 Pulse 70 12/21/23 15:20 Pulse Rhythm Regular 12/21/23 00:33 Pulse 69 12/21/23 00:00 Respiratory Rate 18 12/21/23 15:20 Respiratory Effort Labored, Incrsd Work of Breathing 12/21/23 00:33 Respiratory Depth Normal 12/21/23 00:33 Respiratory Pattern Tachypnea 12/21/23 00:33 Blood Pressure 125/80 12/21/23 15:20 Blood Pressure Mean 103 12/20/23 23:16 Blood Pressure Position Sitting 12/20/23 19:43 Pulse Oximetry 97 12/21/23 15:20 Oxygen Delivery Method Nasal Cannula 12/21/23 15:20 Oxygen Flow Rate 1 12/21/23 15:20 Pain Level 1 12/21/23 15:20 Comment RN said to turn offn 02 12/21/23 11:15 Intake & Output 12/20/23 12/21/23 12/21/23 23:59 11:59 23:59 Intake Total 500 / 500 1220.833 / 1440.833 220 / 1440.833 Output Total 300 / 300 Balance 500 / 500 920.833 / 1140.833 220 / 1140.833 Weight 78.925 kg 81 kg Intake: IV 500 / 500 1220.833 / 1220.833 Oral 220 / 220 Output: Urine 300 / 300 Other: Urine Color Dark Adelia Urine Appearance Sediment Urine Odor None Comment sent to lab for testing Voiding Methods Urinal Data Completed and Pending Labs on day of discharge: Labs from last 24 hours 12/21/23 12/21/23 12/20/23 11:03 06:41 23:38 WBC 5.77 RBC 5.14 Hgb 15.6 Hct 49.9 MCV 97 H MCH 30.4 MCHC 31.3 L RDW 13.5 Plt Count 191 MPV 10.8 Immature Gran % 0.2 Neutrophils % 66.3 Lymphocytes % 20.3 Monocytes % 12.0 Eosinophils % 0.7 Basophils % 0.5 Nucleated RBC % 0.0 Absolute Neutrophils 3.83 Absolute Lymphocytes 1.17 L Absolute Monocytes 0.69 Absolute Eosinophils 0.04 Absolute Basophils 0.03 VBG pH VBG pCO2 VBG pO2 VBG HCO3 VBG Total CO2 VBG O2 Saturation VBG Base Excess Sodium 140 Potassium 3.7 Chloride 104 Carbon Dioxide 30.4 Anion Gap 5.6 BUN 13 Creatinine 0.7 Est GFR (CKD-EPI 2020) 96.09 Glucose 92 Calcium 9.2 Magnesium Total Bilirubin Conjugated Bilirubin AST ALT Alkaline Phosphatase Troponin I 27 Total Protein Albumin Lipase Procalcitonin Urine Color Yellow Urine Clarity Clear Urine pH 5.0 Ur Specific R[place]y 1.020 Urine Protein Negative Urine Ketones Trace H Urine Blood Negative Urine Nitrite Negative Urine Bilirubin Negative Urine Urobilinogen 0.2 Ur Leukocyte Esterase Negative Urine Glucose Negative COVID-19 Source SARS-CoV-2 (PCR) Influenza Type A (PCR) Influenza Type B (PCR) RSV (PCR) 12/20/23 12/20/23 12/20/23 23:29 21:28 19:32 WBC 6.66 RBC 5.53 Hgb 16.6 Hct 52.2 H MCV 94 MCH 30.0 MCHC 31.8 L RDW 13.3 Plt Count 214 MPV 10.5 Immature Gran % 0.2 Neutrophils % 76.4 Lymphocytes % 13.2 Monocytes % 9.2 Eosinophils % 0.5 Basophils % 0.5 Nucleated RBC % 0.0 Absolute Neutrophils 5.10 Absolute Lymphocytes 0.88 L Absolute Monocytes 0.61 Absolute Eosinophils 0.03 Absolute Basophils 0.03 VBG pH 7.40 VBG pCO2 45 VBG pO2 47 VBG HCO3 28 VBG Total CO2 24 VBG O2 Saturation 86 VBG Base Excess 3 Sodium 140 Potassium 3.7 Chloride 103 Carbon Dioxide 28.2 Anion Gap 8.8 BUN 15 Creatinine 0.7 Est GFR (CKD-EPI 2020) 96.09 Glucose 99 Calcium 9.6 Magnesium 2.2 Total Bilirubin 1.02 H Conjugated Bilirubin 0.3 H AST 15 ALT 17 Alkaline Phosphatase 87 Troponin I Cancelled 25 26 Total Protein 7.0 Albumin 3.2 L Lipase 12 L Procalcitonin 0.1 Urine Color Urine Clarity Urine pH Ur Specific R[place] Urine Protein Urine Ketones Urine Blood Urine Nitrite Urine Bilirubin Urine Urobilinogen Ur Leukocyte Esterase Urine Glucose COVID-19 Source SARS-CoV-2 (PCR) Influenza Type A (PCR) Influenza Type B (PCR) RSV (PCR) 12/20/23 19:20 WBC RBC Hgb Hct MCV MCH MCHC RDW Plt Count MPV Immature Gran % Neutrophils % Lymphocytes % Monocytes % Eosinophils % Basophils % Nucleated RBC % Absolute Neutrophils Absolute Lymphocytes Absolute Monocytes Absolute Eosinophils Absolute Basophils VBG pH VBG pCO2 VBG pO2 VBG HCO3 VBG Total CO2 VBG O2 Saturation VBG Base Excess Sodium Potassium Chloride Carbon Dioxide Anion Gap BUN Creatinine Est GFR (CKD-EPI 2020) Glucose Calcium Magnesium Total Bilirubin Conjugated Bilirubin AST ALT Alkaline Phosphatase Troponin I Total Protein Albumin Lipase Procalcitonin Urine Color Urine Clarity Urine pH Ur Specific Ripley Urine Protein Urine Ketones Urine Blood Urine Nitrite Urine Bilirubin Urine Urobilinogen Ur Leukocyte Esterase Urine Glucose COVID-19 Source NASOPHARYNX SARS-CoV-2 (PCR) Negative Influenza Type A (PCR) Negative Influenza Type B (PCR) Negative RSV (PCR) Negative 12/20/23 23:38 Blood Blood Culture - Pending 12/20/23 21:54 Blood Blood Culture - Pending Preliminary micro results at discharge 12/20/23 23:38 Blood Culture - Pending Blood 12/20/23 21:54 Blood Culture - Pending Blood PFSH All Active Problems (Updated 12/21/23 @ 17:54 by Yamileth Driver APRN) Aspiration pneumonitis (Acute) Abdominal pain (Acute) Hypoxic (Acute) Atelectasis (Acute) Non-cardiac chest pain (Acute) Chronic cough (Acute) Abdominal pain (Acute) Pacemaker (Acute) [facility] 01/06/18; [employer]ACEMENT; BIOTRONIC Pulmonary embolus (Acute 05/03/14) Medical History (Updated 12/21/23 @ 17:54 by Yamileth Driver APRN) Myotonic dystrophy mild hearing loss Rosacea History of colonic polyps H/O carpal tunnel syndrome Benign prostatic hypertrophy Low back pain Hypertension Carpal tunnel syndrome right Contact dermatitis seborrhea Fracture of medial malleolus, right, closed (03/27/17) Hearing loss History of tobacco use Obesity Polyp of colon (05/25/10) 05/25/10; Tubular adenoma and hyperplastic 05/14/13; 4 polyps 05/19/16: tubular adenomas Raised prostate specific antigen neg. 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 right inguinal hernia repair b. umbilical hernia repair 1994 c. colonoscopy last done at [place] 04/2013 showed tubular adenomatous polyp per report S/P cholecystectomy (~07/10/19[place] [facility] [place]air of [place] hernia (~1994) Colonoscopy - [facility] (01/15/22) 2016 Extraction of cataract Family History Mother Diabetes Essential hypertension Personal history of malignant neoplasm BREAST/UTERINE Aortic valve stenosis Heart disease Hyperlipidemia Father Essential hypertension Personal history of malignant neoplasm COLON Heart disease Hyperlipidemia Stroke Brother Essential hypertension Heart disease Hyperlipidemia Brother Essential hypertension Hyperlipidemia Grandfather No problems noted. Grandfather No problems noted. Grandmother Diabetes Personal history of malignant neoplasm PANCREATIC Grandmother Essential hypertension Hyperlipidemia Stroke PATERNAL HISTORY Personal history of malignant neoplasm Depression Heart disease Myotonic dystrophy Sister Essential hypertension Personal history of malignant neoplasm BREAST Heart disease Hyperlipidemia Son Essential hypertension Hyperlipidemia Daughter No problems noted. Daughter Essential hypertension Depression Hyperlipidemia Daughter No problems noted. Daughter No problems noted. Other Cataract Social History Smoking/Tobacco Use Status: Former Tobacco Use tobacco type: cigarettes Quit Date: 03/28/98 Tobacco: How many years used: 35 Smoking risk assessment performed?: Yes Alcohol Intake: former Year quit: 1997 Drug use: Never Substance use type: does not use Housing: house Communication Needs: Hard of Hearing current occupation: Retired Pets and animals: No What is your relationship status?: How often do you talk on the phone with friends or family?: three or more times per week How often do you get together with friends or relatives?: three or more times per week Do you belong to any clubs or organized social groups?: no Panel score (0-1 are the most socially isolated patients): 2 What type of physical activity do you participate in: none Special lanre needs: No Agree to transfusion: Yes Seatbelt use: always Helmet use: No Drive intox or ride w/intox 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
--- NOTE | 2023-12-21 18:45 | RESPIRATORY ---
12/21/2023 Exercise Oximetry Pt when moving around on room air SpO2 is around 92%. Pt at rest on room air SpO2 is 85%. Pt qualifies for 1L NC SpO2 in the mid 90s. Pt being sent home with a concentrator from [facility].
--- NOTE | 2023-12-22 08:23 | PT.INNT ---
PT Notes Visit Reasons: aspiration pneumonitis, hypoxia Patient left on 12/20/25 per order of GORGE Carson. No services were provided for this episode of care.
== END 2023-12-21 18:34 | disposition home or self-care (01) ==
LOC: ER 23:34 → MS 12-21 00:23
PROVIDERS: Admitting Provider Family Medicine; Emergency Provider Emergency Medicine; PCP Family Medicine; Visit Provider Family Medicine
DX: J69.0 Pneumonitis due to inhalation of food and vomit (principal); A08.4 Viral intestinal infection, unspecified; R07.89 Other chest pain; R10.9 Unspecified abdominal pain; J98.11 Atelectasis; R05.3 Chronic cough; Z95.0 Presence of cardiac pacemaker; G71.11 Myotonic muscular dystrophy; R09.02 Hypoxemia; R74.8 Abnormal levels of other serum enzymes; Z86.711 Personal history of pulmonary embolism; I10 Essential (primary) hypertension; E78.5 Hyperlipidemia, unspecified; G47.00 Insomnia, unspecified; K27.9 Peptic ulcer, site unspecified, unspecified as acute or chronic, without hemorrhage or perforation
CPT/HCPCS: 00123; 36415; 71275; 74177; 76604; 80048; 80053; 82805; 83690; 84145; 87040; 87637; 93005; 93308; 94618; 94640; 96361; 96365; 96367; 96368; 96375; 99285; 81003; 82248; 83735; 84484; 85025; 93010; 94760; 99222; 99239; G0378; J0131; J0456; J0696; J2405; J3490; J7620

== ENCOUNTER 2024-01-09 11:31 | Emergency (ER) | payer OTHER, SELFPAY ==
[2024-01-09] VITALS (24 sets, daily range): BP systolic 119–126; BP diastolic 76–90; PULSE 69–78; RESP 12–25; TEMP 36.7–36.8; O2SAT 90–96
[2024-01-09 12:17] LABS: Abs Immature Grans 0.01 10^3/uL (0.0-0.06); Absolute Basophil Count 0.03 10^3/uL (0.0-0.2); Absolute Eosinophil Count 0.13 10^3/uL (0.0-0.7); Absolute Lymphocyte Count 1.28 10^3/uL (1.2-3.4); Absolute Monocyte Count 0.94 10^3/uL (0.1-0.8); Absolute Neutrophil Count 4.57 10^3/uL (1.2-6.7); Basophils % 0.4 %; Eosinophils % 1.9 %; HCT 49.6 % (40.0-50.0); HGB 16.2 g/dL (13.5-17.5); Immature Grans % 0.1 %; Lymphocytes % 18.4 %; MCH 30.6 pg (27.0-33.0); MCHC 32.7 % (32.0-36.0); MCV 94 fL (80-95); MPV 11.3 fL (8.0-11.0); Monocytes % 13.5 %; Neutrophils % 65.7 %; Platelet Count 212 10^3/uL (130-400); RBC 5.29 10^6/uL (4.36-5.78); RDW 13.3 % (11.8-14.1); RDW-SD 46.1 fL; WBC 6.96 10^3/uL (4.4-10.8)
[2024-01-09 12:32] LABS: ALT 17 U/L (16-63); AST 14 U/L (15-37); Albumin 3.2 g/dL (3.4-5.0); Alkaline Phosphatase 80 U/L (46-116); Anion Gap 9.8 mmol/L (3-11); BUN 12 mg/dL (7-18); Bilirubin, Total 1.27 mg/dL (0.2-1.0); CO2 28.2 mmol/L (21.0-32.0); CREATININE 0.8 mg/dL (0.70-1.30); Calcium 9.9 mg/dL (8.5-10.1); Chloride 106 mmol/L (98-107); Estimated GFR 92.29 (mL/min/1.73m2); Glucose 89 mg/dL (74-106); Lipase 11 U/L (16-77); Magnesium 2.2 mg/dL (1.8-2.4); Potassium 3.4 mmol/L (3.5-5.1); Sodium 144 mmol/L (136-145)
[2024-01-09 14:05] LABS: C Diff PCR Negative (Negative)
--- NOTE | 2024-01-09 14:34 | W.ED.GENAD ---
Discharge Plan Disposition Patient Disposition: Home Condition: Stable Discharge Details Clinical Impression: Diarrhea, Hypokalemia Primary Care Provider: [facility] ED Provider: Mandie Irving Home Meds and New Rx's Prescriptions: No Action ascorbic acid (vitamin C) 1,000 mg capsule 1 g PO PRN cyanocobalamin (vitamin B-12) 1,000 mcg capsule 1,000 mcg PO DAILY cholecalciferol (vitamin D3) 1,000 unit capsule 2,000 unit PO DAILY enalapril maleate 20 mg tablet 20 mg PO DAILY Qty: 90 3RF Rx Instructions: emergency supply Eliquis 5 mg tablet 5 mg PO BID Qty: 180 3RF Rx Instructions: emergency supply finasteride 5 mg tablet 5 mg PO DAILY Qty: 7 0RF Rx Instructions: emergency supply oxycodone 5 mg tablet 5 mg PO QHS MDD 1 tab PRN (Reason: Severe Pain) Qty: 28 0RF gabapentin 300 mg capsule 300 mg PO TID Discharge Instructions Instructions: Diarrhea, Adult ED Additional Instructions: Resume probiotics and increase fiber intake Start electrolytes like Gatorade or Pedialyte If diarrhea persists please follow-up with your PCP for reevaluation. Remainder of stool studies are still pending for infection, your PCP can follow-up and manage these if positive. Discharge Data Discharge Date/Time-TO BE ENTERED AT DEPARTURE: 01/09/24 15:02 HPI General Date/Time Provider Initiated Documentation: 01/09/24 11:48. Limitations to Documentation: no limitations. Information obtained by: patient. HPI Narrative: 73-year-old gentleman with past medical history of myotonic dystrophy, aspiration pneumonia, as needed oxygen dependence presents for evaluation of diarrhea. Patient and family member reports that there was a hospitalization a few weeks ago after vomiting and diarrheal illness that caused an aspiration pneumonia. He took antibiotics. For the last 2 days he has had multiple very watery stools. Some mild abdominal cramping but not significant abdominal pain. No fever. Did have 1 episode of vomiting last night. The patient intermittently will use oxygen if saturations are less than 95%. Related Data Home Medications ?Medication ?Instructions ?Recorded ?Confirmed cholecalciferol (vitamin D3) 25 2,000 unit PO DAILY 01/30/19 01/09/24 mcg (1,000 unit) capsule ascorbic acid (vitamin C) 1,000 mg 1 g PO PRN 10/28/22 01/09/24 capsule cyanocobalamin (vitamin B-12) 1,000 mcg PO DAILY 02/04/23 01/09/24 1,000 mcg capsule apixaban 5 mg tablet (Eliquis) 5 mg PO BID #180 tab-caps 05/31/23 01/09/24 enalapril maleate 20 mg tablet 20 mg PO DAILY #90 tabs 05/31/23 01/09/24 finasteride 5 mg tablet 5 mg PO DAILY #7 tab-caps 09/24/23 01/09/24 oxycodone 5 mg tablet 5 mg PO QHS PRN Severe Pain #28 12/17/23 01/09/24 tabs gabapentin 300 mg capsule 300 mg PO TID Leg pain and 12/21/23 01/09/24 discomfort Previous Rx's ?Medication ?Instructions ?Recorded apixaban 5 mg tablet (Eliquis) 5 mg PO BID #180 tab-caps 05/31/23 enalapril maleate 20 mg tablet 20 mg PO DAILY #90 tabs 05/31/23 finasteride 5 mg tablet 5 mg PO DAILY #7 tab-caps 09/24/23 oxycodone 5 mg tablet 5 mg PO QHS PRN Severe Pain #28 12/17/23 tabs Allergies Allergy/AdvReac Type Severity Reaction Status Date / Time No Known Allergies Allergy Verified 12/29/23 16:12 General Stated Complaint: Abd Prob MARY: 3 Exam Narrative Exam Narrative: Review of Systems: All systems reviewed & are unremarkable except as noted in HPI and below Well-developed, chronically ill-appearing NCAT RRR no murmur Unlabored respiratory effort clear bilaterally No hypoxia on 1 L nasal cannula Nondistended abdomen soft nontender no focal neurologic deficits Course Vital Signs Vital signs: Vital Signs Temperature 36.7 C 01/09/24 11:33 Pulse 70 01/09/24 11:33 Respiratory Rate 15 01/09/24 11:33 Blood Pressure 119/76 01/09/24 11:33 Pulse Oximetry 96 01/09/24 11:33 Temperature 36.7 C 01/09/24 11:33 Temperature Source Oral 01/09/24 11:33 Pulse 70 01/09/24 11:33 Pulse 72 01/09/24 13:00 Respiratory Rate 15 01/09/24 13:00 Blood Pressure 119/76 01/09/24 11:33 Blood Pressure Position Sitting 01/09/24 11:33 Pulse Oximetry 90 L 01/09/24 13:00 Oxygen Delivery Method Nasal Cannula 01/09/24 11:51 Oxygen Flow Rate 0 01/09/24 11:33 Pain Level 0 01/09/24 11:51 Lab/Test Results Lab/Test Results: Laboratory Tests Range/Units 01/09/24 12:07 WBC (4.4-10.8) 10^3/uL 6.96 RBC (4.36-5.78) 10^6/uL 5.29 Hgb (13.5-17.5) g/dL 16.2 Hct (40.0-50.0) % 49.6 MCV (80-95) fL 94 MCH (27.0-33.0) pg 30.6 MCHC (32.0-36.0) % 32.7 RDW (11.8-14.1) % 13.3 Plt Count (130-400) 10^3/uL 212 MPV (8.0-11.0) fL 11.3 H Immature Gran % % 0.1 Neutrophils % % 65.7 Lymphocytes % % 18.4 Monocytes % % 13.5 Eosinophils % % 1.9 Basophils % % 0.4 Nucleated RBC % (0.0-0.3) % 0.0 Absolute Neutrophils (1.2-6.7) 10^3/uL 4.57 Absolute Lymphocytes (1.2-3.4) 10^3/uL 1.28 Absolute Monocytes (0.1-0.8) 10^3/uL 0.94 H Absolute Eosinophils (0.0-0.7) 10^3/uL 0.13 Absolute Basophils (0.0-0.2) 10^3/uL 0.03 Sodium (136-145) mmol/L 144 Potassium (3.5-5.1) mmol/L 3.4 L Chloride (98-107) mmol/L 106 Carbon Dioxide (21.0-32.0) mmol/L 28.2 Anion Gap (3-11) mmol/L 9.8 BUN (7-18) mg/dL 12 Creatinine (0.70-1.30) mg/dL 0.8 Est GFR (CKD-EPI 2020) (mL/min/1.73m2) 92.29 Glucose (74-106) mg/dL 89 Calcium (8.5-10.1) mg/dL 9.9 Magnesium (1.8-2.4) mg/dL 2.2 Total Bilirubin (0.2-1.0) mg/dL 1.27 H AST (15-37) U/L 14 L ALT (16-63) U/L 17 Alkaline Phosphatase (46-116) U/L 80 Total Protein (6.4-8.2) g/dL 7.0 Albumin (3.4-5.0) g/dL 3.2 L Lipase (16-77) U/L 11 L Medical Decision Making Emergent evaluation of diarrhea. Patient had recent hospitalization for aspiration pneumonia and completed a course of antibiotics. For the last 2 days he has been having watery diarrhea and his PCP was concerned for C. difficile so sent him to the emergency department. He uses chronic oxygen, and from a respiratory standpoint seems to be at baseline without concerns there. He describes his diarrhea as watery and I have a high suspicion for C. difficile. He has a benign abdominal exam otherwise. He is also hemodynamically stable and afebrile. Plan for labs, electrolytes to evaluate for dehydration or electrolyte derangement. Will get stool studies. Lab work reviewed. No leukocytosis. Hemoglobin is stable without signs of anemia. Mild hypokalemia of 3.4. Will give an oral dose. Bilirubin is slightly elevated at 1.27 B unclear significance of this is the remainder of his LFTs are negative and his lipase is also not elevated. The patient was able to provide a stool sample in the emergency department. Nursing staff describes this is very watery. Final disposition pending testing. C. difficile testing is negative. The remainder of the stool studies are pending. Patient has not had any additional bowel movements in the emergency department. At this time recommend probiotics increased fiber and hydration at home. And close follow-up with his PCP if diarrhea. Quality:SDOH Health Related Social Needs: No Data to Display PFSH All Active Problems (Updated 01/09/24 @ 14:45 by Mandie Irving MD) Hypokalemia (Acute) Diarrhea (Acute) Bilateral hip pain (Acute) Aspiration pneumonitis (Acute) Hypoxic (Acute) Abdominal pain (Acute) Pacemaker (Acute) [facility] 01/06/18; [employer] ICD PLACEMENT; BIOTRONIC Pulmonary embolus (Acute 05/03/14) Medical History Atelectasis Non-cardiac chest pain Chronic cough Myotonic dystrophy mild hearing loss Rosacea History of colonic polyps H/O carpal tunnel syndrome Benign prostatic hypertrophy Low back pain Hypertension Carpal tunnel syndrome right Contact dermatitis seborrhea Fracture of medial malleolus, right, closed (03/27/17) Hearing loss History of tobacco use Obesity Polyp of colon (05/25/10) 05/25/10; Tubular adenoma and hyperplastic 05/14/13; 4 polyps 05/19/16: tubular adenomas Raised prostate specific antigen neg. 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 right inguinal hernia repair b. umbilical hernia repair 1994 c. colonoscopy last done at [facility] 04/2013 showed tubular adenomatous polyp per report S/P cholecystectomy (~07/10/19) [facility] Repair of umbilical hernia (~1994) Colonoscopy - [facility] (01/15/22) 2017 Extraction of cataract Family History Mother Diabetes Essential hypertension Personal history of malignant neoplasm BREAST/UTERINE Aortic valve stenosis Heart disease Hyperlipidemia Father Essential hypertension Personal history of malignant neoplasm COLON Heart disease Hyperlipidemia Stroke Brother Essential hypertension Heart disease Hyperlipidemia Brother Essential hypertension Hyperlipidemia Grandfather No problems noted. Grandfather No problems noted. Grandmother Diabetes Personal history of malignant neoplasm PANCREATIC Grandmother Essential hypertension Hyperlipidemia Stroke PATERNAL HISTORY Personal history of malignant neoplasm Depression Heart disease Myotonic dystrophy Sister Essential hypertension Personal history of malignant neoplasm BREAST Heart disease Hyperlipidemia Son Essential hypertension Hyperlipidemia Daughter No problems noted. Daughter Essential hypertension Depression Hyperlipidemia Daughter No problems noted. Daughter No problems noted. Other Cataract Social History Smoking/Tobacco Use Status: Former Tobacco Use tobacco type: cigarettes Quit Date: 03/28/98 Tobacco: How many years used: 35 Smoking risk assessment performed?: Yes Alcohol Intake: former Year quit: 1997 Drug use: Never Substance use type: does not use Housing: house Communication Needs: Hard of Hearing current occupation: Retired Pets and animals: No What is your relationship status?: How often do you talk on the phone with friends or family?: three or more times per week How often do you get together with friends or relatives?: three or more times per week Do you belong to any clubs or organized social groups?: no Panel score (0-1 are the most socially isolated patients): 2 What type of physical activity do you participate in: none Special lanre needs: No Agree to transfusion: Yes Seatbelt use: always Helmet use: No Drive 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
[2024-01-10 12:08] LABS: Campylobacter PCR Negative (Negative); Salmonella PCR Negative (Negative); Shiga Toxin PCR Negative (Negative); Shigella/Enteroinvasive Ecoli Negative (Negative)
== END 2024-01-09 15:02 | disposition home or self-care (01) ==
PROVIDERS: Emergency Provider Emergency Medicine; PCP Family Medicine
DX: R19.7 Diarrhea, unspecified (principal); E87.6 Hypokalemia; G71.11 Myotonic muscular dystrophy; Z99.81 Dependence on supplemental oxygen; Z79.01 Long term (current) use of anticoagulants; Z95.810 Presence of automatic (implantable) cardiac defibrillator; Z87.891 Personal history of nicotine dependence; I10 Essential (primary) hypertension; E78.5 Hyperlipidemia, unspecified
CPT/HCPCS: 80053; 83690; 87493; 87505; 99283; 83735; 85025

== ENCOUNTER 2024-02-03 01:26 | Outpatient (CLI) | payer OTHER, SELFPAY ==
[2024-02-03] MEDS: Inhaler, Assist Device 1 EACH MC (11:25)
[2024-02-03] MEDS: Levalbuterol HFA 15 GM INH 4 PUFF IH (11:26)
--- NOTE | 2024-02-10 09:32 | PFT_ITS ---
Date of service: 02/03/24 Time of Service: 10:07 Pulmonary Function Test Result Indications: Myotonic dystrophy Interpretation Spirometry: There is no airflow limitation. There is restrictive spirometry. No bronch odilator response. Lung Volumes: Moderate restrictive lung disease Diffusion Capacity: Decreased diffusion Airway Pressure: Normal airways resistance Impression Moderate restrictive lung disease and a decreased diffusion which could be consistent with interstitial lung disease. Clinical Correlation therefore is recommended.
== END 2024-02-03 01:27 | disposition home or self-care (01) ==
LOC: RT 01:26
PROVIDERS: PCP Family Medicine; Visit Provider Student in an Organized Health Care Education/Training Program
DX: G71.11 Myotonic muscular dystrophy (principal); J84.9 Interstitial pulmonary disease, unspecified
CPT/HCPCS: 94060; 94726; 94729; 94762

== ENCOUNTER 2024-02-29 09:31 | Outpatient (CLI) | payer OTHER, SELFPAY ==
[2024-02-29 09:43] VITALS: BP 105/71; PULSE 69; RESP 20; TEMP 36.7; O2SAT 97
[2024-02-29 10:15] VITALS: PULSE 101; RESP 15; O2SAT 96
[2024-02-29 10:16] VITALS: BP 155/99; PULSE 70; PULSE 83; RESP 11; O2SAT 96
[2024-02-29 10:20] VITALS: PULSE 76; RESP 13; O2SAT 96
[2024-02-29 10:30] VITALS: PULSE 104; RESP 12; O2SAT 93
[2024-02-29 10:31] VITALS: BP 136/100; PULSE 69; RESP 14; O2SAT 91
--- NOTE | 2024-02-29 10:35 | DI.RAD_ITS ---
Exam(s) XR PAIN CLINIC LUMBAR SP 2V EXAM: XR PAIN CLINIC LUMBAR SP 2V CLINICAL HISTORY: Dx:Lumbar Spondylosis. TECHNIQUE: Fluoroscopy was provided for the referring physician for guidance with performing pain cl inic injection procedure. COMPARISON: No exams were available for comparison FINDINGS: Please see procedure note for details. Fluoro time: 53.6 seconds RADIATION DOSE DELIVERED: Uvaldor=16.9 mGy
[2024-02-29] MEDS: Bupivacaine 0.5% Pres-Free 10 ML VIAL IJ (10:40)
[2024-02-29] MEDS: Nerve Block Tray 1 EACH MC (10:40)
[2024-02-29] MEDS: Omnipaque 240 MG/ML 50 ML BTL IJ (10:41)
--- NOTE | 2024-02-29 10:41 | PDOC.PAIN_ITS ---
Date of service: 02/29/24 Time of Service: 10:42 Pain Managment Procedure Note Procedure Note Procedure Note: PROCEDURE NOTE Bilateral Lumbar Medial Branch Blocks #2 Date of Service: February 29, 2024 Patient: Rivas Carlos Provider: Saman Rubin DO, MPH Rivas Carlos has been [facility] to the [facility] for lumbar medial branch blocks. Pre-operative diagnosis: Lumbar Spondylosis without Myelopathy ICD-10 M47.816 Post-operative diagnosis: Same Pre-procedure pain: VAS= 8/10 COMMENTS: He did very well with his first LMBB Rivas? was interviewed and the medical records were reviewed. There were no medical, pharmacologic, radiographic or other structural contraindications to attempting fluoroscopically guided local anesthetic lumbar medial branch blocks. Risks and potential side effects were discussed. I also discussed the potential benefit(s) of the procedure with Rivas, and voiced concerns were addressed. After Rivas was completely informed about the procedure, the printed consent form was signed. A standard time-out procedure was performed. Rivas was placed in the prone position on the fluoroscopy table. Automated blood pressure cuff and pulse oximeter were applied. The skin entry points for approaching the anatomic target points of the segmental medial branches of bilateral L3,L4,L5 were identified with fluoroscopy and marked. The skin at the target site area was thoroughly prepared with Chlorhexadine. The skin was then draped. Next, a 25 gauge 3.5 spinal needle was placed under fluoroscopic guidance down on to the target point (the articular pillar) for each respective segmental medial branch. Position was confirmed in A/P and lateral views. Aspiration revealed no blood or clear fluid. Next, 0.25ml of omnipaque 240 was injected at each level. No contrast following a vascular or neural pattern was visualized under continuous fluoroscopy. Next, 0.25 ml of preservative-free 0.5% bupivicaine was injected at each level. There was no unusual discomfort expressed by Rivas. The needles were withdrawn without difficulty. (49 mls of Omnipaque was wasted) Rivas was observed and was without hemodynamic, neurologic, or allergic reactions.? Fluoroscopic images were digitally archived. Provacative testing using the Modified Vicente's facet loading test- Left side Right Side Directly before the block VAS (0-10) = 8/10 VAS (0-10) = 8/10 Five minutes after the block VAS (0-10) = 2/10 VAS (0-10) = 2/10 Percentage relief obtained with this diagnostic block 80% 80% Any improved physical functioning directly after the blocks? Able to move his low back with little pain. Follow up plans and appointments were discussed with Rivas. Rivas was instructed to keep careful note of how the usual pain was modified by these injections. Specifically, to keep a pain diary for the next 4 hours using a numeric pain scale of 0-10 and report these results. Post procedure instruction was given as documented in the nursing documentation and having met discharge criteria, the patient was [facility] Based on the medial branches blocked today, if they patient has adequate relief and we are able to proceed to radiofrequency ablation, the treatment should result in the denervation of the bilateral L4-L5 and L5-S1 facet joints. We would expect to denervate a total of 4 facets during the radiofrequency ablation. COMMENTS: No apparent complications. Post-procedure pain: VAS= 2/10 Rivas will call back with 0-4 hour post-procedure pain scores. I personally performed the entire procedure. SAMAN RUBIN DO, MPH ABPM&R-subspecialty board certification in Pain Medicine [facility]
== END 2024-02-29 09:32 | disposition home or self-care (01) ==
LOC: PC 09:31
PROVIDERS: PCP Family Medicine; Visit Provider Preventive Medicine Occupational Medicine
DX: M47.816 Spondylosis without myelopathy or radiculopathy, lumbar region (principal)
CPT/HCPCS: 64493; 64494; 72100; J0665; Q9967

== ENCOUNTER 2024-08-03 00:06 | Emergency (ER) | payer OTHER, SELFPAY ==
[2024-08-03 00:09] VITALS: BP 138/64; PULSE 82; RESP 18; TEMP 36.1; O2SAT 98
[2024-08-03 00:38] LABS: Abs Immature Grans 0.01 10^3/uL (0.0-0.06); Absolute Basophil Count 0.04 10^3/uL (0.0-0.2); Absolute Eosinophil Count 0.15 10^3/uL (0.0-0.7); Absolute Lymphocyte Count 0.77 10^3/uL (1.2-3.4); Absolute Monocyte Count 0.48 10^3/uL (0.1-0.8); Absolute Neutrophil Count 4.37 10^3/uL (1.2-6.7); Basophils % 0.7 %; Eosinophils % 2.6 %; HCT 52.5 % (40.0-50.0); HGB 16.4 g/dL (13.5-17.5); Immature Grans % 0.2 %; Lymphocytes % 13.2 %; MCH 30.1 pg (27.0-33.0); MCHC 31.2 % (32.0-36.0); MCV 97 fL (80-95); Monocytes % 8.2 %; Neutrophils % 75.1 %; Platelet Count 179 10^3/uL (130-400); RBC 5.44 10^6/uL (4.36-5.78); RDW 13.1 % (11.8-14.1); RDW-SD 46.4 fL; WBC 5.82 10^3/uL (4.4-10.8)
[2024-08-03] MEDS: Normal Saline 500 ML IV (00:41)
[2024-08-03 00:56] LABS: ALT 16 U/L (16-63); AST 22 U/L (15-37); Albumin 3.3 g/dL (3.4-5.0); Alkaline Phosphatase 99 U/L (46-116); Anion Gap 4.9 mmol/L (3-11); BUN 14 mg/dL (7-18); Bilirubin, Total 0.7 mg/dL (0.2-1.0); CO2 32.1 mmol/L (21.0-32.0); CREATININE 0.8 mg/dL (0.70-1.30); Calcium 9.9 mg/dL (8.5-10.1); Chloride 107 mmol/L (98-107); Estimated GFR 91.72 (mL/min/1.73m2); Glucose 83 mg/dL (74-106); Potassium 4.2 mmol/L (3.5-5.1); Sodium 144 mmol/L (136-145); Total Protein 6.9 g/dL (6.4-8.2)
[2024-08-03 01:03] LABS: Bilirubin Negative (Negative); Blood Small (Negative); Clarity Clear (Clear); Glucose Negative (Negative); Ketones Negative (Negative); Leukocyte Esterase Trace (Negative); Nitrite Negative (Negative); Specific Gravity 1.025 (1.005-1.025); pH 6.5 (5-8)
[2024-08-03 01:06] LABS: Bacteria Rare HPF (Negative); C & S Indicated? No; Casts Negative LPF (Negative); Crystals Negative HPF (Negative); Epithelial Cells Rare HPF (Negative); Mucus Negative (Negative)
--- NOTE | 2024-08-03 01:15 | ED.GENADUL_ITS ---
Discharge Plan Disposition Patient Disposition: Home Condition: Good Discharge Details Clinical Impression: Urinary tract infection Primary Care Provider: Pool Hercules ED Provider: Ye Gallardo Home Meds and New Rx's Prescriptions: New levofloxacin 750 mg tablet 750 mg PO DAILY Qty: 7 0RF No Action ascorbic acid (vitamin C) 1,000 mg capsule 1 g PO PRN cyanocobalamin (vitamin B-12) 1,000 mcg capsule 1,000 mcg PO DAILY latanoprost 0.005 % drops 1 drp ophthalmic (eye) DAILY Eliquis 5 mg tablet 5 mg PO BID Qty: 180 3RF Rx Instructions: emergency supply enalapril maleate 20 mg tablet 20 mg PO DAILY Qty: 90 3RF Rx Instructions: emergency supply Fortify [place] Probiotic 50 billion cell capsule,delayed release(DR/EC) 1 cap PO DAILY cholecalciferol (vitamin D3) 1,000 unit capsule 2,000 unit PO DAILY finasteride 5 mg tablet 5 mg PO DAILY Qty: 90 3RF oxycodone 5 mg tablet 5 mg PO QHS MDD 1 tab PRN (Reason: Severe Pain) Qty: 28 0RF gabapentin 300 mg capsule 300 mg PO TID Patient Comments: tapering up to 1800mg per day, should be up to that dose by the end of this week. Discharge Instructions Instructions: Urinary Tract Infection, Adult ED Additional Instructions: At this time you have evidence of a mild urinary tract infection. There is no evidence of significant bleeding in your urine at this time. Please take the antibiotic as directed to help treat the infection. Please follow-up closely with your primary care provider and your urology team at [facility]. If you notice any worsening of your symptoms, or any new symptoms such as vomiting, diarrhea, fever, chills, shortness of breath, chest pain, numbness, weakness, or fainting , please return immediately to the emergency department for reevaluation. Please follow up with your primary care provider as soon as possible for reassessment and reevaluation. As always, it was a pleasure participating in your medical care today. Referrals: Pool Hercules MD [Primary Care Provider] - [facility] General Date/Time Provider Initiated Documentation: 08/03/24 00:11 . HPI Narrative: This is a pleasant 74-year-old male with past medical history of DVT/PE on Eliquis as well as A-fib, muscular dystrophy, pacemaker, BPH, hypertension, who presents today for evaluation of dysuria, and noticing a small bit of red-tinged component at the end of urination. He states that starting this evening and today he has had burning with urination. He denies seeing any blood clots. He denies any difficulty with urination. He denies fever or chil ls. He denies vomiting or diarrhea. No other complaints at this time. Related Data Home Medications ?Medication ?Instructions ?Recorded ?Confirmed cholecalciferol (vitamin D3) 25 2,000 unit PO DAILY 01/30/19 05/15/24 mcg (1,000 unit) capsule ascorbic acid (vitamin C) 1,000 mg 1 g PO PRN 10/28/22 05/15/24 capsule cyanocobalamin (vitamin B-12) 1,000 mcg PO DAILY 02/04/23 05/15/24 1,000 mcg capsule gabapentin 300 mg capsule 300 mg PO TID Leg pain and 12/21/23 05/15/24 discomfort L.acid-B.animalis-B.bifidum-B.infantis 1 cap PO DAILY 01/16/24 05/15/24 50 billion cell capsule,del rel (Fortify [place] Probiotic) apixaban 5 mg tablet (Eliquis) 5 mg PO BID #180 tab-caps 03/13/24 05/15/24 enalapril maleate 20 mg tablet 20 mg PO DAILY #90 tabs 03/13/24 05/15/24 finasteride 5 mg tablet 5 mg PO DAILY #90 tab-caps 04/09/24 05/15/24 latanoprost 0.005 % eye drops 1 drp ophthalmic (eye) DAILY 05/14/24 05/14/24 oxycodone 5 mg tablet 5 mg PO QHS PRN Severe Pain #28 07/02/24 tabs levofloxacin 750 mg tablet 750 mg PO DAILY #7 tabs 08/03/24 Previous Rx's ?Medication ?Instructions ?Recorded apixaban 5 mg tablet (Eliquis) 5 mg PO BID #180 tab-caps 03/13/24 enalapril maleate 20 mg tablet 20 mg PO DAILY #90 tabs 03/13/24 finasteride 5 mg tablet 5 mg PO DAILY #90 tab-caps 04/09/24 oxycodone 5 mg tablet 5 mg PO QHS PRN Severe Pain #28 07/02/24 tabs levofloxacin 750 mg tablet 750 mg PO DAILY #7 tabs 08/03/24 Allergies Allergy/AdvReac Type Severity Reaction Status Date / Time No Known Allergies Allergy Verified 05/14/24 15:40 General Stated Complaint: Urinary MARY: 3 Exam Narrative Exam Narrative: 1.Const: Well-nourished, Well-developed, appearing stated age 2.Eyes: PERRL, no conjunctival injection, and symmetrical lids. 3.ENT: Atraumatic external nose and ears. Moist MM. Neck: Symmetric, trachea midline, No thyromegaly. 4.CVS: +S1/S2, Peripheral pulses 2+ and equal in all extremities. Brisk capillary refill in all extremities. 5.RESP: Unlabored respiratory effort. Clear to auscultation bilaterally. No wheezes rales or rhonchi 6.GI: Soft, Nontender/Nondistended, No hepatosplenomegaly. No guarding or rebound. No suprapubic pain or tenderness. Genital exam demonstrates normal male genitalia with no urethral bleeding or discharge. 7.MSK: Normocephalic/Atraumatic, Extremities w/o deformity or ttp No cyanosis or clubbing, Normal movement of all extremities 8.Skin: Warm, Dry. No rashes or lesions. 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 Sensation grossly intact, no focal neurologic deficits. 10.Psych: (AAO) x3. Appropriate mood and affect Course Vital Signs Vital signs: Vital Signs Temperature 36.1 C L 08/03/24 00:09 Pulse 82 08/03/24 00:09 Respiratory Rate 18 08/03/24 00:09 Blood Pressure 138/64 08/03/24 00:09 Pulse Oximetry 98 08/03/24 00:09 Temperature 36.1 C L 08/03/24 00:09 Temperature Source Temporal Artery Scan 08/03/24 00:09 Pulse 82 08/03/24 00:09 Respiratory Rate 18 08/03/24 00:09 Blood Pressure 138/64 08/03/24 00:09 Pulse Oximetry 98 08/03/24 00:09 Oxygen Delivery Method Room Air 08/03/24 00:09 Oxygen Flow Rate 0 08/03/24 00:09 Pain Level 2 08/03/24 00:09 Lab/Test Results Lab/Test Results: Laboratory Tests Range/Units 08/03/24 08/03/24 00:34 00:55 WBC (4.4-10.8) 10^3/uL 5.82 RBC (4.36-5.78) 10^6/uL 5.44 Hgb (13.5-17.5) g/dL 16.4 Hct (40.0-50.0) % 52.5 H MCV (80-95) fL 97 H MCH (27.0-33.0) pg 30.1 MCHC (32.0-36.0) % 31.2 L RDW (11.8-14.1) % 13.1 Plt Count (130-400) 10^3/uL 179 MPV (8.0-11.0) fL 11.0 Immature Gran % % 0.2 Neutrophils % % 75.1 Lymphocytes % % 13.2 Monocytes % % 8.2 Eosinophils % % 2.6 Basophils % % 0.7 Nucleated RBC % (0.0-0.3) % 0.0 Absolute Neutrophils (1.2-6.7) 10^3/uL 4.37 Absolute Lymphocytes (1.2-3.4) 10^3/uL 0.77 L Absolute Monocytes (0.1-0.8) 10^3/uL 0.48 Absolute Eosinophils (0.0-0.7) 10^3/uL 0.15 Absolute Basophils (0.0-0.2) 10^3/uL 0.04 Sodium (136-145) mmol/L 144 Potassium (3.5-5.1) mmol/L 4.2 Chloride (98-107) mmol/L 107 Carbon Dioxide (21.0-32.0) mmol/L 32.1 H Anion Gap (3-11) mmol/L 4.9 BUN (7-18) mg/dL 14 Creatinine (0.70-1.30) mg/dL 0.8 Est GFR (CKD-EPI 2020) (mL/min/1.73m2) 91.72 Glucose (74-106) mg/dL 83 Calcium (8.5-10.1) mg/dL 9.9 Total Bilirubin (0.2-1.0) mg/dL 0.7 AST (15-37) U/L 22 ALT (16-63) U/L 16 Alkaline Phosphatase (46-116) U/L 99 Total Protein (6.4-8.2) g/dL 6.9 Albumin (3.4-5.0) g/dL 3.3 L Urine Color (Yellow) Yellow Urine Clarity (Clear) Clear Urine pH (5-8) 6.5 Ur Specific [place] (1.005-1.025) 1.025 Urine Protein (Neg-Trace) mg/dL Negative Urine Ketones (Negative) mg/dL Negative Urine Blood (Negative) Small H Urine Nitrite (Negative) Negative Urine Bilirubin (Negative) Negative Urine Urobilinogen (Up to 0.2) mg/dL 1.0 H Ur Leukocyte Esterase (Negative) Trace H Urine RBC (0-2) HPF 3-5 H Urine WBC (0-5) HPF 3-5 Ur Epithelial Cells (Negative) HPF Rare Urine Crystals (Negative) HPF Negative Urine Bacteria (Negative) HPF Rare Urine Casts (Negative) LPF Negative Urine Mucus (Negative) Negative Ur Culture Indicated? No Urine Glucose (Negative) mg/dL Negative Medical Decision Making This is a pleasant 74-year-old male with past medical history of DVT/PE on Eliquis as well as A-fib, muscular dystrophy, pacemaker, BPH, hypertension, who presents today for evaluation of dysuria, and noticing a small bit of red-tinged component at the end of urination. He states that starting this evening and today he has had burning with urination. He denies seeing any blood clots. He denies any difficulty with urination. He denies fever or chills. He denies vomiting or diarrhea. No other complaints at this time. Exam demonstrates a well-appearing male, no abdominal tenderness, genital exam shows no signs of bleeding at the urethral meatus or other penile abnormality. Differential includes UTI, bladder cyst or irritation causing bleeding, especially with his Eliquis use. Kidney stone is on the differential as well, but notably less likely with no significant abdominal pain. Or flank pain or tenderness otherwise. Laboratory workup demonstrates no white count or bandemia. Platelets are normal. Electrolytes and renal function normal. Urinalysis shows small amount of blood, only 3-5 RBCs and 3-5 WBCs but he also has trace leuk esterase. Concern for potential mild UTI versus less likely prostatitis. Considering this we will use shakeel quinolone for treatment. With no evidence of large clots or significant hematuria I do not see an indication for emergent urology consultation. Patient will be discharged home with antibiotics, first dose will be given here. Recommend close follow-up with his PCP. Family request to follow-up with outpatient urology at [facility]. I have extensively reviewed the treatment plan and discharge instructions with the patient and their family. I have addressed all patient concerns at this time. The patient and family was made aware of what symptoms to monitor for that would warrant a return to the emergency department. Discussed the plan with the patient and family, they demonstrate verbal understanding and agreement with our assessment and plan at this time. The documentation in this chart was dictated using [employer] dictation software. Please excuse any dictation errors. Quality:SDOH Health Related Social Needs: Health related social needs details none PFSH All Active Problems (Updated 08/03/24 @ 01:20 by Ye Gallardo DO) Urinary tract infection (Acute) Mass of right parotid gland (Acute) Greater trochanteric bursitis of both hips (Acute) DEPO MEDROL 02/13/24 Restrictive airway disease (Acute) Bilateral hip pain (Acute) Aspiration pneumonitis (Acute) Hypoxic (Acute) Abdominal pain (Acute) Pulmonary embolus (Acute 05/03/14) Medical History Atelectasis Non-cardiac chest pain Chronic cough Myotonic dystrophy mild hearing loss Rosacea History of colonic polyps H/O carpal tunnel syndrome Benign prostatic hypertrophy Low back pain Hypertension Carpal tunnel syndrome right Contact dermatitis seborrhea Fracture of medial malleolus, right, closed (03/27/17) Hearing loss History of tobacco use Obesity Polyp of colon (05/25/10) 05/25/10; Tubular adenoma and hyperplastic 05/14/13; 4 polyps 05/19/16: tubular adenomas Raised prostate specific antigen neg. 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 right inguinal hernia repair b. umbilical hernia repair 1994 c. colonoscopy last done at [facility] 04/2013 showed tubular adenomatous polyp per report S/P cholecystectomy (~07/10/19) [facility] [place]air of umbilical hernia (~1994) Colonoscopy - [facility] (01/15/22) 2016 Extraction of cataract Family History Mother Diabetes Essential hypertension Personal history of malignant neoplasm BREAST/UTERINE Aortic valve stenosis Heart disease Hyperlipidemia Father Essential hypertension Personal history of malignant neoplasm COLON Heart disease Hyperlipidemia Stroke Brother Essential hypertension Heart disease Hyperlipidemia Brother Essential hypertension Hyperlipidemia Grandfather No problems noted. Grandfather No problems noted. Grandmother Diabetes Personal history of malignant neoplasm PANCREATIC Grandmother Essential hypertension Hyperlipidemia Stroke PATERNAL HISTORY Personal history of malignant neoplasm Depression Heart disease Myotonic dystrophy Sister Essential hypertension Personal history of malignant neoplasm BREAST Heart disease Hyperlipidemia Son Essential hypertension Hyperlipidemia Daughter No problems noted. Daughter Essential hypertension Depression Hyperlipidemia Daughter No problems noted. Daughter No problems noted. Other Cataract Social History Smoking/Tobacco Use Status: Former Tobacco Use tobacco type: cigarettes Quit Date: 03/28/98 Tobacco: How many years used: 14 Second Hand Exposure: Yes Smoking risk assessment performed?: Yes Alcohol Intake: former Year quit: 1997 Drug use: Never Substance use type: does not use Counseling given: No Housing: house Communication Needs: Hard of Hearing current occupation: Retired Pets and animals: No What is your relationship status?: How often do you talk on the phone with friends or family?: three or more times per week How often do you get together with friends or relatives?: three or more times per week Do you belong to any clubs or organized social groups?: no Panel score (0-1 are the most socially isolated patients): 2 What type of physical activity do you participate in: none Frequency: does not exercise Special lanre needs: No Agree to transfusion: Yes Seatbelt use: always Helmet use: No Drive intox or ride w/intox driver retraining instructor: No Working smoke detector in home: Yes Firearms in home: Yes Do you feel safe at home: Yes Do you feel safe in your relationship?: Yes Victim of physical abuse: No Victim of emotional abuse: No Victim of sexual abuse: No
[2024-08-03] MEDS: levoFLOXacin 500 MG, levoFLOXacin 250 MG 750 MG PO (01:23)
[2024-08-03 01:40] VITALS: BP 145/87; PULSE 68; RESP 18; O2SAT 96
== END 2024-08-03 01:41 | disposition home or self-care (01) ==
PROVIDERS: Emergency Provider Student in an Organized Health Care Education/Training Program; PCP Family Medicine
DX: N39.0 Urinary tract infection, site not specified (principal); R30.0 Dysuria; Z79.01 Long term (current) use of anticoagulants
CPT/HCPCS: 99283; 99284; 80053; 96360; 81003; 81015; 85025

== ENCOUNTER 2025-02-12 20:25 | Emergency (ER) | payer OTHER, SELFPAY ==
[2025-02-12] VITALS (12 sets, daily range): BP systolic 96–118; BP diastolic 64–75; PULSE 69–87; RESP 11–18; TEMP 36.4; O2SAT 91–97
--- NOTE | 2025-02-12 20:15 | RT.EKG_ITS ---
APPROVED REPORT Exam: Resting ECG Reason for Exam: low BP Patient Location: E HR:75 bpm ECG Measurements Heart Rate 75 AXIS OK [id number] P [id number] QRSd 159 QRS -48 QT 411 T 109 QTc 459 Conclusion Afib/flut and V-paced complexes...other complexes, A-rate>240
--- NOTE | 2025-02-12 20:36 | W.ED.GENAD ---
Discharge Plan Disposition Patient Disposition: Home Condition: Stable Discharge Details Clinical Impression: Diarrhea Primary Care Provider: Pool Hercules ED Provider: Sheila Cabrera Home Meds and New Rx's Prescriptions: No Action ascorbic acid (vitamin C) 1,000 mg capsule 1 g PO PRN cyanocobalamin (vitamin B-12) 1,000 mcg capsule 1,000 mcg PO DAILY latanoprost 0.005 % drops 1 drp ophthalmic (eye) DAILY Fortify Boling Probiotic 50 billion cell capsule,delayed release(DR/EC) 1 cap PO DAILY cholecalciferol (vitamin D3) 1,000 unit capsule 2,000 unit PO DAILY finasteride 5 mg tablet 5 mg PO DAILY Qty: 90 3RF Eliquis 5 mg tablet 5 mg PO BID Qty: 180 3RF Patient Comments: Last taken 02/12 AM; has NOT taken HS dose Rx Instructions: emergency supply enalapril maleate 20 mg tablet 20 mg PO DAILY Qty: 90 3RF Rx Instructions: emergency supply gabapentin 300 mg capsule 300 mg PO TID Patient Comments: tapering up to 1800mg per day, should be up to that dose by the end of this week. Discharge Instructions Instructions: Diarrhea, Adult ED Additional Instructions: At this time the electrolytes are within normal limits. Your blood pressure remained 113/63 throughout your stay here you are given IV fluids. Please continue to keep your self hydrated you may drink Gatorade or similar while having diarrhea. Follow up with primary care provider in 3-5 days. Return to ED sooner if any worsening episodes of dizziness, low blood pressure or concerns. Stand Alone Forms: Portal Information Referrals: Pool Hercules MD [Primary Care Provider, Medicine] - 3 days Referral Note: ER follow-up, call for appointment Clinical Impression: Diarrhea HPI General Mode of arrival: EMS. Date/Time Provider Initiated Documentation: 02/12/25 20:35. Limitations to Documentation: no limitations. Information obtained by: patient, EMS, RN notes reviewed and old records reviewed. HPI Narrative: 74 male presents to the ER from home via EMS with a chief complaint of confusion reported by bystanders and a low blood pressure. Patient reports that he has had diarrhea for the last 3 days which stopped today. Denies any vomiting or pain. He is alert and oriented x 4 upon arrival. Reports that his blood pressure was in the 80s systolic on scene. EMS states that they did give 100 systolic with lying supine. Patient states that when he stands up too fast he does get slightly lightheaded. Denies any chest pain, shortness of breath, fever, cough, abdominal pain or any other associated symptoms. Patient does have a past medical history of pacemaker, myotonic dystrophy, hypertension Related Data Home Medications Medication Instructions Recorded Confirmed cholecalciferol (vitamin D3) 25 2,000 unit PO DAILY 01/30/19 02/12/25 mcg (1,000 unit) capsule ascorbic acid (vitamin C) 1,000 mg 1 g PO PRN 10/28/22 02/12/25 capsule cyanocobalamin (vitamin B-12) 1,000 mcg PO DAILY 02/04/23 02/12/25 1,000 mcg capsule gabapentin 300 mg capsule 300 mg PO TID Leg pain and 12/21/23 02/12/25 discomfort L.acid-B.animalis-B.bifidum-B.infantis 1 cap PO DAILY 01/16/24 02/12/25 50 billion cell capsule,del rel (Fortify Boling Probiotic) latanoprost 0.005 % eye drops 1 drp ophthalmic (eye) DAILY 05/14/24 02/12/25 finasteride 5 mg tablet 5 mg PO DAILY #90 tab-caps 02/04/25 02/12/25 apixaban 5 mg tablet (Eliquis) 5 mg PO BID #180 tab-caps 02/06/25 02/12/25 enalapril maleate 20 mg tablet 20 mg PO DAILY #90 tabs 02/06/25 02/12/25 Previous Rx's Medication Instructions Recorded finasteride 5 mg tablet 5 mg PO DAILY #90 tab-caps 02/04/25 apixaban 5 mg tablet (Eliquis) 5 mg PO BID #180 tab-caps 02/06/25 enalapril maleate 20 mg tablet 20 mg PO DAILY #90 tabs 02/06/25 Allergies Allergy/AdvReac Type Severity Reaction Status Date / Time No Known Allergies Allergy Verified 09/11/24 10:22 General Stated Complaint: Nausea/Vomit/Diar MARY: 3 Review of Systems All systems reviewed & are unremarkable except as noted in HPI and below Constitutional Constitutional: Reports as per HPI Cardiovascular Cardiovascular: Reports lightheadedness Gastrointestinal Gastrointestinal: Reports diarrhea Exam Narrative Exam Narrative: Constitutional: Alert and oriented x3. Appears stated age. Normal body habitus. Head: Normocephalic, no trauma. Eyes: Pupils PERRL, Red reflex noted, EOM's intact. Eyelids symmetrical without lesions, discharge, or swelling. ENT: Bilateral TM's WNL, External ear normal to inspection, no mastoid TTP, swelling, or erythema, Nasal turbinates WNL, no nasal discharge. Normal dentition, Posterior pharynx WNL, no exudate. Chest: RRR, Normal S1, S2, distal pulses intact. Resp: Lungs clear to auscultation bilaterally, no wheezes, rales, or rhonchi. Abdomen: Soft, non-distended, Normoactive bowel sounds all 4 quads. Musculoskeletal: Moves all 4 extremities without difficulty. Skin: No suspicious rashes or lesions. Capillary refill less than 2 sec. Neurologic: Cranial nerves II-XII intact. Alert and oriented x 3. Motor: No deficits noted. Sensory: Intact bilaterally all 4 extremities. Hematologic/Lymphatic: No ecchymosis, no lymphadenopathy. Course Vital Signs Vital signs: Vital Signs Temperature 36.4 C L 02/12/25 20:24 Pulse 69 02/12/25 20:24 Respiratory Rate 18 02/12/25 20:24 Blood Pressure 112/75 02/12/25 20:24 Pulse Oximetry 97 02/12/25 20:24 Temperature 36.4 C L 02/12/25 20:24 Temperature Source Oral 02/12/25 20:24 Pulse 69 02/12/25 20:24 Respiratory Rate 18 02/12/25 20:24 Blood Pressure 112/75 02/12/25 20:24 Blood Pressure Position Supine 02/12/25 20:24 Pulse Oximetry 97 02/12/25 20:24 Oxygen Delivery Method Room Air 02/12/25 20:24 Oxygen Flow Rate 0 02/12/25 20:24 Pain Level 0 02/12/25 20:24 Medical Decision Making 74 male presents to the ER from home via EMS with a chief complaint of confusion reported by bystanders and a low blood pressure. Patient reports that he has had diarrhea for the last 3 days which stopped today. Denies any vomiting or pain. He is alert and oriented x 4 upon arrival. Reports that his blood pressure was in the 80s systolic on scene. EMS states that they did give 100 systolic with lying supine. Patient states that when he stands up too fast he does get slightly lightheaded. Denies any chest pain, shortness of breath, fever, cough, abdominal pain or any other associated symptoms. 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 He is ANO x 4 and has awake alert and conversive. Workup is largely unremarkable, no leukocytosis, no electrolyte abnormalities. Initial troponin within normal limits. Due to patient no complaints of chest pain serial troponins canceled. On patient reevaluation he reports he feels so he would like to be discharged home. Patient's blood pressure has remained approximately 113- 100 systolic while here in the emergency department. This text was generated using [employer] system, please disregard any oddities of phrase or misspellings. Medical Records Medical records reviewed: Yes I reviewed the patient's medical records. Lab Data Lab results reviewed: Yes I reviewed the patient's lab results. Labs: Laboratory Tests Range/Units 02/12/25 21:08 WBC (4.4-10.8) 10^3/uL 4.47 RBC (4.36-5.78) 10^6/uL 5.04 Hgb (13.5-17.5) g/dL 15.1 Hct (40.0-50.0) % 48.4 MCV (80-95) fL 96 H MCH (27.0-33.0) pg 30.0 MCHC (32.0-36.0) % 31.2 L RDW (11.8-14.1) % 12.8 Plt Count (130-400) 10^3/uL 175 MPV (8.0-11.0) fL 11.0 Immature Gran % % 0.0 Neutrophils % % 63.7 Lymphocytes % % 22.1 Monocytes % % 10.1 Eosinophils % % 3.4 Basophils % % 0.7 Nucleated RBC % (0.0-0.3) % 0.0 Absolute Neutrophils (1.2-6.7) 10^3/uL 2.85 Absolute Lymphocytes (1.2-3.4) 10^3/uL 0.99 L Absolute Monocytes (0.1-0.8) 10^3/uL 0.45 Absolute Eosinophils (0.0-0.7) 10^3/uL 0.15 Absolute Basophils (0.0-0.2) 10^3/uL 0.03 PT (9.1-11.1) sec 10.9 INR (0.9-1.1) 1.1 APTT (20.6-30.2) sec 26.5 Sodium (136-145) mmol/L 144 Potassium (3.5-5.1) mmol/L 4.7 Chloride (98-107) mmol/L 105 Carbon Dioxide (20.0-31.0) mmol/L 34.7 H Anion Gap (3-11) mmol/L 4.3 BUN (9-23) mg/dL 12 Creatinine (0.73-1.18) mg/dL 0.6 L Est GFR (CKD-EPI 2020) (mL/min/1.73m2) 130.72 Glucose (74-106) mg/dL 90 Calcium (8.3-10.6) mg/dL 10.2 Magnesium (1.6-2.6) mg/dL 2.2 Total Bilirubin (0.2-1.2) mg/dL 0.70 AST (<34) U/L 19 ALT (10-49) U/L 19 Alkaline Phosphatase (46-116) U/L 95 Troponin I (<54) ng/L 15 Total Protein (5.7-8.2) g/dL 6.5 Albumin (3.4-5.0) g/dL 4.1 Quality:SDOH Health Related Social Needs: Health related social needs details none PFSH All Active Problems (Updated 02/12/25 @ 22:13 by Sheila Cabrera NP) Diarrhea (Acute) Shoulder pain, right (Acute) Mass of right parotid gland (Acute) Greater trochanteric bursitis of both hips (Acute) DEPO MEDROL 02/13/24 Restrictive airway disease (Acute) Bilateral hip pain (Acute) Aspiration pneumonitis (Acute) Hypoxic (Acute) Abdominal pain (Acute) Pulmonary embolus (Acute 05/03/14) Medical History Atelectasis Non-cardiac chest pain Chronic cough Myotonic dystrophy mild hearing loss Rosacea History of colonic polyps H/O carpal tunnel syndrome Benign prostatic hypertrophy Low back pain Hypertension Carpal tunnel syndrome right Contact dermatitis seborrhea Fracture of medial malleolus, right, closed (03/27/17) Hearing loss History of tobacco use Obesity Polyp of colon (05/25/10) 05/25/10; Tubular adenoma and hyperplastic 05/14/13; 4 polyps 05/19/16: tubular adenomas Raised prostate specific antigen neg. 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 right inguinal hernia repair b. umbilical hernia repair 1994 c. colonoscopy last done at [place] 04/2013 showed tubular adenomatous polyp per report S/P cholecystectomy (~07/10/19) [facility] [place] Repair of umbilical hernia (~1994) Colonoscopy - MAC (01/15/22) 2017 Extraction of cataract Family History Mother Diabetes Essential hypertension Personal history of malignant neoplasm BREAST/UTERINE Aortic valve stenosis Heart disease Hyperlipidemia Father Essential hypertension Personal history of malignant neoplasm COLON Heart disease Hyperlipidemia Stroke Brother Essential hypertension Heart disease Hyperlipidemia Brother Essential hypertension Hyperlipidemia Grandfather No problems noted. Grandfather No problems noted. Grandmother Diabetes Personal history of malignant neoplasm PANCREATIC Grandmother Essential hypertension Hyperlipidemia Stroke PATERNAL HISTORY Personal history of malignant neoplasm Depression Heart disease Myotonic dystrophy Sister Essential hypertension Personal history of malignant neoplasm BREAST Heart disease Hyperlipidemia Son Essential hypertension Hyperlipidemia Daughter No problems noted. Daughter Essential hypertension Depression Hyperlipidemia Daughter No problems noted. Daughter No problems noted. Other Cataract Social History Smoking/Tobacco Use Status: Former Tobacco Use tobacco type: cigarettes Quit Date: 03/28/98 Tobacco: How many years used: 14 Second Hand Exposure: Yes Smoking risk assessment performed?: Yes Alcohol Intake: former Year quit: 1997 Drug use: Never Substance use type: does not use Counseling given: No Housing: house Communication Needs: Hard of Hearing current occupation: Retired Pets and animals: No What is your relationship status?: How often do you talk on the phone with friends or family?: three or more times per week How often do you get together with friends or relatives?: three or more times per week Do you belong to any clubs or organized social groups?: no Panel score (0-1 are the most socially isolated patients): 2 What type of physical activity do you participate in: none Frequency: does not exercise Special lanre needs: No Agree to transfusion: Yes Seatbelt use: always Helmet use: No Drive intox or ride w/intox 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
[2025-02-12 21:13] LABS: Abs Immature Grans 0.00 10^3/uL (0.0-0.06); HCT 48.4 % (40.0-50.0); HGB 15.1 g/dL (13.5-17.5); Immature Grans % 0.0 %; MCH 30.0 pg (27.0-33.0); MCHC 31.2 % (32.0-36.0); MCV 96 fL (80-95); MPV 11.0 fL (8.0-11.0); Platelet Count 175 10^3/uL (130-400); RBC 5.04 10^6/uL (4.36-5.78); RDW 12.8 % (11.8-14.1); RDW-SD 45.7 fL; WBC 4.47 10^3/uL (4.4-10.8)
[2025-02-12 21:27] LABS: INR 1.1 (0.9-1.1); PTT Activated 26.5 sec (20.6-30.2); Prothrombin Time 10.9 sec (9.1-11.1)
[2025-02-12 21:29] LABS: Magnesium 2.2 mg/dL (1.6-2.6); Troponin I 15 ng/L (<54)
[2025-02-12 21:31] LABS: ALT 19 U/L (10-49); AST 19 U/L (<34); Albumin 4.1 g/dL (3.4-5.0); Alkaline Phosphatase 95 U/L (46-116); Anion Gap 4.3 mmol/L (3-11); BUN 12 mg/dL (9-23); Bilirubin, Total 0.70 mg/dL (0.2-1.2); CO2 34.7 mmol/L (20.0-31.0); Calcium 10.2 mg/dL (8.3-10.6); Chloride 105 mmol/L (98-107); Glucose 90 mg/dL (74-106); Potassium 4.7 mmol/L (3.5-5.1); Sodium 144 mmol/L (136-145); Total Protein 6.5 g/dL (5.7-8.2)
[2025-02-12] MEDS: Normal Saline 500 ML IV (21:49)
== END 2025-02-12 22:29 | disposition home or self-care (01) ==
PROVIDERS: Emergency Provider Registered Nurse Emergency; PCP Family Medicine
DX: R19.7 Diarrhea, unspecified (principal)
CPT/HCPCS: 36415; 36416; 80053; 82962; 93005; 96360; 99284; 83735; 84484; 85025; 85610; 85730; 93010; 99283